=== PATIENT | female | born 1950 | race Caucasian/White ===

== ENCOUNTER 2017-03-14 16:35 | Inpatient (IN) | payer MEDICARE, OTHER ==
[~2017-03-14] VITALS: Ht 152.4 cm; Wt 37.4 kg
[2017-03-14 18:52] VITALS: BP 145/97
--- NOTE | 2017-03-14 21:50 | PDOC ---
Exam Kayden Demential Exam: Kayden Note: Please also refer to the separate dictated note~for this date of service dictated separately.~Patient seen individually. Discussed the patient with Nursing staff reviewed the chart.~Reviewed interim history and current functioning. Reviewed vital signs,~Labs/ Radiology~and current medications noted below. Continue current treatment with the changes noted in the dictated addendum note Assessment: Vital Signs: Vital Signs Date Time Temp Pulse Resp B/P (MAP) Pulse Ox O2 Delivery O2 Flow Rate FiO2 03/14/17 18:52 97.5 96 24 145/97 (113) 100 Diagnosis: Problems: (1) Anxiety disorder (2) Bipolar affective, mixed, sev w/ psych (3) Dementia, vascular, with depression (4) Dementia, vascular, with delusions (5) Dementia in Alzheimer's disease with depression (6) Dementia in Alzheimer's disease with delusions (7) Impulse control disorder MIRIAM BRASWELL MD Mar 14, 2017 21:50
[2017-03-14] MEDS ORDERED: POLY17PO5 PO (22:12)
[2017-03-14] MEDS ORDERED: GABA600T2 PO (22:12)
[2017-03-14] MEDS ORDERED: CHOL2000 PO (22:12)
[2017-03-14] MEDS ORDERED: BENZ1TAB5 PO ×2 (22:12→22:39)
[2017-03-14] MEDS ORDERED: LINA290C PO (22:12)
[2017-03-14] MEDS ORDERED: BUSP10TA PO (22:12)
[2017-03-14] MEDS ORDERED: ZIPR40CA2 PO (22:12)
[2017-03-14] MEDS ORDERED: PANT20TA58 PO (22:12)
[2017-03-14] MEDS ORDERED: SENN1TAB37 PO (22:12)
[2017-03-14] MEDS ORDERED: GLYC1SUP61 RC (22:12)
[2017-03-14] MEDS ORDERED: OMEG-33 PO (22:12)
[2017-03-14] MEDS ORDERED: GLYCERIN ADULT 1 SUPP.RECT. RC PRN (22:30)
[2017-03-14] MEDS ORDERED: HYDR-971 PO (22:39)
[2017-03-14] MEDS ORDERED: LACT10SO PO (22:39)
[2017-03-14] MEDS ORDERED: ACET325T9 PO (22:39)
[2017-03-14] MEDS ORDERED: MEGE400O4 PO (22:39)
[2017-03-14] MEDS ORDERED: OLAN10TA9 PO (22:39)
[2017-03-14] MEDS ORDERED: OMEP40CA5 PO (22:39)
[2017-03-14] MEDS: LACTULOSE 20 GM/30 ML SOLUTION. PO SCH (23:06)
[2017-03-14] MEDS: GABAPENTIN 300 MG CAPSULE. PO SCH (23:07)
[2017-03-14] MEDS: LINACLOTIDE 145 MCG CAPSULE. PO SCH (23:07)
[2017-03-14] MEDS: MEGESTROL 400 MG/10 ML ORAL.SUSP. PO SCH (23:07)
[2017-03-14] MEDS: busPIRone 10 MG TABLET. PO SCH (23:07)
[2017-03-14] MEDS: ZIPRASIDONE 40 MG CAPSULE. PO SCH (23:08)
[2017-03-14] MEDS: OLANZapine 10 MG TABLET PO SCH (23:08)
[2017-03-14] MEDS: SENNOSIDES/DOCUSATE 8.6/50MG TABLET. PO SCH (23:08)
[2017-03-14] MEDS: BENZTROPINE MESYLATE 1 MG TABLET PO SCH (23:08)
[2017-03-15] MEDS ORDERED: METHYL SALICYLATE/MENTHOL TOPICAL OINTMENT 29GM TUBE. TP PRN (01:15)
[2017-03-15] MEDS ORDERED: MAG HYDROX/AL HYDROX/SIMETH 30 ML ORAL.SUSP PO PRN (01:15)
[2017-03-15] MEDS ORDERED: MAGNESIUM HYDROXIDE 2,400 MG/30 ML ORAL.SUSP. PO PRN (01:15)
[2017-03-15] MEDS ORDERED: ACETAMINOPHEN 325 MG TABLET PO PRN (01:15)
[2017-03-15] MEDS: ACETAMINOPHEN 325 MG TABLET PO PRN ×2 (05:24→12:14)
[2017-03-15 06:22] VITALS: BP 136/89
[2017-03-15] MEDS: PANTOPRAZOLE 40 MG TABLET. PO SCH ×2 (07:30→08:13)
[2017-03-15 07:47] LABS: BILIRUBIN,URINE NEG (NEG); CLARITY,URINE CLOUDY; COLOR,URINE YELLOW; GLUCOSE,URINE NEG (NEG)
[2017-03-15 07:48] LABS: BACTERIA,URINE MANY /HPF (0-FEW); NITRITE,URINE NEG (NEG); SQUAMOUS EPITHELIAL CELL,UR OCC /LPF; UROBILINOGEN,URINE 0.2 mg/dL (0.2 mg/dL); WBC,URINE >40 /HPF (0-4)
[2017-03-15] MEDS: GABAPENTIN 300 MG CAPSULE. PO SCH ×2 (08:12→19:34)
[2017-03-15] MEDS: POLYETHYLENE GLYCOL 3350 17 GM PACKET. PO SCH (08:12)
[2017-03-15] MEDS: LACTULOSE 20 GM/30 ML SOLUTION. PO SCH ×2 (08:12→19:35)
[2017-03-15] MEDS: SENNOSIDES/DOCUSATE 8.6/50MG TABLET. PO SCH ×2 (08:12→19:34)
[2017-03-15] MEDS: BENZTROPINE MESYLATE 1 MG TABLET PO SCH ×3 (08:12→19:35)
[2017-03-15] MEDS: MEGESTROL 400 MG/10 ML ORAL.SUSP. PO SCH ×2 (08:12→19:35)
[2017-03-15] MEDS: busPIRone 10 MG TABLET. PO SCH ×3 (08:12→19:35)
[2017-03-15] MEDS: ZIPRASIDONE 40 MG CAPSULE. PO SCH ×2 (08:12→19:34)
[2017-03-15] MEDS: CHOLECALCIFEROL (VITAMIN D3) 1,000 UNIT TABLET PO SCH (08:12)
[2017-03-15] MEDS: OLANZapine 10 MG TABLET PO SCH ×3 (08:13→19:34)
[2017-03-15] MEDS: OMEGA-3 FATTY ACIDS/FISH OIL 1,000 MG CAPSULE. PO SCH (08:13)
[2017-03-15 10:09] LABS: ALBUMIN 3.4 g/dL (3.4-5.0); ALBUMIN/GLOBULIN RATIO 0.9 (1.0-1.7); CALCIUM 9.7 mg/dL (8.5-10.1); CREATININE 1.4 mg/dL (0.6-1.0); GFR 37.7; POTASSIUM 3.3 mmol/L (3.5-5.1); TOTAL BILIRUBIN 0.3 mg/dL (0.2-1.0); TOTAL PROTEIN 7.3 g/dL (6.4-8.2)
[2017-03-15 10:25] LABS: BASO % 1 % (0-3); EOS % 0 % (0-3); HEMATOCRIT 40.6 % (36.0-47.0); HEMOGLOBIN 13.5 g/dL (12.0-15.5); LYMPH # 0.9 x10^3/uL (1.0-4.8); LYMPH % 9 % (24-48); MEAN CORPUSCULAR HEMOGLOBIN 32 pg (25-35); MEAN CORPUSCULAR HGB CONC 33 g/dL (31-37); MEAN CORPUSCULAR VOLUME 96 fL (79-100); MONO # 0.5 x10^3/uL (0.0-1.1); MONO % 5 % (0-9); NEUT # 9.4 x10^3uL (1.8-7.7); NEUT % 86 % (31-73); PLATELET COUNT 230 x10^3/uL (140-400); RED BLOOD COUNT 4.21 x10^6/uL (3.50-5.40); RED CELL DISTRIBUTION WIDTH 15.5 % (11.5-14.5); WHITE BLOOD COUNT 10.9 x10^3/uL (4.0-11.0)
--- NOTE | 2017-03-15 12:23 | HP ---
ADMIT DATE: 03/14/2017 This is a late entry, date of service 03/14 covers elements not covered in my initial note of 03/14. SUBJECTIVE: I met with the patient evening of 03/14. Discussed with nursing staff, reviewed the chart. I had previously discussed the patient with the nursing staff several times to gather historical information from [facility] where the patient was admitted on 02/23. I also reviewed the psychiatric consult completed at [facility] recommending transfer to Geriatric Psychiatry Unit for her increased confusion, symptoms of bipolar disorder, psychosis and a failure of outpatient psychiatric interventions. CHIEF COMPLAINT: "Have bipolar." It is very difficult to understand the patient as his speech is pressured. She is somewhat rambling, babbling with a combination of nonverbal communication and head and neck gestures along with some of her verbalizations I was able to make out some of what is reflected in the history below. HISTORY OF PRESENT ILLNESS: The patient reportedly has a long history of bipolar 1 disorder, mixed with psychotic features and schizophrenia. She has been getting progressively more confused and demented. Reportedly, she fell running up her stairs at home on 02/23, resulted in her right humerus fracture. She was admitted to [facility] and after she was medically and orthopedically stabilized, she continued to be extremely disorganized, babbling, nonsensical in her speech, very impulsive disoriented, needing psychiatric stabilization and then perhaps a placement. No active suicidal or homicidal ideation. She has had sleep and appetite changes. PAST PSYCHIATRIC HISTORY: As above. She has been at [facility] in the past, date unknown. At [facility], she had neuropsychological testing, which was reflective of possible pseudodementia. She has also been an inpatient on the psychiatric facility at [facility]. MEDICAL HISTORY: Positive for status post fracture right humerus, chronic constipation, GERD, hyperlipidemia, urinary retention. She refuses to wear dentures. ALLERGIES: Benzodiazepines Ambien, Requip, diphenhydramine, Ativan, Valium. CODE STATUS: DNR. DIET: Dysphagia 2 with ground meat, thin liquids. Takes medication whole in applesauce. Ambulates wheelchair to person transfer with ambulation. CURRENT PSYCHOTROPICS: EMRAD was reviewed. She is currently on Cogentin 1 mg 3 times a day, BuSpar 10 mg 3 times a day, Neurontin 600 mg b.i.d., Geodon 40 mg twice a day. FAMILY HISTORY: Noncontributory. SOCIAL HISTORY: No history of alcohol or drug abuse, physical, sexual or elder abuse. She is not known to be a perpetrator. MENTAL STATUS EXAMINATION: The patient was seen individually evening of 03/14. She is oriented to herself, anxious, restless, difficult to understand, babbling in her speech. Insight, judgment, recent and remote memory, attention, concentration, fund of knowledge poor, consistent with her diagnosis. No active suicidal or homicidal ideation. REVIEW OF SYSTEMS: No CV, , pulmonary, eye, ENT system symptoms on review. Reliability poor. Gait unsteady as noted above. IMPRESSION: Schizoaffective disorder, bipolar type, mixed with psychotic features; major neurocognitive disorder; Alzheimer, vascular with depression, delusion, behavioral disturbance; anxiety disorder, unspecified; impulse control disorder, unspecified. Rest as above. PLAN: Admit to the geropsychiatry unit at [facility]. I will see the patient daily individually from a psychiatric standpoint. Medical followup per Dr. Ruiz/Dr. Inman. Continue current psychotropics. Observe the patient's baseline, then adjust as clinically indicated. Consider adding a mood stabilizer, perhaps Depakote and we will also request past records from [place] and [place]. MAN Kathleen BRASWELL MD DR: ANAM/aly JOB#: [id number] / [id number]
[2017-03-15 15:10] LABS: THYROID STIM HORMONE (TSH) 0.939 uIU/mL (0.358-3.740)
[2017-03-15 16:38] VITALS: BP 116/78
[2017-03-15] MEDS: POTASSIUM CL 40MEQ IN D5W 1,000 ML IV SCH (16:45)
--- NOTE | 2017-03-15 17:34 | RAD ---
CT abdomen and pelvis without contrast Indication:CHRONIC CONSTIPATION, URINARY RETENSION, IMPAIRED KIDNEY FUNCTION
NO CONTRAST PER ORDER
NO PRIORS. . Technique: Contiguous axial images are obtained through the abdomen and pelvis. No intravenous or oral contrast per request. Multiplanar reformatted images obtained. Exposure: One or more of the following individualized dose reduction techniques were utilized for this examination: 1. Automated exposure control 2. Adjustment of the mA and/or kV according to patient size 3. Use of iterative reconstruction technique. Comparison:None are available Findings: Urinary tracts: No evidence of hydronephrosis. Ureters are difficult to follow due to the lack of much surrounding fat but no obvious dilatation or obstructive calculus. Evaluation of solid viscera, bowel and vasculature is compromised by the noncontrast technique. In addition, the patient's arms are at the side which result in artifact, as does some patient motion. Lower thorax: Focal pulmonary opacity in the posterior right lung base, measuring about 3 cm diameter. Smaller pleural-based areas of density are also seen in the posterior left lung base. These are located inferiorly along the costophrenic angle. Mild coronary calcification is seen. Pneumoperitoneum: No definite gross pneumoperitoneum. Liver, spleen and pancreas: Obscured by artifact. No obvious abnormalities. Kidneys: Low-density lesion of the lower pole the right kidney measures 4 cm diameter, and measures 12 Hounsfield units, compatible with a cyst. Adrenals:No evidence of mass. Gallbladder: Distended. No evidence of calcified stone. Aorta: Nonaneurysmal. Lymph nodes: No significant enlargement GI tract: Severe distention of colon and rectum with gas and stool. No obvious acute pericolonic inflammatory type changes, although detection could be difficult due to the lack of much surrounding fat. There is mild rectal wall thickening. No evidence of significant small bowel dilatation. Appendix: Not clearly visualized. Ascites: No gross ascites. Urinary bladder: Moderately distended with urine. Small calcification in the uterus. This may represent a fibroid. Bones: Degenerative spondylosis. Severe loss of disc height L4-L5 with mild anterior subluxation of L4 on L5. Spinal and neural foraminal stenosis of the lower lumbar spine, greatest at L4-L5. IMPRESSION: 1. Findings compatible with severe constipation and colonic ileus. Mild rectal wall thickening, is nonspecific, could indicate mass, versus inflammatory or infectious thickening. 2. Abnormal opacities identified in both lung bases. These may be of inflammatory or infectious etiology, but neoplastic etiology not excludable. Recommend short-term follow-up with CT chest after treatment. 3. Gallbladder is distended. No evidence of calcified stone. Electronically signed by: Clarence Iverson MD (03/15/2017 5:30 PM) [facility]
[2017-03-15] MEDS ORDERED: SODIUM PHOSPHATES 19/7GM 133 ML ENEMA. PR PRN (19:00)
[2017-03-15 19:12] LABS: T3 TOTAL 75 ng/dL (71-180); THYROXINE 9.7 ug/dL (4.5-12.0)
[2017-03-15] MEDS: BISACODYL 10 MG SUPP.RECT PR PRN (19:16)
[2017-03-15] MEDS: LINACLOTIDE 145 MCG CAPSULE. PO SCH (19:36)
[2017-03-15] MEDS ORDERED: BENZTROPINE MESYLATE 1 MG TABLET PO SCH (21:00)
--- NOTE | 2017-03-15 21:52 | PDOC ---
Exam Kayden Demential Exam: Kayden Note: Please also refer to the separate dictated note~for this date of service dictated separately.~Patient seen individually. Discussed the patient with Nursing staff reviewed the chart.~Reviewed interim history and current functioning. Reviewed vital signs,~Labs/ Radiology~and current medications noted below. Continue current treatment with the changes noted in the dictated addendum note Assessment: Vital Signs: Vital Signs Date Time Temp Pulse Resp B/P (MAP) Pulse Ox O2 Delivery O2 Flow Rate FiO2 03/15/17 16:38 98.5 81 18 116/78 (91) 98 Room Air I&O Intake and Output 03/16/17 07:00 Intake Total 1020 ml Balance 1020 ml Intake Oral 1020 ml Labs: Laboratory Tests Test 03/15/17 06:30 03/15/17 09:27 Urine Collection Type U cath Urine Color Yellow Urine Clarity Cloudy Urine pH 6.0 Urine Specific [place] 1.015 Urine Protein 30 mg/dl (NEG-TRACE) Urine Glucose (UA) Neg mg/dL (NEG) Urine Ketones (Stick) Trace mg/dL (NEG) Urine Blood Large (NEG) Urine Nitrite Neg (NEG) Urine Bilirubin Neg (NEG) Urine Urobilinogen Dipstick 0.2 mg/dL (0.2 mg/dL) Urine Leukocyte Esterase Mod (NEG) Urine RBC 6-10 /HPF (0-2) Urine WBC >40 /HPF (0-4) Urine Squamous Epithelial Cells Occ /LPF Urine Bacteria Many /HPF (0-FEW) White Blood Count 10.9 x10^3/uL (4.0-11.0) Red Blood Count 4.21 x10^6/uL (3.50-5.40) Hemoglobin 13.5 g/dL (12.0-15.5) Hematocrit 40.6 % (36.0-47.0) Mean Corpuscular Volume 96 fL (79-100) Mean Corpuscular Hemoglobin 32 pg (25-35) Mean Corpuscular Hemoglobin Concent 33 g/dL (31-37) Red Cell Distribution Width 15.5 % (11.5-14.5) H Platelet Count 230 x10^3/uL (140-400) Neutrophils (%) (Auto) 86 % (31-73) H Lymphocytes (%) (Auto) 9 % (24-48) L Monocytes (%) (Auto) 5 % (0-9) Eosinophils (%) (Auto) 0 % (0-3) Basophils (%) (Auto) 1 % (0-3) Neutrophils # (Auto) 9.4 x10^3uL (1.8-7.7) H Lymphocytes # (Auto) 0.9 x10^3/uL (1.0-4.8) L Monocytes # (Auto) 0.5 x10^3/uL (0.0-1.1) Eosinophils # (Auto) 0.0 x10^3/uL (0.0-0.7) Basophils # (Auto) 0.0 x10^3/uL (0.0-0.2) Sodium Level 149 mmol/L (136-145) H Potassium Level 3.3 mmol/L (3.5-5.1) L Chloride Level 114 mmol/L (98-107) H Carbon Dioxide Level 16 mmol/L (21-32) L Anion Gap 19 (6-14) H Blood Urea Nitrogen 34 mg/dL (7-20) H Creatinine 1.4 mg/dL (0.6-1.0) H Estimated GFR (Cockcroft-Gault) 37.7 BUN/Creatinine Ratio 24 (6-20) H Glucose Level 150 mg/dL (70-99) H Calcium Level 9.7 mg/dL (8.5-10.1) Iron Level 52 ug/dL (50-170) Total Iron Binding Capacity 265 ug/dL (250-450) Iron Saturation 20 % (15-34) Total Bilirubin 0.3 mg/dL (0.2-1.0) Aspartate Amino Transferase (AST) 20 U/L (15-37) Alanine Aminotransferase (ALT) 30 U/L (14-59) Alkaline Phosphatase 161 U/L (46-116) H Total Protein 7.3 g/dL (6.4-8.2) Albumin 3.4 g/dL (3.4-5.0) Albumin/Globulin Ratio 0.9 (1.0-1.7) L Triglycerides Level 91 mg/dL (0-150) Cholesterol Level 228 mg/dL (0-200) H LDL Cholesterol, Calculated 165 mg/dL (0-100) H VLDL Cholesterol, Calculated 18 mg/dL (0-40) Non-HDL Cholesterol Calculated 183 mg/dL (0-129) H HDL Cholesterol 45 mg/dL (40-60) Cholesterol/HDL Ratio 5.0 Vitamin B12 Level 977 pg/mL (247-911) H 25-Hydroxy Vitamin D Total Pending Thyroid Stimulating Hormone (TSH) 0.939 uIU/mL (0.358-3.740) Thyroxine (T4) 9.7 ug/dL (4.5-12.0) Total Triiodothyronine (TT3) 75 ng/dL (71-180) RPR Titer Additional Testing Pending Current Medications: Meds: Current Medications Benztropine Mesylate (Cogentin) 1 mg TID PO Last administered on 03/15/17 19: 35; Start 03/14/17 at 22:30 Buspirone HCl (Buspar) 10 mg TID PO Last administered on 03/15/17 19:35; Start 03/14/17 at 22:30 Ziprasidone (Geodon) 40 mg BID PO Last administered on 03/15/17 19:34; Start 03/14/17 at 22:30 Glycerin (Sani-Supp Adult) 1 supp PRN DAILY PRN RC CONSTIPATION; Start at 22:30 Pantoprazole Sodium (Protonix) 40 mg DAILYAC PO Last administered on 03/15/17 08:13; Start 03/15/17 at 07:30 Polyethylene Glycol (miraLAX) 17 gm DAILY PO Last administered on 03/15/17 08: 12; Start 03/15/17 at 09:00 Senna/Docusate Sodium (Senna Plus) 1 tab BID PO Last administered on 03/15/17 19:34; Start 03/14/17 at 22:30 Vitamin D (Vitamin D3) 2,000 unit DAILY PO Last administered on 03/15/17 08:12 ; Start 03/15/17 at 09:00 Gabapentin (Neurontin) 600 mg BID PO Last administered on 03/15/17 19:34; Start 03/14/17 at 22:30 Non-Formulary Medication 290 mcg HS PO ; Start 03/15/17 at 21:00; Status UNV Fish Oil (Fish Oil) 1,000 mg DAILY PO Last administered on 03/15/17 08:13; Start 03/15/17 at 09:00 Benztropine Mesylate (Cogentin) 1 mg HS PO ; Start 03/15/17 at 21:00; Stop 03/15 at 21:00; Status DC Olanzapine (ZyPREXA) 10 mg TID PO Last administered on 03/15/17 19:34; Start 03/14/17 at 23:00 Acetaminophen (Tylenol) 650 mg PRN Q4HRS PRN PO PAIN / TEMP Last administered on 03/15/17 12:14; Start 03/14/17 at 22:45 Acetaminophen/ Hydrocodone Bitart (Lortab 5/325) 1 tab PRN Q6HRS PRN PO PAIN; Start 03/14/17 at 22:45 Megestrol Acetate (Megace) 400 mg BID PO Last administered on 03/15/17 19:35; Start 03/14/17 at 23:00 Lactulose 20 gm BID PO Last administered on 03/15/17 19:35; Start 03/14/17 at 23:00 Pantoprazole Sodium (Protonix) 40 mg DAILYAC PO ; Start 03/15/17 at 07:30 Acetaminophen (Tylenol) 650 mg PRN Q6HRS PRN PO PAIN / TEMP; Start 03/15/17 at 01:15 Multi-Ingredient Ointment (Analgesic [place]) 1 landon PRN QID PRN TP MUSCLE PAIN; Start 03/15/17 at 01:15 Al Hydroxide/Mg Hydroxide (Mylanta Plus Xs) 15 ml PRN AFTMEALHC PRN PO DYSPEPSIA; Start 03/15/17 at 01:15 Magnesium Hydroxide (Milk Of Magnesia) 2,400 mg PRN QHS PRN PO CONSTIPATION; Start 03/15/17 at 01:15 Potassium Chloride/Dextrose 1,000 ml @ 75 mls/hr [id number] IV Last administered on 03/15/17 16:45; Start 03/15/17 at 16:45 Divalproex Sodium (Depakote Sprinkles) 125 mg BID92 PO ; Start 03/16/17 at 09:00 Bisacodyl (Dulcolax Supp) 10 mg PRN DAILY PRN LA CONSTIPATION Last administered on 03/15/17 19:16; Start 03/15/17 at 19:00 Sodium Biphosphate/ Sodium Phosphate (Fleet Adult) 133 ml PRN DAILY PRN LA CONSTIPATION; Start 03/15/17 at 19:00 Active Scripts Active Reported Omeprazole 40 Mg Capsule.dr 40 Mg PO DAILY Olanzapine 10 Mg Tablet 10 Mg PO TID Megestrol Acetate 400 Mg/10 Ml Oral.susp 400 Mg PO BID Lactulose 10 Gm/15 Ml Solution 30 Ml PO BID Hold if no longer constipated [place] 5-325 Tablet (Hydrocodone Bit/Acetaminophen) 1 Each Tablet 1 Tab PO PRN Q6HRS PRN Tylenol (Acetaminophen) 325 Mg Tablet 650 Mg PO PRN Q4HRS PRN Benztropine Mesylate 1 Mg Tablet 1 Mg PO HS Suppository (Glycerin) 1 Each Supp.rect 1 Each RC PRN DAILY PRN Geodon (Ziprasidone Hcl) 40 Mg Capsule 40 Mg PO BID Sennosides-Docusate Sodium Tab (Sennosides/Docusate Sodium) 1 Each Tablet 1 Each PO BID Miralax (Polyethylene Glycol 3350) 17 Gm Powd.pack 17 Gm PO DAILY Protonix (Pantoprazole Sodium) 20 Mg Tablet.dr 20 Mg PO BID [place] 3 1,000 Mg Softgel ([place]-3 Fatty Acids/Fish Oil) 1 Each Capsule 1 Each PO DAILY Linzess (Linaclotide) 290 Mcg Capsule 290 Mcg PO HS Gabapentin 600 Mg Tablet 600 Mg PO BID Vitamin D (Cholecalciferol (Vitamin D3)) 2,000 Unit Capsule 2,000 Unit PO DAILY Buspirone Hcl 10 Mg Tablet 10 Mg PO TID Benztropine Mesylate 1 Mg Tablet 1 Mg PO TID Diagnosis: Problems: (1) Anxiety disorder (2) Bipolar affective, mixed, sev w/ psych (3) Dementia, vascular, with depression (4) Dementia, vascular, with delusions (5) Dementia in Alzheimer's disease with depression (6) Dementia in Alzheimer's disease with delusions (7) Impulse control disorder MIRIAM BRASWELL MD Mar 15, 2017 21:52
[2017-03-16] MEDS: POTASSIUM CL 40MEQ IN D5W 1,000 ML IV SCH ×2 (02:32→19:24)
[2017-03-16 04:12] LABS: HEMOGLOBIN A1C 4.8 % (4.8-5.6)
[2017-03-16 06:50] VITALS: BP 119/81
--- NOTE | 2017-03-16 06:59 | CONS ---
DATE OF CONSULTATION: REASON FOR CONSULTATION: Medical management. HISTORY OF PRESENT ILLNESS: The patient is a 67-year-old female patient who was transferred from [facility] where she was admitted for right humeral fracture. She was evaluated there and not medically stabilized, however, she continued to be extremely disorganized, babbling nonsensical in her speech, very impulsive, disoriented, needing psychiatric stabilization and then perhaps replacement. PAST MEDICAL HISTORY: Significant for chronic constipation, gastroesophageal reflux disease, hyperlipidemia, urinary retention and recent fall with fracture of right humerus, treated conservatively. PAST PSYCHIATRIC HISTORY: Significant for bipolar disorder, mixed with psychotic features and schizophrenia. PAST SURGICAL HISTORY: Unremarkable. ALLERGIES: She is allergic to BENZODIAZEPINES, AMBIEN, REQUIP, DIPHENHYDRAMINE, ATIVAN AND VALIUM. MEDICATIONS: She is currently on following medications: She is on Tylenol 650 mg every 4 hours, benztropine mesylate 1 mg 3 times a day, benztropine 1 mg at bedtime, buspirone 10 mg 3 times a day, cholecalciferol 2000 international units once a day, gabapentin 600 mg twice a day. She is on hydrocodone/APAP 5/325 one tablet every 6 hours, lactulose 30 mL p.o. b.i.d. for constipation, Linaclotide (Linzess) 290 mcg p.o. at bedtime. She is on Megace 400 mg twice a day, olanzapine 10 mg 3 times a day, omega-3 fatty acid 1000 mg soft gel daily, omeprazole 40 mg daily, Protonix 20 mg p.o. b.i.d., polyethylene glycol 17 grams daily, Senna-S 1 tablet p.o. b.i.d. and ziprasidone 40 mg twice a day. FAMILY HISTORY: Noncontributory. SOCIAL HISTORY: She used to live with her daughter. She apparently does not smoke, drink alcohol or use any recreational drugs. PHYSICAL EXAMINATION: GENERAL: When I examined her, she was resting, slightly propped up in bed, in no apparent respiratory distress. She was pale, cachectic, but no jaundice, cyanosis, or thyromegaly. No jugular venous distention. No limb edema. VITAL SIGNS: Her heart rate was 102, blood pressure was 136/89, temperature was 98.2, respiratory rate 22, and oxygen saturation was 100% on room air. HEENT: Normocephalic, atraumatic. NECK: Supple. HEART: Showed normal first and second heart sounds with no gallop, rub or murmur. CHEST: Clear to auscultation. No crepitation or rhonchi. ABDOMEN: Distended, soft, nontender. No guarding or rigidity. No organomegaly. Hernial orifices intact. Bowel sounds normal. NEUROLOGIC: She was awake, alert, responding appropriately. Cranial nerves intact. EXTREMITIES: She moves her extremities without difficulty except right upper extremity, which is in a splint. LABORATORY DATA: Showed that her serum sodium was high at 149, potassium low at 3.3. Her serum chloride was 114, bicarbonate 16 and anion gap of 19. BUN 34, creatinine 1.4, estimated GFR was 37 mL per minute. Her glucose 150, calcium was 9.7. Serum iron was 52, TIBC was 265, percent saturation was 20. Total bilirubin, AST, ALT were normal. Alkaline phosphatase slightly elevated. Total protein was 7.3, albumin 3.4. Her triglycerides were 91, total cholesterol 228, LDL cholesterol was 165, VLDL was 18, and HDL cholesterol was 45, the ratio was 5. Her serum vitamin B12 was 977 pg/mL. Her TSH was 0.939. Her white cell count was 10,900, hemoglobin 13.5, hematocrit 40.6, MCV 96, and platelet count 230,000 with normal manual differential. Her urinalysis showed the urine was yellow, cloudy with a pH of 6, specific gravity of 1.015. There was small amount of protein, negative for glucose, trace of ketones, large amount of blood. The urine was negative for nitrite. There was moderate amount of leukocyte esterase. There are 6-10 rbc's and more than 40 wbc's and too many bacteria. IMPRESSION: In summary, this is a 67-year-old female patient who was transferred from [facility] where she was admitted after a fall sustaining right humeral fracture, treated conservatively. Other than her bipolar disorder with schizophrenia, she has multiple abnormalities in her labs including chronic kidney disease, high anion gap metabolic acidosis, hyponatremia, hypokalemia. She also has obviously hyperlipidemia. Urinalysis showed the urine was positive for leukocyte esterase. There were more than 40 wbc's and many bacteria. The patient obviously extremely dehydrated, hyponatremic, hypokalemic. I am wondering whether starting on IV fluid in the form of D5W with potassium chloride must be a solution and placing a Gatica catheter for continuous drainage. Thank you Dr. Garcia for allowing me to participate in the care of this patient. SHARA MURGUIA MD DR: MALLIKA/aly JOB#: [id number] / [id number]
[2017-03-16 07:16] LABS: ALBUMIN 2.9 g/dL (3.4-5.0); ALBUMIN/GLOBULIN RATIO 0.9 (1.0-1.7); CALCIUM 8.9 mg/dL (8.5-10.1); CREATININE 1.1 mg/dL (0.6-1.0); GFR 49.8; POTASSIUM 3.7 mmol/L (3.5-5.1); TOTAL BILIRUBIN 0.4 mg/dL (0.2-1.0); TOTAL PROTEIN 6.3 g/dL (6.4-8.2)
[2017-03-16] MEDS: PANTOPRAZOLE 40 MG TABLET. PO SCH ×2 (07:30→08:40)
[2017-03-16] MEDS: GABAPENTIN 300 MG CAPSULE. PO SCH ×2 (08:39→19:30)
[2017-03-16] MEDS: LACTULOSE 20 GM/30 ML SOLUTION. PO SCH ×2 (08:39→19:31)
[2017-03-16] MEDS: BENZTROPINE MESYLATE 1 MG TABLET PO SCH ×2 (08:39→19:34)
[2017-03-16] MEDS: SENNOSIDES/DOCUSATE 8.6/50MG TABLET. PO SCH ×2 (08:39→19:31)
[2017-03-16] MEDS: OLANZapine 10 MG TABLET PO SCH (08:39)
[2017-03-16] MEDS: CHOLECALCIFEROL (VITAMIN D3) 1,000 UNIT TABLET PO SCH (08:39)
[2017-03-16] MEDS: OMEGA-3 FATTY ACIDS/FISH OIL 1,000 MG CAPSULE. PO SCH (08:39)
[2017-03-16] MEDS: POLYETHYLENE GLYCOL 3350 17 GM PACKET. PO SCH (08:40)
[2017-03-16] MEDS: busPIRone 10 MG TABLET. PO SCH (08:40)
[2017-03-16] MEDS: ZIPRASIDONE 40 MG CAPSULE. PO SCH ×2 (08:40→19:31)
[2017-03-16] MEDS: MEGESTROL 400 MG/10 ML ORAL.SUSP. PO SCH ×2 (08:41→21:00)
[2017-03-16] MEDS: DIVALPROEX 125 MG CAP.SPRINK PO SCH ×2 (08:41→14:39)
[2017-03-16 15:48] VITALS: BP 130/78
[2017-03-16] MEDS ORDERED: ENOXAPARIN 30 MG/0.3 ML DISP.SYRIN. SQ SCH (18:00)
[2017-03-16] MEDS: LINACLOTIDE 145 MCG CAPSULE. PO SCH (19:33)
[2017-03-16] MEDS: HYDROcodone/APAP 5/325MG 1 TAB TABLET PO PRN (20:54)
[2017-03-17 06:20] VITALS: BP 130/85
[2017-03-17] MEDS: SENNOSIDES/DOCUSATE 8.6/50MG TABLET. PO SCH ×2 (08:01→19:38)
[2017-03-17] MEDS: CHOLECALCIFEROL (VITAMIN D3) 1,000 UNIT TABLET PO SCH (08:01)
[2017-03-17] MEDS: ZIPRASIDONE 40 MG CAPSULE. PO SCH (08:01)
[2017-03-17] MEDS: DIVALPROEX 125 MG CAP.SPRINK PO SCH ×2 (08:01→13:30)
[2017-03-17] MEDS: BENZTROPINE MESYLATE 1 MG TABLET PO SCH ×2 (08:01→19:38)
[2017-03-17] MEDS: OMEGA-3 FATTY ACIDS/FISH OIL 1,000 MG CAPSULE. PO SCH (08:01)
[2017-03-17] MEDS: POLYETHYLENE GLYCOL 3350 17 GM PACKET. PO SCH (08:01)
[2017-03-17] MEDS: LACTULOSE 20 GM/30 ML SOLUTION. PO SCH ×2 (08:01→19:37)
[2017-03-17] MEDS: PANTOPRAZOLE 40 MG TABLET. PO SCH (08:02)
[2017-03-17] MEDS: GABAPENTIN 300 MG CAPSULE. PO SCH ×2 (08:02→19:38)
[2017-03-17] MEDS: MEGESTROL 400 MG/10 ML ORAL.SUSP. PO SCH ×2 (08:04→13:30)
[2017-03-17] MEDS: ENOXAPARIN 30 MG/0.3 ML DISP.SYRIN. SQ SCH (08:05)
[2017-03-17] MEDS: POTASSIUM CL 40MEQ IN D5W 1,000 ML IV SCH ×2 (08:33→22:08)
[2017-03-17 16:43] VITALS: BP 141/84
[2017-03-17] MEDS: ZIPRASIDONE 60 MG CAPSULE. PO SCH (19:40)
[2017-03-17] MEDS: LINACLOTIDE 145 MCG CAPSULE. PO SCH (19:41)
[2017-03-17] MEDS: SMZ/TMP 400/80MG TABLET. PO SCH (19:50)
--- NOTE | 2017-03-17 20:15 | PDOC ---
Exam Note: Kayden Note: Please also refer to the separate dictated note~for this date of service dictated separately.~Patient seen individually. Discussed the patient with Nursing staff reviewed the chart.~Reviewed interim history and current functioning. Reviewed vital signs,~Labs/ Radiology~and current medications noted below. Continue current treatment with the changes noted in the dictated addendum note Assessment: Vital Signs: Vital Signs Date Time Temp Pulse Resp B/P (MAP) Pulse Ox O2 Delivery O2 Flow Rate FiO2 03/17/17 16:43 99.1 96 22 141/84 (103) 98 03/16/17 21:54 Room Air I&O Intake and Output 03/18/17 07:00 Intake Total 2915 ml Balance 2915 ml Intake Oral 1915 ml IV Total 1000 ml # Bowel Movements 1 Current Medications: Meds: Current Medications Benztropine Mesylate (Cogentin) 1 mg TID PO Last administered on 03/16/17 08: 39; Start 03/14/17 at 22:30; Stop 03/16/17 at 11:57; Status DC Buspirone HCl (Buspar) 10 mg TID PO Last administered on 03/16/17 08:40; Start 03/14/17 at 22:30; Stop 03/16/17 at 11:57; Status DC Ziprasidone (Geodon) 40 mg BID PO Last administered on 03/17/17 08:01; Start 03/14/17 at 22:30; Stop 03/17/17 at 18:48; Status DC Glycerin (Sani-Supp Adult) 1 supp PRN DAILY PRN [place] CONSTIPATION; Start at 22:30 Pantoprazole Sodium (Protonix) 40 mg DAILYAC PO Last administered on 08:02; Start 03/15/17 at 07:30 Polyethylene Glycol (miraLAX) 17 gm DAILY PO Last administered on 03/17/17 08 :01; Start 03/15/17 at 09:00 Senna/Docusate Sodium (Senna Plus) 1 tab BID PO Last administered on 19:38; Start 03/14/17 at 22:30 Vitamin D (Vitamin D3) 2,000 unit DAILY PO Last administered on 03/17/17 08: 01; Start 03/15/17 at 09:00 Gabapentin (Neurontin) 600 mg BID PO Last administered on 03/17/17 19:38; Start 03/14/17 at 22:30 Non-Formulary Medication 290 mcg HS PO ; Start 03/15/17 at 21:00; Status UNV Fish Oil (Fish Oil) 1,000 mg DAILY PO Last administered on 03/17/17 08:01; Start 03/15/17 at 09:00 Benztropine Mesylate (Cogentin) 1 mg HS PO ; Start 03/15/17 at 21:00; Stop 03/15 at 21:00; Status DC Olanzapine (ZyPREXA) 10 mg TID PO Last administered on 03/16/17 08:39; Start 03/14/17 at 23:00; Stop 03/16/17 at 11:57; Status DC Acetaminophen (Tylenol) 650 mg PRN Q4HRS PRN PO PAIN / TEMP Last administered on 03/15/17 12:14; Start 03/14/17 at 22:45 Acetaminophen/ Hydrocodone Bitart (Lortab 5/325) 1 tab PRN Q6HRS PRN PO PAIN Last administered on 03/16/17 20:54; Start 03/14/17 at 22:45 Megestrol Acetate (Megace) 400 mg BID PO Last administered on 03/16/17 08:41; Start 03/14/17 at 23:00; Stop 03/16/17 at 21:03; Status DC Lactulose 20 gm BID PO Last administered on 03/17/17 19:37; Start 03/14/17 at 23:00 Pantoprazole Sodium (Protonix) 40 mg DAILYAC PO ; Start 03/15/17 at 07:30; Stop 03/16/17 at 19:39; Status DC Acetaminophen (Tylenol) 650 mg PRN Q6HRS PRN PO PAIN / TEMP; Start 03/15/17 at 01:15 Multi-Ingredient Ointment (Analgesic [place]) 1 landon PRN QID PRN TP MUSCLE PAIN; Start 03/15/17 at 01:15 Al Hydroxide/Mg Hydroxide (Mylanta Plus Xs) 15 ml PRN AFTMEALHC PRN PO DYSPEPSIA; Start 03/15/17 at 01:15 Magnesium Hydroxide (Milk Of Magnesia) 2,400 mg PRN QHS PRN PO CONSTIPATION; Start 03/15/17 at 01:15 Potassium Chloride/Dextrose 1,000 ml @ 75 mls/hr [id number] IV Last administered on 03/17/17 08:33; Start 03/15/17 at 16:45 Divalproex Sodium (Depakote Sprinkles) 125 mg BID92 PO Last administered on 13:30; Start 03/16/17 at 09:00 Bisacodyl (Dulcolax Supp) 10 mg PRN DAILY PRN [place] CONSTIPATION Last administered on 03/15/17 19:16; Start 03/15/17 at 19:00 Sodium Biphosphate/ Sodium Phosphate (Fleet Adult) 133 ml PRN DAILY PRN [place] CONSTIPATION Last administered on 03/16/17 05:09; Start 03/15/17 at 19:00 Benztropine Mesylate (Cogentin) 1 mg BID PO Last administered on 03/17/17 19: 38; Start 03/16/17 at 21:00; Stop 03/18/17 at 23:00 Benztropine Mesylate (Cogentin) 1 mg DAILY PO ; Start 03/19/17 at 09:00; Stop 03/21/17 at 12:00 Enoxaparin Sodium (Lovenox) 30 mg Q24H SQ ; Start 03/16/17 at 18:00; Stop at 18:29; Status DC Enoxaparin Sodium (Lovenox) 30 mg Q24H SQ Last administered on 03/17/17 08:05 ; Start 03/17/17 at 09:00 Megestrol Acetate (Megace) 400 mg BID92 PO Last administered on 03/17/17 13: 30; Start 03/17/17 at 09:00 Trimethoprim/ Sulfamethoxazole (Bactrim Ss) 1 tab BID PO Last administered on 03/17/17 19:50; Start 03/17/17 at 21:00; Stop 03/25/17 at 20:59 Ziprasidone (Geodon) 60 mg BID PO Last administered on 03/17/17 19:40; Start 03/17/17 at 21:00 Active Scripts Active Reported Omeprazole 40 Mg Capsule.dr 40 Mg PO DAILY Olanzapine 10 Mg Tablet 10 Mg PO TID Megestrol Acetate 400 Mg/10 Ml Oral.susp 400 Mg PO BID Lactulose 10 Gm/15 Ml Solution 30 Ml PO BID Hold if no longer constipated [place] 5-325 Tablet (Hydrocodone Bit/Acetaminophen) 1 Each Tablet 1 Tab PO PRN Q6HRS PRN Tylenol (Acetaminophen) 325 Mg Tablet 650 Mg PO PRN Q4HRS PRN Benztropine Mesylate 1 Mg Tablet 1 Mg PO HS Suppository (Glycerin) 1 Each Supp.rect 1 Each RC PRN DAILY PRN Geodon (Ziprasidone Hcl) 40 Mg Capsule 40 Mg PO BID Sennosides-Docusate Sodium Tab (Sennosides/Docusate Sodium) 1 Each Tablet 1 Each PO BID Miralax (Polyethylene Glycol 3350) 17 Gm Powd.pack 17 Gm PO DAILY Protonix (Pantoprazole Sodium) 20 Mg Tablet.dr 20 Mg PO BID [place] 3 1,000 Mg Softgel ([place]-3 Fatty Acids/Fish Oil) 1 Each Capsule 1 Each PO DAILY Linzess (Linaclotide) 290 Mcg Capsule 290 Mcg PO HS Gabapentin 600 Mg Tablet 600 Mg PO BID Vitamin D (Cholecalciferol (Vitamin D3)) 2,000 Unit Capsule 2,000 Unit PO DAILY Buspirone Hcl 10 Mg Tablet 10 Mg PO TID Benztropine Mesylate 1 Mg Tablet 1 Mg PO TID I have reviewed the current psychotropics carefully including drug interactions. Risk benefit ratio favors no change other than as noted in my dictated progress note. Diagnosis: Problems: (1) Anxiety disorder (2) Bipolar affective, mixed, sev w/ psych (3) Dementia, vascular, with depression (4) Dementia, vascular, with delusions (5) Dementia in Alzheimer's disease with depression (6) Dementia in Alzheimer's disease with delusions (7) Impulse control disorder MIRIAM BRASWELL MD Mar 17, 2017 20:15
[2017-03-17] MEDS: HYDROcodone/APAP 5/325MG 1 TAB TABLET PO PRN (21:49)
[2017-03-18 06:08] VITALS: BP 114/74
--- NOTE | 2017-03-18 06:59 | PN ---
DATE: 03/15/2017 This late entry, 03/15/2017, covers elements not covered in my initial order note of 03/15/2017. SUBJECTIVE: I met with the patient the evening of 03/15/2017. She is compliant with her medications, yelling, labile in her mood. UA has reflex to culture. Potassium was low. She received IV fluids D5 with 40 mEq of potassium. She was retaining urine. Gatica has been placed. We will be checking an abdominal ultrasound. She has had a large bowel movement, much calmer after that. REVIEW OF SYSTEMS: No CV, , pulmonary, eye, ENT system symptoms on review. Reliability poor. MENTAL STATUS EXAM: Oriented to herself. Insight, judgment, recent and remote memory, attention, concentration, fund of knowledge poor consistent with her diagnosis. Reviewed at some length her past records from [place]. DIAGNOSIS: Major neurocognitive disorder with secondary diagnosis of bipolar disorder. IMPRESSION: Unchanged from initial note. PLAN: Start Depakote Sprinkles 125 mg b.i.d. CBC, CMP, valproic acid level in 3 days. Continue rest of the psychotropics. Cogentin is 1 mg 3 times a day. We may need to taper and stop this given her marked constipation and delirium and confusion. We will reassess post-medical stabilization. Reviewed drug interactions. Risk/benefit ratio favors no further change. MIRIAM BRASWELL MD DR: ANAM/aly JOB#: [id number] / [id number]
--- NOTE | 2017-03-18 07:16 | PN ---
DATE: 03/16/2017 PSYCHIATRIC PROGRESS NOTE This late entry of 03/16/2017 covers elements not covered in my initial note of 03/16/2017. Seen individually on the evening of 03/16/2017. Staffed treatment team meeting with the entire team on morning of 03/16/2017 with the patient's daughter, Tawnya attending the conference. Reviewed her history at length. She has been treated by Dr. Yang, psychiatrist in the past, mainly via Skype tele psychiatry. She had ECT in 11/2016 because she was deemed to be manic, but following the ECT, she was once again extremely manic and daughter feels that she has not been right since then. She is extremely constipated. Appetite 40%, sleeping average 6-7 hours, receiving IV, has a Gatica, had a large bowel movement, day during 03/16/2017 was better and she was less agitated following the bowel movement, takes meds in applesauce. Past psychotropics have included lithium, Zyprexa and imipramine. She has also been on Thorazine and then was started on Cogentin, has been babbling in her speech. REVIEW OF SYSTEMS: Ambulation impaired. No CV, , pulmonary, eye system symptoms on review. MENTAL STATUS EXAMINATION: Oriented to herself. Insight, judgment, recent and remote memory, attention, concentration, fund of knowledge poor, consistent with her diagnosis as mentioned in my initial note. PLAN: Continue psychotropics including the addition of Depakote. Review drug interactions. We will taper and stop the Cogentin. Discontinue the BuSpar and discontinue the Zyprexa. Continue Geodon 40 mg b.i.d., Neurontin for now is 600 mg b.i.d. Adjust the Depakote to a therapeutic level, we may stop the Neurontin. Risk and benefit ratio favors no further change. MIRIAM BRASWELL MD DR: ANAM/aly JOB#: [id number] / [id number]
[2017-03-18] MEDS: SMZ/TMP 400/80MG TABLET. PO SCH ×2 (07:49→17:04)
[2017-03-18] MEDS: MEGESTROL 400 MG/10 ML ORAL.SUSP. PO SCH ×2 (07:49→13:31)
[2017-03-18] MEDS: LACTULOSE 20 GM/30 ML SOLUTION. PO SCH ×2 (07:49→17:04)
[2017-03-18] MEDS: PANTOPRAZOLE 40 MG TABLET. PO SCH (07:49)
[2017-03-18] MEDS: POLYETHYLENE GLYCOL 3350 17 GM PACKET. PO SCH (07:49)
[2017-03-18] MEDS: OMEGA-3 FATTY ACIDS/FISH OIL 1,000 MG CAPSULE. PO SCH (07:50)
[2017-03-18] MEDS: SENNOSIDES/DOCUSATE 8.6/50MG TABLET. PO SCH ×2 (07:50→17:04)
[2017-03-18] MEDS: BENZTROPINE MESYLATE 1 MG TABLET PO SCH ×2 (07:50→17:04)
[2017-03-18] MEDS: GABAPENTIN 300 MG CAPSULE. PO SCH ×2 (07:50→17:04)
[2017-03-18] MEDS: CHOLECALCIFEROL (VITAMIN D3) 1,000 UNIT TABLET PO SCH (07:50)
[2017-03-18] MEDS: ZIPRASIDONE 60 MG CAPSULE. PO SCH ×2 (07:50→17:04)
[2017-03-18] MEDS: DIVALPROEX 125 MG CAP.SPRINK PO SCH ×2 (07:50→13:31)
[2017-03-18] MEDS: ENOXAPARIN 30 MG/0.3 ML DISP.SYRIN. SQ SCH (07:51)
[2017-03-18 08:29] LABS: ALBUMIN 2.6 g/dL (3.4-5.0); ALBUMIN/GLOBULIN RATIO 0.7 (1.0-1.7); ALK PHOS 108 U/L (46-116); ALT (SGPT) 20 U/L (14-59); ANION GAP 11 (6-14); AST (SGOT) 17 U/L (15-37); BLOOD UREA NITROGEN 16 mg/dL (7-20); BUN/CREATININE RATIO 16 (6-20); CALCIUM 9.1 mg/dL (8.5-10.1); CARBON DIOXIDE 22 mmol/L (21-32); CHLORIDE 111 mmol/L (98-107); GFR 55.6; GLUCOSE 90 mg/dL (70-99); POTASSIUM 4.5 mmol/L (3.5-5.1); SODIUM 144 mmol/L (136-145); TOTAL BILIRUBIN 0.3 mg/dL (0.2-1.0); TOTAL PROTEIN 6.1 g/dL (6.4-8.2)
[2017-03-18 08:36] LABS: BASO % 1 % (0-3); EOS # 0.1 x10^3/uL (0.0-0.7); EOS % 1 % (0-3); HEMATOCRIT 34.4 % (36.0-47.0); HEMOGLOBIN 11.8 g/dL (12.0-15.5); LYMPH # 1.6 x10^3/uL (1.0-4.8); LYMPH % 23 % (24-48); MEAN CORPUSCULAR HEMOGLOBIN 33 pg (25-35); MEAN CORPUSCULAR HGB CONC 34 g/dL (31-37); MEAN CORPUSCULAR VOLUME 96 fL (79-100); MONO # 0.7 x10^3/uL (0.0-1.1); MONO % 10 % (0-9); NEUT # 4.7 x10^3uL (1.8-7.7); NEUT % 66 % (31-73); PLATELET COUNT 162 x10^3/uL (140-400); RED BLOOD COUNT 3.58 x10^6/uL (3.50-5.40); RED CELL DISTRIBUTION WIDTH 15.2 % (11.5-14.5); WHITE BLOOD COUNT 7.2 x10^3/uL (4.0-11.0)
[2017-03-18 08:55] LABS: MAGNESIUM 2.2 mg/dL (1.8-2.4)
[2017-03-18 08:57] LABS: VAL ACID 12 mcg/mL (50-100)
[2017-03-18] MEDS: POTASSIUM CL 40MEQ IN D5W 1,000 ML IV SCH ×2 (11:25→18:23)
[2017-03-18 16:13] VITALS: BP 127/72
[2017-03-18] MEDS: LINACLOTIDE 145 MCG CAPSULE. PO SCH (17:05)
[2017-03-18] MEDS: LACTOBACILLUS RHAMNOSUS GG 1 CAPSULE. PO SCH (18:21)
--- NOTE | 2017-03-18 20:02 | PDOC ---
Exam Note: Kayden Note: Please also refer to the separate dictated note~for this date of service dictated separately.~Patient seen individually. Discussed the patient with Nursing staff reviewed the chart.~Reviewed interim history and current functioning. Reviewed vital signs,~Labs/ Radiology~and current medications noted below. Continue current treatment with the changes noted in the dictated addendum note Assessment: Vital Signs: Vital Signs Date Time Temp Pulse Resp B/P (MAP) Pulse Ox O2 Delivery O2 Flow Rate FiO2 03/18/17 16:13 98.7 96 22 127/72 (90) 95 Room Air I&O Intake and Output 03/19/17 07:00 Intake Total 2280 ml Output Total 800 ml Balance 1480 ml Intake Oral 720 ml IV Total 1560 ml Output Urine Total 800 ml Labs: Laboratory Tests Test 03/18/17 07:59 White Blood Count 7.2 x10^3/uL (4.0-11.0) Red Blood Count 3.58 x10^6/uL (3.50-5.40) Hemoglobin 11.8 g/dL (12.0-15.5) L Hematocrit 34.4 % (36.0-47.0) L Mean Corpuscular Volume 96 fL (79-100) Mean Corpuscular Hemoglobin 33 pg (25-35) Mean Corpuscular Hemoglobin Concent 34 g/dL (31-37) Red Cell Distribution Width 15.2 % (11.5-14.5) H Platelet Count 162 x10^3/uL (140-400) Neutrophils (%) (Auto) 66 % (31-73) Lymphocytes (%) (Auto) 23 % (24-48) L Monocytes (%) (Auto) 10 % (0-9) H Eosinophils (%) (Auto) 1 % (0-3) Basophils (%) (Auto) 1 % (0-3) Neutrophils # (Auto) 4.7 x10^3uL (1.8-7.7) Lymphocytes # (Auto) 1.6 x10^3/uL (1.0-4.8) Monocytes # (Auto) 0.7 x10^3/uL (0.0-1.1) Eosinophils # (Auto) 0.1 x10^3/uL (0.0-0.7) Basophils # (Auto) 0.0 x10^3/uL (0.0-0.2) Sodium Level 144 mmol/L (136-145) Potassium Level 4.5 mmol/L (3.5-5.1) Chloride Level 111 mmol/L (98-107) H Carbon Dioxide Level 22 mmol/L (21-32) Anion Gap 11 (6-14) Blood Urea Nitrogen 16 mg/dL (7-20) Creatinine 1.0 mg/dL (0.6-1.0) Estimated GFR (Cockcroft-Gault) 55.6 BUN/Creatinine Ratio 16 (6-20) Glucose Level 90 mg/dL (70-99) Calcium Level 9.1 mg/dL (8.5-10.1) Magnesium Level 2.2 mg/dL (1.8-2.4) Total Bilirubin 0.3 mg/dL (0.2-1.0) Aspartate Amino Transferase (AST) 17 U/L (15-37) Alanine Aminotransferase (ALT) 20 U/L (14-59) Alkaline Phosphatase 108 U/L (46-116) Total Protein 6.1 g/dL (6.4-8.2) L Albumin 2.6 g/dL (3.4-5.0) L Albumin/Globulin Ratio 0.7 (1.0-1.7) L Valproic Acid Level 12 mcg/mL (50-100) L Valproic Acid Last Dose Date 03/17/17 Valproic Acid Last Dose Time 2100 Current Medications: Meds: Current Medications Benztropine Mesylate (Cogentin) 1 mg TID PO Last administered on 03/16/17 08: 39; Start 03/14/17 at 22:30; Stop 03/16/17 at 11:57; Status DC Buspirone HCl (Buspar) 10 mg TID PO Last administered on 03/16/17 08:40; Start 03/14/17 at 22:30; Stop 03/16/17 at 11:57; Status DC Ziprasidone (Geodon) 40 mg BID PO Last administered on 03/17/17 08:01; Start 03/14/17 at 22:30; Stop 03/17/17 at 18:48; Status DC Glycerin (Sani-Supp Adult) 1 supp PRN DAILY PRN RC CONSTIPATION; Start at 22:30 Pantoprazole Sodium (Protonix) 40 mg DAILYAC PO Last administered on 07:49; Start 03/15/17 at 07:30 Polyethylene Glycol (miraLAX) 17 gm DAILY PO Last administered on 03/18/17 07 :49; Start 03/15/17 at 09:00 Senna/Docusate Sodium (Senna Plus) 1 tab BID PO Last administered on 17:04; Start 03/14/17 at 22:30 Vitamin D (Vitamin D3) 2,000 unit DAILY PO Last administered on 03/18/17 07: 50; Start 03/15/17 at 09:00 Gabapentin (Neurontin) 600 mg BID PO Last administered on 03/18/17 17:04; Start 03/14/17 at 22:30 Non-Formulary Medication 290 mcg HS PO ; Start 03/15/17 at 21:00; Status UNV Fish Oil (Fish Oil) 1,000 mg DAILY PO Last administered on 03/18/17 07:50; Start 03/15/17 at 09:00 Benztropine Mesylate (Cogentin) 1 mg HS PO ; Start 03/15/17 at 21:00; Stop 03/15 at 21:00; Status DC Olanzapine (ZyPREXA) 10 mg TID PO Last administered on 03/16/17 08:39; Start 03/14/17 at 23:00; Stop 03/16/17 at 11:57; Status DC Acetaminophen (Tylenol) 650 mg PRN Q4HRS PRN PO PAIN / TEMP Last administered on 03/15/17 12:14; Start 03/14/17 at 22:45 Acetaminophen/ Hydrocodone Bitart (Lortab 5/325) 1 tab PRN Q6HRS PRN PO PAIN Last administered on 03/17/17 21:49; Start 03/14/17 at 22:45 Megestrol Acetate (Megace) 400 mg BID PO Last administered on 03/16/17 08:41; Start 03/14/17 at 23:00; Stop 03/16/17 at 21:03; Status DC Lactulose 20 gm BID PO Last administered on 03/18/17 17:04; Start 03/14/17 at 23:00 Pantoprazole Sodium (Protonix) 40 mg DAILYAC PO ; Start 03/15/17 at 07:30; Stop 03/16/17 at 19:39; Status DC Acetaminophen (Tylenol) 650 mg PRN Q6HRS PRN PO PAIN / TEMP; Start 03/15/17 at 01:15 Multi-Ingredient Ointment (Analgesic [place]) 1 landon PRN QID PRN TP MUSCLE PAIN; Start 03/15/17 at 01:15 Al Hydroxide/Mg Hydroxide (Mylanta Plus Xs) 15 ml PRN AFTMEALHC PRN PO DYSPEPSIA; Start 03/15/17 at 01:15 Magnesium Hydroxide (Milk Of Magnesia) 2,400 mg PRN QHS PRN PO CONSTIPATION; Start 03/15/17 at 01:15 Potassium Chloride/Dextrose 1,000 ml @ 75 mls/hr [id number] IV Last administered on 03/18/17 11:25; Start 03/15/17 at 16:45; Stop 03/18/17 at 18:24; Status DC Divalproex Sodium (Depakote Sprinkles) 125 mg BID92 PO Last administered on 13:31; Start 03/16/17 at 09:00; Stop 03/18/17 at 18:29; Status DC Bisacodyl (Dulcolax Supp) 10 mg PRN DAILY PRN [place] CONSTIPATION Last administered on 03/15/17 19:16; Start 03/15/17 at 19:00 Sodium Biphosphate/ Sodium Phosphate (Fleet Adult) 133 ml PRN DAILY PRN [place] CONSTIPATION Last administered on 03/16/17 05:09; Start 03/15/17 at 19:00 Benztropine Mesylate (Cogentin) 1 mg BID PO Last administered on 03/18/17 17: 04; Start 03/16/17 at 21:00; Stop 03/18/17 at 23:00 Benztropine Mesylate (Cogentin) 1 mg DAILY PO ; Start 03/19/17 at 09:00; Stop 03/21/17 at 12:00 Enoxaparin Sodium (Lovenox) 30 mg Q24H SQ ; Start 03/16/17 at 18:00; Stop at 18:29; Status DC Enoxaparin Sodium (Lovenox) 30 mg Q24H SQ Last administered on 03/18/17 07:51 ; Start 03/17/17 at 09:00 Megestrol Acetate (Megace) 400 mg BID92 PO Last administered on 03/18/17 13: 31; Start 03/17/17 at 09:00 Trimethoprim/ Sulfamethoxazole (Bactrim Ss) 1 tab BID PO Last administered on 03/18/17 17:04; Start 03/17/17 at 21:00; Stop 03/25/17 at 20:59 Ziprasidone (Geodon) 60 mg BID PO Last administered on 03/18/17 17:04; Start 03/17/17 at 21:00 Lactobacillus Rhamnosus (Culturelle) 1 cap BID PO Last administered on 18:21; Start 03/18/17 at 21:00 Divalproex Sodium (Depakote Sprinkles) 250 mg BID92 PO ; Start 03/19/17 at 09: 00 Active Scripts Active Reported Omeprazole 40 Mg Capsule.dr 40 Mg PO DAILY Olanzapine 10 Mg Tablet 10 Mg PO TID Megestrol Acetate 400 Mg/10 Ml Oral.susp 400 Mg PO BID Lactulose 10 Gm/15 Ml Solution 30 Ml PO BID Hold if no longer constipated [place] 5-325 Tablet (Hydrocodone Bit/Acetaminophen) 1 Each Tablet 1 Tab PO PRN Q6HRS PRN Tylenol (Acetaminophen) 325 Mg Tablet 650 Mg PO PRN Q4HRS PRN Benztropine Mesylate 1 Mg Tablet 1 Mg PO HS Suppository (Glycerin) 1 Each Supp.rect 1 Each RC PRN DAILY PRN Geodon (Ziprasidone Hcl) 40 Mg Capsule 40 Mg PO BID Sennosides-Docusate Sodium Tab (Sennosides/Docusate Sodium) 1 Each Tablet 1 Each PO BID Miralax (Polyethylene Glycol 3350) 17 Gm Powd.pack 17 Gm PO DAILY Protonix (Pantoprazole Sodium) 20 Mg Tablet.dr 20 Mg PO BID [place] 3 1,000 Mg Softgel ([place]-3 Fatty Acids/Fish Oil) 1 Each Capsule 1 Each PO DAILY Linzess (Linaclotide) 290 Mcg Capsule 290 Mcg PO HS Gabapentin 600 Mg Tablet 600 Mg PO BID Vitamin D (Cholecalciferol (Vitamin D3)) 2,000 Unit Capsule 2,000 Unit PO DAILY Buspirone Hcl 10 Mg Tablet 10 Mg PO TID Benztropine Mesylate 1 Mg Tablet 1 Mg PO TID I have reviewed the current psychotropics carefully including drug interactions. Risk benefit ratio favors no change other than as noted in my dictated progress note. Diagnosis: Problems: (1) Anxiety disorder (2) Bipolar affective, mixed, sev w/ psych (3) Dementia, vascular, with depression (4) Dementia, vascular, with delusions (5) Dementia in Alzheimer's disease with depression (6) Dementia in Alzheimer's disease with delusions (7) Impulse control disorder MIRIAM BRASWELL MD Mar 18, 2017 20:02
[2017-03-18] MEDS: HYDROcodone/APAP 5/325MG 1 TAB TABLET PO PRN (20:15)
[2017-03-19 06:41] VITALS: BP 126/72
[2017-03-19] MEDS: MEGESTROL 400 MG/10 ML ORAL.SUSP. PO SCH ×2 (07:33→14:00)
[2017-03-19] MEDS: LACTULOSE 20 GM/30 ML SOLUTION. PO SCH ×2 (07:33→18:22)
[2017-03-19] MEDS: ENOXAPARIN 30 MG/0.3 ML DISP.SYRIN. SQ SCH (07:34)
[2017-03-19] MEDS: CHOLECALCIFEROL (VITAMIN D3) 1,000 UNIT TABLET PO SCH (07:34)
[2017-03-19] MEDS: SENNOSIDES/DOCUSATE 8.6/50MG TABLET. PO SCH ×2 (07:34→18:22)
[2017-03-19] MEDS: OMEGA-3 FATTY ACIDS/FISH OIL 1,000 MG CAPSULE. PO SCH (07:35)
[2017-03-19] MEDS: PANTOPRAZOLE 40 MG TABLET. PO SCH (07:35)
[2017-03-19] MEDS: GABAPENTIN 300 MG CAPSULE. PO SCH ×2 (07:35→18:22)
[2017-03-19] MEDS: BENZTROPINE MESYLATE 1 MG TABLET PO SCH (07:35)
[2017-03-19] MEDS: DIVALPROEX 125 MG CAP.SPRINK PO SCH ×2 (07:35→14:00)
[2017-03-19] MEDS: ZIPRASIDONE 60 MG CAPSULE. PO SCH ×2 (07:36→18:22)
[2017-03-19] MEDS: POLYETHYLENE GLYCOL 3350 17 GM PACKET. PO SCH (07:36)
[2017-03-19] MEDS: SMZ/TMP 400/80MG TABLET. PO SCH ×2 (07:36→18:26)
[2017-03-19] MEDS: LACTOBACILLUS RHAMNOSUS GG 1 CAPSULE. PO SCH ×2 (07:36→18:22)
--- NOTE | 2017-03-19 08:26 | PN ---
DATE: 03/17/2017 This is a late entry for date of service 03/17/2017 and covers elements not covered in my initial note of 03/17/2017. I met with the patient the evening of 03/17/2017. The patient was noncompliant with her medications previous evening, irritable, yelling impulsive, wants to be out of bed, difficult to understand her. She does have an IV in place. Gatica is in place, will receive IV fluids 1 more day. UA is positive, started on Bactrim b.i.d. for 7 days. REVIEW OF SYSTEMS: Ambulation impaired. No CV, , pulmonary, eye, ENT system symptoms on review. Reliability poor. MENTAL STATUS EXAM: Oriented to herself. Insight, judgment, recent and remote memory, attention, concentration, fund of knowledge poor, consistent with her diagnosis. IMPRESSION: Reviewed records from [facility], 15-20 pages with a primary diagnosis of bipolar disorder, secondary of major neurocognitive disorder. Diagnosis unchanged from initial note. PLAN: Check EKG in 2 days, increase Geodon from 40 b.i.d. to 60 b.i.d. Consider Clozaril later. Maintain the rest of psychotropics as mentioned in my initial note. MIRIAM BRASWELL MD DR: ANAM/aly JOB#: [id number] / [id number]
[2017-03-19] MEDS: HYDROcodone/APAP 5/325MG 1 TAB TABLET PO PRN (10:12)
[2017-03-19 16:10] VITALS: BP 107/73
[2017-03-19] MEDS: LINACLOTIDE 145 MCG CAPSULE. PO SCH (18:26)
[2017-03-19] MEDS: cloZAPine 25 MG TABLET PO SCH (19:37)
[2017-03-19] MEDS: traZODone 100 MG TABLET. PO SCH (19:37)
--- NOTE | 2017-03-19 20:09 | PDOC ---
Exam Note: Kayden Note: Please also refer to the separate dictated note~for this date of service dictated separately.~Patient seen individually. Discussed the patient with Nursing staff reviewed the chart.~Reviewed interim history and current functioning. Reviewed vital signs,~Labs/ Radiology~and current medications noted below. Continue current treatment with the changes noted in the dictated addendum note Assessment: Vital Signs: Vital Signs Date Time Temp Pulse Resp B/P (MAP) Pulse Ox O2 Delivery O2 Flow Rate FiO2 03/19/17 16:10 98.8 88 18 107/73 (84) 100 Room Air I&O Intake and Output 03/20/17 07:00 Intake Total 720 ml Output Total 550 ml Balance 170 ml Intake Oral 720 ml Output Urine Total 550 ml Current Medications: Meds: Current Medications Benztropine Mesylate (Cogentin) 1 mg TID PO Last administered on 03/16/17 08: 39; Start 03/14/17 at 22:30; Stop 03/16/17 at 11:57; Status DC Buspirone HCl (Buspar) 10 mg TID PO Last administered on 03/16/17 08:40; Start 03/14/17 at 22:30; Stop 03/16/17 at 11:57; Status DC Ziprasidone (Geodon) 40 mg BID PO Last administered on 03/17/17 08:01; Start 03/14/17 at 22:30; Stop 03/17/17 at 18:48; Status DC Glycerin (Sani-Supp Adult) 1 supp PRN DAILY PRN RC CONSTIPATION; Start at 22:30 Pantoprazole Sodium (Protonix) 40 mg DAILYAC PO Last administered on 07:35; Start 03/15/17 at 07:30 Polyethylene Glycol (miraLAX) 17 gm DAILY PO Last administered on 03/19/17 07 :36; Start 03/15/17 at 09:00 Senna/Docusate Sodium (Senna Plus) 1 tab BID PO Last administered on 18:22; Start 03/14/17 at 22:30 Vitamin D (Vitamin D3) 2,000 unit DAILY PO Last administered on 03/19/17 07: 34; Start 03/15/17 at 09:00 Gabapentin (Neurontin) 600 mg BID PO Last administered on 03/19/17 18:22; Start 03/14/17 at 22:30 Non-Formulary Medication 290 mcg HS PO ; Start 03/15/17 at 21:00; Status UNV Fish Oil (Fish Oil) 1,000 mg DAILY PO Last administered on 03/19/17 07:35; Start 03/15/17 at 09:00 Benztropine Mesylate (Cogentin) 1 mg HS PO ; Start 03/15/17 at 21:00; Stop 03/15 at 21:00; Status DC Olanzapine (ZyPREXA) 10 mg TID PO Last administered on 03/16/17 08:39; Start 03/14/17 at 23:00; Stop 03/16/17 at 11:57; Status DC Acetaminophen (Tylenol) 650 mg PRN Q4HRS PRN PO PAIN / TEMP Last administered on 03/15/17 12:14; Start 03/14/17 at 22:45 Acetaminophen/ Hydrocodone Bitart (Lortab 5/325) 1 tab PRN Q6HRS PRN PO PAIN Last administered on 03/19/17 10:12; Start 03/14/17 at 22:45 Megestrol Acetate (Megace) 400 mg BID PO Last administered on 03/16/17 08:41; Start 03/14/17 at 23:00; Stop 03/16/17 at 21:03; Status DC Lactulose 20 gm BID PO Last administered on 03/19/17 18:22; Start 03/14/17 at 23:00 Pantoprazole Sodium (Protonix) 40 mg DAILYAC PO ; Start 03/15/17 at 07:30; Stop 03/16/17 at 19:39; Status DC Acetaminophen (Tylenol) 650 mg PRN Q6HRS PRN PO PAIN / TEMP; Start 03/15/17 at 01:15 Multi-Ingredient Ointment (Analgesic [place]) 1 landon PRN QID PRN TP MUSCLE PAIN; Start 03/15/17 at 01:15 Al Hydroxide/Mg Hydroxide (Mylanta Plus Xs) 15 ml PRN AFTMEALHC PRN PO DYSPEPSIA; Start 03/15/17 at 01:15 Magnesium Hydroxide (Milk Of Magnesia) 2,400 mg PRN QHS PRN PO CONSTIPATION; Start 03/15/17 at 01:15 Potassium Chloride/Dextrose 1,000 ml @ 75 mls/hr [id number] IV Last administered on 03/18/17 11:25; Start 03/15/17 at 16:45; Stop 03/18/17 at 18:24; Status DC Divalproex Sodium (Depakote Sprinkles) 125 mg BID92 PO Last administered on 13:31; Start 03/16/17 at 09:00; Stop 03/18/17 at 18:29; Status DC Bisacodyl (Dulcolax Supp) 10 mg PRN DAILY PRN DE CONSTIPATION Last administered on 03/15/17 19:16; Start 03/15/17 at 19:00 Sodium Biphosphate/ Sodium Phosphate (Fleet Adult) 133 ml PRN DAILY PRN DE CONSTIPATION Last administered on 03/16/17 05:09; Start 03/15/17 at 19:00 Benztropine Mesylate (Cogentin) 1 mg BID PO Last administered on 03/18/17 17: 04; Start 03/16/17 at 21:00; Stop 03/18/17 at 23:00; Status DC Benztropine Mesylate (Cogentin) 1 mg DAILY PO Last administered on 03/19/17 07:35; Start 03/19/17 at 09:00; Stop 03/21/17 at 12:00 Enoxaparin Sodium (Lovenox) 30 mg Q24H SQ ; Start 03/16/17 at 18:00; Stop at 18:29; Status DC Enoxaparin Sodium (Lovenox) 30 mg Q24H SQ Last administered on 03/19/17 07:34 ; Start 03/17/17 at 09:00 Megestrol Acetate (Megace) 400 mg BID92 PO Last administered on 03/19/17 14: 00; Start 03/17/17 at 09:00 Trimethoprim/ Sulfamethoxazole (Bactrim Ss) 1 tab BID PO Last administered on 03/19/17 18:26; Start 03/17/17 at 21:00; Stop 03/25/17 at 20:59 Ziprasidone (Geodon) 60 mg BID PO Last administered on 03/19/17 18:22; Start 03/17/17 at 21:00 Lactobacillus Rhamnosus (Culturelle) 1 cap BID PO Last administered on 18:22; Start 03/18/17 at 21:00 Divalproex Sodium (Depakote Sprinkles) 250 mg BID92 PO Last administered on 14:00; Start 03/19/17 at 09:00 Olanzapine (ZyPREXA ZYDIS) 5 mg PRN Q2HR PRN PO PSYCHOSIS Last administered on 03/19/17 07:04; Start 03/19/17 at 07:00 Clozapine (Clozaril) 25 mg HS PO Last administered on 03/19/17 19:37; Start 03/19/17 at 21:00 Trazodone HCl (Desyrel) 100 mg QHS PO Last administered on 03/19/17 19:37; Start 03/19/17 at 21:00 Trazodone HCl (Desyrel) 100 mg PRN QHS PRN PO INSOMNIA; Start 03/19/17 at 19: 15 Active Scripts Active Reported Omeprazole 40 Mg Capsule.dr 40 Mg PO DAILY Olanzapine 10 Mg Tablet 10 Mg PO TID Megestrol Acetate 400 Mg/10 Ml Oral.susp 400 Mg PO BID Lactulose 10 Gm/15 Ml Solution 30 Ml PO BID Hold if no longer constipated [place] 5-325 Tablet (Hydrocodone Bit/Acetaminophen) 1 Each Tablet 1 Tab PO PRN Q6HRS PRN Tylenol (Acetaminophen) 325 Mg Tablet 650 Mg PO PRN Q4HRS PRN Benztropine Mesylate 1 Mg Tablet 1 Mg PO HS Suppository (Glycerin) 1 Each Supp.rect 1 Each RC PRN DAILY PRN Geodon (Ziprasidone Hcl) 40 Mg Capsule 40 Mg PO BID Sennosides-Docusate Sodium Tab (Sennosides/Docusate Sodium) 1 Each Tablet 1 Each PO BID Miralax (Polyethylene Glycol 3350) 17 Gm Powd.pack 17 Gm PO DAILY Protonix (Pantoprazole Sodium) 20 Mg Tablet.dr 20 Mg PO BID [place] 3 1,000 Mg Softgel ([place]-3 Fatty Acids/Fish Oil) 1 Each Capsule 1 Each PO DAILY Linzess (Linaclotide) 290 Mcg Capsule 290 Mcg PO HS Gabapentin 600 Mg Tablet 600 Mg PO BID Vitamin D (Cholecalciferol (Vitamin D3)) 2,000 Unit Capsule 2,000 Unit PO DAILY Buspirone Hcl 10 Mg Tablet 10 Mg PO TID Benztropine Mesylate 1 Mg Tablet 1 Mg PO TID I have reviewed the current psychotropics carefully including drug interactions. Risk benefit ratio favors no change other than as noted in my dictated progress note. Diagnosis: Problems: (1) Anxiety disorder (2) Bipolar affective, mixed, sev w/ psych (3) Dementia, vascular, with depression (4) Dementia, vascular, with delusions (5) Dementia in Alzheimer's disease with depression (6) Dementia in Alzheimer's disease with delusions (7) Impulse control disorder MIRIAM BRASWELL MD Mar 19, 2017 20:09
--- NOTE | 2017-03-20 04:06 | PN ---
DATE: 03/18/2017 PSYCHIATRIC PROGRESS NOTE This late entry 03/18/2017 covers elements not covered in my initial note 03/18/2017. SUBJECTIVE: I met with the patient individually in her room. The patient had a very difficult day and night. She stays up much of the night constantly yelling, labile in her mood, psychotic. REVIEW OF SYSTEMS: Ambulation impaired. No CV, , pulmonary, eye, ENT system symptoms on review. Reliability poor. MENTAL STATUS EXAM: Oriented to herself. Insight, judgment, recent and remote memory, attention, concentration, fund of knowledge poor, consistent with her diagnosis mentioned in my initial note. PLAN: Depakote, currently 125 mg b.i.d., level is 12, will increase Depakote to 250 mg b.i.d. Check CBC, CMP, valproic acid level in 3 days. IV fluids. I will defer to Dr. Inman. Appetite is poor. Drinks fluids alright, however. Rest psychotropics unchanged from initial note. I have been called several times, but the nursing staff on account of the patient's ongoing mood lability, fairly disruptive, loud repetitive as noted. She is very psychotic. We have increased the Geodon to 60 mg b.i.d. We will go ahead and add Clozaril 25 mg p.o. at bedtime. Check CBC/CMP every Monday. Monitor absolute neutrophil counts. Increase the Clozaril and if she responds to this, there will be initiation of Depakote; we may then taper and stop the Geodon. Review of drug interactions at length, risk/benefit ratio favors no further change. MAN Kathleen BRASWELL MD DR: ANAM/aly JOB#: [id number] / [id number]
[2017-03-20 06:03] VITALS: BP 128/72
[2017-03-20 07:33] LABS: BASO % 1 % (0-3); EOS % 1 % (0-3); HEMATOCRIT 36.3 % (36.0-47.0); HEMOGLOBIN 12.3 g/dL (12.0-15.5); LYMPH # 1.6 x10^3/uL (1.0-4.8); LYMPH % 25 % (24-48); MEAN CORPUSCULAR HEMOGLOBIN 32 pg (25-35); MEAN CORPUSCULAR HGB CONC 34 g/dL (31-37); MEAN CORPUSCULAR VOLUME 94 fL (79-100); MONO # 0.5 x10^3/uL (0.0-1.1); MONO % 7 % (0-9); NEUT # 4.3 x10^3uL (1.8-7.7); NEUT % 66 % (31-73); PLATELET COUNT 155 x10^3/uL (140-400); RED BLOOD COUNT 3.84 x10^6/uL (3.50-5.40); WHITE BLOOD COUNT 6.4 x10^3/uL (4.0-11.0)
[2017-03-20 07:45] LABS: ALBUMIN 2.9 g/dL (3.4-5.0); ALBUMIN/GLOBULIN RATIO 0.8 (1.0-1.7); CALCIUM 9.5 mg/dL (8.5-10.1); GFR 55.6; POTASSIUM 4.3 mmol/L (3.5-5.1); TOTAL BILIRUBIN 0.3 mg/dL (0.2-1.0); TOTAL PROTEIN 6.7 g/dL (6.4-8.2)
[2017-03-20] MEDS: ENOXAPARIN 30 MG/0.3 ML DISP.SYRIN. SQ SCH (09:35)
[2017-03-20] MEDS: POLYETHYLENE GLYCOL 3350 17 GM PACKET. PO SCH (09:35)
[2017-03-20] MEDS: LACTULOSE 20 GM/30 ML SOLUTION. PO SCH ×2 (09:35→19:27)
[2017-03-20] MEDS: MEGESTROL 400 MG/10 ML ORAL.SUSP. PO SCH ×2 (09:35→14:35)
[2017-03-20] MEDS: GABAPENTIN 300 MG CAPSULE. PO SCH ×2 (09:35→19:26)
[2017-03-20] MEDS: SENNOSIDES/DOCUSATE 8.6/50MG TABLET. PO SCH ×2 (09:36→19:26)
[2017-03-20] MEDS: OMEGA-3 FATTY ACIDS/FISH OIL 1,000 MG CAPSULE. PO SCH (09:36)
[2017-03-20] MEDS: CHOLECALCIFEROL (VITAMIN D3) 1,000 UNIT TABLET PO SCH (09:36)
[2017-03-20] MEDS: DIVALPROEX 125 MG CAP.SPRINK PO SCH ×2 (09:36→14:35)
[2017-03-20] MEDS: LACTOBACILLUS RHAMNOSUS GG 1 CAPSULE. PO SCH ×2 (09:37→19:26)
[2017-03-20] MEDS: ZIPRASIDONE 60 MG CAPSULE. PO SCH ×2 (09:37→19:26)
[2017-03-20] MEDS: BENZTROPINE MESYLATE 1 MG TABLET PO SCH (09:37)
[2017-03-20] MEDS: SMZ/TMP 400/80MG TABLET. PO SCH ×2 (09:37→19:28)
[2017-03-20] MEDS: PANTOPRAZOLE 40 MG TABLET. PO SCH (09:37)
--- NOTE | 2017-03-20 09:41 | EKG ---
[address] [address] Test Date: 2017-03-20 Test Time: 09:06:50 Pat Name: KENYON HERRERA Department: Room: [address] [place] [address] Gender: F Country Sales Manager: : 1950 Requested By: MIRIAM BRASWELL Order Number: [id number] Reading MD: Bryan Rider MD Measurements Intervals [place] Rate: 86 P: 78 VA: 148 QRS: 43 QRSD: 70 T: 78 QT: 354 QTc: 427 Interpretive Statements SINUS RHYTHM Electronically Signed On 03-20-2017 10:32:51 [employer] ETL DEVELOPER by Bryan Rider MD
[2017-03-20 16:22] VITALS: BP 152/80
[2017-03-20] MEDS: traZODone 100 MG TABLET. PO SCH (19:26)
[2017-03-20] MEDS: cloZAPine 25 MG TABLET PO SCH (19:26)
[2017-03-20] MEDS: LINACLOTIDE 145 MCG CAPSULE. PO SCH (19:28)
--- NOTE | 2017-03-20 20:18 | PDOC ---
Exam Note: Kayden Note: Please also refer to the separate dictated note~for this date of service dictated separately.~Patient seen individually. Discussed the patient with Nursing staff reviewed the chart.~Reviewed interim history and current functioning. Reviewed vital signs,~Labs/ Radiology~and current medications noted below. Continue current treatment with the changes noted in the dictated addendum note Assessment: Vital Signs: Vital Signs Date Time Temp Pulse Resp B/P (MAP) Pulse Ox O2 Delivery O2 Flow Rate FiO2 03/20/17 16:22 97.5 102 16 152/80 (104) 98 03/19/17 16:10 Room Air I&O Intake and Output 03/20/17 07:00 Intake Total 1200 ml Output Total 550 ml Balance 650 ml Intake Oral 1200 ml Output Urine Total 550 ml # Bowel Movements 1 Labs: Laboratory Tests Test 03/20/17 07:20 White Blood Count 6.4 x10^3/uL (4.0-11.0) Red Blood Count 3.84 x10^6/uL (3.50-5.40) Hemoglobin 12.3 g/dL (12.0-15.5) Hematocrit 36.3 % (36.0-47.0) Mean Corpuscular Volume 94 fL (79-100) Mean Corpuscular Hemoglobin 32 pg (25-35) Mean Corpuscular Hemoglobin Concent 34 g/dL (31-37) Red Cell Distribution Width 15.0 % (11.5-14.5) H Platelet Count 155 x10^3/uL (140-400) Neutrophils (%) (Auto) 66 % (31-73) Lymphocytes (%) (Auto) 25 % (24-48) Monocytes (%) (Auto) 7 % (0-9) Eosinophils (%) (Auto) 1 % (0-3) Basophils (%) (Auto) 1 % (0-3) Neutrophils # (Auto) 4.3 x10^3uL (1.8-7.7) Lymphocytes # (Auto) 1.6 x10^3/uL (1.0-4.8) Monocytes # (Auto) 0.5 x10^3/uL (0.0-1.1) Eosinophils # (Auto) 0.0 x10^3/uL (0.0-0.7) Basophils # (Auto) 0.0 x10^3/uL (0.0-0.2) Sodium Level 145 mmol/L (136-145) Potassium Level 4.3 mmol/L (3.5-5.1) Chloride Level 111 mmol/L (98-107) H Carbon Dioxide Level 23 mmol/L (21-32) Anion Gap 11 (6-14) Blood Urea Nitrogen 24 mg/dL (7-20) H Creatinine 1.0 mg/dL (0.6-1.0) Estimated GFR (Cockcroft-Gault) 55.6 BUN/Creatinine Ratio 24 (6-20) H Glucose Level 93 mg/dL (70-99) Calcium Level 9.5 mg/dL (8.5-10.1) Total Bilirubin 0.3 mg/dL (0.2-1.0) Aspartate Amino Transferase (AST) 16 U/L (15-37) Alanine Aminotransferase (ALT) 23 U/L (14-59) Alkaline Phosphatase 111 U/L (46-116) Total Protein 6.7 g/dL (6.4-8.2) Albumin 2.9 g/dL (3.4-5.0) L Albumin/Globulin Ratio 0.8 (1.0-1.7) L Current Medications: Meds: Current Medications Benztropine Mesylate (Cogentin) 1 mg TID PO Last administered on 03/16/17 08: 39; Start 03/14/17 at 22:30; Stop 03/16/17 at 11:57; Status DC Buspirone HCl (Buspar) 10 mg TID PO Last administered on 03/16/17 08:40; Start 03/14/17 at 22:30; Stop 03/16/17 at 11:57; Status DC Ziprasidone (Geodon) 40 mg BID PO Last administered on 03/17/17 08:01; Start 03/14/17 at 22:30; Stop 03/17/17 at 18:48; Status DC Glycerin (Sani-Supp Adult) 1 supp PRN DAILY PRN RC CONSTIPATION; Start at 22:30 Pantoprazole Sodium (Protonix) 40 mg DAILYAC PO Last administered on 09:37; Start 03/15/17 at 07:30 Polyethylene Glycol (miraLAX) 17 gm DAILY PO Last administered on 03/20/17 09 :35; Start 03/15/17 at 09:00 Senna/Docusate Sodium (Senna Plus) 1 tab BID PO Last administered on 19:26; Start 03/14/17 at 22:30 Vitamin D (Vitamin D3) 2,000 unit DAILY PO Last administered on 03/20/17 09: 36; Start 03/15/17 at 09:00 Gabapentin (Neurontin) 600 mg BID PO Last administered on 03/20/17 19:26; Start 03/14/17 at 22:30 Non-Formulary Medication 290 mcg HS PO ; Start 03/15/17 at 21:00; Status UNV Fish Oil (Fish Oil) 1,000 mg DAILY PO Last administered on 03/20/17 09:36; Start 03/15/17 at 09:00 Benztropine Mesylate (Cogentin) 1 mg HS PO ; Start 03/15/17 at 21:00; Stop 03/15 at 21:00; Status DC Olanzapine (ZyPREXA) 10 mg TID PO Last administered on 03/16/17 08:39; Start 03/14/17 at 23:00; Stop 03/16/17 at 11:57; Status DC Acetaminophen (Tylenol) 650 mg PRN Q4HRS PRN PO PAIN / TEMP Last administered on 03/15/17 12:14; Start 03/14/17 at 22:45 Acetaminophen/ Hydrocodone Bitart (Lortab 5/325) 1 tab PRN Q6HRS PRN PO PAIN Last administered on 03/19/17 10:12; Start 03/14/17 at 22:45 Megestrol Acetate (Megace) 400 mg BID PO Last administered on 03/16/17 08:41; Start 03/14/17 at 23:00; Stop 03/16/17 at 21:03; Status DC Lactulose 20 gm BID PO Last administered on 03/20/17 19:27; Start 03/14/17 at 23:00 Pantoprazole Sodium (Protonix) 40 mg DAILYAC PO ; Start 03/15/17 at 07:30; Stop 03/16/17 at 19:39; Status DC Acetaminophen (Tylenol) 650 mg PRN Q6HRS PRN PO PAIN / TEMP; Start 03/15/17 at 01:15 Multi-Ingredient Ointment (Analgesic [place]) 1 landon PRN QID PRN TP MUSCLE PAIN; Start 03/15/17 at 01:15 Al Hydroxide/Mg Hydroxide (Mylanta Plus Xs) 15 ml PRN AFTMEALHC PRN PO DYSPEPSIA; Start 03/15/17 at 01:15 Magnesium Hydroxide (Milk Of Magnesia) 2,400 mg PRN QHS PRN PO CONSTIPATION; Start 03/15/17 at 01:15 Potassium Chloride/Dextrose 1,000 ml @ 75 mls/hr [id number] IV Last administered on 03/18/17 11:25; Start 03/15/17 at 16:45; Stop 03/18/17 at 18:24; Status DC Divalproex Sodium (Depakote Sprinkles) 125 mg BID92 PO Last administered on 13:31; Start 03/16/17 at 09:00; Stop 03/18/17 at 18:29; Status DC Bisacodyl (Dulcolax Supp) 10 mg PRN DAILY PRN [place] CONSTIPATION Last administered on 03/15/17 19:16; Start 03/15/17 at 19:00 Sodium Biphosphate/ Sodium Phosphate (Fleet Adult) 133 ml PRN DAILY PRN [place] CONSTIPATION Last administered on 03/16/17 05:09; Start 03/15/17 at 19:00 Benztropine Mesylate (Cogentin) 1 mg BID PO Last administered on 03/18/17 17: 04; Start 03/16/17 at 21:00; Stop 03/18/17 at 23:00; Status DC Benztropine Mesylate (Cogentin) 1 mg DAILY PO Last administered on 03/20/17 09:37; Start 03/19/17 at 09:00; Stop 03/21/17 at 12:00 Enoxaparin Sodium (Lovenox) 30 mg Q24H SQ ; Start 03/16/17 at 18:00; Stop at 18:29; Status DC Enoxaparin Sodium (Lovenox) 30 mg Q24H SQ Last administered on 03/20/17 09:35 ; Start 03/17/17 at 09:00 Megestrol Acetate (Megace) 400 mg BID92 PO Last administered on 03/20/17 14: 35; Start 03/17/17 at 09:00 Trimethoprim/ Sulfamethoxazole (Bactrim Ss) 1 tab BID PO Last administered on 03/20/17 19:28; Start 03/17/17 at 21:00; Stop 03/25/17 at 20:59 Ziprasidone (Geodon) 60 mg BID PO Last administered on 03/20/17 19:26; Start 03/17/17 at 21:00 Lactobacillus Rhamnosus (Culturelle) 1 cap BID PO Last administered on 19:26; Start 03/18/17 at 21:00 Divalproex Sodium (Depakote Sprinkles) 250 mg BID92 PO Last administered on 14:35; Start 03/19/17 at 09:00 Olanzapine (ZyPREXA ZYDIS) 5 mg PRN Q2HR PRN PO PSYCHOSIS Last administered on 03/19/17 07:04; Start 03/19/17 at 07:00 Clozapine (Clozaril) 25 mg HS PO Last administered on 03/20/17 19:26; Start 03/19/17 at 21:00 Trazodone HCl (Desyrel) 100 mg QHS PO Last administered on 03/20/17 19:26; Start 03/19/17 at 21:00 Trazodone HCl (Desyrel) 100 mg PRN QHS PRN PO INSOMNIA; Start 03/19/17 at 19: 15 Active Scripts Active Reported Omeprazole 40 Mg Capsule.dr 40 Mg PO DAILY Olanzapine 10 Mg Tablet 10 Mg PO TID Megestrol Acetate 400 Mg/10 Ml Oral.susp 400 Mg PO BID Lactulose 10 Gm/15 Ml Solution 30 Ml PO BID Hold if no longer constipated [place] 5-325 Tablet (Hydrocodone Bit/Acetaminophen) 1 Each Tablet 1 Tab PO PRN Q6HRS PRN Tylenol (Acetaminophen) 325 Mg Tablet 650 Mg PO PRN Q4HRS PRN Benztropine Mesylate 1 Mg Tablet 1 Mg PO HS Suppository (Glycerin) 1 Each Supp.rect 1 Each RC PRN DAILY PRN Geodon (Ziprasidone Hcl) 40 Mg Capsule 40 Mg PO BID Sennosides-Docusate Sodium Tab (Sennosides/Docusate Sodium) 1 Each Tablet 1 Each PO BID Miralax (Polyethylene Glycol 3350) 17 Gm Powd.pack 17 Gm PO DAILY Protonix (Pantoprazole Sodium) 20 Mg Tablet.dr 20 Mg PO BID [place] 3 1,000 Mg Softgel ([place]-3 Fatty Acids/Fish Oil) 1 Each Capsule 1 Each PO DAILY Linzess (Linaclotide) 290 Mcg Capsule 290 Mcg PO HS Gabapentin 600 Mg Tablet 600 Mg PO BID Vitamin D (Cholecalciferol (Vitamin D3)) 2,000 Unit Capsule 2,000 Unit PO DAILY Buspirone Hcl 10 Mg Tablet 10 Mg PO TID Benztropine Mesylate 1 Mg Tablet 1 Mg PO TID I have reviewed the current psychotropics carefully including drug interactions. Risk benefit ratio favors no change other than as noted in my dictated progress note. Diagnosis: Problems: (1) Anxiety disorder (2) Bipolar affective, mixed, sev w/ psych (3) Dementia, vascular, with depression (4) Dementia, vascular, with delusions (5) Dementia in Alzheimer's disease with depression (6) Dementia in Alzheimer's disease with delusions (7) Impulse control disorder MIRIAM BRASWELL MD Mar 20, 2017 20:18
[2017-03-21] MEDS: HYDROcodone/APAP 5/325MG 1 TAB TABLET PO PRN ×2 (06:00→21:42)
[2017-03-21 06:07] VITALS: BP 115/67
--- NOTE | 2017-03-21 08:19 | PN ---
DATE: 03/19/2017 This late entry 03/19/2017 covers elements not covered in my initial note 03/19/2017. SUBJECTIVE: I met with the patient evening of 03/19/2017. The patient has had a very difficult day and I have been called several times by the nursing staff, evening, night and during the day. She has been constantly yelling in a high pitched babbling, nonsensically tone. As I met with her, she had some semblance of being able to respond to questions, but extremely disorganized. REVIEW OF SYSTEMS: Ambulation impaired. No CV, , pulmonary, eye, ENT system symptoms on review, takes her medications in applesauce, yelling all night and nursing staff called me late at night, we started Zyprexa p.r.n. 5 mg q. 2 hours, max 20 mg in 24 hours. This seemed to have little benefit for the sleep, but agitation was perhaps a little better. She remains quite psychotic. Ambulation impaired. No CV, , pulmonary, eye, ENT system symptoms on review. MENTAL STATUS EXAM: Oriented to herself. Insight, judgment, recent and remote memory, attention, concentration, fund of knowledge poor, consistent with her diagnoses. IMPRESSION: Bipolar 1 disorder, mixed with psychotic features; major neurocognitive disorder, Alzheimer, vascular with delusions, behavioral disturbance; anxiety disorder, unspecified; impulse control disorder, unspecified. She does have urinary tract infection and is on Bactrim for 7 days. PLAN: Continue psychotropics mentioned in my initial note, start Clozaril 25 mg at bedtime. Check CBC, CMP, absolute neutrophil count every Monday, adjust to reach a therapeutic level and then gradually taper the Geodon, adjust the Depakote to reach a therapeutic level with next set of labs and level to be completed on 03/22/2017. MIRIAM BRASWELL MD DR: ANAM/aly JOB#: [id number] / [id number]
[2017-03-21] MEDS: ENOXAPARIN 30 MG/0.3 ML DISP.SYRIN. SQ SCH (11:19)
[2017-03-21] MEDS: GABAPENTIN 300 MG CAPSULE. PO SCH ×2 (11:20→20:07)
[2017-03-21] MEDS: ZIPRASIDONE 60 MG CAPSULE. PO SCH ×2 (11:20→20:07)
[2017-03-21] MEDS: LACTULOSE 20 GM/30 ML SOLUTION. PO SCH ×2 (11:20→20:07)
[2017-03-21] MEDS: LACTOBACILLUS RHAMNOSUS GG 1 CAPSULE. PO SCH ×2 (11:20→20:07)
[2017-03-21] MEDS: OMEGA-3 FATTY ACIDS/FISH OIL 1,000 MG CAPSULE. PO SCH (11:20)
[2017-03-21] MEDS: SMZ/TMP 400/80MG TABLET. PO SCH ×2 (11:20→20:10)
[2017-03-21] MEDS: MEGESTROL 400 MG/10 ML ORAL.SUSP. PO SCH ×2 (11:20→14:55)
[2017-03-21] MEDS: POLYETHYLENE GLYCOL 3350 17 GM PACKET. PO SCH (11:20)
[2017-03-21] MEDS: SENNOSIDES/DOCUSATE 8.6/50MG TABLET. PO SCH ×2 (11:21→20:07)
[2017-03-21] MEDS: CHOLECALCIFEROL (VITAMIN D3) 1,000 UNIT TABLET PO SCH (11:21)
[2017-03-21] MEDS: BENZTROPINE MESYLATE 1 MG TABLET PO SCH (11:21)
[2017-03-21] MEDS: PANTOPRAZOLE 40 MG TABLET. PO SCH (11:21)
[2017-03-21] MEDS: DIVALPROEX 125 MG CAP.SPRINK PO SCH ×2 (11:21→14:55)
[2017-03-21] MEDS: ACETAMINOPHEN 325 MG TABLET PO PRN (11:57)
[2017-03-21 16:50] VITALS: BP 135/75
--- NOTE | 2017-03-21 20:05 | PDOC ---
Exam Note: Kayden Note: Please also refer to the separate dictated note~for this date of service dictated separately.~Patient seen individually. Discussed the patient with Nursing staff reviewed the chart.~Reviewed interim history and current functioning. Reviewed vital signs,~Labs/ Radiology~and current medications noted below. Continue current treatment with the changes noted in the dictated addendum note Assessment: Vital Signs: Vital Signs Date Time Temp Pulse Resp B/P (MAP) Pulse Ox O2 Delivery O2 Flow Rate FiO2 03/21/17 16:50 98.4 100 20 135/75 (95) 96 03/19/17 16:10 Room Air I&O Intake and Output 03/21/17 07:00 Intake Total 900 ml Output Total 550 ml Balance 350 ml Intake Oral 900 ml Output Urine Total 550 ml Current Medications: Meds: Current Medications Benztropine Mesylate (Cogentin) 1 mg TID PO Last administered on 03/16/17 08: 39; Start 03/14/17 at 22:30; Stop 03/16/17 at 11:57; Status DC Buspirone HCl (Buspar) 10 mg TID PO Last administered on 03/16/17 08:40; Start 03/14/17 at 22:30; Stop 03/16/17 at 11:57; Status DC Ziprasidone (Geodon) 40 mg BID PO Last administered on 03/17/17 08:01; Start 03/14/17 at 22:30; Stop 03/17/17 at 18:48; Status DC Glycerin (Sani-Supp Adult) 1 supp PRN DAILY PRN [place] CONSTIPATION; Start at 22:30 Pantoprazole Sodium (Protonix) 40 mg DAILYAC PO Last administered on 11:21; Start 03/15/17 at 07:30 Polyethylene Glycol (miraLAX) 17 gm DAILY PO Last administered on 03/21/17 11 :20; Start 03/15/17 at 09:00 Senna/Docusate Sodium (Senna Plus) 1 tab BID PO Last administered on 11:21; Start 03/14/17 at 22:30 Vitamin D (Vitamin D3) 2,000 unit DAILY PO Last administered on 03/21/17 11: 21; Start 03/15/17 at 09:00 Gabapentin (Neurontin) 600 mg BID PO Last administered on 03/21/17 11:20; Start 03/14/17 at 22:30 Non-Formulary Medication 290 mcg HS PO ; Start 03/15/17 at 21:00; Status UNV Fish Oil (Fish Oil) 1,000 mg DAILY PO Last administered on 03/21/17 11:20; Start 03/15/17 at 09:00 Benztropine Mesylate (Cogentin) 1 mg HS PO ; Start 03/15/17 at 21:00; Stop 03/15 at 21:00; Status DC Olanzapine (ZyPREXA) 10 mg TID PO Last administered on 03/16/17 08:39; Start 03/14/17 at 23:00; Stop 03/16/17 at 11:57; Status DC Acetaminophen (Tylenol) 650 mg PRN Q4HRS PRN PO PAIN / TEMP Last administered on 03/21/17 11:57; Start 03/14/17 at 22:45 Acetaminophen/ Hydrocodone Bitart (Lortab 5/325) 1 tab PRN Q6HRS PRN PO PAIN Last administered on 03/21/17 06:00; Start 03/14/17 at 22:45 Megestrol Acetate (Megace) 400 mg BID PO Last administered on 03/16/17 08:41; Start 03/14/17 at 23:00; Stop 03/16/17 at 21:03; Status DC Lactulose 20 gm BID PO Last administered on 03/21/17 11:20; Start 03/14/17 at 23:00 Pantoprazole Sodium (Protonix) 40 mg DAILYAC PO ; Start 03/15/17 at 07:30; Stop 03/16/17 at 19:39; Status DC Acetaminophen (Tylenol) 650 mg PRN Q6HRS PRN PO PAIN / TEMP; Start 03/15/17 at 01:15 Multi-Ingredient Ointment (Analgesic [place]) 1 landon PRN QID PRN TP MUSCLE PAIN; Start 03/15/17 at 01:15 Al Hydroxide/Mg Hydroxide (Mylanta Plus Xs) 15 ml PRN AFTMEALHC PRN PO DYSPEPSIA; Start 03/15/17 at 01:15 Magnesium Hydroxide (Milk Of Magnesia) 2,400 mg PRN QHS PRN PO CONSTIPATION; Start 03/15/17 at 01:15 Potassium Chloride/Dextrose 1,000 ml @ 75 mls/hr [id number] IV Last administered on 03/18/17 11:25; Start 03/15/17 at 16:45; Stop 03/18/17 at 18:24; Status DC Divalproex Sodium (Depakote Sprinkles) 125 mg BID92 PO Last administered on 13:31; Start 03/16/17 at 09:00; Stop 03/18/17 at 18:29; Status DC Bisacodyl (Dulcolax Supp) 10 mg PRN DAILY PRN [place] CONSTIPATION Last administered on 03/15/17 19:16; Start 03/15/17 at 19:00 Sodium Biphosphate/ Sodium Phosphate (Fleet Adult) 133 ml PRN DAILY PRN [place] CONSTIPATION Last administered on 03/16/17 05:09; Start 03/15/17 at 19:00 Benztropine Mesylate (Cogentin) 1 mg BID PO Last administered on 03/18/17 17: 04; Start 03/16/17 at 21:00; Stop 03/18/17 at 23:00; Status DC Benztropine Mesylate (Cogentin) 1 mg DAILY PO Last administered on 03/21/17 11:21; Start 03/19/17 at 09:00; Stop 03/21/17 at 12:00; Status DC Enoxaparin Sodium (Lovenox) 30 mg Q24H SQ ; Start 03/16/17 at 18:00; Stop at 18:29; Status DC Enoxaparin Sodium (Lovenox) 30 mg Q24H SQ Last administered on 03/21/17 11:19 ; Start 03/17/17 at 09:00 Megestrol Acetate (Megace) 400 mg BID92 PO Last administered on 03/21/17 14: 55; Start 03/17/17 at 09:00 Trimethoprim/ Sulfamethoxazole (Bactrim Ss) 1 tab BID PO Last administered on 03/21/17 11:20; Start 03/17/17 at 21:00; Stop 03/25/17 at 20:59 Ziprasidone (Geodon) 60 mg BID PO Last administered on 03/21/17 11:20; Start 03/17/17 at 21:00 Lactobacillus Rhamnosus (Culturelle) 1 cap BID PO Last administered on 11:20; Start 03/18/17 at 21:00 Divalproex Sodium (Depakote Sprinkles) 250 mg BID92 PO Last administered on 14:55; Start 03/19/17 at 09:00 Olanzapine (ZyPREXA ZYDIS) 5 mg PRN Q2HR PRN PO PSYCHOSIS Last administered on 03/21/17 11:57; Start 03/19/17 at 07:00 Clozapine (Clozaril) 25 mg HS PO Last administered on 03/20/17 19:26; Start 03/19/17 at 21:00 Trazodone HCl (Desyrel) 100 mg QHS PO Last administered on 03/20/17 19:26; Start 03/19/17 at 21:00 Trazodone HCl (Desyrel) 100 mg PRN QHS PRN PO INSOMNIA; Start 03/19/17 at 19: 15 Active Scripts Active Reported Omeprazole 40 Mg Capsule.dr 40 Mg PO DAILY Olanzapine 10 Mg Tablet 10 Mg PO TID Megestrol Acetate 400 Mg/10 Ml Oral.susp 400 Mg PO BID Lactulose 10 Gm/15 Ml Solution 30 Ml PO BID Hold if no longer constipated [place] 5-325 Tablet (Hydrocodone Bit/Acetaminophen) 1 Each Tablet 1 Tab PO PRN Q6HRS PRN Tylenol (Acetaminophen) 325 Mg Tablet 650 Mg PO PRN Q4HRS PRN Benztropine Mesylate 1 Mg Tablet 1 Mg PO HS Suppository (Glycerin) 1 Each Supp.rect 1 Each RC PRN DAILY PRN Geodon (Ziprasidone Hcl) 40 Mg Capsule 40 Mg PO BID Sennosides-Docusate Sodium Tab (Sennosides/Docusate Sodium) 1 Each Tablet 1 Each PO BID Miralax (Polyethylene Glycol 3350) 17 Gm Powd.pack 17 Gm PO DAILY Protonix (Pantoprazole Sodium) 20 Mg Tablet.dr 20 Mg PO BID [place] 3 1,000 Mg Softgel ([place]-3 Fatty Acids/Fish Oil) 1 Each Capsule 1 Each PO DAILY Linzess (Linaclotide) 290 Mcg Capsule 290 Mcg PO HS Gabapentin 600 Mg Tablet 600 Mg PO BID Vitamin D (Cholecalciferol (Vitamin D3)) 2,000 Unit Capsule 2,000 Unit PO DAILY Buspirone Hcl 10 Mg Tablet 10 Mg PO TID Benztropine Mesylate 1 Mg Tablet 1 Mg PO TID I have reviewed the current psychotropics carefully including drug interactions. Risk benefit ratio favors no change other than as noted in my dictated progress note. Diagnosis: Problems: (1) Anxiety disorder (2) Bipolar affective, mixed, sev w/ psych (3) Dementia, vascular, with depression (4) Dementia, vascular, with delusions (5) Dementia in Alzheimer's disease with depression (6) Dementia in Alzheimer's disease with delusions (7) Impulse control disorder MIRIAM BRASWELL MD Mar 21, 2017 20:05
[2017-03-21] MEDS: cloZAPine 25 MG TABLET PO SCH (20:07)
[2017-03-21] MEDS: traZODone 100 MG TABLET. PO SCH (20:07)
[2017-03-21] MEDS: LINACLOTIDE 145 MCG CAPSULE. PO SCH (20:09)
[2017-03-22] MEDS: HYDROcodone/APAP 5/325MG 1 TAB TABLET PO PRN ×3 (05:17→19:19)
[2017-03-22 05:48] VITALS: BP 118/81
[2017-03-22] MEDS: DIVALPROEX 125 MG CAP.SPRINK PO SCH ×2 (09:10→14:16)
[2017-03-22] MEDS: GABAPENTIN 300 MG CAPSULE. PO SCH ×2 (09:11→19:18)
[2017-03-22] MEDS: PANTOPRAZOLE 40 MG TABLET. PO SCH (09:11)
[2017-03-22] MEDS: SENNOSIDES/DOCUSATE 8.6/50MG TABLET. PO SCH ×2 (09:11→19:19)
[2017-03-22] MEDS: ZIPRASIDONE 60 MG CAPSULE. PO SCH ×2 (09:11→19:18)
[2017-03-22] MEDS: OMEGA-3 FATTY ACIDS/FISH OIL 1,000 MG CAPSULE. PO SCH (09:11)
[2017-03-22] MEDS: LACTOBACILLUS RHAMNOSUS GG 1 CAPSULE. PO SCH ×2 (09:11→19:19)
[2017-03-22] MEDS: CHOLECALCIFEROL (VITAMIN D3) 1,000 UNIT TABLET PO SCH (09:11)
[2017-03-22] MEDS: LACTULOSE 20 GM/30 ML SOLUTION. PO SCH ×2 (09:12→19:18)
[2017-03-22] MEDS: MEGESTROL 400 MG/10 ML ORAL.SUSP. PO SCH ×2 (09:12→14:16)
[2017-03-22] MEDS: POLYETHYLENE GLYCOL 3350 17 GM PACKET. PO SCH (09:12)
[2017-03-22] MEDS: ENOXAPARIN 30 MG/0.3 ML DISP.SYRIN. SQ SCH (09:12)
[2017-03-22] MEDS: SMZ/TMP 400/80MG TABLET. PO SCH ×2 (09:14→19:21)
[2017-03-22 09:47] LABS: BASO % 0 % (0-3); EOS % 0 % (0-3); HEMATOCRIT 36.4 % (36.0-47.0); HEMOGLOBIN 12.5 g/dL (12.0-15.5); LYMPH # 1.6 x10^3/uL (1.0-4.8); LYMPH % 23 % (24-48); MEAN CORPUSCULAR HEMOGLOBIN 33 pg (25-35); MEAN CORPUSCULAR HGB CONC 34 g/dL (31-37); MEAN CORPUSCULAR VOLUME 95 fL (79-100); MONO # 0.5 x10^3/uL (0.0-1.1); MONO % 7 % (0-9); NEUT # 4.9 x10^3uL (1.8-7.7); NEUT % 70 % (31-73); PLATELET COUNT 173 x10^3/uL (140-400); RED BLOOD COUNT 3.83 x10^6/uL (3.50-5.40); RED CELL DISTRIBUTION WIDTH 14.9 % (11.5-14.5)
[2017-03-22 09:52] LABS: ALBUMIN 2.9 g/dL (3.4-5.0); ALBUMIN/GLOBULIN RATIO 0.8 (1.0-1.7); ALK PHOS 105 U/L (46-116); ALT (SGPT) 19 U/L (14-59); ANION GAP 10 (6-14); AST (SGOT) 8 U/L (15-37); BLOOD UREA NITROGEN 18 mg/dL (7-20); BUN/CREATININE RATIO 18 (6-20); CALCIUM 9.7 mg/dL (8.5-10.1); CARBON DIOXIDE 23 mmol/L (21-32); CHLORIDE 113 mmol/L (98-107); GFR 55.6; GLUCOSE 92 mg/dL (70-99); POTASSIUM 4.2 mmol/L (3.5-5.1); SODIUM 146 mmol/L (136-145); TOTAL BILIRUBIN 0.2 mg/dL (0.2-1.0); TOTAL PROTEIN 6.6 g/dL (6.4-8.2)
[2017-03-22 09:53] LABS: VAL ACID 31 mcg/mL (50-100)
--- NOTE | 2017-03-22 10:35 | PN ---
DATE: 03/20/2017 PSYCHIATRIC PROGRESS NOTE This is a late entry 03/20/2017, covers elements not covered in my initial note 03/20/2017. SUBJECTIVE: I met with the patient the evening of 03/20/2017. The patient slept reasonably well previous night, continues to yell constantly in a high pitched tone, trying to jump out of the wheelchair. REVIEW OF SYSTEMS: No CV, , pulmonary, eye, ENT system symptoms on review. Gait unsteady. MENTAL STATUS EXAM: Oriented to herself. Insight, judgment, recent and remote memory, attention, concentration, fund of knowledge poor, consistent with her diagnoses mentioned in my initial note. IMPRESSION: Bipolar 1 disorder, mixed with psychotic features; major neurocognitive disorder, Alzheimer, vascular with delusion, behavioral disturbance; anxiety disorder, unspecified; impulse control disorder, unspecified. PLAN: Continue current psychotropics mentioned in my initial note including Clozaril 25 mg p.o. at bedtime. Follow absolute neutrophil count. Increase gradually and then taper and stop the Geodon. MAN Kathleen BRASWELL MD DR: ANAM/aly JOB#: [id number] / [id number]
[2017-03-22 16:08] VITALS: BP 133/73
[2017-03-22] MEDS: traZODone 100 MG TABLET. PO SCH (19:18)
[2017-03-22] MEDS: LINACLOTIDE 145 MCG CAPSULE. PO SCH (19:20)
[2017-03-22] MEDS: cloZAPine 25 MG TABLET PO SCH (19:37)
--- NOTE | 2017-03-22 20:10 | PDOC ---
Exam Note: Kayden Note: Please also refer to the separate dictated note~for this date of service dictated separately.~Patient seen individually. Discussed the patient with Nursing staff reviewed the chart.~Reviewed interim history and current functioning. Reviewed vital signs,~Labs/ Radiology~and current medications noted below. Continue current treatment with the changes noted in the dictated addendum note Assessment: Vital Signs: Vital Signs Date Time Temp Pulse Resp B/P (MAP) Pulse Ox O2 Delivery O2 Flow Rate FiO2 03/22/17 19:19 18 Room Air 03/22/17 16:08 97.6 91 133/73 (93) 100 I&O Intake and Output 03/22/17 07:00 Intake Total 240 ml Output Total 650 ml Balance -410 ml Intake Oral 240 ml Output Urine Total 650 ml Labs: Laboratory Tests Test 03/22/17 09:18 03/22/17 09:25 White Blood Count 7.0 x10^3/uL (4.0-11.0) Red Blood Count 3.83 x10^6/uL (3.50-5.40) Hemoglobin 12.5 g/dL (12.0-15.5) Hematocrit 36.4 % (36.0-47.0) Mean Corpuscular Volume 95 fL (79-100) Mean Corpuscular Hemoglobin 33 pg (25-35) Mean Corpuscular Hemoglobin Concent 34 g/dL (31-37) Red Cell Distribution Width 14.9 % (11.5-14.5) H Platelet Count 173 x10^3/uL (140-400) Neutrophils (%) (Auto) 70 % (31-73) Lymphocytes (%) (Auto) 23 % (24-48) L Monocytes (%) (Auto) 7 % (0-9) Eosinophils (%) (Auto) 0 % (0-3) Basophils (%) (Auto) 0 % (0-3) Neutrophils # (Auto) 4.9 x10^3uL (1.8-7.7) Lymphocytes # (Auto) 1.6 x10^3/uL (1.0-4.8) Monocytes # (Auto) 0.5 x10^3/uL (0.0-1.1) Eosinophils # (Auto) 0.0 x10^3/uL (0.0-0.7) Basophils # (Auto) 0.0 x10^3/uL (0.0-0.2) Sodium Level 146 mmol/L (136-145) H Potassium Level 4.2 mmol/L (3.5-5.1) Chloride Level 113 mmol/L (98-107) H Carbon Dioxide Level 23 mmol/L (21-32) Anion Gap 10 (6-14) Blood Urea Nitrogen 18 mg/dL (7-20) Creatinine 1.0 mg/dL (0.6-1.0) Estimated GFR (Cockcroft-Gault) 55.6 BUN/Creatinine Ratio 18 (6-20) Glucose Level 92 mg/dL (70-99) Calcium Level 9.7 mg/dL (8.5-10.1) Total Bilirubin 0.2 mg/dL (0.2-1.0) Aspartate Amino Transferase (AST) 8 U/L (15-37) L Alanine Aminotransferase (ALT) 19 U/L (14-59) Alkaline Phosphatase 105 U/L (46-116) Total Protein 6.6 g/dL (6.4-8.2) Albumin 2.9 g/dL (3.4-5.0) L Albumin/Globulin Ratio 0.8 (1.0-1.7) L Valproic Acid Level 31 mcg/mL (50-100) L Valproic Acid Last Dose Date 03/21/17 Valproic Acid Last Dose Time 2100 Magnesium Level 2.4 mg/dL (1.8-2.4) Current Medications: Meds: Current Medications Benztropine Mesylate (Cogentin) 1 mg TID PO Last administered on 03/16/17 08: 39; Start 03/14/17 at 22:30; Stop 03/16/17 at 11:57; Status DC Buspirone HCl (Buspar) 10 mg TID PO Last administered on 03/16/17 08:40; Start 03/14/17 at 22:30; Stop 03/16/17 at 11:57; Status DC Ziprasidone (Geodon) 40 mg BID PO Last administered on 03/17/17 08:01; Start 03/14/17 at 22:30; Stop 03/17/17 at 18:48; Status DC Glycerin (Sani-Supp Adult) 1 supp PRN DAILY PRN RC CONSTIPATION; Start at 22:30 Pantoprazole Sodium (Protonix) 40 mg DAILYAC PO Last administered on 09:11; Start 03/15/17 at 07:30 Polyethylene Glycol (miraLAX) 17 gm DAILY PO Last administered on 03/22/17 09 :12; Start 03/15/17 at 09:00 Senna/Docusate Sodium (Senna Plus) 1 tab BID PO Last administered on 19:19; Start 03/14/17 at 22:30 Vitamin D (Vitamin D3) 2,000 unit DAILY PO Last administered on 03/22/17 09: 11; Start 03/15/17 at 09:00 Gabapentin (Neurontin) 600 mg BID PO Last administered on 03/22/17 19:18; Start 03/14/17 at 22:30 Non-Formulary Medication 290 mcg HS PO ; Start 03/15/17 at 21:00; Status UNV Fish Oil (Fish Oil) 1,000 mg DAILY PO Last administered on 03/22/17 09:11; Start 03/15/17 at 09:00 Benztropine Mesylate (Cogentin) 1 mg HS PO ; Start 03/15/17 at 21:00; Stop 03/15 at 21:00; Status DC Olanzapine (ZyPREXA) 10 mg TID PO Last administered on 03/16/17 08:39; Start 03/14/17 at 23:00; Stop 03/16/17 at 11:57; Status DC Acetaminophen (Tylenol) 650 mg PRN Q4HRS PRN PO PAIN / TEMP Last administered on 03/21/17 11:57; Start 03/14/17 at 22:45 Acetaminophen/ Hydrocodone Bitart (Lortab 5/325) 1 tab PRN Q6HRS PRN PO PAIN Last administered on 03/22/17 19:19; Start 03/14/17 at 22:45 Megestrol Acetate (Megace) 400 mg BID PO Last administered on 03/16/17 08:41; Start 03/14/17 at 23:00; Stop 03/16/17 at 21:03; Status DC Lactulose 20 gm BID PO Last administered on 03/22/17 19:18; Start 03/14/17 at 23:00 Pantoprazole Sodium (Protonix) 40 mg DAILYAC PO ; Start 03/15/17 at 07:30; Stop 03/16/17 at 19:39; Status DC Acetaminophen (Tylenol) 650 mg PRN Q6HRS PRN PO PAIN / TEMP; Start 03/15/17 at 01:15 Multi-Ingredient Ointment (Analgesic [place]) 1 landon PRN QID PRN TP MUSCLE PAIN; Start 03/15/17 at 01:15 Al Hydroxide/Mg Hydroxide (Mylanta Plus Xs) 15 ml PRN AFTMEALHC PRN PO DYSPEPSIA; Start 03/15/17 at 01:15 Magnesium Hydroxide (Milk Of Magnesia) 2,400 mg PRN QHS PRN PO CONSTIPATION; Start 03/15/17 at 01:15 Potassium Chloride/Dextrose 1,000 ml @ 75 mls/hr [id number] IV Last administered on 03/18/17 11:25; Start 03/15/17 at 16:45; Stop 03/18/17 at 18:24; Status DC Divalproex Sodium (Depakote Sprinkles) 125 mg BID92 PO Last administered on 13:31; Start 03/16/17 at 09:00; Stop 03/18/17 at 18:29; Status DC Bisacodyl (Dulcolax Supp) 10 mg PRN DAILY PRN [place] CONSTIPATION Last administered on 03/15/17 19:16; Start 03/15/17 at 19:00 Sodium Biphosphate/ Sodium Phosphate (Fleet Adult) 133 ml PRN DAILY PRN [place] CONSTIPATION Last administered on 03/16/17 05:09; Start 03/15/17 at 19:00 Benztropine Mesylate (Cogentin) 1 mg BID PO Last administered on 03/18/17 17: 04; Start 03/16/17 at 21:00; Stop 03/18/17 at 23:00; Status DC Benztropine Mesylate (Cogentin) 1 mg DAILY PO Last administered on 03/21/17 11:21; Start 03/19/17 at 09:00; Stop 03/21/17 at 12:00; Status DC Enoxaparin Sodium (Lovenox) 30 mg Q24H SQ ; Start 03/16/17 at 18:00; Stop at 18:29; Status DC Enoxaparin Sodium (Lovenox) 30 mg Q24H SQ Last administered on 03/22/17 09:12 ; Start 03/17/17 at 09:00 Megestrol Acetate (Megace) 400 mg BID92 PO Last administered on 03/22/17 14: 16; Start 03/17/17 at 09:00 Trimethoprim/ Sulfamethoxazole (Bactrim Ss) 1 tab BID PO Last administered on 03/22/17 19:21; Start 03/17/17 at 21:00; Stop 03/25/17 at 20:59 Ziprasidone (Geodon) 60 mg BID PO Last administered on 03/22/17 19:18; Start 03/17/17 at 21:00 Lactobacillus Rhamnosus (Culturelle) 1 cap BID PO Last administered on 19:19; Start 03/18/17 at 21:00 Divalproex Sodium (Depakote Sprinkles) 250 mg BID92 PO Last administered on 14:16; Start 03/19/17 at 09:00 Olanzapine (ZyPREXA ZYDIS) 5 mg PRN Q2HR PRN PO PSYCHOSIS Last administered on 03/21/17 11:57; Start 03/19/17 at 07:00 Clozapine (Clozaril) 25 mg HS PO Last administered on 03/21/17 20:07; Start 03/19/17 at 21:00; Stop 03/22/17 at 18:41; Status DC Trazodone HCl (Desyrel) 100 mg QHS PO Last administered on 03/22/17 19:18; Start 03/19/17 at 21:00 Trazodone HCl (Desyrel) 100 mg PRN QHS PRN PO INSOMNIA; Start 03/19/17 at 19: 15 Clozapine (Clozaril) 50 mg HS PO Last administered on 03/22/17 19:37; Start 03/22/17 at 21:00 Active Scripts Active Reported Omeprazole 40 Mg Capsule.dr 40 Mg PO DAILY Olanzapine 10 Mg Tablet 10 Mg PO TID Megestrol Acetate 400 Mg/10 Ml Oral.susp 400 Mg PO BID Lactulose 10 Gm/15 Ml Solution 30 Ml PO BID Hold if no longer constipated [place] 5-325 Tablet (Hydrocodone Bit/Acetaminophen) 1 Each Tablet 1 Tab PO PRN Q6HRS PRN Tylenol (Acetaminophen) 325 Mg Tablet 650 Mg PO PRN Q4HRS PRN Benztropine Mesylate 1 Mg Tablet 1 Mg PO HS Suppository (Glycerin) 1 Each Supp.rect 1 Each RC PRN DAILY PRN Geodon (Ziprasidone Hcl) 40 Mg Capsule 40 Mg PO BID Sennosides-Docusate Sodium Tab (Sennosides/Docusate Sodium) 1 Each Tablet 1 Each PO BID Miralax (Polyethylene Glycol 3350) 17 Gm Powd.pack 17 Gm PO DAILY Protonix (Pantoprazole Sodium) 20 Mg Tablet.dr 20 Mg PO BID [place] 3 1,000 Mg Softgel ([place]-3 Fatty Acids/Fish Oil) 1 Each Capsule 1 Each PO DAILY Linzess (Linaclotide) 290 Mcg Capsule 290 Mcg PO HS Gabapentin 600 Mg Tablet 600 Mg PO BID Vitamin D (Cholecalciferol (Vitamin D3)) 2,000 Unit Capsule 2,000 Unit PO DAILY Buspirone Hcl 10 Mg Tablet 10 Mg PO TID Benztropine Mesylate 1 Mg Tablet 1 Mg PO TID I have reviewed the current psychotropics carefully including drug interactions. Risk benefit ratio favors no change other than as noted in my dictated progress note. Diagnosis: Problems: (1) Anxiety disorder (2) Bipolar affective, mixed, sev w/ psych (3) Dementia, vascular, with depression (4) Dementia, vascular, with delusions (5) Dementia in Alzheimer's disease with depression (6) Dementia in Alzheimer's disease with delusions (7) Impulse control disorder MIRIAM BRASWELL MD Mar 22, 2017 20:10
[2017-03-22] MEDS: BISACODYL 10 MG SUPP.RECT PR PRN (21:05)
[2017-03-23 05:54] VITALS: BP 127/82
--- NOTE | 2017-03-23 08:09 | PN ---
DATE: 03/21/2017 PSYCHIATRIC PROGRESS NOTE This late entry for 03/21/2017 covers elements not covered in my initial note of 03/21/2017. SUBJECTIVE: I met with the patient evening of 03/21/2017. The patient continues to yell in a high pitched tone, is fairly persistent, loud, disruptive to the entire unit, but was able to interact with me just a little better as I met with her individually evening of 03/21/2017. Ambulation impaired. REVIEW OF SYSTEMS: No CV, , pulmonary, eye, ENT system symptoms on review. Reliability poor. MENTAL STATUS EXAM: Oriented to herself. Insight, judgment, recent and remote memory, attention, concentration, fund of knowledge poor, consistent with her diagnosis mentioned in my initial note. PLAN: Continue current psychotropics, Clozaril was started. Labs are due on the , we will adjust Depakote further thereafter and increase Clozaril after the next set of labs on Monday. MIRIAM BRASWELL MD DR: ANAM/aly JOB#: [id number] / [id number]
[2017-03-23] MEDS: LACTULOSE 20 GM/30 ML SOLUTION. PO SCH ×2 (09:33→19:29)
[2017-03-23] MEDS: GABAPENTIN 300 MG CAPSULE. PO SCH ×2 (09:33→19:30)
[2017-03-23] MEDS: SENNOSIDES/DOCUSATE 8.6/50MG TABLET. PO SCH ×2 (09:33→19:30)
[2017-03-23] MEDS: LACTOBACILLUS RHAMNOSUS GG 1 CAPSULE. PO SCH ×2 (09:33→19:30)
[2017-03-23] MEDS: ZIPRASIDONE 60 MG CAPSULE. PO SCH ×2 (09:34→19:29)
[2017-03-23] MEDS: POLYETHYLENE GLYCOL 3350 17 GM PACKET. PO SCH (09:34)
[2017-03-23] MEDS: DIVALPROEX 125 MG CAP.SPRINK PO SCH (09:35)
[2017-03-23] MEDS: OMEGA-3 FATTY ACIDS/FISH OIL 1,000 MG CAPSULE. PO SCH (09:35)
[2017-03-23] MEDS: CHOLECALCIFEROL (VITAMIN D3) 1,000 UNIT TABLET PO SCH (09:35)
[2017-03-23] MEDS: PANTOPRAZOLE 40 MG TABLET. PO SCH (09:35)
[2017-03-23] MEDS: MEGESTROL 400 MG/10 ML ORAL.SUSP. PO SCH ×2 (09:35→14:06)
[2017-03-23] MEDS: ENOXAPARIN 30 MG/0.3 ML DISP.SYRIN. SQ SCH (09:36)
[2017-03-23] MEDS: SMZ/TMP 400/80MG TABLET. PO SCH ×2 (09:38→19:30)
[2017-03-23 10:14] LABS: ALBUMIN 2.7 g/dL (3.4-5.0); ALBUMIN/GLOBULIN RATIO 0.8 (1.0-1.7); CALCIUM 9.3 mg/dL (8.5-10.1); CREATININE 0.9 mg/dL (0.6-1.0); GFR 62.8; POTASSIUM 4.2 mmol/L (3.5-5.1); TOTAL BILIRUBIN 0.2 mg/dL (0.2-1.0); TOTAL PROTEIN 6.2 g/dL (6.4-8.2)
[2017-03-23] MEDS: OXcarbazepine 150 MG TABLET. PO SCH (14:06)
[2017-03-23 16:59] VITALS: BP 129/86
[2017-03-23] MEDS: HYDROcodone/APAP 5/325MG 1 TAB TABLET PO PRN (17:03)
[2017-03-23] MEDS: LINACLOTIDE 145 MCG CAPSULE. PO SCH (19:29)
[2017-03-23] MEDS: cloZAPine 25 MG TABLET PO SCH (19:30)
[2017-03-23] MEDS: traZODone 100 MG TABLET. PO SCH (19:30)
--- NOTE | 2017-03-23 20:41 | PDOC ---
Exam Note: Kayden Note: Please also refer to the separate dictated note~for this date of service dictated separately.~Patient seen individually. Discussed the patient with Nursing staff reviewed the chart.~Reviewed interim history and current functioning. Reviewed vital signs,~Labs/ Radiology~and current medications noted below. Continue current treatment with the changes noted in the dictated addendum note Assessment: Vital Signs: Vital Signs Date Time Temp Pulse Resp B/P (MAP) Pulse Ox O2 Delivery O2 Flow Rate FiO2 03/23/17 18:22 97 03/23/17 16:59 98.1 89 20 129/86 (100) Room Air I&O Intake and Output 03/23/17 07:00 Intake Total 1020 ml Output Total 800 ml Balance 220 ml Intake Oral 1020 ml Output Urine Total 800 ml # Bowel Movements 1 Labs: Laboratory Tests Test 03/23/17 09:45 Sodium Level 144 mmol/L (136-145) Potassium Level 4.2 mmol/L (3.5-5.1) Chloride Level 111 mmol/L (98-107) H Carbon Dioxide Level 24 mmol/L (21-32) Anion Gap 9 (6-14) Blood Urea Nitrogen 19 mg/dL (7-20) Creatinine 0.9 mg/dL (0.6-1.0) Estimated GFR (Cockcroft-Gault) 62.8 BUN/Creatinine Ratio 21 (6-20) H Glucose Level 94 mg/dL (70-99) Calcium Level 9.3 mg/dL (8.5-10.1) Total Bilirubin 0.2 mg/dL (0.2-1.0) Aspartate Amino Transferase (AST) 12 U/L (15-37) L Alanine Aminotransferase (ALT) 17 U/L (14-59) Alkaline Phosphatase 96 U/L (46-116) Total Protein 6.2 g/dL (6.4-8.2) L Albumin 2.7 g/dL (3.4-5.0) L Albumin/Globulin Ratio 0.8 (1.0-1.7) L Current Medications: Meds: Current Medications Benztropine Mesylate (Cogentin) 1 mg TID PO Last administered on 03/16/17t 08: 39; Start 03/14/17 at 22:30; Stop 03/16/17 at 11:57; Status DC Buspirone HCl (Buspar) 10 mg TID PO Last administered on 03/16/17 08:40; Start 03/14/17 at 22:30; Stop 03/16/17 at 11:57; Status DC Ziprasidone (Geodon) 40 mg BID PO Last administered on 03/17/17 08:01; Start 03/14/17 at 22:30; Stop 03/17/17 at 18:48; Status DC Glycerin (Sani-Supp Adult) 1 supp PRN DAILY PRN RC CONSTIPATION; Start at 22:30 Pantoprazole Sodium (Protonix) 40 mg DAILYAC PO Last administered on 09:35; Start 03/15/17 at 07:30 Polyethylene Glycol (miraLAX) 17 gm DAILY PO Last administered on 03/23/17 09 :34; Start 03/15/17 at 09:00 Senna/Docusate Sodium (Senna Plus) 1 tab BID PO Last administered on 19:30; Start 03/14/17 at 22:30 Vitamin D (Vitamin D3) 2,000 unit DAILY PO Last administered on 03/23/17 09: 35; Start 03/15/17 at 09:00 Gabapentin (Neurontin) 600 mg BID PO Last administered on 03/23/17 19:30; Start 03/14/17 at 22:30 Non-Formulary Medication 290 mcg HS PO ; Start 03/15/17 at 21:00; Status UNV Fish Oil (Fish Oil) 1,000 mg DAILY PO Last administered on 03/23/17 09:35; Start 03/15/17 at 09:00 Benztropine Mesylate (Cogentin) 1 mg HS PO ; Start 03/15/17 at 21:00; Stop 03/15 at 21:00; Status DC Olanzapine (ZyPREXA) 10 mg TID PO Last administered on 03/16/17 08:39; Start 03/14/17 at 23:00; Stop 03/16/17 at 11:57; Status DC Acetaminophen (Tylenol) 650 mg PRN Q4HRS PRN PO PAIN / TEMP Last administered on 03/21/17 11:57; Start 03/14/17 at 22:45 Acetaminophen/ Hydrocodone Bitart (Lortab 5/325) 1 tab PRN Q6HRS PRN PO PAIN Last administered on 03/23/17 17:03; Start 03/14/17 at 22:45 Megestrol Acetate (Megace) 400 mg BID PO Last administered on 03/16/17 08:41; Start 03/14/17 at 23:00; Stop 03/16/17 at 21:03; Status DC Lactulose 20 gm BID PO Last administered on 03/23/17 19:29; Start 03/14/17 at 23:00 Pantoprazole Sodium (Protonix) 40 mg DAILYAC PO ; Start 03/15/17 at 07:30; Stop 03/16/17 at 19:39; Status DC Acetaminophen (Tylenol) 650 mg PRN Q6HRS PRN PO PAIN / TEMP; Start 03/15/17 at 01:15 Multi-Ingredient Ointment (Analgesic [place]) 1 landon PRN QID PRN TP MUSCLE PAIN; Start 03/15/17 at 01:15 Al Hydroxide/Mg Hydroxide (Mylanta Plus Xs) 15 ml PRN AFTMEALHC PRN PO DYSPEPSIA; Start 03/15/17 at 01:15 Magnesium Hydroxide (Milk Of Magnesia) 2,400 mg PRN QHS PRN PO CONSTIPATION; Start 03/15/17 at 01:15 Potassium Chloride/Dextrose 1,000 ml @ 75 mls/hr [id number] IV Last administered on 03/18/17 11:25; Start 03/15/17 at 16:45; Stop 03/18/17 at 18:24; Status DC Divalproex Sodium (Depakote Sprinkles) 125 mg BID92 PO Last administered on 13:31; Start 03/16/17 at 09:00; Stop 03/18/17 at 18:29; Status DC Bisacodyl (Dulcolax Supp) 10 mg PRN DAILY PRN SC CONSTIPATION Last administered on 03/22/17 21:05; Start 03/15/17 at 19:00 Sodium Biphosphate/ Sodium Phosphate (Fleet Adult) 133 ml PRN DAILY PRN SC CONSTIPATION Last administered on 03/16/17 05:09; Start 03/15/17 at 19:00 Benztropine Mesylate (Cogentin) 1 mg BID PO Last administered on 03/18/17 17: 04; Start 03/16/17 at 21:00; Stop 03/18/17 at 23:00; Status DC Benztropine Mesylate (Cogentin) 1 mg DAILY PO Last administered on 03/21/17 11:21; Start 03/19/17 at 09:00; Stop 03/21/17 at 12:00; Status DC Enoxaparin Sodium (Lovenox) 30 mg Q24H SQ ; Start 03/16/17 at 18:00; Stop at 18:29; Status DC Enoxaparin Sodium (Lovenox) 30 mg Q24H SQ Last administered on 03/23/17 09:36 ; Start 03/17/17 at 09:00 Megestrol Acetate (Megace) 400 mg BID92 PO Last administered on 03/23/17 14: 06; Start 03/17/17 at 09:00 Trimethoprim/ Sulfamethoxazole (Bactrim Ss) 1 tab BID PO Last administered on 03/23/17 19:30; Start 03/17/17 at 21:00; Stop 03/25/17 at 20:59 Ziprasidone (Geodon) 60 mg BID PO Last administered on 03/23/17 19:29; Start 03/17/17 at 21:00 Lactobacillus Rhamnosus (Culturelle) 1 cap BID PO Last administered on 19:30; Start 03/18/17 at 21:00 Divalproex Sodium (Depakote Sprinkles) 250 mg BID92 PO Last administered on 09:35; Start 03/19/17 at 09:00; Stop 03/23/17 at 11:14; Status DC Olanzapine (ZyPREXA ZYDIS) 5 mg PRN Q2HR PRN PO PSYCHOSIS Last administered on 03/21/17 11:57; Start 03/19/17 at 07:00 Clozapine (Clozaril) 25 mg HS PO Last administered on 03/21/17 20:07; Start 03/19/17 at 21:00; Stop 03/22/17 at 18:41; Status DC Trazodone HCl (Desyrel) 100 mg QHS PO Last administered on 03/23/17 19:30; Start 11/12/17 at 21:00 Trazodone HCl (Desyrel) 100 mg PRN QHS PRN PO INSOMNIA; Start 03/19/17 at 19: 15 Clozapine (Clozaril) 50 mg HS PO Last administered on 03/23/17t 19:30; Start 03/22/17 at 21:00 Oxcarbazepine (Trileptal) 150 mg BID92 PO Last administered on 03/23/17 14:06 ; Start 03/23/17 at 14:00; Stop 03/26/17 at 14:01 Oxcarbazepine (Trileptal) 300 mg BID92 PO ; Start 03/27/17 at 09:00 Active Scripts Active Reported Omeprazole 40 Mg Capsule.dr 40 Mg PO DAILY Olanzapine 10 Mg Tablet 10 Mg PO TID Megestrol Acetate 400 Mg/10 Ml Oral.susp 400 Mg PO BID Lactulose 10 Gm/15 Ml Solution 30 Ml PO BID Hold if no longer constipated [place] 5-325 Tablet (Hydrocodone Bit/Acetaminophen) 1 Each Tablet 1 Tab PO PRN Q6HRS PRN Tylenol (Acetaminophen) 325 Mg Tablet 650 Mg PO PRN Q4HRS PRN Benztropine Mesylate 1 Mg Tablet 1 Mg PO HS Suppository (Glycerin) 1 Each Supp.rect 1 Each RC PRN DAILY PRN Geodon (Ziprasidone Hcl) 40 Mg Capsule 40 Mg PO BID Sennosides-Docusate Sodium Tab (Sennosides/Docusate Sodium) 1 Each Tablet 1 Each PO BID Miralax (Polyethylene Glycol 3350) 17 Gm Powd.pack 17 Gm PO DAILY Protonix (Pantoprazole Sodium) 20 Mg Tablet.dr 20 Mg PO BID [place] 3 1,000 Mg Softgel ([place]-3 Fatty Acids/Fish Oil) 1 Each Capsule 1 Each PO DAILY Linzess (Linaclotide) 290 Mcg Capsule 290 Mcg PO HS Gabapentin 600 Mg Tablet 600 Mg PO BID Vitamin D (Cholecalciferol (Vitamin D3)) 2,000 Unit Capsule 2,000 Unit PO DAILY Buspirone Hcl 10 Mg Tablet 10 Mg PO TID Benztropine Mesylate 1 Mg Tablet 1 Mg PO TID I have reviewed the current psychotropics carefully including drug interactions. Risk benefit ratio favors no change other than as noted in my dictated progress note. Diagnosis: Problems: (1) Anxiety disorder (2) Bipolar affective, mixed, sev w/ psych (3) Dementia, vascular, with depression (4) Dementia, vascular, with delusions (5) Dementia in Alzheimer's disease with depression (6) Dementia in Alzheimer's disease with delusions (7) Impulse control disorder MIRIAM BRASWELL MD Mar 23, 2017 20:41
[2017-03-23] MEDS: traZODone 100 MG TABLET. PO PRN (21:35)
[2017-03-24 06:08] VITALS: BP 127/78
[2017-03-24 07:05] LABS: BASO % 0 % (0-3); EOS % 0 % (0-3); HEMATOCRIT 35.8 % (36.0-47.0); LYMPH # 1.6 x10^3/uL (1.0-4.8); LYMPH % 21 % (24-48); MEAN CORPUSCULAR HEMOGLOBIN 32 pg (25-35); MEAN CORPUSCULAR HGB CONC 33 g/dL (31-37); MEAN CORPUSCULAR VOLUME 95 fL (79-100); MONO # 0.7 x10^3/uL (0.0-1.1); MONO % 9 % (0-9); NEUT # 5.3 x10^3uL (1.8-7.7); NEUT % 69 % (31-73); PLATELET COUNT 186 x10^3/uL (140-400); RED BLOOD COUNT 3.75 x10^6/uL (3.50-5.40); RED CELL DISTRIBUTION WIDTH 15.5 % (11.5-14.5); WHITE BLOOD COUNT 7.7 x10^3/uL (4.0-11.0)
[2017-03-24] MEDS: ZIPRASIDONE 60 MG CAPSULE. PO SCH ×2 (08:09→19:38)
[2017-03-24] MEDS: POLYETHYLENE GLYCOL 3350 17 GM PACKET. PO SCH (08:09)
[2017-03-24] MEDS: OXcarbazepine 150 MG TABLET. PO SCH ×2 (08:09→13:17)
[2017-03-24] MEDS: GABAPENTIN 300 MG CAPSULE. PO SCH ×2 (08:09→19:38)
[2017-03-24] MEDS: LACTOBACILLUS RHAMNOSUS GG 1 CAPSULE. PO SCH ×2 (08:09→19:39)
[2017-03-24] MEDS: ENOXAPARIN 30 MG/0.3 ML DISP.SYRIN. SQ SCH (08:09)
[2017-03-24] MEDS: CHOLECALCIFEROL (VITAMIN D3) 1,000 UNIT TABLET PO SCH (08:09)
[2017-03-24] MEDS: SENNOSIDES/DOCUSATE 8.6/50MG TABLET. PO SCH ×2 (08:10→19:39)
[2017-03-24] MEDS: OMEGA-3 FATTY ACIDS/FISH OIL 1,000 MG CAPSULE. PO SCH (08:10)
[2017-03-24] MEDS: PANTOPRAZOLE 40 MG TABLET. PO SCH (08:10)
[2017-03-24] MEDS: MEGESTROL 400 MG/10 ML ORAL.SUSP. PO SCH ×2 (08:10→13:17)
[2017-03-24] MEDS: LACTULOSE 20 GM/30 ML SOLUTION. PO SCH ×2 (08:10→19:38)
[2017-03-24] MEDS: SMZ/TMP 400/80MG TABLET. PO SCH ×2 (08:12→22:58)
[2017-03-24 16:22] VITALS: BP 106/67
[2017-03-24] MEDS: traZODone 100 MG TABLET. PO SCH (19:39)
[2017-03-24] MEDS: cloZAPine 25 MG TABLET PO SCH (19:39)
[2017-03-24] MEDS: LINACLOTIDE 145 MCG CAPSULE. PO SCH (19:39)
--- NOTE | 2017-03-24 20:09 | PDOC ---
Exam Note: Kayden Note: Please also refer to the separate dictated note~for this date of service dictated separately.~Patient seen individually. Discussed the patient with Nursing staff reviewed the chart.~Reviewed interim history and current functioning. Reviewed vital signs,~Labs/ Radiology~and current medications noted below. Continue current treatment with the changes noted in the dictated addendum note Assessment: Vital Signs: Vital Signs Date Time Temp Pulse Resp B/P (MAP) Pulse Ox O2 Delivery O2 Flow Rate FiO2 03/24/17 16:22 98.4 84 16 106/67 (80) 95 Room Air I&O Intake and Output 03/24/17 07:00 Intake Total 480 ml Balance 480 ml Intake Oral 480 ml Labs: Laboratory Tests Test 03/24/17 06:50 White Blood Count 7.7 x10^3/uL (4.0-11.0) Red Blood Count 3.75 x10^6/uL (3.50-5.40) Hemoglobin 12.0 g/dL (12.0-15.5) Hematocrit 35.8 % (36.0-47.0) L Mean Corpuscular Volume 95 fL (79-100) Mean Corpuscular Hemoglobin 32 pg (25-35) Mean Corpuscular Hemoglobin Concent 33 g/dL (31-37) Red Cell Distribution Width 15.5 % (11.5-14.5) H Platelet Count 186 x10^3/uL (140-400) Neutrophils (%) (Auto) 69 % (31-73) Lymphocytes (%) (Auto) 21 % (24-48) L Monocytes (%) (Auto) 9 % (0-9) Eosinophils (%) (Auto) 0 % (0-3) Basophils (%) (Auto) 0 % (0-3) Neutrophils # (Auto) 5.3 x10^3uL (1.8-7.7) Lymphocytes # (Auto) 1.6 x10^3/uL (1.0-4.8) Monocytes # (Auto) 0.7 x10^3/uL (0.0-1.1) Eosinophils # (Auto) 0.0 x10^3/uL (0.0-0.7) Basophils # (Auto) 0.0 x10^3/uL (0.0-0.2) Magnesium Level 2.3 mg/dL (1.8-2.4) Current Medications: Meds: Current Medications Benztropine Mesylate (Cogentin) 1 mg TID PO Last administered on 03/16/17 08: 39; Start 03/14/17 at 22:30; Stop 03/16/17 at 11:57; Status DC Buspirone HCl (Buspar) 10 mg TID PO Last administered on 03/16/17 08:40; Start 03/14/17 at 22:30; Stop 03/16/17 at 11:57; Status DC Ziprasidone (Geodon) 40 mg BID PO Last administered on 03/17/17 08:01; Start 03/14/17 at 22:30; Stop 03/17/17 at 18:48; Status DC Glycerin (Sani-Supp Adult) 1 supp PRN DAILY PRN RC CONSTIPATION; Start at 22:30 Pantoprazole Sodium (Protonix) 40 mg DAILYAC PO Last administered on 08:10; Start 03/15/17 at 07:30 Polyethylene Glycol (miraLAX) 17 gm DAILY PO Last administered on 03/24/17 08 :09; Start 03/15/17 at 09:00 Senna/Docusate Sodium (Senna Plus) 1 tab BID PO Last administered on 19:39; Start 03/14/17 at 22:30 Vitamin D (Vitamin D3) 2,000 unit DAILY PO Last administered on 03/24/17 08: 09; Start 03/15/17 at 09:00 Gabapentin (Neurontin) 600 mg BID PO Last administered on 03/24/17 19:38; Start 03/14/17 at 22:30 Non-Formulary Medication 290 mcg HS PO ; Start 03/15/17 at 21:00; Status UNV Fish Oil (Fish Oil) 1,000 mg DAILY PO Last administered on 03/24/17 08:10; Start 03/15/17 at 09:00 Benztropine Mesylate (Cogentin) 1 mg HS PO ; Start 03/15/17 at 21:00; Stop 03/15 at 21:00; Status DC Olanzapine (ZyPREXA) 10 mg TID PO Last administered on 03/16/17 08:39; Start 03/14/17 at 23:00; Stop 03/16/17 at 11:57; Status DC Acetaminophen (Tylenol) 650 mg PRN Q4HRS PRN PO PAIN / TEMP Last administered on 03/21/17 11:57; Start 03/14/17 at 22:45 Acetaminophen/ Hydrocodone Bitart (Lortab 5/325) 1 tab PRN Q6HRS PRN PO PAIN Last administered on 03/23/17 17:03; Start 03/14/17 at 22:45 Megestrol Acetate (Megace) 400 mg BID PO Last administered on 03/16/17 08:41; Start 03/14/17 at 23:00; Stop 03/16/17 at 21:03; Status DC Lactulose 20 gm BID PO Last administered on 03/24/17 19:38; Start 03/14/17 at 23:00 Pantoprazole Sodium (Protonix) 40 mg DAILYAC PO ; Start 03/15/17 at 07:30; Stop 03/16/17 at 19:39; Status DC Acetaminophen (Tylenol) 650 mg PRN Q6HRS PRN PO PAIN / TEMP; Start 03/15/17 at 01:15 Multi-Ingredient Ointment (Analgesic [place]) 1 landon PRN QID PRN TP MUSCLE PAIN; Start 03/15/17 at 01:15 Al Hydroxide/Mg Hydroxide (Mylanta Plus Xs) 15 ml PRN AFTMEALHC PRN PO DYSPEPSIA; Start 03/15/17 at 01:15 Magnesium Hydroxide (Milk Of Magnesia) 2,400 mg PRN QHS PRN PO CONSTIPATION; Start 03/15/17 at 01:15 Potassium Chloride/Dextrose 1,000 ml @ 75 mls/hr [id number] IV Last administered on 03/18/17 11:25; Start 03/15/17 at 16:45; Stop 03/18/17 at 18:24; Status DC Divalproex Sodium (Depakote Sprinkles) 125 mg BID92 PO Last administered on 13:31; Start 03/16/17 at 09:00; Stop 03/18/17 at 18:29; Status DC Bisacodyl (Dulcolax Supp) 10 mg PRN DAILY PRN MD CONSTIPATION Last administered on 03/22/17 21:05; Start 03/15/17 at 19:00 Sodium Biphosphate/ Sodium Phosphate (Fleet Adult) 133 ml PRN DAILY PRN MD CONSTIPATION Last administered on 03/16/17 05:09; Start 03/15/17 at 19:00 Benztropine Mesylate (Cogentin) 1 mg BID PO Last administered on 03/18/17 17: 04; Start 03/16/17 at 21:00; Stop 03/18/17 at 23:00; Status DC Benztropine Mesylate (Cogentin) 1 mg DAILY PO Last administered on 03/21/17 11:21; Start 03/19/17 at 09:00; Stop 03/21/17 at 12:00; Status DC Enoxaparin Sodium (Lovenox) 30 mg Q24H SQ ; Start 03/16/17 at 18:00; Stop at 18:29; Status DC Enoxaparin Sodium (Lovenox) 30 mg Q24H SQ Last administered on 03/24/17 08:09 ; Start 03/17/17 at 09:00 Megestrol Acetate (Megace) 400 mg BID92 PO Last administered on 03/24/17 08: 10; Start 03/17/17 at 09:00 Trimethoprim/ Sulfamethoxazole (Bactrim Ss) 1 tab BID PO Last administered on 03/24/17 08:12; Start 03/17/17 at 21:00; Stop 03/25/17 at 20:59 Ziprasidone (Geodon) 60 mg BID PO Last administered on 03/24/17 19:38; Start 03/17/17 at 21:00 Lactobacillus Rhamnosus (Culturelle) 1 cap BID PO Last administered on 19:39; Start 03/18/17 at 21:00 Divalproex Sodium (Depakote Sprinkles) 250 mg BID92 PO Last administered on 09:35; Start 03/19/17 at 09:00; Stop 03/23/17 at 11:14; Status DC Olanzapine (ZyPREXA ZYDIS) 5 mg PRN Q2HR PRN PO PSYCHOSIS Last administered on 03/21/17 11:57; Start 03/19/17 at 07:00 Clozapine (Clozaril) 25 mg HS PO Last administered on 03/21/17 20:07; Start 03/19/17 at 21:00; Stop 03/22/17 at 18:41; Status DC Trazodone HCl (Desyrel) 100 mg QHS PO Last administered on 03/24/17 19:39; Start 03/19/17 at 21:00 Trazodone HCl (Desyrel) 100 mg PRN QHS PRN PO INSOMNIA Last administered on 21:35; Start 03/19/17 at 19:15 Clozapine (Clozaril) 50 mg HS PO Last administered on 03/24/17 19:39; Start 03/22/17 at 21:00 Oxcarbazepine (Trileptal) 150 mg BID92 PO Last administered on 03/24/17 13:17 ; Start 03/23/17 at 14:00; Stop 03/26/17 at 14:01 Oxcarbazepine (Trileptal) 300 mg BID92 PO ; Start 03/27/17 at 09:00 Active Scripts Active Reported Omeprazole 40 Mg Capsule.dr 40 Mg PO DAILY Olanzapine 10 Mg Tablet 10 Mg PO TID Megestrol Acetate 400 Mg/10 Ml Oral.susp 400 Mg PO BID Lactulose 10 Gm/15 Ml Solution 30 Ml PO BID Hold if no longer constipated [place] 5-325 Tablet (Hydrocodone Bit/Acetaminophen) 1 Each Tablet 1 Tab PO PRN Q6HRS PRN Tylenol (Acetaminophen) 325 Mg Tablet 650 Mg PO PRN Q4HRS PRN Benztropine Mesylate 1 Mg Tablet 1 Mg PO HS Suppository (Glycerin) 1 Each Supp.rect 1 Each RC PRN DAILY PRN Ge[place] (Ziprasidone Hcl) 40 Mg Capsule 40 Mg PO BID Sennosides-Docusate Sodium Tab (Sennosides/Docusate Sodium) 1 Each Tablet 1 Each PO BID Miralax (Polyethylene Glycol 3350) 17 Gm Powd.pack 17 Gm PO DAILY Protonix (Pantoprazole Sodium) 20 Mg Tablet.dr 20 Mg PO BID [place] 3 1,000 Mg Softgel ([place]-3 Fatty Acids/Fish Oil) 1 Each Capsule 1 Each PO DAILY Linzess (Linaclotide) 290 Mcg Capsule 290 Mcg PO HS Gabapentin 600 Mg Tablet 600 Mg PO BID Vitamin D (Cholecalciferol (Vitamin D3)) 2,000 Unit Capsule 2,000 Unit PO DAILY Buspirone Hcl 10 Mg Tablet 10 Mg PO TID Benztropine Mesylate 1 Mg Tablet 1 Mg PO TID I have reviewed the current psychotropics carefully including drug interactions. Risk benefit ratio favors no change other than as noted in my dictated progress note. Diagnosis: Problems: (1) Anxiety disorder (2) Bipolar affective, mixed, sev w/ psych (3) Dementia, vascular, with depression (4) Dementia, vascular, with delusions (5) Dementia in Alzheimer's disease with depression (6) Dementia in Alzheimer's disease with delusions (7) Impulse control disorder MIRIAM BRASWELL MD Mar 24, 2017 20:09
[2017-03-25 05:57] VITALS: BP 113/81
--- NOTE | 2017-03-25 06:55 | PN ---
DATE: 03/23/2017 This is a late entry 03/23/2017 covers elements not covered in my initial note 03/23/2017. SUBJECTIVE: The patient was staffed in the morning, seen individually evening of 03/23/2017. Continues to constantly yell out. Mood is labile. Ambulation impaired and lying in bed. No CV, , pulmonary, eye, ENT system symptoms on review. At the treatment team meeting in the morning of 03/23/2017, the patient's daughter Lisa attended, reviewed the patient's history and past treatment on lithium was not tolerated due to sodium abnormalities. REVIEW OF SYSTEMS: Ambulation impaired. No CV, , pulmonary, eye, ENT system symptoms on review. Reliability poor. MENTAL STATUS EXAM: Oriented to herself. Insight, judgment, recent and remote memory, attention, concentration, fund of knowledge poor, consistent with her diagnosis mentioned in my initial note. PLAN: Start Trileptal 150 mg twice a day, increasing in 3 days to 300 mg twice a day as a mood stabilizer. Rest unchanged from initial note. MAN Kathleen BRASWELL MD DR: ANAM/aly JOB#: [id number] / [id number]
--- NOTE | 2017-03-25 06:57 | PN ---
DATE: 03/22/2017 This is a late entry 03/22, covers elements not covered in my initial note 03/22. SUBJECTIVE: I met with the patient evening of 03/22. The patient continues to yell out quite labile in her mood, anxious, loud pitched. Loud pitched voiced constantly stating "na, na, na, na." REVIEW OF SYSTEMS: Ambulation impaired, in Broda chair. No CV, , pulmonary, eye, ENT system symptoms on review. Reliability poor. MENTAL STATUS EXAM: Oriented to herself. Insight, judgment, recent and remote memory, attention, concentration, fund of knowledge poor, consistent with her diagnosis mentioned in my initial note. PLAN: Increase Clozaril to 50 mg at bedtime, absolute neutrophil count is unremarkable. Rest unchanged from initial note. MAN Kathleen BRASWELL MD DR: ANAM/aly JOB#: [id number] / [id number]
[2017-03-25] MEDS: ENOXAPARIN 30 MG/0.3 ML DISP.SYRIN. SQ SCH (08:01)
[2017-03-25] MEDS: OMEGA-3 FATTY ACIDS/FISH OIL 1,000 MG CAPSULE. PO SCH (08:01)
[2017-03-25] MEDS: POLYETHYLENE GLYCOL 3350 17 GM PACKET. PO SCH (08:01)
[2017-03-25] MEDS: CHOLECALCIFEROL (VITAMIN D3) 1,000 UNIT TABLET PO SCH (08:02)
[2017-03-25] MEDS: ZIPRASIDONE 60 MG CAPSULE. PO SCH ×2 (08:02→19:46)
[2017-03-25] MEDS: MEGESTROL 400 MG/10 ML ORAL.SUSP. PO SCH ×2 (08:02→12:20)
[2017-03-25] MEDS: LACTOBACILLUS RHAMNOSUS GG 1 CAPSULE. PO SCH ×2 (08:02→19:46)
[2017-03-25] MEDS: GABAPENTIN 300 MG CAPSULE. PO SCH ×2 (08:02→19:46)
[2017-03-25] MEDS: SENNOSIDES/DOCUSATE 8.6/50MG TABLET. PO SCH ×2 (08:02→19:46)
[2017-03-25] MEDS: PANTOPRAZOLE 40 MG TABLET. PO SCH (08:02)
[2017-03-25] MEDS: LACTULOSE 20 GM/30 ML SOLUTION. PO SCH ×2 (08:03→19:46)
[2017-03-25] MEDS: OXcarbazepine 150 MG TABLET. PO SCH ×2 (08:03→12:20)
[2017-03-25] MEDS: SMZ/TMP 400/80MG TABLET. PO SCH (08:05)
[2017-03-25 16:04] VITALS: BP 133/60
[2017-03-25] MEDS: traZODone 100 MG TABLET. PO SCH (19:46)
[2017-03-25] MEDS: LINACLOTIDE 145 MCG CAPSULE. PO SCH (19:47)
[2017-03-25] MEDS: cloZAPine 25 MG TABLET PO SCH (19:47)
[2017-03-25] MEDS: HYDROcodone/APAP 5/325MG 1 TAB TABLET PO PRN (20:09)
--- NOTE | 2017-03-25 21:20 | PDOC ---
Exam Note: Kayden Note: Please also refer to the separate dictated note~for this date of service dictated separately.~Patient seen individually. Discussed the patient with Nursing staff reviewed the chart.~Reviewed interim history and current functioning. Reviewed vital signs,~Labs/ Radiology~and current medications noted below. Continue current treatment with the changes noted in the dictated addendum note Assessment: Vital Signs: Vital Signs Date Time Temp Pulse Resp B/P (MAP) Pulse Ox O2 Delivery O2 Flow Rate FiO2 03/25/17 20:09 100 Room Air 03/25/17 16:04 97.9 86 18 133/60 (84) I&O Intake and Output 03/25/17 07:00 Intake Total 2360 ml Output Total 450 ml Balance 1910 ml Intake Oral 2360 ml Output Urine Total 450 ml Current Medications: Meds: Current Medications Benztropine Mesylate (Cogentin) 1 mg TID PO Last administered on 03/16/17 08: 39; Start 03/14/17 at 22:30; Stop 03/16/17 at 11:57; Status DC Buspirone HCl (Buspar) 10 mg TID PO Last administered on 03/16/17 08:40; Start 03/14/17 at 22:30; Stop 03/16/17 at 11:57; Status DC Ziprasidone (Geodon) 40 mg BID PO Last administered on 03/17/17 08:01; Start 03/14/17 at 22:30; Stop 03/17/17 at 18:48; Status DC Glycerin (Sani-Supp Adult) 1 supp PRN DAILY PRN [place] CONSTIPATION; Start at 22:30 Pantoprazole Sodium (Protonix) 40 mg DAILYAC PO Last administered on 08:02; Start 03/15/17 at 07:30 Polyethylene Glycol (miraLAX) 17 gm DAILY PO Last administered on 03/25/17 08 :01; Start 03/15/17 at 09:00 Senna/Docusate Sodium (Senna Plus) 1 tab BID PO Last administered on 19:46; Start 03/14/17 at 22:30 Vitamin D (Vitamin D3) 2,000 unit DAILY PO Last administered on 03/25/17 08: 02; Start 03/15/17 at 09:00 Gabapentin (Neurontin) 600 mg BID PO Last administered on 03/25/17 19:46; Start 03/14/17 at 22:30 Non-Formulary Medication 290 mcg HS PO ; Start 03/15/17 at 21:00; Status UNV Fish Oil (Fish Oil) 1,000 mg DAILY PO Last administered on 03/25/17 08:01; Start 03/15/17 at 09:00 Benztropine Mesylate (Cogentin) 1 mg HS PO ; Start 03/15/17 at 21:00; Stop 03/15 at 21:00; Status DC Olanzapine (ZyPREXA) 10 mg TID PO Last administered on 03/16/17 08:39; Start 03/14/17 at 23:00; Stop 03/16/17 at 11:57; Status DC Acetaminophen (Tylenol) 650 mg PRN Q4HRS PRN PO PAIN / TEMP Last administered on 03/21/17 11:57; Start 03/14/17 at 22:45 Acetaminophen/ Hydrocodone Bitart (Lortab 5/325) 1 tab PRN Q6HRS PRN PO PAIN Last administered on 03/25/17 20:09; Start 03/14/17 at 22:45 Megestrol Acetate (Megace) 400 mg BID PO Last administered on 03/16/17 08:41; Start 03/14/17 at 23:00; Stop 03/16/17 at 21:03; Status DC Lactulose 20 gm BID PO Last administered on 03/25/17 19:46; Start 03/14/17 at 23:00 Pantoprazole Sodium (Protonix) 40 mg DAILYAC PO ; Start 03/15/17 at 07:30; Stop 03/16/17 at 19:39; Status DC Acetaminophen (Tylenol) 650 mg PRN Q6HRS PRN PO PAIN / TEMP; Start 03/15/17 at 01:15; Stop 03/25/17 at 14:08; Status DC Multi-Ingredient Ointment (Analgesic [place]) 1 landon PRN QID PRN TP MUSCLE PAIN; Start 03/15/17 at 01:15 Al Hydroxide/Mg Hydroxide (Mylanta Plus Xs) 15 ml PRN AFTMEALHC PRN PO DYSPEPSIA; Start 03/15/17 at 01:15 Magnesium Hydroxide (Milk Of Magnesia) 2,400 mg PRN QHS PRN PO CONSTIPATION; Start 03/15/17 at 01:15 Potassium Chloride/Dextrose 1,000 ml @ 75 mls/hr [id number] IV Last administered on 03/18/17 11:25; Start 03/15/17 at 16:45; Stop 03/18/17 at 18:24; Status DC Divalproex Sodium (Depakote Sprinkles) 125 mg BID92 PO Last administered on 13:31; Start 03/16/17 at 09:00; Stop 03/18/17 at 18:29; Status DC Bisacodyl (Dulcolax Supp) 10 mg PRN DAILY PRN [place] CONSTIPATION Last administered on 03/22/17 21:05; Start 03/15/17 at 19:00 Sodium Biphosphate/ Sodium Phosphate (Fleet Adult) 133 ml PRN DAILY PRN [place] CONSTIPATION Last administered on 03/16/17 05:09; Start 03/15/17 at 19:00 Benztropine Mesylate (Cogentin) 1 mg BID PO Last administered on 03/18/17 17: 04; Start 03/16/17 at 21:00; Stop 03/18/17 at 23:00; Status DC Benztropine Mesylate (Cogentin) 1 mg DAILY PO Last administered on 03/21/17 11:21; Start 03/19/17 at 09:00; Stop 03/21/17 at 12:00; Status DC Enoxaparin Sodium (Lovenox) 30 mg Q24H SQ ; Start 03/16/17 at 18:00; Stop at 18:29; Status DC Enoxaparin Sodium (Lovenox) 30 mg Q24H SQ Last administered on 03/25/17 08:01 ; Start 03/17/17 at 09:00 Megestrol Acetate (Megace) 400 mg BID92 PO Last administered on 03/25/17 08: 02; Start 03/17/17 at 09:00 Trimethoprim/ Sulfamethoxazole (Bactrim Ss) 1 tab BID PO Last administered on 03/25/17 08:05; Start 03/17/17 at 21:00; Stop 03/25/17 at 20:59; Status DC Ziprasidone (Geodon) 60 mg BID PO Last administered on 03/25/17 19:46; Start 03/17/17 at 21:00 Lactobacillus Rhamnosus (Culturelle) 1 cap BID PO Last administered on 19:46; Start 03/18/17 at 21:00 Divalproex Sodium (Depakote Sprinkles) 250 mg BID92 PO Last administered on 09:35; Start 03/19/17 at 09:00; Stop 03/23/17 at 11:14; Status DC Olanzapine (ZyPREXA ZYDIS) 5 mg PRN Q2HR PRN PO PSYCHOSIS Last administered on 03/21/17 11:57; Start 03/19/17 at 07:00 Clozapine (Clozaril) 25 mg HS PO Last administered on 03/21/17 20:07; Start 03/19/17 at 21:00; Stop 03/22/17 at 18:41; Status DC Trazodone HCl (Desyrel) 100 mg QHS PO Last administered on 03/25/17 19:46; Start 03/19/17 at 21:00 Trazodone HCl (Desyrel) 100 mg PRN QHS PRN PO INSOMNIA Last administered on 21:35; Start 03/19/17 at 19:15 Clozapine (Clozaril) 50 mg HS PO Last administered on 03/25/17 19:47; Start 03/22/17 at 21:00 Oxcarbazepine (Trileptal) 150 mg BID92 PO Last administered on 03/25/17 12:20 ; Start 03/23/17 at 14:00; Stop 03/26/17 at 14:01 Oxcarbazepine (Trileptal) 300 mg BID92 PO ; Start 03/27/17 at 09:00 Active Scripts Active Reported Omeprazole 40 Mg Capsule.dr 40 Mg PO DAILY Olanzapine 10 Mg Tablet 10 Mg PO TID Megestrol Acetate 400 Mg/10 Ml Oral.susp 400 Mg PO BID Lactulose 10 Gm/15 Ml Solution 30 Ml PO BID Hold if no longer constipated [place] 5-325 Tablet (Hydrocodone Bit/Acetaminophen) 1 Each Tablet 1 Tab PO PRN Q6HRS PRN Tylenol (Acetaminophen) 325 Mg Tablet 650 Mg PO PRN Q4HRS PRN Benztropine Mesylate 1 Mg Tablet 1 Mg PO HS Suppository (Glycerin) 1 Each Supp.rect 1 Each RC PRN DAILY PRN Geodon (Ziprasidone Hcl) 40 Mg Capsule 40 Mg PO BID Sennosides-Docusate Sodium Tab (Sennosides/Docusate Sodium) 1 Each Tablet 1 Each PO BID Miralax (Polyethylene Glycol 3350) 17 Gm Powd.pack 17 Gm PO DAILY Protonix (Pantoprazole Sodium) 20 Mg Tablet.dr 20 Mg PO BID [place] 3 1,000 Mg Softgel ([place]-3 Fatty Acids/Fish Oil) 1 Each Capsule 1 Each PO DAILY Linzess (Linaclotide) 290 Mcg Capsule 290 Mcg PO HS Gabapentin 600 Mg Tablet 600 Mg PO BID Vitamin D (Cholecalciferol (Vitamin D3)) 2,000 Unit Capsule 2,000 Unit PO DAILY Buspirone Hcl 10 Mg Tablet 10 Mg PO TID Benztropine Mesylate 1 Mg Tablet 1 Mg PO TID I have reviewed the current psychotropics carefully including drug interactions. Risk benefit ratio favors no change other than as noted in my dictated progress note. Diagnosis: Problems: (1) Anxiety disorder (2) Bipolar affective, mixed, sev w/ psych (3) Dementia, vascular, with depression (4) Dementia, vascular, with delusions (5) Dementia in Alzheimer's disease with depression (6) Dementia in Alzheimer's disease with delusions (7) Impulse control disorder MIRIAM BRASWELL MD Mar 25, 2017 21:20
[2017-03-26 06:20] VITALS: BP 101/67
[2017-03-26] MEDS: POLYETHYLENE GLYCOL 3350 17 GM PACKET. PO SCH (07:53)
[2017-03-26] MEDS: ENOXAPARIN 30 MG/0.3 ML DISP.SYRIN. SQ SCH (07:54)
[2017-03-26] MEDS: PANTOPRAZOLE 40 MG TABLET. PO SCH (07:54)
[2017-03-26] MEDS: LACTOBACILLUS RHAMNOSUS GG 1 CAPSULE. PO SCH ×2 (07:54→19:28)
[2017-03-26] MEDS: SENNOSIDES/DOCUSATE 8.6/50MG TABLET. PO SCH ×2 (07:55→19:29)
[2017-03-26] MEDS: OXcarbazepine 150 MG TABLET. PO SCH ×2 (07:55→14:01)
[2017-03-26] MEDS: OMEGA-3 FATTY ACIDS/FISH OIL 1,000 MG CAPSULE. PO SCH (07:55)
[2017-03-26] MEDS: ZIPRASIDONE 60 MG CAPSULE. PO SCH ×2 (07:55→19:29)
[2017-03-26] MEDS: GABAPENTIN 300 MG CAPSULE. PO SCH ×2 (07:55→19:29)
[2017-03-26] MEDS: CHOLECALCIFEROL (VITAMIN D3) 1,000 UNIT TABLET PO SCH (07:55)
[2017-03-26] MEDS: LACTULOSE 20 GM/30 ML SOLUTION. PO SCH ×2 (07:56→19:28)
[2017-03-26] MEDS: MEGESTROL 400 MG/10 ML ORAL.SUSP. PO SCH ×2 (08:01→14:01)
[2017-03-26 16:11] VITALS: BP 128/71
--- NOTE | 2017-03-26 19:23 | PN ---
DATE: 03/24/2017 This late entry, 03/24/2017, covers elements not covered in my initial note of 03/24/2017. SUBJECTIVE: I met with the patient the evening of 03/24/2017. The patient slept 5-1/4 hours previous evening, slept through breakfast, yelling constantly. Fluid intake is good. Appetite is fair. BUN and creatinine 19/0.9. REVIEW OF SYSTEMS: Ambulation impaired, in Broda chair. No CV, , pulmonary, eye system symptoms on review. MENTAL STATUS EXAM: Speech high pitched, loud as I met with her. Insight, judgment, recent and remote memory, attention, concentration, fund of knowledge poor consistent with her diagnosis mentioned in my initial note. PLAN: No changes from initial note, may need to gradually increase the Clozaril, has increased the Trileptal as well. MAN Kathleen BRASWELL MD DR: ANAM/aly JOB#: [id number] / [id number]
[2017-03-26] MEDS: cloZAPine 25 MG TABLET PO SCH (19:28)
[2017-03-26] MEDS: traZODone 100 MG TABLET. PO SCH (19:29)
--- NOTE | 2017-03-26 19:39 | PN ---
DATE: 03/25/2017 This is a late entry 03/25, covers elements not covered in my initial note of 03/25. SUBJECTIVE: I met with the patient in the evening of 03/25. Per nursing report, the patient is doing better, a little more verbal, still loud, screaming at times, but overall yelling is better as well and continent of stools. REVIEW OF SYSTEMS: Ambulation impaired, in Broda chair. No CV, , pulmonary, eye system symptoms on review. Reliability poor. MENTAL STATUS EXAM: Oriented to herself. Insight, judgment, recent and remote memory, attention, concentration, fund of knowledge poor, consistent with her diagnosis mentioned in my initial note. PLAN: Continue to taper the Cogentin. Maintain rest of the psychotropics mentioned in my initial note. Check absolute neutrophil count on Monday. Increase the Clozaril. Rest unchanged from my initial note. MAN Kathleen BRASWELL MD DR: ANAM/aly JOB#: [id number] / [id number]
[2017-03-26] MEDS: LINACLOTIDE 145 MCG CAPSULE. PO SCH (19:50)
--- NOTE | 2017-03-26 20:22 | PDOC ---
Exam Note: Kayden Note: Please also refer to the separate dictated note~for this date of service dictated separately.~Patient seen individually. Discussed the patient with Nursing staff reviewed the chart.~Reviewed interim history and current functioning. Reviewed vital signs,~Labs/ Radiology~and current medications noted below. Continue current treatment with the changes noted in the dictated addendum note Assessment: Vital Signs: Vital Signs Date Time Temp Pulse Resp B/P (MAP) Pulse Ox O2 Delivery O2 Flow Rate FiO2 03/26/17 16:11 98.3 105 16 128/71 (90) 96 03/25/17 21:09 Room Air I&O Intake and Output 03/26/17 07:00 Intake Total 480 ml Balance 480 ml Intake Oral 480 ml Current Medications: Meds: Current Medications Benztropine Mesylate (Cogentin) 1 mg TID PO Last administered on 03/16/17 08: 39; Start 03/14/17 at 22:30; Stop 03/16/17 at 11:57; Status DC Buspirone HCl (Buspar) 10 mg TID PO Last administered on 03/16/17 08:40; Start 03/14/17 at 22:30; Stop 03/16/17 at 11:57; Status DC Ziprasidone (Geodon) 40 mg BID PO Last administered on 03/17/17 08:01; Start 03/14/17 at 22:30; Stop 03/17/17 at 18:48; Status DC Glycerin (Sani-Supp Adult) 1 supp PRN DAILY PRN [place] CONSTIPATION; Start at 22:30 Pantoprazole Sodium (Protonix) 40 mg DAILYAC PO Last administered on 07:54; Start 03/15/17 at 07:30 Polyethylene Glycol (miraLAX) 17 gm DAILY PO Last administered on 03/26/17 07 :53; Start 03/15/17 at 09:00 Senna/Docusate Sodium (Senna Plus) 1 tab BID PO Last administered on 19:29; Start 03/14/17 at 22:30 Vitamin D (Vitamin D3) 2,000 unit DAILY PO Last administered on 03/26/17 07: 55; Start 03/15/17 at 09:00 Gabapentin (Neurontin) 600 mg BID PO Last administered on 03/26/17 19:29; Start 03/14/17 at 22:30 Non-Formulary Medication 290 mcg HS PO ; Start 03/15/17 at 21:00; Status UNV Fish Oil (Fish Oil) 1,000 mg DAILY PO Last administered on 03/26/17 07:55; Start 03/15/17 at 09:00 Benztropine Mesylate (Cogentin) 1 mg HS PO ; Start 03/15/17 at 21:00; Stop 03/15 at 21:00; Status DC Olanzapine (ZyPREXA) 10 mg TID PO Last administered on 03/16/17 08:39; Start 03/14/17 at 23:00; Stop 03/16/17 at 11:57; Status DC Acetaminophen (Tylenol) 650 mg PRN Q4HRS PRN PO PAIN / TEMP Last administered on 03/21/17 11:57; Start 03/14/17 at 22:45 Acetaminophen/ Hydrocodone Bitart (Lortab 5/325) 1 tab PRN Q6HRS PRN PO PAIN Last administered on 03/25/17 20:09; Start 03/14/17 at 22:45 Megestrol Acetate (Megace) 400 mg BID PO Last administered on 03/16/17 08:41; Start 03/14/17 at 23:00; Stop 03/16/17 at 21:03; Status DC Lactulose 20 gm BID PO Last administered on 03/26/17 19:28; Start 03/14/17 at 23:00 Pantoprazole Sodium (Protonix) 40 mg DAILYAC PO ; Start 03/15/17 at 07:30; Stop 03/16/17 at 19:39; Status DC Acetaminophen (Tylenol) 650 mg PRN Q6HRS PRN PO PAIN / TEMP; Start 03/15/17 at 01:15; Stop 03/25/17 at 14:08; Status DC Multi-Ingredient Ointment (Analgesic [place]) 1 landon PRN QID PRN TP MUSCLE PAIN; Start 03/15/17 at 01:15 Al Hydroxide/Mg Hydroxide (Mylanta Plus Xs) 15 ml PRN AFTMEALHC PRN PO DYSPEPSIA; Start 03/15/17 at 01:15 Magnesium Hydroxide (Milk Of Magnesia) 2,400 mg PRN QHS PRN PO CONSTIPATION; Start 03/15/17 at 01:15 Potassium Chloride/Dextrose 1,000 ml @ 75 mls/hr [id number] IV Last administered on 03/18/17 11:25; Start 03/15/17 at 16:45; Stop 03/18/17 at 18:24; Status DC Divalproex Sodium (Depakote Sprinkles) 125 mg BID92 PO Last administered on 13:31; Start 03/16/17 at 09:00; Stop 03/18/17 at 18:29; Status DC Bisacodyl (Dulcolax Supp) 10 mg PRN DAILY PRN [place] CONSTIPATION Last administered on 03/22/17 21:05; Start 03/15/17 at 19:00 Sodium Biphosphate/ Sodium Phosphate (Fleet Adult) 133 ml PRN DAILY PRN [place] CONSTIPATION Last administered on 03/16/17 05:09; Start 03/15/17 at 19:00 Benztropine Mesylate (Cogentin) 1 mg BID PO Last administered on 03/18/17 17: 04; Start 03/16/17 at 21:00; Stop 03/18/17 at 23:00; Status DC Benztropine Mesylate (Cogentin) 1 mg DAILY PO Last administered on 03/21/17 11:21; Start 03/19/17 at 09:00; Stop 03/21/17 at 12:00; Status DC Enoxaparin Sodium (Lovenox) 30 mg Q24H SQ ; Start 03/16/17 at 18:00; Stop at 18:29; Status DC Enoxaparin Sodium (Lovenox) 30 mg Q24H SQ Last administered on 03/26/17 07:54 ; Start 03/17/17 at 09:00 Megestrol Acetate (Megace) 400 mg BID92 PO Last administered on 03/26/17 14: 01; Start 03/17/17 at 09:00 Trimethoprim/ Sulfamethoxazole (Bactrim Ss) 1 tab BID PO Last administered on 03/25/17 08:05; Start 03/17/17 at 21:00; Stop 03/25/17 at 20:59; Status DC Ziprasidone (Geodon) 60 mg BID PO Last administered on 03/26/17 19:29; Start 03/17/17 at 21:00 Lactobacillus Rhamnosus (Culturelle) 1 cap BID PO Last administered on 19:28; Start 03/18/17 at 21:00 Divalproex Sodium (Depakote Sprinkles) 250 mg BID92 PO Last administered on 09:35; Start 03/19/17 at 09:00; Stop 03/23/17 at 11:14; Status DC Olanzapine (ZyPREXA ZYDIS) 5 mg PRN Q2HR PRN PO PSYCHOSIS Last administered on 03/26/17 19:44; Start 03/19/17 at 07:00 Clozapine (Clozaril) 25 mg HS PO Last administered on 03/21/17 20:07; Start 03/19/17 at 21:00; Stop 03/22/17 at 18:41; Status DC Trazodone HCl (Desyrel) 100 mg QHS PO Last administered on 03/26/17 19:29; Start 03/19/17 at 21:00 Trazodone HCl (Desyrel) 100 mg PRN QHS PRN PO INSOMNIA Last administered on 21:35; Start 03/19/17 at 19:15 Clozapine (Clozaril) 50 mg HS PO Last administered on 03/26/17 19:28; Start 03/22/17 at 21:00 Oxcarbazepine (Trileptal) 150 mg BID92 PO Last administered on 03/26/17 14:01 ; Start 03/23/17 at 14:00; Stop 03/26/17 at 14:01; Status DC Oxcarbazepine (Trileptal) 300 mg BID92 PO ; Start 03/27/17 at 09:00 Active Scripts Active Reported Omeprazole 40 Mg Capsule.dr 40 Mg PO DAILY Olanzapine 10 Mg Tablet 10 Mg PO TID Megestrol Acetate 400 Mg/10 Ml Oral.susp 400 Mg PO BID Lactulose 10 Gm/15 Ml Solution 30 Ml PO BID Hold if no longer constipated [place] 5-325 Tablet (Hydrocodone Bit/Acetaminophen) 1 Each Tablet 1 Tab PO PRN Q6HRS PRN Tylenol (Acetaminophen) 325 Mg Tablet 650 Mg PO PRN Q4HRS PRN Benztropine Mesylate 1 Mg Tablet 1 Mg PO HS Suppository (Glycerin) 1 Each Supp.rect 1 Each RC PRN DAILY PRN [place] (Ziprasidone Hcl) 40 Mg Capsule 40 Mg PO BID Sennosides-Docusate Sodium Tab (Sennosides/Docusate Sodium) 1 Each Tablet 1 Each PO BID Miralax (Polyethylene Glycol 3350) 17 Gm Powd.pack 17 Gm PO DAILY Protonix (Pantoprazole Sodium) 20 Mg Tablet.dr 20 Mg PO BID [place] 3 1,000 Mg Softgel ([place]-3 Fatty Acids/Fish Oil) 1 Each Capsule 1 Each PO DAILY Linzess (Linaclotide) 290 Mcg Capsule 290 Mcg PO HS Gabapentin 600 Mg Tablet 600 Mg PO BID Vitamin D (Cholecalciferol (Vitamin D3)) 2,000 Unit Capsule 2,000 Unit PO DAILY Buspirone Hcl 10 Mg Tablet 10 Mg PO TID Benztropine Mesylate 1 Mg Tablet 1 Mg PO TID I have reviewed the current psychotropics carefully including drug interactions. Risk benefit ratio favors no change other than as noted in my dictated progress note. Diagnosis: Problems: (1) Anxiety disorder (2) Bipolar affective, mixed, sev w/ psych (3) Dementia, vascular, with depression (4) Dementia, vascular, with delusions (5) Dementia in Alzheimer's disease with depression (6) Dementia in Alzheimer's disease with delusions (7) Impulse control disorder MIRIAM BRASWELL MD Mar 26, 2017 20:22
[2017-03-26] MEDS: traZODone 100 MG TABLET. PO PRN (22:48)
[2017-03-27 06:02] VITALS: BP 107/71
[2017-03-27 08:33] LABS: BASO % 1 % (0-3); EOS % 1 % (0-3); HEMATOCRIT 37.5 % (36.0-47.0); HEMOGLOBIN 12.5 g/dL (12.0-15.5); LYMPH # 1.5 x10^3/uL (1.0-4.8); LYMPH % 22 % (24-48); MEAN CORPUSCULAR HEMOGLOBIN 32 pg (25-35); MEAN CORPUSCULAR HGB CONC 33 g/dL (31-37); MEAN CORPUSCULAR VOLUME 96 fL (79-100); MONO # 0.5 x10^3/uL (0.0-1.1); MONO % 8 % (0-9); NEUT # 4.6 x10^3uL (1.8-7.7); NEUT % 69 % (31-73); PLATELET COUNT 229 x10^3/uL (140-400); RED BLOOD COUNT 3.91 x10^6/uL (3.50-5.40); RED CELL DISTRIBUTION WIDTH 15.3 % (11.5-14.5); WHITE BLOOD COUNT 6.7 x10^3/uL (4.0-11.0)
[2017-03-27 08:46] LABS: ALBUMIN/GLOBULIN RATIO 0.8 (1.0-1.7); CALCIUM 9.7 mg/dL (8.5-10.1); GFR 55.6; TOTAL BILIRUBIN 0.2 mg/dL (0.2-1.0); TOTAL PROTEIN 6.7 g/dL (6.4-8.2)
[2017-03-27] MEDS: POLYETHYLENE GLYCOL 3350 17 GM PACKET. PO SCH (09:12)
[2017-03-27] MEDS: ZIPRASIDONE 60 MG CAPSULE. PO SCH ×2 (09:12→19:25)
[2017-03-27] MEDS: LACTULOSE 20 GM/30 ML SOLUTION. PO SCH ×2 (09:12→19:25)
[2017-03-27] MEDS: SENNOSIDES/DOCUSATE 8.6/50MG TABLET. PO SCH ×2 (09:12→19:25)
[2017-03-27] MEDS: LACTOBACILLUS RHAMNOSUS GG 1 CAPSULE. PO SCH ×2 (09:12→19:28)
[2017-03-27] MEDS: OMEGA-3 FATTY ACIDS/FISH OIL 1,000 MG CAPSULE. PO SCH (09:12)
[2017-03-27] MEDS: PANTOPRAZOLE 40 MG TABLET. PO SCH (09:12)
[2017-03-27] MEDS: GABAPENTIN 300 MG CAPSULE. PO SCH ×2 (09:12→19:25)
[2017-03-27] MEDS: CHOLECALCIFEROL (VITAMIN D3) 1,000 UNIT TABLET PO SCH (09:12)
[2017-03-27] MEDS: ENOXAPARIN 30 MG/0.3 ML DISP.SYRIN. SQ SCH (09:13)
[2017-03-27] MEDS: MEGESTROL 400 MG/10 ML ORAL.SUSP. PO SCH ×2 (09:14→15:05)
[2017-03-27] MEDS: HYDROcodone/APAP 5/325MG 1 TAB TABLET PO PRN (10:16)
[2017-03-27 16:21] VITALS: BP 135/88
[2017-03-27] MEDS: cloZAPine 25 MG TABLET PO SCH (19:26)
[2017-03-27] MEDS: traZODone 100 MG TABLET. PO SCH (19:26)
--- NOTE | 2017-03-27 20:02 | PDOC ---
Exam Note: Kayden Note: Please also refer to the separate dictated note~for this date of service dictated separately.~Patient seen individually. Discussed the patient with Nursing staff reviewed the chart.~Reviewed interim history and current functioning. Reviewed vital signs,~Labs/ Radiology~and current medications noted below. Continue current treatment with the changes noted in the dictated addendum note Assessment: Vital Signs: Vital Signs Date Time Temp Pulse Resp B/P (MAP) Pulse Ox O2 Delivery O2 Flow Rate FiO2 03/27/17 16:21 97.3 100 16 135/88 (104) 95 03/25/17 21:09 Room Air I&O Intake and Output 03/27/17 07:00 Intake Total 1080 ml Output Total 1200 ml Balance -120 ml Intake Oral 1080 ml Output Urine Total 1200 ml Labs: Laboratory Tests Test 03/27/17 08:15 White Blood Count 6.7 x10^3/uL (4.0-11.0) Red Blood Count 3.91 x10^6/uL (3.50-5.40) Hemoglobin 12.5 g/dL (12.0-15.5) Hematocrit 37.5 % (36.0-47.0) Mean Corpuscular Volume 96 fL (79-100) Mean Corpuscular Hemoglobin 32 pg (25-35) Mean Corpuscular Hemoglobin Concent 33 g/dL (31-37) Red Cell Distribution Width 15.3 % (11.5-14.5) H Platelet Count 229 x10^3/uL (140-400) Neutrophils (%) (Auto) 69 % (31-73) Lymphocytes (%) (Auto) 22 % (24-48) L Monocytes (%) (Auto) 8 % (0-9) Eosinophils (%) (Auto) 1 % (0-3) Basophils (%) (Auto) 1 % (0-3) Neutrophils # (Auto) 4.6 x10^3uL (1.8-7.7) Lymphocytes # (Auto) 1.5 x10^3/uL (1.0-4.8) Monocytes # (Auto) 0.5 x10^3/uL (0.0-1.1) Eosinophils # (Auto) 0.0 x10^3/uL (0.0-0.7) Basophils # (Auto) 0.0 x10^3/uL (0.0-0.2) Sodium Level 148 mmol/L (136-145) H Potassium Level 4.0 mmol/L (3.5-5.1) Chloride Level 112 mmol/L (98-107) H Carbon Dioxide Level 25 mmol/L (21-32) Anion Gap 11 (6-14) Blood Urea Nitrogen 31 mg/dL (7-20) H Creatinine 1.0 mg/dL (0.6-1.0) Estimated GFR (Cockcroft-Gault) 55.6 BUN/Creatinine Ratio 31 (6-20) H Glucose Level 107 mg/dL (70-99) H Calcium Level 9.7 mg/dL (8.5-10.1) Magnesium Level 2.3 mg/dL (1.8-2.4) Total Bilirubin 0.2 mg/dL (0.2-1.0) Aspartate Amino Transferase (AST) 15 U/L (15-37) Alanine Aminotransferase (ALT) 23 U/L (14-59) Alkaline Phosphatase 100 U/L (46-116) Total Protein 6.7 g/dL (6.4-8.2) Albumin 3.0 g/dL (3.4-5.0) L Albumin/Globulin Ratio 0.8 (1.0-1.7) L Current Medications: Meds: Current Medications Benztropine Mesylate (Cogentin) 1 mg TID PO Last administered on 03/16/17 08: 39; Start 03/14/17 at 22:30; Stop 03/16/17 at 11:57; Status DC Buspirone HCl (Buspar) 10 mg TID PO Last administered on 03/16/17 08:40; Start 03/14/17 at 22:30; Stop 03/16/17 at 11:57; Status DC Ziprasidone (Geodon) 40 mg BID PO Last administered on 03/17/17 08:01; Start 03/14/17 at 22:30; Stop 03/17/17 at 18:48; Status DC Glycerin (Sani-Supp Adult) 1 supp PRN DAILY PRN RC CONSTIPATION; Start at 22:30 Pantoprazole Sodium (Protonix) 40 mg DAILYAC PO Last administered on 09:12; Start 03/15/17 at 07:30 Polyethylene Glycol (miraLAX) 17 gm DAILY PO Last administered on 03/27/17 09 :12; Start 03/15/17 at 09:00 Senna/Docusate Sodium (Senna Plus) 1 tab BID PO Last administered on 19:25; Start 03/14/17 at 22:30 Vitamin D (Vitamin D3) 2,000 unit DAILY PO Last administered on 03/27/17 09: 12; Start 03/15/17 at 09:00 Gabapentin (Neurontin) 600 mg BID PO Last administered on 03/27/17 19:25; Start 03/14/17 at 22:30 Non-Formulary Medication 290 mcg HS PO ; Start 03/15/17 at 21:00; Status UNV Fish Oil (Fish Oil) 1,000 mg DAILY PO Last administered on 03/27/17 09:12; Start 03/15/17 at 09:00 Benztropine Mesylate (Cogentin) 1 mg HS PO ; Start 03/15/17 at 21:00; Stop 03/15 at 21:00; Status DC Olanzapine (ZyPREXA) 10 mg TID PO Last administered on 03/16/17 08:39; Start 03/14/17 at 23:00; Stop 03/16/17 at 11:57; Status DC Acetaminophen (Tylenol) 650 mg PRN Q4HRS PRN PO PAIN / TEMP Last administered on 03/21/17 11:57; Start 03/14/17 at 22:45 Acetaminophen/ Hydrocodone Bitart (Lortab 5/325) 1 tab PRN Q6HRS PRN PO PAIN Last administered on 03/27/17 10:16; Start 03/14/17 at 22:45 Megestrol Acetate (Megace) 400 mg BID PO Last administered on 03/16/17 08:41; Start 03/14/17 at 23:00; Stop 03/16/17 at 21:03; Status DC Lactulose 20 gm BID PO Last administered on 03/27/17 19:25; Start 03/14/17 at 23:00 Pantoprazole Sodium (Protonix) 40 mg DAILYAC PO ; Start 03/15/17 at 07:30; Stop 03/16/17 at 19:39; Status DC Acetaminophen (Tylenol) 650 mg PRN Q6HRS PRN PO PAIN / TEMP; Start 03/15/17 at 01:15; Stop 03/25/17 at 14:08; Status DC Multi-Ingredient Ointment (Analgesic [place]) 1 landon PRN QID PRN TP MUSCLE PAIN; Start 03/15/17 at 01:15 Al Hydroxide/Mg Hydroxide (Mylanta Plus Xs) 15 ml PRN AFTMEALHC PRN PO DYSPEPSIA; Start 03/15/17 at 01:15 Magnesium Hydroxide (Milk Of Magnesia) 2,400 mg PRN QHS PRN PO CONSTIPATION Last administered on 03/27/17 10:16; Start 03/15/17 at 01:15 Potassium Chloride/Dextrose 1,000 ml @ 75 mls/hr [id number] IV Last administered on 03/18/17 11:25; Start 03/15/17 at 16:45; Stop 03/18/17 at 18:24; Status DC Divalproex Sodium (Depakote Sprinkles) 125 mg BID92 PO Last administered on 13:31; Start 03/16/17 at 09:00; Stop 03/18/17 at 18:29; Status DC Bisacodyl (Dulcolax Supp) 10 mg PRN DAILY PRN [place] CONSTIPATION Last administered on 03/22/17 21:05; Start 03/15/17 at 19:00 Sodium Biphosphate/ Sodium Phosphate (Fleet Adult) 133 ml PRN DAILY PRN [place] CONSTIPATION Last administered on 03/16/17 05:09; Start 03/15/17 at 19:00 Benztropine Mesylate (Cogentin) 1 mg BID PO Last administered on 03/18/17 17: 04; Start 03/16/17 at 21:00; Stop 03/18/17 at 23:00; Status DC Benztropine Mesylate (Cogentin) 1 mg DAILY PO Last administered on 03/21/17 11:21; Start 03/19/17 at 09:00; Stop 03/21/17 at 12:00; Status DC Enoxaparin Sodium (Lovenox) 30 mg Q24H SQ ; Start 03/16/17 at 18:00; Stop at 18:29; Status DC Enoxaparin Sodium (Lovenox) 30 mg Q24H SQ Last administered on 03/27/17 09:13 ; Start 03/17/17 at 09:00 Megestrol Acetate (Megace) 400 mg [id number] PO Last administered on 03/27/17 15: 05; Start 03/17/17 at 09:00 Trimethoprim/ Sulfamethoxazole (Bactrim Ss) 1 tab BID PO Last administered on 03/25/17 08:05; Start 03/17/17 at 21:00; Stop 03/25/17 at 20:59; Status DC Ziprasidone (Geodon) 60 mg BID PO Last administered on 03/27/17 19:25; Start 03/17/17 at 21:00 Lactobacillus Rhamnosus (Culturelle) 1 cap BID PO Last administered on 19:28; Start 03/18/17 at 21:00 Divalproex Sodium (Depakote Sprinkles) 250 mg [id number] PO Last administered on 09:35; Start 03/19/17 at 09:00; Stop 03/23/17 at 11:14; Status DC Olanzapine (ZyPREXA ZYDIS) 5 mg PRN Q2HR PRN PO PSYCHOSIS Last administered on 03/26/17 19:44; Start 03/19/17 at 07:00 Clozapine (Clozaril) 25 mg HS PO Last administered on 03/21/17 20:07; Start 03/19/17 at 21:00; Stop 03/22/17 at 18:41; Status DC Trazodone HCl (Desyrel) 100 mg QHS PO Last administered on 03/27/17 19:26; Start 03/19/17 at 21:00 Trazodone HCl (Desyrel) 100 mg PRN QHS PRN PO INSOMNIA Last administered on 22:48; Start 03/19/17 at 19:15 Clozapine (Clozaril) 50 mg HS PO Last administered on 03/27/17 19:26; Start 03/22/17 at 21:00 Oxcarbazepine (Trileptal) 150 mg BID92 PO Last administered on 03/26/17 14:01 ; Start 03/23/17 at 14:00; Stop 11/19/17 at 14:01; Status DC Oxcarbazepine (Trileptal) 300 mg BID92 PO Last administered on 03/27/17t 15:05 ; Start 03/27/17 at 09:00 Active Scripts Active Reported Omeprazole 40 Mg Capsule.dr 40 Mg PO DAILY Olanzapine 10 Mg Tablet 10 Mg PO TID Megestrol Acetate 400 Mg/10 Ml Oral.susp 400 Mg PO BID Lactulose 10 Gm/15 Ml Solution 30 Ml PO BID Hold if no longer constipated [place] 5-325 Tablet (Hydrocodone Bit/Acetaminophen) 1 Each Tablet 1 Tab PO PRN Q6HRS PRN Tylenol (Acetaminophen) 325 Mg Tablet 650 Mg PO PRN Q4HRS PRN Benztropine Mesylate 1 Mg Tablet 1 Mg PO HS Suppository (Glycerin) 1 Each Supp.rect 1 Each RC PRN DAILY PRN Geodon (Ziprasidone Hcl) 40 Mg Capsule 40 Mg PO BID Sennosides-Docusate Sodium Tab (Sennosides/Docusate Sodium) 1 Each Tablet 1 Each PO BID Miralax (Polyethylene Glycol 3350) 17 Gm Powd.pack 17 Gm PO DAILY Protonix (Pantoprazole Sodium) 20 Mg Tablet.dr 20 Mg PO BID [place] 3 1,000 Mg Softgel ([place]-3 Fatty Acids/Fish Oil) 1 Each Capsule 1 Each PO DAILY Linzess (Linaclotide) 290 Mcg Capsule 290 Mcg PO HS Gabapentin 600 Mg Tablet 600 Mg PO BID Vitamin D (Cholecalciferol (Vitamin D3)) 2,000 Unit Capsule 2,000 Unit PO DAILY Buspirone Hcl 10 Mg Tablet 10 Mg PO TID Benztropine Mesylate 1 Mg Tablet 1 Mg PO TID I have reviewed the current psychotropics carefully including drug interactions. Risk benefit ratio favors no change other than as noted in my dictated progress note. Diagnosis: Problems: (1) Anxiety disorder (2) Bipolar affective, mixed, sev w/ psych (3) Dementia, vascular, with depression (4) Dementia, vascular, with delusions (5) Dementia in Alzheimer's disease with depression (6) Dementia in Alzheimer's disease with delusions (7) Impulse control disorder MIRIAM BRASWELL MD Mar 27, 2017 20:02
[2017-03-27] MEDS: LINACLOTIDE 145 MCG CAPSULE. PO SCH (20:33)
--- NOTE | 2017-03-28 04:38 | PN ---
DATE: 03/26/2017 PSYCHIATRIC PROGRESS NOTE This is a late entry 03/26/2017, covers elements not covered in my initial note of 03/26/2017. I met with the patient in the evening of 03/26/2017. She continues to yell constantly loud, high pitched tone. REVIEW OF SYSTEMS: Ambulation impaired, in Broda chair. No CV, , pulmonary, eye system symptoms on review. MENTAL STATUS EXAM: Oriented to herself and situation. Speech as noted, abstraction fair, computation impaired, language function intact. Mood and affect labile. She is continuously stating "na, na, na, na," as I met with her. Nursing staff wonder if she does this for attention. It appears more likely as part of her bipolar mood disorder. Slept 7 hours previous evening. IMPRESSION: Unchanged from initial note. PLAN: No change from my initial note, we will adjust Clozaril as clinically indicated. MAN Kathleen BRASWELL MD DR: ANAM/aly JOB#: [id number] / [id number]
--- NOTE | 2017-03-28 05:33 | PN ---
DATE: 03/27/2017 PSYCHIATRIC PROGRESS NOTE This note covers elements, not covered in my initial note of 03/27/2017. SUBJECTIVE: Met with the patient morning of 03/27/2017. The patient continues to yell constantly, somewhat loud, repetitive. REVIEW OF SYSTEMS: Ambulation impaired, in Broda chair. No CV, , pulmonary, eye system symptoms on review. She has vague somatic symptoms. MENTAL STATUS EXAM: Oriented to herself. Insight, judgment, recent and remote memory, attention, concentration, fund of knowledge poor, consistent with her diagnosis as mentioned in my initial note. PLAN: No change from a psychiatric standpoint and from my initial note. Reviewed drug interactions. Risk, benefit ratio favors no further change. MAN Kathleen BRASWELL MD DR: ANAM/aly JOB#: [id number] / [id number]
[2017-03-28 06:12] VITALS: BP 114/78
[2017-03-28] MEDS: POLYETHYLENE GLYCOL 3350 17 GM PACKET. PO SCH (08:36)
[2017-03-28] MEDS: MEGESTROL 400 MG/10 ML ORAL.SUSP. PO SCH ×2 (08:36→14:48)
[2017-03-28] MEDS: SENNOSIDES/DOCUSATE 8.6/50MG TABLET. PO SCH ×2 (08:36→19:25)
[2017-03-28] MEDS: LACTOBACILLUS RHAMNOSUS GG 1 CAPSULE. PO SCH ×2 (08:37→19:25)
[2017-03-28] MEDS: ZIPRASIDONE 60 MG CAPSULE. PO SCH ×2 (08:37→19:25)
[2017-03-28] MEDS: GABAPENTIN 300 MG CAPSULE. PO SCH ×2 (08:37→19:25)
[2017-03-28] MEDS: CHOLECALCIFEROL (VITAMIN D3) 1,000 UNIT TABLET PO SCH (08:37)
[2017-03-28] MEDS: ENOXAPARIN 30 MG/0.3 ML DISP.SYRIN. SQ SCH (08:37)
[2017-03-28] MEDS: PANTOPRAZOLE 40 MG TABLET. PO SCH (08:37)
[2017-03-28] MEDS: OMEGA-3 FATTY ACIDS/FISH OIL 1,000 MG CAPSULE. PO SCH (08:37)
[2017-03-28] MEDS: LACTULOSE 20 GM/30 ML SOLUTION. PO SCH ×2 (08:37→19:26)
[2017-03-28] MEDS: HYDROcodone/APAP 5/325MG 1 TAB TABLET PO PRN (12:04)
[2017-03-28 16:17] VITALS: BP 131/79
[2017-03-28] MEDS: traZODone 100 MG TABLET. PO SCH (19:25)
[2017-03-28] MEDS: cloZAPine 25 MG TABLET PO SCH (19:25)
[2017-03-28] MEDS: LINACLOTIDE 145 MCG CAPSULE. PO SCH (19:26)
[2017-03-29 06:07] VITALS: BP 104/62
[2017-03-29 06:58] LABS: ALBUMIN 2.7 g/dL (3.4-5.0); ALBUMIN/GLOBULIN RATIO 0.8 (1.0-1.7); CALCIUM 9.1 mg/dL (8.5-10.1); CREATININE 0.9 mg/dL (0.6-1.0); GFR 62.8; POTASSIUM 4.1 mmol/L (3.5-5.1); TOTAL BILIRUBIN 0.2 mg/dL (0.2-1.0)
[2017-03-29] MEDS: POLYETHYLENE GLYCOL 3350 17 GM PACKET. PO SCH (09:08)
[2017-03-29] MEDS: ENOXAPARIN 30 MG/0.3 ML DISP.SYRIN. SQ SCH (09:09)
[2017-03-29] MEDS: CHOLECALCIFEROL (VITAMIN D3) 1,000 UNIT TABLET PO SCH (09:09)
[2017-03-29] MEDS: LACTOBACILLUS RHAMNOSUS GG 1 CAPSULE. PO SCH ×2 (09:09→19:49)
[2017-03-29] MEDS: LACTULOSE 20 GM/30 ML SOLUTION. PO SCH ×2 (09:09→19:49)
[2017-03-29] MEDS: ZIPRASIDONE 60 MG CAPSULE. PO SCH ×2 (09:09→19:50)
[2017-03-29] MEDS: MEGESTROL 400 MG/10 ML ORAL.SUSP. PO SCH ×2 (09:09→13:46)
[2017-03-29] MEDS: OMEGA-3 FATTY ACIDS/FISH OIL 1,000 MG CAPSULE. PO SCH (09:10)
[2017-03-29] MEDS: GABAPENTIN 300 MG CAPSULE. PO SCH ×2 (09:10→19:50)
[2017-03-29] MEDS: PANTOPRAZOLE 40 MG TABLET. PO SCH (09:10)
[2017-03-29] MEDS: SENNOSIDES/DOCUSATE 8.6/50MG TABLET. PO SCH ×2 (09:10→19:49)
--- NOTE | 2017-03-29 15:58 | RAD ---
EXAM: Right elbow 2 views. HISTORY: Fracture follow-up. COMPARISON: None. FINDINGS: A fracture of the right distal humeral metaphysis remains identified. There is hypertrophic callus but no solid bridging. There is medial displacement and angulation of the main distal fracture fragment. Joint spaces and alignment at the elbow are grossly maintained. Osteopenia is moderate to severe. IMPRESSION: 1. No solid bridging at the right distal humeral fracture which remains medially displaced and angulated. Ongoing follow-up/management is recommended.
[2017-03-29 16:10] VITALS: BP 103/73
[2017-03-29] MEDS: traZODone 100 MG TABLET. PO SCH (19:49)
[2017-03-29] MEDS: cloZAPine 25 MG TABLET PO SCH (19:50)
[2017-03-29] MEDS: LINACLOTIDE 145 MCG CAPSULE. PO SCH (19:51)
[2017-03-29] MEDS: HYDROcodone/APAP 5/325MG 1 TAB TABLET PO PRN (20:10)
[2017-03-30 06:00] VITALS: BP 134/74
[2017-03-30] MEDS: POLYETHYLENE GLYCOL 3350 17 GM PACKET. PO SCH (08:20)
[2017-03-30] MEDS: LACTULOSE 20 GM/30 ML SOLUTION. PO SCH ×2 (08:20→19:40)
[2017-03-30] MEDS: CHOLECALCIFEROL (VITAMIN D3) 1,000 UNIT TABLET PO SCH (08:21)
[2017-03-30] MEDS: OMEGA-3 FATTY ACIDS/FISH OIL 1,000 MG CAPSULE. PO SCH (08:21)
[2017-03-30] MEDS: ENOXAPARIN 30 MG/0.3 ML DISP.SYRIN. SQ SCH (08:21)
[2017-03-30] MEDS: LACTOBACILLUS RHAMNOSUS GG 1 CAPSULE. PO SCH ×2 (08:21→19:40)
[2017-03-30] MEDS: PANTOPRAZOLE 40 MG TABLET. PO SCH (08:21)
[2017-03-30] MEDS: ZIPRASIDONE 60 MG CAPSULE. PO SCH ×2 (08:21→19:40)
[2017-03-30] MEDS: GABAPENTIN 300 MG CAPSULE. PO SCH ×2 (08:21→19:40)
[2017-03-30] MEDS: SENNOSIDES/DOCUSATE 8.6/50MG TABLET. PO SCH ×2 (08:21→19:41)
[2017-03-30] MEDS: MEGESTROL 400 MG/10 ML ORAL.SUSP. PO SCH ×2 (08:22→13:42)
--- NOTE | 2017-03-30 15:52 | PN ---
DATE: 03/29/2017 SUBJECTIVE: The patient was seen today, met with the staff, chart reviewed, and covering for Dr. Garcia. SUBJECTIVE: The patient apparently is showing improvement, has not had any major behavior problems. Indwelling catheter was removed today. The patient apparently had problems in the past, multiple falls, has been diagnosed with bipolar type schizophrenia and dementia in the past. The patient also had ECTs in the past. OBSERVATION: VITAL SIGNS: Temperature 98.4, blood pressure 104/62, pulse 90, respirations 16, and O2 sat 98%. Slept about 8 hours last night. Her appetite is fair. MEDICATIONS: The patient's current medications include Trileptal 300 mg b.i.d., Clozaril 50 mg at night, trazodone 100 mg at night. She is also on olanzapine 5 mg p.r.n. q.2 hours. The patient is also on Geodon 60 mg b.i.d., gabapentin 600 mg b.i.d. The patient's lab reviewed. The patient's Depakote level was 31. IMPRESSION: Schizoaffective disorder, bipolar type, major neurocognitive disorder, Alzheimer's versus vascular with behavior disturbances. PLAN: To continue with the treatment. SONY ZAPIEN MD DR: LUKASZ/aly JOB#: [id number] / [id number]
[2017-03-30 16:14] VITALS: BP 125/81
--- NOTE | 2017-03-30 16:26 | PN ---
DATE: 03/30/2017 SUBJECTIVE: The patient was seen today, met with the staff, chart reviewed. The patient continues to have behavior problems of and on, but overall improved. The patient did not have any falls, not having any side effects to the medications. OBSERVATION: VITAL SIGNS: Temperature 97.4, blood pressure 134/74, respiration 18, pulse 79 and O2 sat 100%. Slept about 7 hours last night. Her appetite has improved. MEDICATIONS: The patient's current medications include Trileptal 300 mg b.i.d., clozapine 50 mg at night, trazodone 100 mg at night. She is also on Geodon 60 mg b.i.d., gabapentin 600 mg b.i.d. The patient currently not showing any major side effects. ASSESSMENT: 1. Schizoaffective disorder, bipolar type, mixed with psychotic features. 2. Major neurocognitive disorder, Alzheimer's, vascular with depression and delusions and behavioral disturbances. PLAN: To continue with the treatment. SONY ZAPIEN MD DR: LUKASZ/aly JOB#: [id number] / [id number]
[2017-03-30] MEDS: cloZAPine 25 MG TABLET PO SCH (19:40)
[2017-03-30] MEDS: traZODone 100 MG TABLET. PO SCH (19:40)
[2017-03-30] MEDS: LINACLOTIDE 145 MCG CAPSULE. PO SCH (19:41)
[2017-03-30] MEDS: HYDROcodone/APAP 5/325MG 1 TAB TABLET PO PRN (19:50)
[2017-03-31] MEDS: traZODone 100 MG TABLET. PO PRN (00:10)
[2017-03-31 05:55] VITALS: BP 110/70
[2017-03-31] MEDS: SENNOSIDES/DOCUSATE 8.6/50MG TABLET. PO SCH ×2 (07:49→19:41)
[2017-03-31] MEDS: CHOLECALCIFEROL (VITAMIN D3) 1,000 UNIT TABLET PO SCH (07:49)
[2017-03-31] MEDS: OMEGA-3 FATTY ACIDS/FISH OIL 1,000 MG CAPSULE. PO SCH (07:49)
[2017-03-31] MEDS: ZIPRASIDONE 60 MG CAPSULE. PO SCH ×2 (07:49→19:40)
[2017-03-31] MEDS: LACTOBACILLUS RHAMNOSUS GG 1 CAPSULE. PO SCH ×2 (07:49→19:41)
[2017-03-31] MEDS: GABAPENTIN 300 MG CAPSULE. PO SCH ×2 (07:49→19:41)
[2017-03-31] MEDS: PANTOPRAZOLE 40 MG TABLET. PO SCH (07:49)
[2017-03-31] MEDS: LACTULOSE 20 GM/30 ML SOLUTION. PO SCH ×2 (07:50→19:41)
[2017-03-31] MEDS: POLYETHYLENE GLYCOL 3350 17 GM PACKET. PO SCH (07:51)
[2017-03-31] MEDS: ENOXAPARIN 30 MG/0.3 ML DISP.SYRIN. SQ SCH (07:51)
[2017-03-31] MEDS: MEGESTROL 400 MG/10 ML ORAL.SUSP. PO SCH ×2 (07:52→14:15)
[2017-03-31] MEDS: HYDROcodone/APAP 5/325MG 1 TAB TABLET PO PRN ×2 (11:39→18:26)
[2017-03-31] MEDS: ACETAMINOPHEN 325 MG TABLET PO PRN ×2 (15:29→21:31)
[2017-03-31 15:55] VITALS: BP 142/85
[2017-03-31] MEDS: cloZAPine 25 MG TABLET PO SCH (19:41)
[2017-03-31] MEDS: traZODone 100 MG TABLET. PO SCH (19:41)
[2017-03-31] MEDS: LINACLOTIDE 145 MCG CAPSULE. PO SCH (19:43)
--- NOTE | 2017-03-31 19:51 | PN ---
DATE: 03/31/2017 SUBJECTIVE: The patient was seen today, met with the staff, chart reviewed. The patient reports no major problems except sometimes just loud hollering, agitated, mostly monosyllabic answers, also keeps repeating same word. The patient is on wheelchair. The patient has difficulty processing information, has significant problems with cognition. OBSERVATION: VITAL SIGNS: Temperature 97.3, blood pressure 110/70, pulse 88, respirations 16, O2 sat 97%. Slept about 6-1/2 hours last night. The patient is not presenting with any physical problems. MEDICATIONS: Trileptal 300 mg b.i.d., clozapine 50 mg at night, Geodon 60 mg b.i.d., gabapentin 600 mg t.i.d., and trazodone 100 mg at night. LABORATORY DATA: The patient's lab reviewed. ASSESSMENT: 1. Schizoaffective disorder, bipolar type, mixed with psychotic features. 2. Major neurocognitive disorder, Alzheimer's, vascular with depression and delusions and behavioral disturbances. PLAN: To continue with the treatment. SONY ZAPIEN MD DR: LUKASZ/aly JOB#: [id number] / [id number]
[2017-04-01 05:33] VITALS: BP 108/71
[2017-04-01] MEDS: MEGESTROL 400 MG/10 ML ORAL.SUSP. PO SCH ×2 (09:07→14:00)
[2017-04-01] MEDS: OMEGA-3 FATTY ACIDS/FISH OIL 1,000 MG CAPSULE. PO SCH (09:08)
[2017-04-01] MEDS: LACTULOSE 20 GM/30 ML SOLUTION. PO SCH ×2 (09:08→21:11)
[2017-04-01] MEDS: LACTOBACILLUS RHAMNOSUS GG 1 CAPSULE. PO SCH ×2 (09:08→21:13)
[2017-04-01] MEDS: ZIPRASIDONE 60 MG CAPSULE. PO SCH ×2 (09:08→21:12)
[2017-04-01] MEDS: GABAPENTIN 300 MG CAPSULE. PO SCH ×2 (09:08→21:12)
[2017-04-01] MEDS: CHOLECALCIFEROL (VITAMIN D3) 1,000 UNIT TABLET PO SCH (09:08)
[2017-04-01] MEDS: SENNOSIDES/DOCUSATE 8.6/50MG TABLET. PO SCH ×2 (09:08→21:13)
[2017-04-01] MEDS: PANTOPRAZOLE 40 MG TABLET. PO SCH (09:08)
[2017-04-01] MEDS: POLYETHYLENE GLYCOL 3350 17 GM PACKET. PO SCH (09:09)
[2017-04-01] MEDS: ENOXAPARIN 30 MG/0.3 ML DISP.SYRIN. SQ SCH (09:10)
[2017-04-01 16:41] VITALS: BP 114/63
--- NOTE | 2017-04-01 21:07 | PDOC ---
Exam Note: Kayden Note: Please also refer to the separate dictated note~for this date of service dictated separately.~Patient seen individually. Discussed the patient with Nursing staff reviewed the chart.~Reviewed interim history and current functioning. Reviewed vital signs,~Labs/ Radiology~and current medications noted below. Continue current treatment with the changes noted in the dictated addendum note Assessment: Vital Signs: Vital Signs Date Time Temp Pulse Resp B/P (MAP) Pulse Ox O2 Delivery O2 Flow Rate FiO2 04/01/17 16:41 98.0 92 20 114/63 (80) 100 04/01/17 05:33 Room Air I&O Intake and Output 04/01/17 07:00 Intake Total 3240 ml Balance 3240 ml Intake Oral 3240 ml # Voids 3 Current Medications: Meds: Current Medications Benztropine Mesylate (Cogentin) 1 mg TID PO Last administered on 03/16/17 08: 39; Start 03/14/17 at 22:30; Stop 03/16/17 at 11:57; Status DC Buspirone HCl (Buspar) 10 mg TID PO Last administered on 03/16/17 08:40; Start 03/14/17 at 22:30; Stop 03/16/17 at 11:57; Status DC Ziprasidone (Geodon) 40 mg BID PO Last administered on 03/17/17 08:01; Start 03/14/17 at 22:30; Stop 03/17/17 at 18:48; Status DC Glycerin (Sani-Supp Adult) 1 supp PRN DAILY PRN RC CONSTIPATION; Start at 22:30 Pantoprazole Sodium (Protonix) 40 mg DAILYAC PO Last administered on 09:08; Start 03/15/17 at 07:30 Polyethylene Glycol (miraLAX) 17 gm DAILY PO Last administered on 04/01/17 09 :09; Start 03/15/17 at 09:00 Senna/Docusate Sodium (Senna Plus) 1 tab BID PO Last administered on 09:08; Start 03/14/17 at 22:30 Vitamin D (Vitamin D3) 2,000 unit DAILY PO Last administered on 04/01/17 09: 08; Start 03/15/17 at 09:00 Gabapentin (Neurontin) 600 mg BID PO Last administered on 04/01/17 09:08; Start 03/14/17 at 22:30 Non-Formulary Medication 290 mcg HS PO ; Start 03/15/17 at 21:00; Status UNV Fish Oil (Fish Oil) 1,000 mg DAILY PO Last administered on 04/01/17 09:08; Start 03/15/17 at 09:00 Benztropine Mesylate (Cogentin) 1 mg HS PO ; Start 03/15/17 at 21:00; Stop 03/15 at 21:00; Status DC Olanzapine (ZyPREXA) 10 mg TID PO Last administered on 03/16/17 08:39; Start 03/14/17 at 23:00; Stop 03/16/17 at 11:57; Status DC Acetaminophen (Tylenol) 650 mg PRN Q4HRS PRN PO PAIN / TEMP Last administered on 03/31/17 21:31; Start 03/14/17 at 22:45 Acetaminophen/ Hydrocodone Bitart (Lortab 5/325) 1 tab PRN Q6HRS PRN PO PAIN Last administered on 03/31/17 18:26; Start 03/14/17 at 22:45 Megestrol Acetate (Megace) 400 mg BID PO Last administered on 03/16/17 08:41; Start 03/14/17 at 23:00; Stop 03/16/17 at 21:03; Status DC Lactulose 20 gm BID PO Last administered on 04/01/17 09:08; Start 03/14/17 at 23:00 Pantoprazole Sodium (Protonix) 40 mg DAILYAC PO ; Start 03/15/17 at 07:30; Stop 03/16/17 at 19:39; Status DC Acetaminophen (Tylenol) 650 mg PRN Q6HRS PRN PO PAIN / TEMP; Start 03/15/17 at 01:15; Stop 03/25/17 at 14:08; Status DC Multi-Ingredient Ointment (Analgesic [place]) 1 landon PRN QID PRN TP MUSCLE PAIN; Start 03/15/17 at 01:15 Al Hydroxide/Mg Hydroxide (Mylanta Plus Xs) 15 ml PRN AFTMEALHC PRN PO DYSPEPSIA; Start 03/15/17 at 01:15 Magnesium Hydroxide (Milk Of Magnesia) 2,400 mg PRN QHS PRN PO CONSTIPATION Last administered on 03/27/17 10:16; Start 03/15/17 at 01:15 Potassium Chloride/Dextrose 1,000 ml @ 75 mls/hr [id number] Last administered on 03/18/17 11:25; Start 03/15/17 at 16:45; Stop 03/18/17 at 18:24; Status DC Divalproex Sodium (Depakote Sprinkles) 125 mg BID92 PO Last administered on 13:31; Start 03/16/17 at 09:00; Stop 03/18/17 at 18:29; Status DC Bisacodyl (Dulcolax Supp) 10 mg PRN DAILY PRN [place] CONSTIPATION Last administered on 03/22/17 21:05; Start 03/15/17 at 19:00 Sodium Biphosphate/ Sodium Phosphate (Fleet Adult) 133 ml PRN DAILY PRN [place] CONSTIPATION Last administered on 03/16/17 05:09; Start 03/15/17 at 19:00 Benztropine Mesylate (Cogentin) 1 mg BID PO Last administered on 03/18/17 17: 04; Start 03/16/17 at 21:00; Stop 03/18/17 at 23:00; Status DC Benztropine Mesylate (Cogentin) 1 mg DAILY PO Last administered on 03/21/17 11:21; Start 03/19/17 at 09:00; Stop 03/21/17 at 12:00; Status DC Enoxaparin Sodium (Lovenox) 30 mg Q24H SQ ; Start 03/16/17 at 18:00; Stop at 18:29; Status DC Enoxaparin Sodium (Lovenox) 30 mg Q24H SQ Last administered on 04/01/17 09:10 ; Start 03/17/17 at 09:00 Megestrol Acetate (Megace) 400 mg [id number] PO Last administered on 04/01/17 09: 07; Start 03/17/17 at 09:00 Trimethoprim/ Sulfamethoxazole (Bactrim Ss) 1 tab BID PO Last administered on 03/25/17 08:05; Start 03/17/17 at 21:00; Stop 03/25/17 at 20:59; Status DC Ziprasidone (Geodon) 60 mg BID PO Last administered on 04/01/17 09:08; Start 03/17/17 at 21:00 Lactobacillus Rhamnosus (Culturelle) 1 cap BID PO Last administered on 09:08; Start 03/18/17 at 21:00 Divalproex Sodium (Depakote Sprinkles) 250 mg [id number] PO Last administered on 09:35; Start 03/19/17 at 09:00; Stop 03/23/17 at 11:14; Status DC Olanzapine (ZyPREXA ZYDIS) 5 mg PRN Q2HR PRN PO PSYCHOSIS Last administered on 03/26/17 19:44; Start 03/19/17 at 07:00 Clozapine (Clozaril) 25 mg HS PO Last administered on 03/21/17 20:07; Start 03/19/17 at 21:00; Stop 03/22/17 at 18:41; Status DC Trazodone HCl (Desyrel) 100 mg QHS PO Last administered on 03/31/17 19:41; Start 03/19/17 at 21:00 Trazodone HCl (Desyrel) 100 mg PRN QHS PRN PO INSOMNIA Last administered on 00:10; Start 03/19/17 at 19:15 Clozapine (Clozaril) 50 mg HS PO Last administered on 03/31/17 19:41; Start 03/22/17 at 21:00 Oxcarbazepine (Trileptal) 150 mg [id number] PO Last administered on 03/26/17 14:01 ; Start 03/23/17 at 14:00; Stop 03/26/17 at 14:01; Status DC Oxcarbazepine (Trileptal) 300 mg BID92 PO Last administered on 04/01/17 14:00 ; Start 03/27/17 at 09:00 Active Scripts Active Reported Omeprazole 40 Mg Capsule.dr 40 Mg PO DAILY Olanzapine 10 Mg Tablet 10 Mg PO TID Megestrol Acetate 400 Mg/10 Ml Oral.susp 400 Mg PO BID Lactulose 10 Gm/15 Ml Solution 30 Ml PO BID Hold if no longer constipated [place] 5-325 Tablet (Hydrocodone Bit/Acetaminophen) 1 Each Tablet 1 Tab PO PRN Q6HRS PRN Tylenol (Acetaminophen) 325 Mg Tablet 650 Mg PO PRN Q4HRS PRN Benztropine Mesylate 1 Mg Tablet 1 Mg PO HS Suppository (Glycerin) 1 Each Supp.rect 1 Each RC PRN DAILY PRN Geodon (Ziprasidone Hcl) 40 Mg Capsule 40 Mg PO BID Sennosides-Docusate Sodium Tab (Sennosides/Docusate Sodium) 1 Each Tablet 1 Each PO BID Miralax (Polyethylene Glycol 3350) 17 Gm Powd.pack 17 Gm PO DAILY Protonix (Pantoprazole Sodium) 20 Mg Tablet.dr 20 Mg PO BID [place] 3 1,000 Mg Softgel ([place]-3 Fatty Acids/Fish Oil) 1 Each Capsule 1 Each PO DAILY Linzess (Linaclotide) 290 Mcg Capsule 290 Mcg PO HS Gabapentin 600 Mg Tablet 600 Mg PO BID Vitamin D (Cholecalciferol (Vitamin D3)) 2,000 Unit Capsule 2,000 Unit PO DAILY Buspirone Hcl 10 Mg Tablet 10 Mg PO TID Benztropine Mesylate 1 Mg Tablet 1 Mg PO TID I have reviewed the current psychotropics carefully including drug interactions. Risk benefit ratio favors no change other than as noted in my dictated progress note. Diagnosis: Problems: (1) Anxiety disorder (2) Bipolar affective, mixed, sev w/ psych (3) Dementia, vascular, with depression (4) Dementia, vascular, with delusions (5) Dementia in Alzheimer's disease with depression (6) Dementia in Alzheimer's disease with delusions (7) Impulse control disorder MIRIAM BRASWELL MD Apr 01, 2017 21:07
[2017-04-01] MEDS: traZODone 100 MG TABLET. PO SCH (21:12)
[2017-04-01] MEDS: cloZAPine 25 MG TABLET PO SCH (21:12)
[2017-04-01] MEDS: LINACLOTIDE 145 MCG CAPSULE. PO SCH (21:44)
[2017-04-02 06:27] VITALS: BP 120/73
[2017-04-02] MEDS: LACTULOSE 20 GM/30 ML SOLUTION. PO SCH ×2 (09:22→19:12)
[2017-04-02] MEDS: POLYETHYLENE GLYCOL 3350 17 GM PACKET. PO SCH (09:22)
[2017-04-02] MEDS: LACTOBACILLUS RHAMNOSUS GG 1 CAPSULE. PO SCH ×2 (09:23→19:13)
[2017-04-02] MEDS: ZIPRASIDONE 60 MG CAPSULE. PO SCH ×2 (09:23→19:13)
[2017-04-02] MEDS: OMEGA-3 FATTY ACIDS/FISH OIL 1,000 MG CAPSULE. PO SCH (09:23)
[2017-04-02] MEDS: PANTOPRAZOLE 40 MG TABLET. PO SCH (09:23)
[2017-04-02] MEDS: CHOLECALCIFEROL (VITAMIN D3) 1,000 UNIT TABLET PO SCH (09:23)
[2017-04-02] MEDS: ENOXAPARIN 30 MG/0.3 ML DISP.SYRIN. SQ SCH (09:23)
[2017-04-02] MEDS: SENNOSIDES/DOCUSATE 8.6/50MG TABLET. PO SCH ×2 (09:23→19:13)
[2017-04-02] MEDS: GABAPENTIN 300 MG CAPSULE. PO SCH ×2 (09:23→19:14)
[2017-04-02] MEDS: MEGESTROL 400 MG/10 ML ORAL.SUSP. PO SCH ×2 (09:24→14:28)
[2017-04-02 16:01] VITALS: BP 135/54
[2017-04-02] MEDS: LINACLOTIDE 145 MCG CAPSULE. PO SCH (19:13)
[2017-04-02] MEDS: traZODone 100 MG TABLET. PO SCH (19:13)
[2017-04-02] MEDS: HYDROcodone/APAP 5/325MG 1 TAB TABLET PO PRN (19:24)
[2017-04-02] MEDS: cloZAPine 25 MG TABLET PO SCH (19:36)
--- NOTE | 2017-04-02 19:57 | PDOC ---
Exam Note: Kayden Note: Please also refer to the separate dictated note~for this date of service dictated separately.~Patient seen individually. Discussed the patient with Nursing staff reviewed the chart.~Reviewed interim history and current functioning. Reviewed vital signs,~Labs/ Radiology~and current medications noted below. Continue current treatment with the changes noted in the dictated addendum note Assessment: Vital Signs: Vital Signs Date Time Temp Pulse Resp B/P (MAP) Pulse Ox O2 Delivery O2 Flow Rate FiO2 04/02/17 16:01 98.7 99 20 135/54 (81) 98 04/01/17 05:33 Room Air I&O Intake and Output 04/02/17 07:00 Intake Total 1030 ml Balance 1030 ml Intake Oral 1030 ml # Voids 2 Current Medications: Meds: Current Medications Benztropine Mesylate (Cogentin) 1 mg TID PO Last administered on 03/16/17 08: 39; Start 03/14/17 at 22:30; Stop 03/16/17 at 11:57; Status DC Buspirone HCl (Buspar) 10 mg TID PO Last administered on 03/16/17 08:40; Start 03/14/17 at 22:30; Stop 03/16/17 at 11:57; Status DC Ziprasidone (Geodon) 40 mg BID PO Last administered on 03/17/17 08:01; Start 03/14/17 at 22:30; Stop 03/17/17 at 18:48; Status DC Glycerin (Sani-Supp Adult) 1 supp PRN DAILY PRN [place] CONSTIPATION; Start at 22:30 Pantoprazole Sodium (Protonix) 40 mg DAILYAC PO Last administered on 09:23; Start 03/15/17 at 07:30 Polyethylene Glycol (miraLAX) 17 gm DAILY PO Last administered on 04/02/17 09 :22; Start 03/15/17 at 09:00 Senna/Docusate Sodium (Senna Plus) 1 tab BID PO Last administered on 19:13; Start 03/14/17 at 22:30 Vitamin D (Vitamin D3) 2,000 unit DAILY PO Last administered on 04/02/17 09: 23; Start 03/15/17 at 09:00 Gabapentin (Neurontin) 600 mg BID PO Last administered on 04/02/17 19:14; Start 03/14/17 at 22:30 Non-Formulary Medication 290 mcg HS PO ; Start 03/15/17 at 21:00; Status UNV Fish Oil (Fish Oil) 1,000 mg DAILY PO Last administered on 04/02/17 09:23; Start 03/15/17 at 09:00 Benztropine Mesylate (Cogentin) 1 mg HS PO ; Start 03/15/17 at 21:00; Stop 03/15 at 21:00; Status DC Olanzapine (ZyPREXA) 10 mg TID PO Last administered on 03/16/17 08:39; Start 03/14/17 at 23:00; Stop 03/16/17 at 11:57; Status DC Acetaminophen (Tylenol) 650 mg PRN Q4HRS PRN PO PAIN / TEMP Last administered on 03/31/17 21:31; Start 03/14/17 at 22:45 Acetaminophen/ Hydrocodone Bitart (Lortab 5/325) 1 tab PRN Q6HRS PRN PO PAIN Last administered on 04/02/17 19:24; Start 03/14/17 at 22:45 Megestrol Acetate (Megace) 400 mg BID PO Last administered on 03/16/17 08:41; Start 03/14/17 at 23:00; Stop 03/16/17 at 21:03; Status DC Lactulose 20 gm BID PO Last administered on 04/02/17 19:12; Start 03/14/17 at 23:00 Pantoprazole Sodium (Protonix) 40 mg DAILYAC PO ; Start 03/15/17 at 07:30; Stop 03/16/17 at 19:39; Status DC Acetaminophen (Tylenol) 650 mg PRN Q6HRS PRN PO PAIN / TEMP; Start 03/15/17 at 01:15; Stop 03/25/17 at 14:08; Status DC Multi-Ingredient Ointment (Analgesic [place]) 1 landon PRN QID PRN TP MUSCLE PAIN; Start 03/15/17 at 01:15 Al Hydroxide/Mg Hydroxide (Mylanta Plus Xs) 15 ml PRN AFTMEALHC PRN PO DYSPEPSIA; Start 03/15/17 at 01:15 Magnesium Hydroxide (Milk Of Magnesia) 2,400 mg PRN QHS PRN PO CONSTIPATION Last administered on 03/27/17 10:16; Start 03/15/17 at 01:15 Potassium Chloride/Dextrose 1,000 ml @ 75 mls/hr [id number] IV Last administered on 03/18/17 11:25; Start 03/15/17 at 16:45; Stop 03/18/17 at 18:24; Status DC Divalproex Sodium (Depakote Sprinkles) 125 mg BID92 PO Last administered on 13:31; Start 03/16/17 at 09:00; Stop 03/18/17 at 18:29; Status DC Bisacodyl (Dulcolax Supp) 10 mg PRN DAILY PRN [place] CONSTIPATION Last administered on 03/22/17 21:05; Start 03/15/17 at 19:00 Sodium Biphosphate/ Sodium Phosphate (Fleet Adult) 133 ml PRN DAILY PRN [place] CONSTIPATION Last administered on 03/16/17 05:09; Start 03/15/17 at 19:00 Benztropine Mesylate (Cogentin) 1 mg BID PO Last administered on 03/18/17 17: 04; Start 03/16/17 at 21:00; Stop 03/18/17 at 23:00; Status DC Benztropine Mesylate (Cogentin) 1 mg DAILY PO Last administered on 03/21/17 11:21; Start 03/19/17 at 09:00; Stop 03/21/17 at 12:00; Status DC Enoxaparin Sodium (Lovenox) 30 mg Q24H SQ ; Start 03/16/17 at 18:00; Stop at 18:29; Status DC Enoxaparin Sodium (Lovenox) 30 mg Q24H SQ Last administered on 04/02/17 09:23 ; Start 03/17/17 at 09:00 Megestrol Acetate (Megace) 400 mg [id number] PO Last administered on 04/02/17 14: 28; Start 03/17/17 at 09:00 Trimethoprim/ Sulfamethoxazole (Bactrim Ss) 1 tab BID PO Last administered on 03/25/17 08:05; Start 03/17/17 at 21:00; Stop 03/25/17 at 20:59; Status DC Ziprasidone (Geodon) 60 mg BID PO Last administered on 04/02/17 19:13; Start 03/17/17 at 21:00 Lactobacillus Rhamnosus (Culturelle) 1 cap BID PO Last administered on 19:13; Start 03/18/17 at 21:00 Divalproex Sodium (Depakote Sprinkles) 250 mg BID92 PO Last administered on 09:35; Start 03/19/17 at 09:00; Stop 03/23/17 at 11:14; Status DC Olanzapine (ZyPREXA ZYDIS) 5 mg PRN Q2HR PRN PO PSYCHOSIS Last administered on 03/26/17 19:44; Start 03/19/17 at 07:00 Clozapine (Clozaril) 25 mg HS PO Last administered on 03/21/17 20:07; Start 03/19/17 at 21:00; Stop 03/22/17 at 18:41; Status DC Trazodone HCl (Desyrel) 100 mg QHS PO Last administered on 04/02/17 19:13; Start 03/19/17 at 21:00 Trazodone HCl (Desyrel) 100 mg PRN QHS PRN PO INSOMNIA Last administered on 00:10; Start 03/19/17 at 19:15 Clozapine (Clozaril) 50 mg HS PO Last administered on 04/01/17 21:12; Start 03/22/17 at 21:00; Stop 04/01/17 at 21:53; Status DC Oxcarbazepine (Trileptal) 150 mg BID92 PO Last administered on 03/26/17 14:01 ; Start 03/23/17 at 14:00; Stop 03/26/17 at 14:01; Status DC Oxcarbazepine (Trileptal) 300 mg BID92 PO Last administered on 04/02/17 14:28 ; Start 03/27/17 at 09:00 Clozapine (Clozaril) 75 mg HS PO Last administered on 04/02/17 19:36; Start 04/02/17 at 21:00 Active Scripts Active Reported Omeprazole 40 Mg Capsule.dr 40 Mg PO DAILY Olanzapine 10 Mg Tablet 10 Mg PO TID Megestrol Acetate 400 Mg/10 Ml Oral.susp 400 Mg PO BID Lactulose 10 Gm/15 Ml Solution 30 Ml PO BID Hold if no longer constipated [place] 5-325 Tablet (Hydrocodone Bit/Acetaminophen) 1 Each Tablet 1 Tab PO PRN Q6HRS PRN Tylenol (Acetaminophen) 325 Mg Tablet 650 Mg PO PRN Q4HRS PRN Benztropine Mesylate 1 Mg Tablet 1 Mg PO HS Suppository (Glycerin) 1 Each Supp.rect 1 Each RC PRN DAILY PRN Geodon (Ziprasidone Hcl) 40 Mg Capsule 40 Mg PO BID Sennosides-Docusate Sodium Tab (Sennosides/Docusate Sodium) 1 Each Tablet 1 Each PO BID Miralax (Polyethylene Glycol 3350) 17 Gm Powd.pack 17 Gm PO DAILY Protonix (Pantoprazole Sodium) 20 Mg Tablet.dr 20 Mg PO BID [place] 3 1,000 Mg Softgel ([place]-3 Fatty Acids/Fish Oil) 1 Each Capsule 1 Each PO DAILY Linzess (Linaclotide) 290 Mcg Capsule 290 Mcg PO HS Gabapentin 600 Mg Tablet 600 Mg PO BID Vitamin D (Cholecalciferol (Vitamin D3)) 2,000 Unit Capsule 2,000 Unit PO DAILY Buspirone Hcl 10 Mg Tablet 10 Mg PO TID Benztropine Mesylate 1 Mg Tablet 1 Mg PO TID I have reviewed the current psychotropics carefully including drug interactions. Risk benefit ratio favors no change other than as noted in my dictated progress note. Diagnosis: Problems: (1) Anxiety disorder (2) Bipolar affective, mixed, sev w/ psych (3) Dementia, vascular, with depression (4) Dementia, vascular, with delusions (5) Dementia in Alzheimer's disease with depression (6) Dementia in Alzheimer's disease with delusions (7) Impulse control disorder MIRIAM BRASWELL MD Apr 02, 2017 19:57
--- NOTE | 2017-04-02 21:10 | PN ---
DATE: 04/01/2017 This late entry 04/01/2017 covers elements not covered in my initial note of 04/01/2017. SUBJECTIVE: I met with the patient evening of 04/01/2017. The patient continues to yell out in a high pitched voice, remains quite labile, but better than before per nursing observation. Reviewed information with Dr. Jasmine, who covered for me over the past several days. REVIEW OF SYSTEMS: Ambulation impaired, in bed. No CV, , pulmonary, eye, ENT system symptoms on review. MENTAL STATUS EXAM: Oriented to herself. Insight, judgment, recent and remote memory, attention, concentration, fund of knowledge poor, consistent with her diagnosis mentioned in my initial note. IMPRESSION: Schizoaffective disorder, bipolar type, mixed with psychotic features; anxiety disorder, unspecified; impulse control disorder, unspecified; major neurocognitive disorder, Alzheimer, vascular with depression, delusion, behavioral disturbance. Rest unchanged from before. PLAN: Absolute neutrophil count, WBC unremarkable. Increase Clozaril from 50 mg at bedtime to 75 mg at bedtime. Follow weekly CBC, absolute neutrophil counts, maintain rest of the psychotropics unchanged. Geodon 60 b.i.d.; Neurontin 600 b.i.d.; trazodone 100 mg at bedtime, september repeat x 1; Trileptal 300 mg b.i.d.; Zyprexa p.r.n. Reviewed drug interactions. Risk/benefit ratio favors no further change. MIRIAM BRASWELL MD DR: ANAM/aly JOB#: [id number] / [id number]
[2017-04-02] MEDS: traZODone 100 MG TABLET. PO PRN (23:08)
[2017-04-03 06:08] VITALS: BP 123/78
[2017-04-03 07:46] LABS: BASO # 0.1 x10^3/uL (0.0-0.2); BASO % 1 % (0-3); EOS # 0.2 x10^3/uL (0.0-0.7); EOS % 2 % (0-3); HEMATOCRIT 35.5 % (36.0-47.0); LYMPH # 1.5 x10^3/uL (1.0-4.8); LYMPH % 15 % (24-48); MEAN CORPUSCULAR HEMOGLOBIN 33 pg (25-35); MEAN CORPUSCULAR HGB CONC 34 g/dL (31-37); MEAN CORPUSCULAR VOLUME 96 fL (79-100); MONO # 0.8 x10^3/uL (0.0-1.1); MONO % 8 % (0-9); NEUT # 7.7 x10^3uL (1.8-7.7); NEUT % 75 % (31-73); PLATELET COUNT 220 x10^3/uL (140-400); RED BLOOD COUNT 3.69 x10^6/uL (3.50-5.40); RED CELL DISTRIBUTION WIDTH 16.3 % (11.5-14.5); WHITE BLOOD COUNT 10.3 x10^3/uL (4.0-11.0)
[2017-04-03 07:58] LABS: ALBUMIN 2.6 g/dL (3.4-5.0); ALBUMIN/GLOBULIN RATIO 0.8 (1.0-1.7); CALCIUM 8.8 mg/dL (8.5-10.1); CREATININE 0.8 mg/dL (0.6-1.0); POTASSIUM 3.9 mmol/L (3.5-5.1); TOTAL BILIRUBIN 0.1 mg/dL (0.2-1.0); TOTAL PROTEIN 5.7 g/dL (6.4-8.2)
[2017-04-03] MEDS: LACTULOSE 20 GM/30 ML SOLUTION. PO SCH ×2 (09:32→19:22)
[2017-04-03] MEDS: MEGESTROL 400 MG/10 ML ORAL.SUSP. PO SCH ×2 (09:32→14:31)
[2017-04-03] MEDS: ENOXAPARIN 30 MG/0.3 ML DISP.SYRIN. SQ SCH (09:33)
[2017-04-03] MEDS: GABAPENTIN 300 MG CAPSULE. PO SCH ×2 (09:33→19:23)
[2017-04-03] MEDS: OMEGA-3 FATTY ACIDS/FISH OIL 1,000 MG CAPSULE. PO SCH (09:33)
[2017-04-03] MEDS: LACTOBACILLUS RHAMNOSUS GG 1 CAPSULE. PO SCH ×2 (09:33→19:22)
[2017-04-03] MEDS: ZIPRASIDONE 60 MG CAPSULE. PO SCH ×2 (09:33→19:23)
[2017-04-03] MEDS: POLYETHYLENE GLYCOL 3350 17 GM PACKET. PO SCH (09:33)
[2017-04-03] MEDS: CHOLECALCIFEROL (VITAMIN D3) 1,000 UNIT TABLET PO SCH (09:33)
[2017-04-03] MEDS: SENNOSIDES/DOCUSATE 8.6/50MG TABLET. PO SCH ×2 (09:34→19:23)
[2017-04-03] MEDS: PANTOPRAZOLE 40 MG TABLET. PO SCH (09:34)
[2017-04-03] MEDS: HYDROcodone/APAP 5/325MG 1 TAB TABLET PO PRN (14:31)
[2017-04-03 15:54] VITALS: BP 155/80
[2017-04-03] MEDS: cloZAPine 25 MG TABLET PO SCH (19:22)
[2017-04-03] MEDS: traZODone 100 MG TABLET. PO SCH (19:22)
[2017-04-03] MEDS: LINACLOTIDE 145 MCG CAPSULE. PO SCH (19:23)
--- NOTE | 2017-04-03 20:09 | PDOC ---
Exam Note: Kaydne Note: Please also refer to the separate dictated note~for this date of service dictated separately.~Patient seen individually. Discussed the patient with Nursing staff reviewed the chart.~Reviewed interim history and current functioning. Reviewed vital signs,~Labs/ Radiology~and current medications noted below. Continue current treatment with the changes noted in the dictated addendum note Assessment: Vital Signs: Vital Signs Date Time Temp Pulse Resp B/P (MAP) Pulse Ox O2 Delivery O2 Flow Rate FiO2 04/03/17 15:54 97.7 89 22 155/80 (105) 95 04/01/17 05:33 Room Air I&O Intake and Output 04/03/17 07:00 Intake Total 1080 ml Balance 1080 ml Intake Oral 1080 ml # Voids 1 # Bowel Movements 2 Labs: Laboratory Tests Test 04/03/17 07:28 White Blood Count 10.3 x10^3/uL (4.0-11.0) # Red Blood Count 3.69 x10^6/uL (3.50-5.40) Hemoglobin 12.0 g/dL (12.0-15.5) Hematocrit 35.5 % (36.0-47.0) L Mean Corpuscular Volume 96 fL (79-100) Mean Corpuscular Hemoglobin 33 pg (25-35) Mean Corpuscular Hemoglobin Concent 34 g/dL (31-37) Red Cell Distribution Width 16.3 % (11.5-14.5) H Platelet Count 220 x10^3/uL (140-400) Neutrophils (%) (Auto) 75 % (31-73) H Lymphocytes (%) (Auto) 15 % (24-48) L Monocytes (%) (Auto) 8 % (0-9) Eosinophils (%) (Auto) 2 % (0-3) Basophils (%) (Auto) 1 % (0-3) Neutrophils # (Auto) 7.7 x10^3uL (1.8-7.7) Lymphocytes # (Auto) 1.5 x10^3/uL (1.0-4.8) Monocytes # (Auto) 0.8 x10^3/uL (0.0-1.1) Eosinophils # (Auto) 0.2 x10^3/uL (0.0-0.7) Basophils # (Auto) 0.1 x10^3/uL (0.0-0.2) Sodium Level 145 mmol/L (136-145) Potassium Level 3.9 mmol/L (3.5-5.1) Chloride Level 112 mmol/L (98-107) H Carbon Dioxide Level 24 mmol/L (21-32) Anion Gap 9 (6-14) Blood Urea Nitrogen 19 mg/dL (7-20) Creatinine 0.8 mg/dL (0.6-1.0) Estimated GFR (Cockcroft-Gault) 72.0 BUN/Creatinine Ratio 24 (6-20) H Glucose Level 98 mg/dL (70-99) Calcium Level 8.8 mg/dL (8.5-10.1) Magnesium Level 2.0 mg/dL (1.8-2.4) Total Bilirubin 0.1 mg/dL (0.2-1.0) L Aspartate Amino Transferase (AST) 14 U/L (15-37) L Alanine Aminotransferase (ALT) 19 U/L (14-59) Alkaline Phosphatase 78 U/L (46-116) Total Protein 5.7 g/dL (6.4-8.2) L Albumin 2.6 g/dL (3.4-5.0) L Albumin/Globulin Ratio 0.8 (1.0-1.7) L Current Medications: Meds: Current Medications Benztropine Mesylate (Cogentin) 1 mg TID PO Last administered on 03/16/17 08: 39; Start 03/14/17 at 22:30; Stop 03/16/17 at 11:57; Status DC Buspirone HCl (Buspar) 10 mg TID PO Last administered on 03/16/17 08:40; Start 03/14/17 at 22:30; Stop 03/16/17 at 11:57; Status DC Ziprasidone (Geodon) 40 mg BID PO Last administered on 03/17/17 08:01; Start 03/14/17 at 22:30; Stop 03/17/17 at 18:48; Status DC Glycerin (Sani-Supp Adult) 1 supp PRN DAILY PRN RC CONSTIPATION; Start at 22:30 Pantoprazole Sodium (Protonix) 40 mg DAILYAC PO Last administered on 09:34; Start 03/15/17 at 07:30 Polyethylene Glycol (miraLAX) 17 gm DAILY PO Last administered on 04/03/17 09 :33; Start 03/15/17 at 09:00 Senna/Docusate Sodium (Senna Plus) 1 tab BID PO Last administered on 19:23; Start 03/14/17 at 22:30 Vitamin D (Vitamin D3) 2,000 unit DAILY PO Last administered on 04/03/17 09: 33; Start 03/15/17 at 09:00 Gabapentin (Neurontin) 600 mg BID PO Last administered on 04/03/17 19:23; Start 03/14/17 at 22:30 Non-Formulary Medication 290 mcg HS PO ; Start 03/15/17 at 21:00; Status UNV Fish Oil (Fish Oil) 1,000 mg DAILY PO Last administered on 04/03/17 09:33; Start 03/15/17 at 09:00 Benztropine Mesylate (Cogentin) 1 mg HS PO ; Start 03/15/17 at 21:00; Stop 03/15 at 21:00; Status DC Olanzapine (ZyPREXA) 10 mg TID PO Last administered on 03/16/17 08:39; Start 03/14/17 at 23:00; Stop 03/16/17 at 11:57; Status DC Acetaminophen (Tylenol) 650 mg PRN Q4HRS PRN PO PAIN / TEMP Last administered on 03/31/17 21:31; Start 03/14/17 at 22:45 Acetaminophen/ Hydrocodone Bitart (Lortab 5/325) 1 tab PRN Q6HRS PRN PO PAIN Last administered on 04/03/17 14:31; Start 03/14/17 at 22:45 Megestrol Acetate (Megace) 400 mg BID PO Last administered on 03/16/17 08:41; Start 03/14/17 at 23:00; Stop 03/16/17 at 21:03; Status DC Lactulose 20 gm BID PO Last administered on 04/03/17 19:22; Start 03/14/17 at 23:00 Pantoprazole Sodium (Protonix) 40 mg DAILYAC PO ; Start 03/15/17 at 07:30; Stop 03/16/17 at 19:39; Status DC Acetaminophen (Tylenol) 650 mg PRN Q6HRS PRN PO PAIN / TEMP; Start 03/15/17 at 01:15; Stop 03/25/17 at 14:08; Status DC Multi-Ingredient Ointment (Analgesic [place]) 1 landon PRN QID PRN TP MUSCLE PAIN; Start 03/15/17 at 01:15 Al Hydroxide/Mg Hydroxide (Mylanta Plus Xs) 15 ml PRN AFTMEALHC PRN PO DYSPEPSIA; Start 03/15/17 at 01:15 Magnesium Hydroxide (Milk Of Magnesia) 2,400 mg PRN QHS PRN PO CONSTIPATION Last administered on 03/27/17 10:16; Start 03/15/17 at 01:15 Potassium Chloride/Dextrose 1,000 ml @ 75 mls/hr [id number] IV Last administered on 03/18/17 11:25; Start 03/15/17 at 16:45; Stop 03/18/17 at 18:24; Status DC Divalproex Sodium (Depakote Sprinkles) 125 mg [id number] PO Last administered on 13:31; Start 03/16/17 at 09:00; Stop 03/18/17 at 18:29; Status DC Bisacodyl (Dulcolax Supp) 10 mg PRN DAILY PRN [place] CONSTIPATION Last administered on 03/22/17 21:05; Start 03/15/17 at 19:00 Sodium Biphosphate/ Sodium Phosphate (Fleet Adult) 133 ml PRN DAILY PRN [place] CONSTIPATION Last administered on 03/16/17 05:09; Start 03/15/17 at 19:00 Benztropine Mesylate (Cogentin) 1 mg BID PO Last administered on 03/18/17 17: 04; Start 03/16/17 at 21:00; Stop 03/18/17 at 23:00; Status DC Benztropine Mesylate (Cogentin) 1 mg DAILY PO Last administered on 03/21/17 11:21; Start 03/19/17 at 09:00; Stop 03/21/17 at 12:00; Status DC Enoxaparin Sodium (Lovenox) 30 mg Q24H SQ ; Start 03/16/17 at 18:00; Stop at 18:29; Status DC Enoxaparin Sodium (Lovenox) 30 mg Q24H SQ Last administered on 04/03/17 09:33 ; Start 03/17/17 at 09:00 Megestrol Acetate (Megace) 400 mg [id number] PO Last administered on 04/03/17 14: 31; Start 03/17/17 at 09:00 Trimethoprim/ Sulfamethoxazole (Bactrim Ss) 1 tab BID PO Last administered on 03/25/17 08:05; Start 03/17/17 at 21:00; Stop 03/25/17 at 20:59; Status DC Ziprasidone (Geodon) 60 mg BID PO Last administered on 04/03/17 19:23; Start 03/17/17 at 21:00 Lactobacillus Rhamnosus (Culturelle) 1 cap BID PO Last administered on 19:22; Start 03/18/17 at 21:00 Divalproex Sodium (Depakote Sprinkles) 250 mg [id number] PO Last administered on 09:35; Start 03/19/17 at 09:00; Stop 03/23/17 at 11:14; Status DC Olanzapine (ZyPREXA ZYDIS) 5 mg PRN Q2HR PRN PO PSYCHOSIS Last administered on 03/26/17 19:44; Start 03/19/17 at 07:00 Clozapine (Clozaril) 25 mg HS PO Last administered on 03/21/17 20:07; Start 03/19/17 at 21:00; Stop 03/22/17 at 18:41; Status DC Trazodone HCl (Desyrel) 100 mg QHS PO Last administered on 04/03/17 19:22; Start 03/19/17 at 21:00 Trazodone HCl (Desyrel) 100 mg PRN QHS PRN PO INSOMNIA Last administered on 23:08; Start 03/19/17 at 19:15 Clozapine (Clozaril) 50 mg HS PO Last administered on 04/01/17 21:12; Start 03/22/17 at 21:00; Stop 04/01/17 at 21:53; Status DC Oxcarbazepine (Trileptal) 150 mg BID92 PO Last administered on 03/26/17 14:01 ; Start 03/23/17 at 14:00; Stop 03/26/17 at 14:01; Status DC Oxcarbazepine (Trileptal) 300 mg BID92 PO Last administered on 04/03/17 14:31 ; Start 03/27/17 at 09:00 Clozapine (Clozaril) 75 mg HS PO Last administered on 04/03/17 19:22; Start 04/02/17 at 21:00; Stop 04/05/17 at 21:00 Clozapine (Clozaril) 100 mg HS PO ; Start 04/05/17 at 21:00 Active Scripts Active Reported Omeprazole 40 Mg Capsule. 40 Mg PO DAILY Olanzapine 10 Mg Tablet 10 Mg PO TID Megestrol Acetate 400 Mg/10 Ml Oral.susp 400 Mg PO BID Lactulose 10 Gm/15 Ml Solution 30 Ml PO BID Hold if no longer constipated [place] 5-325 Tablet (Hydrocodone Bit/Acetaminophen) 1 Each Tablet 1 Tab PO PRN Q6HRS PRN Tylenol (Acetaminophen) 325 Mg Tablet 650 Mg PO PRN Q4HRS PRN Benztropine Mesylate 1 Mg Tablet 1 Mg PO HS Suppository (Glycerin) 1 Each Supp.rect 1 Each RC PRN DAILY PRN Geodon (Ziprasidone Hcl) 40 Mg Capsule 40 Mg PO BID Sennosides-Docusate Sodium Tab (Sennosides/Docusate Sodium) 1 Each Tablet 1 Each PO BID Miralax (Polyethylene Glycol 3350) 17 Gm Powd.pack 17 Gm PO DAILY Protonix (Pantoprazole Sodium) 20 Mg Tablet.dr 20 Mg PO BID [place] 3 1,000 Mg Softgel ([place]-3 Fatty Acids/Fish Oil) 1 Each Capsule 1 Each PO DAILY Linzess (Linaclotide) 290 Mcg Capsule 290 Mcg PO HS Gabapentin 600 Mg Tablet 600 Mg PO BID Vitamin D (Cholecalciferol (Vitamin D3)) 2,000 Unit Capsule 2,000 Unit PO DAILY Buspirone Hcl 10 Mg Tablet 10 Mg PO TID Benztropine Mesylate 1 Mg Tablet 1 Mg PO TID I have reviewed the current psychotropics carefully including drug interactions. Risk benefit ratio favors no change other than as noted in my dictated progress note. Diagnosis: Problems: (1) Anxiety disorder (2) Bipolar affective, mixed, sev w/ psych (3) Dementia, vascular, with depression (4) Dementia, vascular, with delusions (5) Dementia in Alzheimer's disease with depression (6) Dementia in Alzheimer's disease with delusions (7) Impulse control disorder MIRIAM BRASWELL MD Apr 03, 2017 20:09
--- NOTE | 2017-04-04 03:56 | PN ---
DATE: 04/02/2017 PSYCHIATRIC PROGRESS NOTE This late entry 04/02/2017 covers elements not covered in my initial note of 04/02/2017. SUBJECTIVE: I met with the patient evening of 04/02/2017. The patient continues to yell out, compliant with medications, yelling is less loud than before. REVIEW OF SYSTEMS: Ambulation impaired, in [place]da chair. No CV, , pulmonary, eye system symptoms on review. Reliability poor. MENTAL STATUS EXAM: Oriented to herself. Insight, judgment, recent memory is impaired. Language function intact. Attention span short. Mood and affect remains labile, less so than before. LABORATORIES: Reviewed. IMPRESSION: Unchanged from initial note. PLAN: Continue current psychotropics mentioned in my initial note. Adjust as clinically indicated. MAN Kathleen BRASWELL MD DR: ANAM/aly JOB#: [id number] / [id number]
[2017-04-04] MEDS: HYDROcodone/APAP 5/325MG 1 TAB TABLET PO PRN ×2 (04:16→13:31)
[2017-04-04 06:14] VITALS: BP 103/71
[2017-04-04] MEDS: LACTULOSE 20 GM/30 ML SOLUTION. PO SCH ×2 (09:03→19:19)
[2017-04-04] MEDS: ENOXAPARIN 30 MG/0.3 ML DISP.SYRIN. SQ SCH (09:04)
[2017-04-04] MEDS: POLYETHYLENE GLYCOL 3350 17 GM PACKET. PO SCH (09:04)
[2017-04-04] MEDS: SENNOSIDES/DOCUSATE 8.6/50MG TABLET. PO SCH ×2 (09:04→19:20)
[2017-04-04] MEDS: GABAPENTIN 300 MG CAPSULE. PO SCH ×2 (09:04→19:20)
[2017-04-04] MEDS: CHOLECALCIFEROL (VITAMIN D3) 1,000 UNIT TABLET PO SCH (09:04)
[2017-04-04] MEDS: PANTOPRAZOLE 40 MG TABLET. PO SCH (09:04)
[2017-04-04] MEDS: ZIPRASIDONE 60 MG CAPSULE. PO SCH ×2 (09:04→19:20)
[2017-04-04] MEDS: LACTOBACILLUS RHAMNOSUS GG 1 CAPSULE. PO SCH ×2 (09:04→19:20)
[2017-04-04] MEDS: OMEGA-3 FATTY ACIDS/FISH OIL 1,000 MG CAPSULE. PO SCH (09:07)
[2017-04-04] MEDS: ACETAMINOPHEN 325 MG TABLET PO PRN (09:07)
[2017-04-04] MEDS: MEGESTROL 400 MG/10 ML ORAL.SUSP. PO SCH ×2 (09:07→13:32)
[2017-04-04 11:59] LABS: BACTERIA,URINE MANY /HPF (0-FEW); BILIRUBIN,URINE NEG (NEG); CLARITY,URINE HAZY; COLOR,URINE YELLOW; GLUCOSE,URINE NEG (NEG); NITRITE,URINE NEG (NEG); SQUAMOUS EPITHELIAL CELL,UR FEW /LPF; UROBILINOGEN,URINE 0.2 mg/dL (0.2 mg/dL); WBC,URINE >40 /HPF (0-4)
[2017-04-04 12:00] LABS: AMORPHOUS SEDIMENT,UR PRESENT /HPF
[2017-04-04 12:12] LABS: ALBUMIN 2.9 g/dL (3.4-5.0); ALBUMIN/GLOBULIN RATIO 0.9 (1.0-1.7); CALCIUM 9.3 mg/dL (8.5-10.1); CREATININE 0.9 mg/dL (0.6-1.0); GFR 62.8; POTASSIUM 3.8 mmol/L (3.5-5.1); TOTAL BILIRUBIN 0.2 mg/dL (0.2-1.0); TOTAL PROTEIN 6.3 g/dL (6.4-8.2)
[2017-04-04 15:33] VITALS: BP 110/64
[2017-04-04] MEDS: cloZAPine 25 MG TABLET PO SCH (19:20)
[2017-04-04] MEDS: traZODone 100 MG TABLET. PO SCH (19:20)
[2017-04-04] MEDS: LINACLOTIDE 145 MCG CAPSULE. PO SCH (19:21)
--- NOTE | 2017-04-04 20:06 | PDOC ---
Exam Note: Kayden Note: Please also refer to the separate dictated note~for this date of service dictated separately.~Patient seen individually. Discussed the patient with Nursing staff reviewed the chart.~Reviewed interim history and current functioning. Reviewed vital signs,~Labs/ Radiology~and current medications noted below. Continue current treatment with the changes noted in the dictated addendum note Assessment: Vital Signs: Vital Signs Date Time Temp Pulse Resp B/P (MAP) Pulse Ox O2 Delivery O2 Flow Rate FiO2 04/04/17 15:33 98.3 87 20 110/64 (79) 94 Room Air I&O Intake and Output 04/04/17 07:00 Intake Total 2240 ml Balance 2240 ml Intake Oral 2240 ml # Voids 2 # Bowel Movements 2 Labs: Laboratory Tests Test 04/04/17 08:12 04/04/17 11:20 Sodium Level 143 mmol/L (136-145) Potassium Level 3.8 mmol/L (3.5-5.1) Chloride Level 110 mmol/L (98-107) H Carbon Dioxide Level 24 mmol/L (21-32) Anion Gap 9 (6-14) Blood Urea Nitrogen 15 mg/dL (7-20) Creatinine 0.9 mg/dL (0.6-1.0) Estimated GFR (Cockcroft-Gault) 62.8 BUN/Creatinine Ratio 17 (6-20) Glucose Level 140 mg/dL (70-99) H Calcium Level 9.3 mg/dL (8.5-10.1) Total Bilirubin 0.2 mg/dL (0.2-1.0) Aspartate Amino Transferase (AST) 14 U/L (15-37) L Alanine Aminotransferase (ALT) 23 U/L (14-59) Alkaline Phosphatase 83 U/L (46-116) Total Protein 6.3 g/dL (6.4-8.2) L Albumin 2.9 g/dL (3.4-5.0) L Albumin/Globulin Ratio 0.9 (1.0-1.7) L Urine Collection Type U cath Urine Color Yellow Urine Clarity Hazy Urine pH 6.0 Urine Specific [place] <=1.005 Urine Protein 30 mg/dl (NEG-TRACE) Urine Glucose (UA) Neg mg/dL (NEG) Urine Ketones (Stick) Neg mg/dL (NEG) Urine Blood Mod (NEG) Urine Nitrite Neg (NEG) Urine Bilirubin Neg (NEG) Urine Urobilinogen Dipstick 0.2 mg/dL (0.2 mg/dL) Urine Leukocyte Esterase Mod (NEG) Urine RBC 3-5 /HPF (0-2) Urine WBC >40 /HPF (0-4) Urine Squamous Epithelial Cells Few /LPF Urine Transitional Epithelial Cells Few /LPF Urine Amorphous Sediment Present /HPF Urine Bacteria Many /HPF (0-FEW) Current Medications: Meds: Current Medications Benztropine Mesylate (Cogentin) 1 mg TID PO Last administered on 03/16/17 08: 39; Start 03/14/17 at 22:30; Stop 03/16/17 at 11:57; Status DC Buspirone HCl (Buspar) 10 mg TID PO Last administered on 03/16/17 08:40; Start 03/14/17 at 22:30; Stop 03/16/17 at 11:57; Status DC Ziprasidone (Geodon) 40 mg BID PO Last administered on 03/17/17 08:01; Start 03/14/17 at 22:30; Stop 03/17/17 at 18:48; Status DC Glycerin (Sani-Supp Adult) 1 supp PRN DAILY PRN [place] CONSTIPATION; Start at 22:30 Pantoprazole Sodium (Protonix) 40 mg DAILYAC PO Last administered on 09:04; Start 03/15/17 at 07:30 Polyethylene Glycol (miraLAX) 17 gm DAILY PO Last administered on 04/04/17 09 :04; Start 03/15/17 at 09:00 Senna/Docusate Sodium (Senna Plus) 1 tab BID PO Last administered on 19:20; Start 03/14/17 at 22:30 Vitamin D (Vitamin D3) 2,000 unit DAILY PO Last administered on 04/04/17 09: 04; Start 03/15/17 at 09:00 Gabapentin (Neurontin) 600 mg BID PO Last administered on 04/04/17 19:20; Start 03/14/17 at 22:30 Non-Formulary Medication 290 mcg HS PO ; Start 03/15/17 at 21:00; Status UNV Fish Oil (Fish Oil) 1,000 mg DAILY PO Last administered on 04/04/17 09:07; Start 03/15/17 at 09:00 Benztropine Mesylate (Cogentin) 1 mg HS PO ; Start 03/15/17 at 21:00; Stop 03/15 at 21:00; Status DC Olanzapine (ZyPREXA) 10 mg TID PO Last administered on 03/16/17 08:39; Start 03/14/17 at 23:00; Stop 03/16/17 at 11:57; Status DC Acetaminophen (Tylenol) 650 mg PRN Q4HRS PRN PO PAIN / TEMP Last administered on 04/04/17 09:07; Start 03/14/17 at 22:45 Acetaminophen/ Hydrocodone Bitart (Lortab 5/325) 1 tab PRN Q6HRS PRN PO PAIN Last administered on 04/04/17 13:31; Start 03/14/17 at 22:45 Megestrol Acetate (Megace) 400 mg BID PO Last administered on 03/16/17 08:41; Start 03/14/17 at 23:00; Stop 03/16/17 at 21:03; Status DC Lactulose 20 gm BID PO Last administered on 04/04/17 19:19; Start 03/14/17 at 23:00 Pantoprazole Sodium (Protonix) 40 mg DAILYAC PO ; Start 03/15/17 at 07:30; Stop 03/16/17 at 19:39; Status DC Acetaminophen (Tylenol) 650 mg PRN Q6HRS PRN PO PAIN / TEMP; Start 03/15/17 at 01:15; Stop 03/25/17 at 14:08; Status DC Multi-Ingredient Ointment (Analgesic [place]) 1 landon PRN QID PRN TP MUSCLE PAIN; Start 03/15/17 at 01:15 Al Hydroxide/Mg Hydroxide (Mylanta Plus Xs) 15 ml PRN AFTMEALHC PRN PO DYSPEPSIA; Start 03/15/17 at 01:15 Magnesium Hydroxide (Milk Of Magnesia) 2,400 mg PRN QHS PRN PO CONSTIPATION Last administered on 03/27/17 10:16; Start 03/15/17 at 01:15 Potassium Chloride/Dextrose 1,000 ml @ 75 mls/hr [id number] IV Last administered on 03/18/17 11:25; Start 03/15/17 at 16:45; Stop 03/18/17 at 18:24; Status DC Divalproex Sodium (Depakote Sprinkles) 125 mg BID92 PO Last administered on 13:31; Start 03/16/17 at 09:00; Stop 03/18/17 at 18:29; Status DC Bisacodyl (Dulcolax Supp) 10 mg PRN DAILY PRN [place] CONSTIPATION Last administered on 03/22/17 21:05; Start 03/15/17 at 19:00 Sodium Biphosphate/ Sodium Phosphate (Fleet Adult) 133 ml PRN DAILY PRN [place] CONSTIPATION Last administered on 03/16/17 05:09; Start 03/15/17 at 19:00 Benztropine Mesylate (Cogentin) 1 mg BID PO Last administered on 03/18/17 17: 04; Start 03/16/17 at 21:00; Stop 03/18/17 at 23:00; Status DC Benztropine Mesylate (Cogentin) 1 mg DAILY PO Last administered on 03/21/17 11:21; Start 03/19/17 at 09:00; Stop 03/21/17 at 12:00; Status DC Enoxaparin Sodium (Lovenox) 30 mg Q24H SQ ; Start 03/16/17 at 18:00; Stop at 18:29; Status DC Enoxaparin Sodium (Lovenox) 30 mg Q24H SQ Last administered on 04/04/17 09:04 ; Start 03/17/17 at 09:00 Megestrol Acetate (Megace) 400 mg [id number] PO Last administered on 04/04/17 13: 32; Start 03/17/17 at 09:00 Trimethoprim/ Sulfamethoxazole (Bactrim Ss) 1 tab BID PO Last administered on 03/25/17 08:05; Start 03/17/17 at 21:00; Stop 03/25/17 at 20:59; Status DC Ziprasidone (Geodon) 60 mg BID PO Last administered on 04/04/17 19:20; Start 03/17/17 at 21:00 Lactobacillus Rhamnosus (Culturelle) 1 cap BID PO Last administered on 19:20; Start 03/18/17 at 21:00 Divalproex Sodium (Depakote Sprinkles) 250 mg [id number] PO Last administered on 09:35; Start 03/19/17 at 09:00; Stop 03/23/17 at 11:14; Status DC Olanzapine (ZyPREXA ZYDIS) 5 mg PRN Q2HR PRN PO PSYCHOSIS Last administered on 03/26/17 19:44; Start 03/19/17 at 07:00 Clozapine (Clozaril) 25 mg HS PO Last administered on 03/21/17 20:07; Start 03/19/17 at 21:00; Stop 03/22/17 at 18:41; Status DC Trazodone HCl (Desyrel) 100 mg QHS PO Last administered on 04/04/17 19:20; Start 03/19/17 at 21:00 Trazodone HCl (Desyrel) 100 mg PRN QHS PRN PO INSOMNIA Last administered on 23:08; Start 03/19/17 at 19:15 Clozapine (Clozaril) 50 mg HS PO Last administered on 04/01/17 21:12; Start 03/22/17 at 21:00; Stop 04/01/17 at 21:53; Status DC Oxcarbazepine (Trileptal) 150 mg [id number] PO Last administered on 03/26/17 14:01 ; Start 03/23/17 at 14:00; Stop 03/26/17 at 14:01; Status DC Oxcarbazepine (Trileptal) 300 mg BID92 PO Last administered on 04/04/17 13:31 ; Start 03/27/17 at 09:00 Clozapine (Clozaril) 75 mg HS PO Last administered on 04/04/17 19:20; Start 04/02/17 at 21:00; Stop 04/05/17 at 21:00 Clozapine (Clozaril) 100 mg HS PO ; Start 04/05/17 at 21:00 Active Scripts Active Reported Omeprazole 40 Mg Capsule.dr 40 Mg PO DAILY Olanzapine 10 Mg Tablet 10 Mg PO TID Megestrol Acetate 400 Mg/10 Ml Oral.susp 400 Mg PO BID Lactulose 10 Gm/15 Ml Solution 30 Ml PO BID Hold if no longer constipated [place] 5-325 Tablet (Hydrocodone Bit/Acetaminophen) 1 Each Tablet 1 Tab PO PRN Q6HRS PRN Tylenol (Acetaminophen) 325 Mg Tablet 650 Mg PO PRN Q4HRS PRN Benztropine Mesylate 1 Mg Tablet 1 Mg PO HS Suppository (Glycerin) 1 Each Supp.rect 1 Each RC PRN DAILY PRN Geodon (Ziprasidone Hcl) 40 Mg Capsule 40 Mg PO BID Sennosides-Docusate Sodium Tab (Sennosides/Docusate Sodium) 1 Each Tablet 1 Each PO BID Miralax (Polyethylene Glycol 3350) 17 Gm Powd.pack 17 Gm PO DAILY Protonix (Pantoprazole Sodium) 20 Mg Tablet.dr 20 Mg PO BID [place] 3 1,000 Mg Softgel ([place]-3 Fatty Acids/Fish Oil) 1 Each Capsule 1 Each PO DAILY Linzess (Linaclotide) 290 Mcg Capsule 290 Mcg PO HS Gabapentin 600 Mg Tablet 600 Mg PO BID Vitamin D (Cholecalciferol (Vitamin D3)) 2,000 Unit Capsule 2,000 Unit PO DAILY Buspirone Hcl 10 Mg Tablet 10 Mg PO TID Benztropine Mesylate 1 Mg Tablet 1 Mg PO TID I have reviewed the current psychotropics carefully including drug interactions. Risk benefit ratio favors no change other than as noted in my dictated progress note. Diagnosis: Problems: (1) Anxiety disorder (2) Bipolar affective, mixed, sev w/ psych (3) Dementia, vascular, with depression (4) Dementia, vascular, with delusions (5) Dementia in Alzheimer's disease with depression (6) Dementia in Alzheimer's disease with delusions (7) Impulse control disorder MIRIAM BRASWELL MD Apr 04, 2017 20:06
--- NOTE | 2017-04-05 05:06 | PN ---
DATE: 04/03/2017 This late entry of 04/03 covers elements not covered in my initial note of 04/03. SUBJECTIVE: Overall, per nursing report, the patient continues to yell out in high pitched screaming, labile in her mood, at times it is better than others. She does seem less psychotic on my evaluation. REVIEW OF SYSTEMS: Ambulation impaired, in Broda chair. No CV, , pulmonary, eye, ENT system symptoms on review. Reliability poor. MENTAL STATUS EXAM: Oriented to herself. Insight, judgment, recent and remote memory, attention, concentration, fund of knowledge poor, consistent with her diagnosis. She picks up on verbalizations by nursing staff and believes they are talking about her somewhat paranoid. IMPRESSION: Unchanged from initial note. PLAN: Absolute neutrophil count is unremarkable. Clozaril was increased to 75 mg p.o. at bedtime starting 04/05, we will increase it to 100 mg p.o. at bedtime. Rest of the psychotropics unchanged for now. MIRIAM BRASWELL MD DR: ANAM/aly JOB#: [id number] / [id number]
[2017-04-05] MEDS: ACETAMINOPHEN 325 MG TABLET PO PRN (05:21)
[2017-04-05 05:54] LABS: BASO % 0 % (0-3); EOS % 0 % (0-3); HEMATOCRIT 39.8 % (36.0-47.0); HEMOGLOBIN 13.4 g/dL (12.0-15.5); LYMPH # 0.6 x10^3/uL (1.0-4.8); LYMPH % 6 % (24-48); MEAN CORPUSCULAR HEMOGLOBIN 32 pg (25-35); MEAN CORPUSCULAR HGB CONC 34 g/dL (31-37); MEAN CORPUSCULAR VOLUME 96 fL (79-100); MONO # 0.6 x10^3/uL (0.0-1.1); MONO % 6 % (0-9); NEUT # 9.7 x10^3uL (1.8-7.7); NEUT % 88 % (31-73); PLATELET COUNT 221 x10^3/uL (140-400); RED BLOOD COUNT 4.13 x10^6/uL (3.50-5.40); RED CELL DISTRIBUTION WIDTH 16.6 % (11.5-14.5)
[2017-04-05 06:26] LABS: BILIRUBIN,URINE NEG (NEG); CLARITY,URINE HAZY; COLOR,URINE YELLOW; GLUCOSE,URINE NEG (NEG); NITRITE,URINE NEG (NEG); UROBILINOGEN,URINE 0.2 mg/dL (0.2 mg/dL)
[2017-04-05 06:27] VITALS: BP 121/71
[2017-04-05 06:27] LABS: BACTERIA,URINE FEW /HPF (0-FEW); SQUAMOUS EPITHELIAL CELL,UR OCC /LPF
[2017-04-05] MEDS: MEGESTROL 400 MG/10 ML ORAL.SUSP. PO SCH ×2 (12:00→14:08)
[2017-04-05] MEDS: GABAPENTIN 300 MG CAPSULE. PO SCH ×2 (12:28→19:32)
[2017-04-05] MEDS: CHOLECALCIFEROL (VITAMIN D3) 1,000 UNIT TABLET PO SCH (12:29)
[2017-04-05] MEDS: PANTOPRAZOLE 40 MG TABLET. PO SCH (12:29)
[2017-04-05] MEDS: LACTOBACILLUS RHAMNOSUS GG 1 CAPSULE. PO SCH ×2 (12:29→19:31)
[2017-04-05] MEDS: SENNOSIDES/DOCUSATE 8.6/50MG TABLET. PO SCH ×2 (12:29→19:32)
[2017-04-05] MEDS: ZIPRASIDONE 60 MG CAPSULE. PO SCH ×2 (12:29→19:31)
[2017-04-05] MEDS: OMEGA-3 FATTY ACIDS/FISH OIL 1,000 MG CAPSULE. PO SCH (12:29)
[2017-04-05] MEDS: ENOXAPARIN 30 MG/0.3 ML DISP.SYRIN. SQ SCH (12:30)
[2017-04-05] MEDS: POLYETHYLENE GLYCOL 3350 17 GM PACKET. PO SCH (12:30)
[2017-04-05] MEDS: LACTULOSE 20 GM/30 ML SOLUTION. PO SCH ×2 (12:30→19:22)
[2017-04-05] MEDS: HYDROcodone/APAP 5/325MG 1 TAB TABLET PO PRN (12:32)
[2017-04-05 15:32] VITALS: BP 114/77
[2017-04-05] MEDS: traZODone 100 MG TABLET. PO SCH (19:31)
[2017-04-05] MEDS: LINACLOTIDE 145 MCG CAPSULE. PO SCH (19:34)
[2017-04-05] MEDS: cloZAPine 100 MG TABLET PO SCH (19:36)
--- NOTE | 2017-04-05 20:09 | PDOC ---
Exam Note: Kayden Note: Please also refer to the separate dictated note~for this date of service dictated separately.~Patient seen individually. Discussed the patient with Nursing staff reviewed the chart.~Reviewed interim history and current functioning. Reviewed vital signs,~Labs/ Radiology~and current medications noted below. Continue current treatment with the changes noted in the dictated addendum note Assessment: Vital Signs: Vital Signs Date Time Temp Pulse Resp B/P (MAP) Pulse Ox O2 Delivery O2 Flow Rate FiO2 04/05/17 15:32 98.6 80 20 114/77 (89) 94 04/05/17 13:56 Room Air I&O Intake and Output 04/05/17 07:00 Intake Total 1920 ml Output Total 220 ml Balance 1700 ml Intake Oral 1920 ml Output Urine Total 220 ml # Voids 1 # Bowel Movements 1 Labs: Laboratory Tests Test 04/05/17 05:45 04/05/17 05:55 White Blood Count 11.0 x10^3/uL (4.0-11.0) Red Blood Count 4.13 x10^6/uL (3.50-5.40) Hemoglobin 13.4 g/dL (12.0-15.5) Hematocrit 39.8 % (36.0-47.0) Mean Corpuscular Volume 96 fL (79-100) Mean Corpuscular Hemoglobin 32 pg (25-35) Mean Corpuscular Hemoglobin Concent 34 g/dL (31-37) Red Cell Distribution Width 16.6 % (11.5-14.5) H Platelet Count 221 x10^3/uL (140-400) Neutrophils (%) (Auto) 88 % (31-73) H Lymphocytes (%) (Auto) 6 % (24-48) L Monocytes (%) (Auto) 6 % (0-9) Eosinophils (%) (Auto) 0 % (0-3) Basophils (%) (Auto) 0 % (0-3) Neutrophils # (Auto) 9.7 x10^3uL (1.8-7.7) H Lymphocytes # (Auto) 0.6 x10^3/uL (1.0-4.8) L Monocytes # (Auto) 0.6 x10^3/uL (0.0-1.1) Eosinophils # (Auto) 0.0 x10^3/uL (0.0-0.7) Basophils # (Auto) 0.0 x10^3/uL (0.0-0.2) Magnesium Level 2.0 mg/dL (1.8-2.4) Urine Collection Type U cath Urine Color Yellow Urine Clarity Hazy Urine pH 8.5 Urine Specific [place] 1.015 Urine Protein 30 mg/dl (NEG-TRACE) Urine Glucose (UA) Neg mg/dL (NEG) Urine Ketones (Stick) Neg mg/dL (NEG) Urine Blood Mod (NEG) Urine Nitrite Neg (NEG) Urine Bilirubin Neg (NEG) Urine Urobilinogen Dipstick 0.2 mg/dL (0.2 mg/dL) Urine Leukocyte Esterase Mod (NEG) Urine RBC 6-10 /HPF (0-2) Urine WBC 11-20 /HPF (0-4) Urine Squamous Epithelial Cells Occ /LPF Urine Bacteria Few /HPF (0-FEW) Urine Mucus Slight /LPF Current Medications: Meds: Current Medications Benztropine Mesylate (Cogentin) 1 mg TID PO Last administered on 03/16/17 08: 39; Start 03/14/17 at 22:30; Stop 03/16/17 at 11:57; Status DC Buspirone HCl (Buspar) 10 mg TID PO Last administered on 03/16/17 08:40; Start 03/14/17 at 22:30; Stop 03/16/17 at 11:57; Status DC Ziprasidone (Geodon) 40 mg BID PO Last administered on 03/17/17 08:01; Start 03/14/17 at 22:30; Stop 03/17/17 at 18:48; Status DC Glycerin (Sani-Supp Adult) 1 supp PRN DAILY PRN [place] CONSTIPATION; Start at 22:30 Pantoprazole Sodium (Protonix) 40 mg DAILYAC PO Last administered on 12:29; Start 03/15/17 at 07:30 Polyethylene Glycol (miraLAX) 17 gm DAILY PO Last administered on 04/05/17 12 :30; Start 03/15/17 at 09:00 Senna/Docusate Sodium (Senna Plus) 1 tab BID PO Last administered on 19:32; Start 03/14/17 at 22:30 Vitamin D (Vitamin D3) 2,000 unit DAILY PO Last administered on 04/05/17 12: 29; Start 03/15/17 at 09:00 Gabapentin (Neurontin) 600 mg BID PO Last administered on 04/05/17 19:32; Start 03/14/17 at 22:30 Non-Formulary Medication 290 mcg HS PO ; Start 03/15/17 at 21:00; Status UNV Fish Oil (Fish Oil) 1,000 mg DAILY PO Last administered on 04/05/17 12:29; Start 03/15/17 at 09:00 Benztropine Mesylate (Cogentin) 1 mg HS PO ; Start 03/15/17 at 21:00; Stop 03/15 at 21:00; Status DC Olanzapine (ZyPREXA) 10 mg TID PO Last administered on 03/16/17 08:39; Start 03/14/17 at 23:00; Stop 03/16/17 at 11:57; Status DC Acetaminophen (Tylenol) 650 mg PRN Q4HRS PRN PO PAIN / TEMP Last administered on 04/05/17 05:21; Start 03/14/17 at 22:45 Acetaminophen/ Hydrocodone Bitart (Lortab 5/325) 1 tab PRN Q6HRS PRN PO PAIN Last administered on 04/05/17 12:32; Start 03/14/17 at 22:45 Megestrol Acetate (Megace) 400 mg BID PO Last administered on 03/16/17 08:41; Start 03/14/17 at 23:00; Stop 03/16/17 at 21:03; Status DC Lactulose 20 gm BID PO Last administered on 04/05/17 19:22; Start 03/14/17 at 23:00 Pantoprazole Sodium (Protonix) 40 mg DAILYAC PO ; Start 03/15/17 at 07:30; Stop 03/16/17 at 19:39; Status DC Acetaminophen (Tylenol) 650 mg PRN Q6HRS PRN PO PAIN / TEMP; Start 03/15/17 at 01:15; Stop 03/25/17 at 14:08; Status DC Multi-Ingredient Ointment (Analgesic [place]) 1 landon PRN QID PRN TP MUSCLE PAIN; Start 03/15/17 at 01:15 Al Hydroxide/Mg Hydroxide (Mylanta Plus Xs) 15 ml PRN AFTMEALHC PRN PO DYSPEPSIA; Start 03/15/17 at 01:15 Magnesium Hydroxide (Milk Of Magnesia) 2,400 mg PRN QHS PRN PO CONSTIPATION Last administered on 03/27/17 10:16; Start 03/15/17 at 01:15 Potassium Chloride/Dextrose 1,000 ml @ 75 mls/hr [id number] IV Last administered on 03/18/17 11:25; Start 03/15/17 at 16:45; Stop 03/18/17 at 18:24; Status DC Divalproex Sodium (Depakote Sprinkles) 125 mg [id number] PO Last administered on 13:31; Start 03/16/17 at 09:00; Stop 03/18/17 at 18:29; Status DC Bisacodyl (Dulcolax Supp) 10 mg PRN DAILY PRN [place] CONSTIPATION Last administered on 03/22/17 21:05; Start 03/15/17 at 19:00 Sodium Biphosphate/ Sodium Phosphate (Fleet Adult) 133 ml PRN DAILY PRN [place] CONSTIPATION Last administered on 03/16/17 05:09; Start 03/15/17 at 19:00 Benztropine Mesylate (Cogentin) 1 mg BID PO Last administered on 03/18/17 17: 04; Start 03/16/17 at 21:00; Stop 03/18/17 at 23:00; Status DC Benztropine Mesylate (Cogentin) 1 mg DAILY PO Last administered on 03/21/17 11:21; Start 03/19/17 at 09:00; Stop 03/21/17 at 12:00; Status DC Enoxaparin Sodium (Lovenox) 30 mg Q24H SQ ; Start 03/16/17 at 18:00; Stop at 18:29; Status DC Enoxaparin Sodium (Lovenox) 30 mg Q24H SQ Last administered on 04/05/17 12:30 ; Start 03/17/17 at 09:00 Megestrol Acetate (Megace) 400 mg [id number] PO Last administered on 04/05/17 14: 08; Start 03/17/17 at 09:00 Trimethoprim/ Sulfamethoxazole (Bactrim Ss) 1 tab BID PO Last administered on 03/25/17 08:05; Start 03/17/17 at 21:00; Stop 03/25/17 at 20:59; Status DC Ziprasidone (Geodon) 60 mg BID PO Last administered on 04/05/17 19:31; Start 03/17/17 at 21:00 Lactobacillus Rhamnosus (Culturelle) 1 cap BID PO Last administered on 19:31; Start 03/18/17 at 21:00 Divalproex Sodium (Depakote Sprinkles) 250 mg [id number] PO Last administered on 09:35; Start 03/19/17 at 09:00; Stop 03/23/17 at 11:14; Status DC Olanzapine (ZyPREXA ZYDIS) 5 mg PRN Q2HR PRN PO PSYCHOSIS Last administered on 03/26/17 19:44; Start 03/19/17 at 07:00 Clozapine (Clozaril) 25 mg HS PO Last administered on 03/21/17 20:07; Start 03/19/17 at 21:00; Stop 03/22/17 at 18:41; Status DC Trazodone HCl (Desyrel) 100 mg QHS PO Last administered on 04/05/17 19:31; Start 03/19/17 at 21:00 Trazodone HCl (Desyrel) 100 mg PRN QHS PRN PO INSOMNIA Last administered on 23:08; Start 03/19/17 at 19:15 Clozapine (Clozaril) 50 mg HS PO Last administered on 04/01/17 21:12; Start 03/22/17 at 21:00; Stop 04/01/17 at 21:53; Status DC Oxcarbazepine (Trileptal) 150 mg [id number] PO Last administered on 03/26/17 14:01 ; Start 03/23/17 at 14:00; Stop 03/26/17 at 14:01; Status DC Oxcarbazepine (Trileptal) 300 mg BID92 PO Last administered on 04/05/17 14:08 ; Start 03/27/17 at 09:00 Clozapine (Clozaril) 75 mg HS PO Last administered on 04/04/17 19:20; Start 04/02/17 at 21:00; Stop 04/05/17 at 19:29; Status DC Clozapine (Clozaril) 100 mg HS PO ; Start 04/05/17 at 21:00; Stop 04/05/17 at 21:00; Status DC Clozapine (Clozaril) 100 mg HS PO Last administered on 04/05/17 19:36; Start 04/05/17 at 21:00 Active Scripts Active Reported Omeprazole 40 Mg Capsule.dr 40 Mg PO DAILY Olanzapine 10 Mg Tablet 10 Mg PO TID Megestrol Acetate 400 Mg/10 Ml Oral.susp 400 Mg PO BID Lactulose 10 Gm/15 Ml Solution 30 Ml PO BID Hold if no longer constipated [place] 5-325 Tablet (Hydrocodone Bit/Acetaminophen) 1 Each Tablet 1 Tab PO PRN Q6HRS PRN Tylenol (Acetaminophen) 325 Mg Tablet 650 Mg PO PRN Q4HRS PRN Benztropine Mesylate 1 Mg Tablet 1 Mg PO HS Suppository (Glycerin) 1 Each Supp.rect 1 Each RC PRN DAILY PRN Geodon (Ziprasidone Hcl) 40 Mg Capsule 40 Mg PO BID Sennosides-Docusate Sodium Tab (Sennosides/Docusate Sodium) 1 Each Tablet 1 Each PO BID Miralax (Polyethylene Glycol 3350) 17 Gm Powd.pack 17 Gm PO DAILY Protonix (Pantoprazole Sodium) 20 Mg Tablet.dr 20 Mg PO BID [place] 3 1,000 Mg Softgel ([place]-3 Fatty Acids/Fish Oil) 1 Each Capsule 1 Each PO DAILY Linzess (Linaclotide) 290 Mcg Capsule 290 Mcg PO HS Gabapentin 600 Mg Tablet 600 Mg PO BID Vitamin D (Cholecalciferol (Vitamin D3)) 2,000 Unit Capsule 2,000 Unit PO DAILY Buspirone Hcl 10 Mg Tablet 10 Mg PO TID Benztropine Mesylate 1 Mg Tablet 1 Mg PO TID I have reviewed the current psychotropics carefully including drug interactions. Risk benefit ratio favors no change other than as noted in my dictated progress note. Diagnosis: Problems: (1) Anxiety disorder (2) Bipolar affective, mixed, sev w/ psych (3) Dementia, vascular, with depression (4) Dementia, vascular, with delusions (5) Dementia in Alzheimer's disease with depression (6) Dementia in Alzheimer's disease with delusions (7) Impulse control disorder MIRIAM BRASWELL MD Apr 05, 2017 20:09
[2017-04-05] MEDS ORDERED: cloZAPine 100 MG TABLET PO SCH (21:00)
[2017-04-06 06:02] VITALS: BP 119/55
[2017-04-06] MEDS: OMEGA-3 FATTY ACIDS/FISH OIL 1,000 MG CAPSULE. PO SCH (07:52)
[2017-04-06] MEDS: ZIPRASIDONE 60 MG CAPSULE. PO SCH ×2 (07:52→19:39)
[2017-04-06] MEDS: PANTOPRAZOLE 40 MG TABLET. PO SCH (07:52)
[2017-04-06] MEDS: GABAPENTIN 300 MG CAPSULE. PO SCH ×2 (07:53→19:39)
[2017-04-06] MEDS: CHOLECALCIFEROL (VITAMIN D3) 1,000 UNIT TABLET PO SCH (07:53)
[2017-04-06] MEDS: LACTULOSE 20 GM/30 ML SOLUTION. PO SCH ×2 (07:53→19:40)
[2017-04-06] MEDS: SENNOSIDES/DOCUSATE 8.6/50MG TABLET. PO SCH ×2 (07:53→19:39)
[2017-04-06] MEDS: POLYETHYLENE GLYCOL 3350 17 GM PACKET. PO SCH (07:53)
[2017-04-06] MEDS: LACTOBACILLUS RHAMNOSUS GG 1 CAPSULE. PO SCH ×2 (07:53→19:39)
[2017-04-06] MEDS: ENOXAPARIN 30 MG/0.3 ML DISP.SYRIN. SQ SCH (07:54)
[2017-04-06] MEDS: MEGESTROL 400 MG/10 ML ORAL.SUSP. PO SCH ×2 (07:55→14:18)
[2017-04-06] MEDS: HYDROcodone/APAP 5/325MG 1 TAB TABLET PO PRN ×2 (09:06→15:45)
--- NOTE | 2017-04-06 10:37 | PN ---
DATE: 04/04/2017 This late entry, 04/04/2017, covers elements not covered in my initial note of 04/04/2017. SUBJECTIVE: I met with the patient the evening of 04/04/2017. Her UA has reflex to culture and we will await. She has been resistive, uncooperative in the morning, not following instructions, paranoid, constantly asking are you looking at me, why are you talking about me. She is quieter, less agitated after lunch. REVIEW OF SYSTEMS: Ambulation impaired, in Broda chair. No CV, , pulmonary, eye, ENT system symptoms on review. Reliability poor. MENTAL STATUS EXAM: Oriented to herself and situation. Speech coherent, rapid, loud at times as I met with her. Insight, judgment, recent memory impaired. Language function intact. Still somewhat paranoid, but less so than before. No suicidal or homicidal ideation. IMPRESSION: Unchanged from initial note. PLAN: Continue psychotropics mentioned in my initial note. We will increase Clozaril up to 100 mg at bedtime starting 04/05/2017. MAN Kathleen BRASWELL MD DR: ANAM/aly JOB#: [id number] / [id number]
[2017-04-06] MEDS: levoFLOXacin 250 MG TABLET PO SCH (15:45)
[2017-04-06 16:00] VITALS: BP 174/87
[2017-04-06] MEDS: cloZAPine 100 MG TABLET PO SCH (19:39)
[2017-04-06] MEDS: LINACLOTIDE 145 MCG CAPSULE. PO SCH (19:40)
[2017-04-06] MEDS: traZODone 100 MG TABLET. PO SCH (19:40)
--- NOTE | 2017-04-06 20:06 | PDOC ---
Exam Note: Kayden Note: Please also refer to the separate dictated note~for this date of service dictated separately.~Patient seen individually. Discussed the patient with Nursing staff reviewed the chart.~Reviewed interim history and current functioning. Reviewed vital signs,~Labs/ Radiology~and current medications noted below. Continue current treatment with the changes noted in the dictated addendum note Assessment: Vital Signs: Vital Signs Date Time Temp Pulse Resp B/P (MAP) Pulse Ox O2 Delivery O2 Flow Rate FiO2 04/06/17 18:20 98.5 88 95 Room Air 04/06/17 17:06 18 04/06/17 16:00 174/87 (116) I&O Intake and Output 04/06/17 07:00 Intake Total 2700 ml Balance 2700 ml Intake Oral 2700 ml # Voids 2 # Bowel Movements 1 Current Medications: Meds: Current Medications Benztropine Mesylate (Cogentin) 1 mg TID PO Last administered on 03/16/17 08: 39; Start 03/14/17 at 22:30; Stop 03/16/17 at 11:57; Status DC Buspirone HCl (Buspar) 10 mg TID PO Last administered on 03/16/17 08:40; Start 03/14/17 at 22:30; Stop 03/16/17 at 11:57; Status DC Ziprasidone (Geodon) 40 mg BID PO Last administered on 03/17/17 08:01; Start 03/14/17 at 22:30; Stop 03/17/17 at 18:48; Status DC Glycerin (Sani-Supp Adult) 1 supp PRN DAILY PRN RC CONSTIPATION; Start at 22:30 Pantoprazole Sodium (Protonix) 40 mg DAILYAC PO Last administered on 07:52; Start 03/15/17 at 07:30 Polyethylene Glycol (miraLAX) 17 gm DAILY PO Last administered on 04/06/17 07 :53; Start 03/15/17 at 09:00 Senna/Docusate Sodium (Senna Plus) 1 tab BID PO Last administered on 19:39; Start 03/14/17 at 22:30 Vitamin D (Vitamin D3) 2,000 unit DAILY PO Last administered on 04/06/17 07: 53; Start 03/15/17 at 09:00 Gabapentin (Neurontin) 600 mg BID PO Last administered on 04/06/17 19:39; Start 03/14/17 at 22:30 Non-Formulary Medication 290 mcg HS PO ; Start 03/15/17 at 21:00; Status UNV Fish Oil (Fish Oil) 1,000 mg DAILY PO Last administered on 04/06/17 07:52; Start 03/15/17 at 09:00 Benztropine Mesylate (Cogentin) 1 mg HS PO ; Start 03/15/17 at 21:00; Stop 03/15 at 21:00; Status DC Olanzapine (ZyPREXA) 10 mg TID PO Last administered on 03/16/17 08:39; Start 03/14/17 at 23:00; Stop 03/16/17 at 11:57; Status DC Acetaminophen (Tylenol) 650 mg PRN Q4HRS PRN PO PAIN / TEMP Last administered on 04/05/17 05:21; Start 03/14/17 at 22:45 Acetaminophen/ Hydrocodone Bitart (Lortab 5/325) 1 tab PRN Q6HRS PRN PO PAIN Last administered on 04/06/17 15:45; Start 03/14/17 at 22:45 Megestrol Acetate (Megace) 400 mg BID PO Last administered on 03/16/17 08:41; Start 03/14/17 at 23:00; Stop 03/16/17 at 21:03; Status DC Lactulose 20 gm BID PO Last administered on 04/06/17 19:40; Start 03/14/17 at 23:00 Pantoprazole Sodium (Protonix) 40 mg DAILYAC PO ; Start 03/15/17 at 07:30; Stop 03/16/17 at 19:39; Status DC Acetaminophen (Tylenol) 650 mg PRN Q6HRS PRN PO PAIN / TEMP; Start 03/15/17 at 01:15; Stop 03/25/17 at 14:08; Status DC Multi-Ingredient Ointment (Analgesic [place]) 1 landon PRN QID PRN TP MUSCLE PAIN; Start 03/15/17 at 01:15 Al Hydroxide/Mg Hydroxide (Mylanta Plus Xs) 15 ml PRN AFTMEALHC PRN PO DYSPEPSIA; Start 03/15/17 at 01:15 Magnesium Hydroxide (Milk Of Magnesia) 2,400 mg PRN QHS PRN PO CONSTIPATION Last administered on 03/27/17 10:16; Start 03/15/17 at 01:15 Potassium Chloride/Dextrose 1,000 ml @ 75 mls/hr [id number] IV Last administered on 03/18/17 11:25; Start 03/15/17 at 16:45; Stop 03/18/17 at 18:24; Status DC Divalproex Sodium (Depakote Sprinkles) 125 mg BID92 PO Last administered on 13:31; Start 03/16/17 at 09:00; Stop 03/18/17 at 18:29; Status DC Bisacodyl (Dulcolax Supp) 10 mg PRN DAILY PRN [place] CONSTIPATION Last administered on 03/22/17 21:05; Start 03/15/17 at 19:00 Sodium Biphosphate/ Sodium Phosphate (Fleet Adult) 133 ml PRN DAILY PRN [place] CONSTIPATION Last administered on 03/16/17 05:09; Start 03/15/17 at 19:00 Benztropine Mesylate (Cogentin) 1 mg BID PO Last administered on 03/18/17 17: 04; Start 03/16/17 at 21:00; Stop 03/18/17 at 23:00; Status DC Benztropine Mesylate (Cogentin) 1 mg DAILY PO Last administered on 03/21/17 11:21; Start 03/19/17 at 09:00; Stop 03/21/17 at 12:00; Status DC Enoxaparin Sodium (Lovenox) 30 mg Q24H SQ ; Start 03/16/17 at 18:00; Stop at 18:29; Status DC Enoxaparin Sodium (Lovenox) 30 mg Q24H SQ Last administered on 04/06/17 07:54 ; Start 03/17/17 at 09:00 Megestrol Acetate (Megace) 400 mg BID92 PO Last administered on 04/06/17 14: 18; Start 03/17/17 at 09:00 Trimethoprim/ Sulfamethoxazole (Bactrim Ss) 1 tab BID PO Last administered on 03/25/17 08:05; Start 03/17/17 at 21:00; Stop 03/25/17 at 20:59; Status DC Ziprasidone (Geodon) 60 mg BID PO Last administered on 04/06/17 19:39; Start 03/17/17 at 21:00 Lactobacillus Rhamnosus (Culturelle) 1 cap BID PO Last administered on 19:39; Start 03/18/17 at 21:00 Divalproex Sodium (Depakote Sprinkles) 250 mg BID92 PO Last administered on 09:35; Start 03/19/17 at 09:00; Stop 03/23/17 at 11:14; Status DC Olanzapine (ZyPREXA ZYDIS) 5 mg PRN Q2HR PRN PO PSYCHOSIS Last administered on 03/26/17 19:44; Start 03/19/17 at 07:00 Clozapine (Clozaril) 25 mg HS PO Last administered on 03/21/17 20:07; Start 03/19/17 at 21:00; Stop 03/22/17 at 18:41; Status DC Trazodone HCl (Desyrel) 100 mg QHS PO Last administered on 04/06/17 19:40; Start 03/19/17 at 21:00 Trazodone HCl (Desyrel) 100 mg PRN QHS PRN PO INSOMNIA Last administered on 23:08; Start 03/19/17 at 19:15 Clozapine (Clozaril) 50 mg HS PO Last administered on 04/01/17 21:12; Start 03/22/17 at 21:00; Stop 04/01/17 at 21:53; Status DC Oxcarbazepine (Trileptal) 150 mg BID92 PO Last administered on 03/26/17 14:01 ; Start 03/23/17 at 14:00; Stop 03/26/17 at 14:01; Status DC Oxcarbazepine (Trileptal) 300 mg BID92 PO Last administered on 04/06/17 14:18 ; Start 03/27/17 at 09:00 Clozapine (Clozaril) 75 mg HS PO Last administered on 04/04/17 19:20; Start 04/02/17 at 21:00; Stop 04/05/17 at 19:29; Status DC Clozapine (Clozaril) 100 mg HS PO ; Start 04/05/17 at 21:00; Stop 04/05/17 at 21:00; Status DC Clozapine (Clozaril) 100 mg HS PO Last administered on 04/06/17 19:39; Start 04/05/17 at 21:00 Levofloxacin (Levaquin) 250 mg DAILY PO Last administered on 04/06/17 15:45; Start 04/06/17 at 17:00; Stop 04/11/17 at 16:59 Lidocaine (Lidoderm) 1 patch PRN DAILY PRN TD pain; Start 04/06/17 at 16:15 Active Scripts Active Reported Omeprazole 40 Mg Capsule.dr 40 Mg PO DAILY Olanzapine 10 Mg Tablet 10 Mg PO TID Megestrol Acetate 400 Mg/10 Ml Oral.susp 400 Mg PO BID Lactulose 10 Gm/15 Ml Solution 30 Ml PO BID Hold if no longer constipated [place] 5-325 Tablet (Hydrocodone Bit/Acetaminophen) 1 Each Tablet 1 Tab PO PRN Q6HRS PRN Tylenol (Acetaminophen) 325 Mg Tablet 650 Mg PO PRN Q4HRS PRN Benztropine Mesylate 1 Mg Tablet 1 Mg PO HS Suppository (Glycerin) 1 Each Supp.rect 1 Each RC PRN DAILY PRN Geodon (Ziprasidone Hcl) 40 Mg Capsule 40 Mg PO BID Sennosides-Docusate Sodium Tab (Sennosides/Docusate Sodium) 1 Each Tablet 1 Each PO BID Miralax (Polyethylene Glycol 3350) 17 Gm Powd.pack 17 Gm PO DAILY Protonix (Pantoprazole Sodium) 20 Mg Tablet.dr 20 Mg PO BID [place] 3 1,000 Mg Softgel ([place]-3 Fatty Acids/Fish Oil) 1 Each Capsule 1 Each PO DAILY Linzess (Linaclotide) 290 Mcg Capsule 290 Mcg PO HS Gabapentin 600 Mg Tablet 600 Mg PO BID Vitamin D (Cholecalciferol (Vitamin D3)) 2,000 Unit Capsule 2,000 Unit PO DAILY Buspirone Hcl 10 Mg Tablet 10 Mg PO TID Benztropine Mesylate 1 Mg Tablet 1 Mg PO TID I have reviewed the current psychotropics carefully including drug interactions. Risk benefit ratio favors no change other than as noted in my dictated progress note. Diagnosis: Problems: (1) Anxiety disorder (2) Bipolar affective, mixed, sev w/ psych (3) Dementia, vascular, with depression (4) Dementia, vascular, with delusions (5) Dementia in Alzheimer's disease with depression (6) Dementia in Alzheimer's disease with delusions (7) Impulse control disorder MIRIAM BRASWELL MD Apr 06, 2017 20:06
[2017-04-07] MEDS: traZODone 100 MG TABLET. PO PRN (00:32)
[2017-04-07] MEDS: HYDROcodone/APAP 5/325MG 1 TAB TABLET PO PRN ×5 (05:35→22:18)
[2017-04-07 05:46] VITALS: BP 133/87
[2017-04-07] MEDS: PANTOPRAZOLE 40 MG TABLET. PO SCH (07:57)
[2017-04-07] MEDS: ZIPRASIDONE 60 MG CAPSULE. PO SCH ×2 (07:58→20:07)
[2017-04-07] MEDS: CHOLECALCIFEROL (VITAMIN D3) 1,000 UNIT TABLET PO SCH (07:58)
[2017-04-07] MEDS: levoFLOXacin 250 MG TABLET PO SCH (07:58)
[2017-04-07] MEDS: GABAPENTIN 300 MG CAPSULE. PO SCH ×2 (07:58→20:09)
[2017-04-07] MEDS: SENNOSIDES/DOCUSATE 8.6/50MG TABLET. PO SCH ×2 (07:58→20:07)
[2017-04-07] MEDS: LACTOBACILLUS RHAMNOSUS GG 1 CAPSULE. PO SCH ×2 (07:58→20:07)
[2017-04-07] MEDS: OMEGA-3 FATTY ACIDS/FISH OIL 1,000 MG CAPSULE. PO SCH (07:58)
[2017-04-07] MEDS: POLYETHYLENE GLYCOL 3350 17 GM PACKET. PO SCH (07:59)
[2017-04-07] MEDS: ENOXAPARIN 30 MG/0.3 ML DISP.SYRIN. SQ SCH (07:59)
[2017-04-07] MEDS: LACTULOSE 20 GM/30 ML SOLUTION. PO SCH ×2 (07:59→20:07)
[2017-04-07] MEDS: MEGESTROL 400 MG/10 ML ORAL.SUSP. PO SCH ×2 (08:00→13:54)
[2017-04-07 15:53] VITALS: BP 116/68
[2017-04-07] MEDS: cloZAPine 100 MG TABLET PO SCH (20:07)
[2017-04-07] MEDS: LINACLOTIDE 145 MCG CAPSULE. PO SCH (20:07)
[2017-04-07] MEDS: traZODone 100 MG TABLET. PO SCH (20:08)
[2017-04-07] MEDS: MIRTAZAPINE 7.5 MG TABLET. PO SCH (20:12)
--- NOTE | 2017-04-07 20:26 | PDOC ---
Exam Note: Kayden Note: Please also refer to the separate dictated note~for this date of service dictated separately.~Patient seen individually. Discussed the patient with Nursing staff reviewed the chart.~Reviewed interim history and current functioning. Reviewed vital signs,~Labs/ Radiology~and current medications noted below. Continue current treatment with the changes noted in the dictated addendum note Assessment: Vital Signs: Vital Signs Date Time Temp Pulse Resp B/P (MAP) Pulse Ox O2 Delivery O2 Flow Rate FiO2 04/07/17 19:25 18 97 Room Air 04/07/17 15:53 97.6 106 116/68 (84) I&O Intake and Output 04/07/17 07:00 Intake Total 1200 ml Balance 1200 ml Intake Oral 1200 ml # Bowel Movements 1 Labs: Laboratory Tests Test 04/07/17 19:11 Glucose (Fingerstick) 133 mg/dL (70-99) H Current Medications: Meds: Current Medications Benztropine Mesylate (Cogentin) 1 mg TID PO Last administered on 03/16/17 08: 39; Start 03/14/17 at 22:30; Stop 03/16/17 at 11:57; Status DC Buspirone HCl (Buspar) 10 mg TID PO Last administered on 03/16/17 08:40; Start 03/14/17 at 22:30; Stop 03/16/17 at 11:57; Status DC Ziprasidone (Geodon) 40 mg BID PO Last administered on 03/17/17 08:01; Start 03/14/17 at 22:30; Stop 03/17/17 at 18:48; Status DC Glycerin (Sani-Supp Adult) 1 supp PRN DAILY PRN RC CONSTIPATION; Start at 22:30 Pantoprazole Sodium (Protonix) 40 mg DAILYAC PO Last administered on 04/07/17 07:57; Start 03/15/17 at 07:30 Polyethylene Glycol (miraLAX) 17 gm DAILY PO Last administered on 04/07/17 07: 59; Start 03/15/17 at 09:00 Senna/Docusate Sodium (Senna Plus) 1 tab BID PO Last administered on 04/07/17 20:07; Start 03/14/17 at 22:30 Vitamin D (Vitamin D3) 2,000 unit DAILY PO Last administered on 04/07/17 07:58 ; Start 03/15/17 at 09:00 Gabapentin (Neurontin) 600 mg BID PO Last administered on 04/07/17 20:09; Start 03/14/17 at 22:30 Non-Formulary Medication 290 mcg HS PO ; Start 03/15/17 at 21:00; Status UNV Fish Oil (Fish Oil) 1,000 mg DAILY PO Last administered on 04/07/17 07:58; Start 03/15/17 at 09:00 Benztropine Mesylate (Cogentin) 1 mg HS PO ; Start 03/15/17 at 21:00; Stop 03/15 at 21:00; Status DC Olanzapine (ZyPREXA) 10 mg TID PO Last administered on 03/16/17 08:39; Start 03/14/17 at 23:00; Stop 03/16/17 at 11:57; Status DC Acetaminophen (Tylenol) 650 mg PRN Q4HRS PRN PO PAIN / TEMP Last administered on 04/05/17 05:21; Start 03/14/17 at 22:45 Acetaminophen/ Hydrocodone Bitart (Lortab 5/325) 1 tab PRN Q6HRS PRN PO PAIN Last administered on 04/07/17 16:52; Start 03/14/17 at 22:45 Megestrol Acetate (Megace) 400 mg BID PO Last administered on 03/16/17 08:41; Start 03/14/17 at 23:00; Stop 03/16/17 at 21:03; Status DC Lactulose 20 gm BID PO Last administered on 04/07/17 20:07; Start 03/14/17 at 23:00 Pantoprazole Sodium (Protonix) 40 mg DAILYAC PO ; Start 03/15/17 at 07:30; Stop 03/16/17 at 19:39; Status DC Acetaminophen (Tylenol) 650 mg PRN Q6HRS PRN PO PAIN / TEMP; Start 03/15/17 at 01:15; Stop 03/25/17 at 14:08; Status DC Multi-Ingredient Ointment (Analgesic [place]) 1 landon PRN QID PRN TP MUSCLE PAIN; Start 03/15/17 at 01:15 Al Hydroxide/Mg Hydroxide (Mylanta Plus Xs) 15 ml PRN AFTMEALHC PRN PO DYSPEPSIA; Start 03/15/17 at 01:15 Magnesium Hydroxide (Milk Of Magnesia) 2,400 mg PRN QHS PRN PO CONSTIPATION Last administered on 03/27/17 10:16; Start 03/15/17 at 01:15 Potassium Chloride/Dextrose 1,000 ml @ 75 mls/hr [id number] IV Last administered on 03/18/17 11:25; Start 03/15/17 at 16:45; Stop 03/18/17 at 18:24; Status DC Divalproex Sodium (Depakote Sprinkles) 125 mg BID92 PO Last administered on 13:31; Start 03/16/17 at 09:00; Stop 03/18/17 at 18:29; Status DC Bisacodyl (Dulcolax Supp) 10 mg PRN DAILY PRN [place] CONSTIPATION Last administered on 03/22/17 21:05; Start 03/15/17 at 19:00 Sodium Biphosphate/ Sodium Phosphate (Fleet Adult) 133 ml PRN DAILY PRN ND CONSTIPATION Last administered on 03/16/17 05:09; Start 03/15/17 at 19:00 Benztropine Mesylate (Cogentin) 1 mg BID PO Last administered on 03/18/17 17: 04; Start 03/16/17 at 21:00; Stop 03/18/17 at 23:00; Status DC Benztropine Mesylate (Cogentin) 1 mg DAILY PO Last administered on 03/21/17 11:21; Start 03/19/17 at 09:00; Stop 03/21/17 at 12:00; Status DC Enoxaparin Sodium (Lovenox) 30 mg Q24H SQ ; Start 03/16/17 at 18:00; Stop at 18:29; Status DC Enoxaparin Sodium (Lovenox) 30 mg Q24H SQ Last administered on 04/07/17 07:59 ; Start 03/17/17 at 09:00 Megestrol Acetate (Megace) 400 mg BID92 PO Last administered on 04/07/17 13:54 ; Start 03/17/17 at 09:00 Trimethoprim/ Sulfamethoxazole (Bactrim Ss) 1 tab BID PO Last administered on 03/25/17 08:05; Start 03/17/17 at 21:00; Stop 03/25/17 at 20:59; Status DC Ziprasidone (Geodon) 60 mg BID PO Last administered on 04/07/17 20:07; Start 03/17/17 at 21:00 Lactobacillus Rhamnosus (Culturelle) 1 cap BID PO Last administered on 20:07; Start 03/18/17 at 21:00 Divalproex Sodium (Depakote Sprinkles) 250 mg BID92 PO Last administered on 09:35; Start 03/19/17 at 09:00; Stop 03/23/17 at 11:14; Status DC Olanzapine (ZyPREXA ZYDIS) 5 mg PRN Q2HR PRN PO PSYCHOSIS Last administered on 03/26/17 19:44; Start 03/19/17 at 07:00 Clozapine (Clozaril) 25 mg HS PO Last administered on 03/21/17 20:07; Start 03/19/17 at 21:00; Stop 03/22/17 at 18:41; Status DC Trazodone HCl (Desyrel) 100 mg QHS PO Last administered on 04/07/17 20:08; Start 03/19/17 at 21:00 Trazodone HCl (Desyrel) 100 mg PRN QHS PRN PO INSOMNIA Last administered on 00:32; Start 03/19/17 at 19:15 Clozapine (Clozaril) 50 mg HS PO Last administered on 04/01/17 21:12; Start 03/22/17 at 21:00; Stop 04/01/17 at 21:53; Status DC Oxcarbazepine (Trileptal) 150 mg BID92 PO Last administered on 03/26/17 14:01 ; Start 03/23/17 at 14:00; Stop 03/26/17 at 14:01; Status DC Oxcarbazepine (Trileptal) 300 mg BID92 PO Last administered on 04/07/17 13:54 ; Start 03/27/17 at 09:00 Clozapine (Clozaril) 75 mg HS PO Last administered on 04/04/17 19:20; Start 04/02/17 at 21:00; Stop 04/05/17 at 19:29; Status DC Clozapine (Clozaril) 100 mg HS PO ; Start 04/05/17 at 21:00; Stop 04/05/17 at 21:00; Status DC Clozapine (Clozaril) 100 mg HS PO Last administered on 04/07/17 20:07; Start 04/05/17 at 21:00 Levofloxacin (Levaquin) 250 mg DAILY PO Last administered on 04/07/17 07:58; Start 04/06/17 at 17:00; Stop 04/11/17 at 16:59 Lidocaine (Lidoderm) 1 patch PRN DAILY PRN TD pain; Start 04/06/17 at 16:15 Mirtazapine (Remeron) 7.5 mg QHS PO Last administered on 04/07/17 20:12; Start 04/07/17 at 21:00 Active Scripts Active Reported Omeprazole 40 Mg Capsule.dr 40 Mg PO DAILY Olanzapine 10 Mg Tablet 10 Mg PO TID Megestrol Acetate 400 Mg/10 Ml Oral.susp 400 Mg PO BID Lactulose 10 Gm/15 Ml Solution 30 Ml PO BID Hold if no longer constipated [place] 5-325 Tablet (Hydrocodone Bit/Acetaminophen) 1 Each Tablet 1 Tab PO PRN Q6HRS PRN Tylenol (Acetaminophen) 325 Mg Tablet 650 Mg PO PRN Q4HRS PRN Benztropine Mesylate 1 Mg Tablet 1 Mg PO HS Suppository (Glycerin) 1 Each Supp.rect 1 Each RC PRN DAILY PRN Geodon (Ziprasidone Hcl) 40 Mg Capsule 40 Mg PO BID Sennosides-Docusate Sodium Tab (Sennosides/Docusate Sodium) 1 Each Tablet 1 Each PO BID Miralax (Polyethylene Glycol 3350) 17 Gm Powd.pack 17 Gm PO DAILY Protonix (Pantoprazole Sodium) 20 Mg Tablet.dr 20 Mg PO BID [place] 3 1,000 Mg Softgel ([place]-3 Fatty Acids/Fish Oil) 1 Each Capsule 1 Each PO DAILY Linzess (Linaclotide) 290 Mcg Capsule 290 Mcg PO HS Gabapentin 600 Mg Tablet 600 Mg PO BID Vitamin D (Cholecalciferol (Vitamin D3)) 2,000 Unit Capsule 2,000 Unit PO DAILY Buspirone Hcl 10 Mg Tablet 10 Mg PO TID Benztropine Mesylate 1 Mg Tablet 1 Mg PO TID I have reviewed the current psychotropics carefully including drug interactions. Risk benefit ratio favors no change other than as noted in my dictated progress note. Diagnosis: Problems: (1) Anxiety disorder (2) Bipolar affective, mixed, sev w/ psych (3) Dementia, vascular, with depression (4) Dementia, vascular, with delusions (5) Dementia in Alzheimer's disease with depression (6) Dementia in Alzheimer's disease with delusions (7) Impulse control disorder MIRIAM BRASWELL MD Apr 07, 2017 20:26
--- NOTE | 2017-04-08 04:50 | PN ---
DATE: 04/05/2017 This is a late entry 04/05, covers elements not covered in my initial note 04/05. SUBJECTIVE: I met with the patient evening of 04/05. The patient had a temperature in the morning of 101 at 7:00 a.m., received Tylenol. After that it was stable. UA has reflex to culture greater than 100,000 gram-negative rods and we will defer to Dr. Ruiz. Fluid intake is being pushed. She continues to have labile mood, yelling at times, but perhaps a little better at times. REVIEW OF SYSTEMS: Ambulation impaired, in Broda chair. No CV, , pulmonary, eye, ENT system symptoms on review. Reliability poor. MENTAL STATUS EXAM: Oriented to herself. Insight, judgment, recent and remote memory, attention, concentration, fund of knowledge poor, consistent with her diagnosis mentioned in my initial note. PLAN: Increase Clozaril to 100 mg p.o. at bedtime. Absolute neutrophil count at last check was unremarkable. Treat the UTI. Maintain rest unchanged. Geodon 60 b.i.d., Neurontin 600 b.i.d., trazodone 100 mg at bedtime, may repeat x 1. Trileptal 300 mg twice a day, Zyprexa p.r.n. Resolution of UTI would significantly help her agitation. MAN Kathleen BRASWELL MD DR: ANAM/aly JOB#: [id number] / [id number]
--- NOTE | 2017-04-08 04:53 | PN ---
DATE: 04/06/2017 This is a late entry 04/06, covers elements not covered in my initial note 04/06. SUBJECTIVE: I met with the patient in the evening of 04/06. Staffed at treatment team meeting with the entire team morning of 04/06. UA is positive with plan to start her on antibiotics. Continues to have some yelling mood lability. REVIEW OF SYSTEMS: Ambulation impaired, in Broda chair. No CV, , pulmonary, eye, ENT system symptoms on review. Reliability poor. MENTAL STATUS EXAM: Oriented to herself. Insight, judgment, recent and remote memory, attention, concentration, fund of knowledge poor, consistent with her diagnosis mentioned in my initial note. PLAN: Continue current psychotropics. She is on Levaquin 250 mg daily for 5 days for UTI. Clozaril was increased. Adjust further as clinically indicated. MAN Kathleen BRASWELL MD DR: ANAM/aly JOB#: [id number] / [id number]
[2017-04-08] MEDS: HYDROcodone/APAP 5/325MG 1 TAB TABLET PO PRN ×3 (05:25→20:40)
[2017-04-08 06:09] VITALS: BP 108/69
[2017-04-08] MEDS: POLYETHYLENE GLYCOL 3350 17 GM PACKET. PO SCH (11:35)
[2017-04-08] MEDS: LACTULOSE 20 GM/30 ML SOLUTION. PO SCH ×2 (11:35→20:40)
[2017-04-08] MEDS: OMEGA-3 FATTY ACIDS/FISH OIL 1,000 MG CAPSULE. PO SCH (11:35)
[2017-04-08] MEDS: LACTOBACILLUS RHAMNOSUS GG 1 CAPSULE. PO SCH ×2 (11:35→20:40)
[2017-04-08] MEDS: ZIPRASIDONE 60 MG CAPSULE. PO SCH ×2 (11:35→20:40)
[2017-04-08] MEDS: PANTOPRAZOLE 40 MG TABLET. PO SCH (11:35)
[2017-04-08] MEDS: levoFLOXacin 250 MG TABLET PO SCH (11:36)
[2017-04-08] MEDS: GABAPENTIN 300 MG CAPSULE. PO SCH ×2 (11:37→20:40)
[2017-04-08] MEDS: SENNOSIDES/DOCUSATE 8.6/50MG TABLET. PO SCH ×2 (11:37→20:39)
[2017-04-08] MEDS: CHOLECALCIFEROL (VITAMIN D3) 1,000 UNIT TABLET PO SCH (11:37)
[2017-04-08] MEDS: MEGESTROL 400 MG/10 ML ORAL.SUSP. PO SCH ×2 (11:37→16:57)
[2017-04-08] MEDS: ENOXAPARIN 30 MG/0.3 ML DISP.SYRIN. SQ SCH (11:38)
[2017-04-08 16:31] VITALS: BP 130/60
[2017-04-08] MEDS: MIRTAZAPINE 7.5 MG TABLET. PO SCH (20:40)
[2017-04-08] MEDS: cloZAPine 100 MG TABLET PO SCH (20:40)
[2017-04-08] MEDS: traZODone 100 MG TABLET. PO SCH (20:40)
[2017-04-08] MEDS: LINACLOTIDE 145 MCG CAPSULE. PO SCH (20:41)
--- NOTE | 2017-04-08 21:51 | PDOC ---
Exam Note: Kayden Note: Please also refer to the separate dictated note~for this date of service dictated separately.~Patient seen individually. Discussed the patient with Nursing staff reviewed the chart.~Reviewed interim history and current functioning. Reviewed vital signs,~Labs/ Radiology~and current medications noted below. Continue current treatment with the changes noted in the dictated addendum note Assessment: Vital Signs: Vital Signs Date Time Temp Pulse Resp B/P (MAP) Pulse Ox O2 Delivery O2 Flow Rate FiO2 04/08/17 21:40 18 100 Room Air 04/08/17 16:31 98.1 82 130/60 (83) I&O Intake and Output 04/08/17 07:00 Intake Total 1440 ml Balance 1440 ml Intake Oral 1440 ml # Bowel Movements 1 Current Medications: Meds: Current Medications Benztropine Mesylate (Cogentin) 1 mg TID PO Last administered on 03/16/17 08: 39; Start 03/14/17 at 22:30; Stop 03/16/17 at 11:57; Status DC Buspirone HCl (Buspar) 10 mg TID PO Last administered on 03/16/17 08:40; Start 03/14/17 at 22:30; Stop 03/16/17 at 11:57; Status DC Ziprasidone (Geodon) 40 mg BID PO Last administered on 03/17/17 08:01; Start 03/14/17 at 22:30; Stop 03/17/17 at 18:48; Status DC Glycerin (Sani-Supp Adult) 1 supp PRN DAILY PRN RC CONSTIPATION; Start at 22:30 Pantoprazole Sodium (Protonix) 40 mg DAILYAC PO Last administered on 04/08/17 11:35; Start 03/15/17 at 07:30 Polyethylene Glycol (miraLAX) 17 gm DAILY PO Last administered on 04/08/17 11: 35; Start 03/15/17 at 09:00 Senna/Docusate Sodium (Senna Plus) 1 tab BID PO Last administered on 04/08/17 20:39; Start 03/14/17 at 22:30 Vitamin D (Vitamin D3) 2,000 unit DAILY PO Last administered on 04/08/17 11:37 ; Start 03/15/17 at 09:00 Gabapentin (Neurontin) 600 mg BID PO Last administered on 04/08/17 20:40; Start 03/14/17 at 22:30 Non-Formulary Medication 290 mcg HS PO ; Start 03/15/17 at 21:00; Status UNV Fish Oil (Fish Oil) 1,000 mg DAILY PO Last administered on 04/08/17 11:35; Start 03/15/17 at 09:00 Benztropine Mesylate (Cogentin) 1 mg HS PO ; Start 03/15/17 at 21:00; Stop 03/15 at 21:00; Status DC Olanzapine (ZyPREXA) 10 mg TID PO Last administered on 03/16/17 08:39; Start 03/14/17 at 23:00; Stop 03/16/17 at 11:57; Status DC Acetaminophen (Tylenol) 650 mg PRN Q4HRS PRN PO PAIN / TEMP Last administered on 04/05/17 05:21; Start 03/14/17 at 22:45 Acetaminophen/ Hydrocodone Bitart (Lortab 5/325) 1 tab PRN Q6HRS PRN PO PAIN Last administered on 04/08/17 20:40; Start 03/14/17 at 22:45 Megestrol Acetate (Megace) 400 mg BID PO Last administered on 03/16/17 08:41; Start 03/14/17 at 23:00; Stop 03/16/17 at 21:03; Status DC Lactulose 20 gm BID PO Last administered on 04/08/17 20:40; Start 03/14/17 at 23:00 Pantoprazole Sodium (Protonix) 40 mg DAILYAC PO ; Start 03/15/17 at 07:30; Stop 03/16/17 at 19:39; Status DC Acetaminophen (Tylenol) 650 mg PRN Q6HRS PRN PO PAIN / TEMP; Start 03/15/17 at 01:15; Stop 03/25/17 at 14:08; Status DC Multi-Ingredient Ointment (Analgesic [place]) 1 landon PRN QID PRN TP MUSCLE PAIN; Start 03/15/17 at 01:15 Al Hydroxide/Mg Hydroxide (Mylanta Plus Xs) 15 ml PRN AFTMEALHC PRN PO DYSPEPSIA; Start 03/15/17 at 01:15 Magnesium Hydroxide (Milk Of Magnesia) 2,400 mg PRN QHS PRN PO CONSTIPATION Last administered on 03/27/17 10:16; Start 03/15/17 at 01:15 Potassium Chloride/Dextrose 1,000 ml @ 75 mls/hr [id number] IV Last administered on 03/18/17 11:25; Start 03/15/17 at 16:45; Stop 03/18/17 at 18:24; Status DC Divalproex Sodium (Depakote Sprinkles) 125 mg BID92 PO Last administered on 13:31; Start 03/16/17 at 09:00; Stop 03/18/17 at 18:29; Status DC Bisacodyl (Dulcolax Supp) 10 mg PRN DAILY PRN [place] CONSTIPATION Last administered on 03/22/17 21:05; Start 03/15/17 at 19:00 Sodium Biphosphate/ Sodium Phosphate (Fleet Adult) 133 ml PRN DAILY PRN [place] CONSTIPATION Last administered on 03/16/17 05:09; Start 03/15/17 at 19:00 Benztropine Mesylate (Cogentin) 1 mg BID PO Last administered on 03/18/17 17: 04; Start 03/16/17 at 21:00; Stop 03/18/17 at 23:00; Status DC Benztropine Mesylate (Cogentin) 1 mg DAILY PO Last administered on 03/21/17 11:21; Start 03/19/17 at 09:00; Stop 03/21/17 at 12:00; Status DC Enoxaparin Sodium (Lovenox) 30 mg Q24H SQ ; Start 03/16/17 at 18:00; Stop at 18:29; Status DC Enoxaparin Sodium (Lovenox) 30 mg Q24H SQ Last administered on 04/08/17 11:38 ; Start 03/17/17 at 09:00 Megestrol Acetate (Megace) 400 mg BID92 PO Last administered on 04/08/17 16:57 ; Start 03/17/17 at 09:00 Trimethoprim/ Sulfamethoxazole (Bactrim Ss) 1 tab BID PO Last administered on 03/25/17 08:05; Start 03/17/17 at 21:00; Stop 03/25/17 at 20:59; Status DC Ziprasidone (Geodon) 60 mg BID PO Last administered on 04/08/17 20:40; Start 03/17/17 at 21:00 Lactobacillus Rhamnosus (Culturelle) 1 cap BID PO Last administered on 20:40; Start 03/18/17 at 21:00 Divalproex Sodium (Depakote Sprinkles) 250 mg BID92 PO Last administered on 09:35; Start 03/19/17 at 09:00; Stop 03/23/17 at 11:14; Status DC Olanzapine (ZyPREXA ZYDIS) 5 mg PRN Q2HR PRN PO PSYCHOSIS Last administered on 03/26/17 19:44; Start 03/19/17 at 07:00 Clozapine (Clozaril) 25 mg HS PO Last administered on 03/21/17 20:07; Start 03/19/17 at 21:00; Stop 03/22/17 at 18:41; Status DC Trazodone HCl (Desyrel) 100 mg QHS PO Last administered on 04/08/17 20:40; Start 03/19/17 at 21:00 Trazodone HCl (Desyrel) 100 mg PRN QHS PRN PO INSOMNIA Last administered on 00:32; Start 03/19/17 at 19:15 Clozapine (Clozaril) 50 mg HS PO Last administered on 04/01/17 21:12; Start 03/22/17 at 21:00; Stop 04/01/17 at 21:53; Status DC Oxcarbazepine (Trileptal) 150 mg BID92 PO Last administered on 03/26/17 14:01 ; Start 03/23/17 at 14:00; Stop 03/26/17 at 14:01; Status DC Oxcarbazepine (Trileptal) 300 mg BID92 PO Last administered on 04/08/17 16:57 ; Start 03/27/17 at 09:00 Clozapine (Clozaril) 75 mg HS PO Last administered on 04/04/17 19:20; Start 04/02/17 at 21:00; Stop 04/05/17 at 19:29; Status DC Clozapine (Clozaril) 100 mg HS PO ; Start 04/05/17 at 21:00; Stop 04/05/17 at 21:00; Status DC Clozapine (Clozaril) 100 mg HS PO Last administered on 04/08/17 20:40; Start 04/05/17 at 21:00 Levofloxacin (Levaquin) 250 mg DAILY PO Last administered on 04/08/17 11:36; Start 04/06/17 at 17:00; Stop 04/11/17 at 16:59 Lidocaine (Lidoderm) 1 patch PRN DAILY PRN TD pain; Start 04/06/17 at 16:15 Mirtazapine (Remeron) 7.5 mg QHS PO Last administered on 04/08/17 20:40; Start 04/07/17 at 21:00 Active Scripts Active Reported Omeprazole 40 Mg Capsule.dr 40 Mg PO DAILY Olanzapine 10 Mg Tablet 10 Mg PO TID Megestrol Acetate 400 Mg/10 Ml Oral.susp 400 Mg PO BID Lactulose 10 Gm/15 Ml Solution 30 Ml PO BID Hold if no longer constipated [place] 5-325 Tablet (Hydrocodone Bit/Acetaminophen) 1 Each Tablet 1 Tab PO PRN Q6HRS PRN Tylenol (Acetaminophen) 325 Mg Tablet 650 Mg PO PRN Q4HRS PRN Benztropine Mesylate 1 Mg Tablet 1 Mg PO HS Suppository (Glycerin) 1 Each Supp.rect 1 Each RC PRN DAILY PRN Geodon (Ziprasidone Hcl) 40 Mg Capsule 40 Mg PO BID Sennosides-Docusate Sodium Tab (Sennosides/Docusate Sodium) 1 Each Tablet 1 Each PO BID Miralax (Polyethylene Glycol 3350) 17 Gm Powd.pack 17 Gm PO DAILY Protonix (Pantoprazole Sodium) 20 Mg Tablet.dr 20 Mg PO BID [place] 3 1,000 Mg Softgel ([place]-3 Fatty Acids/Fish Oil) 1 Each Capsule 1 Each PO DAILY Linzess (Linaclotide) 290 Mcg Capsule 290 Mcg PO HS Gabapentin 600 Mg Tablet 600 Mg PO BID Vitamin D (Cholecalciferol (Vitamin D3)) 2,000 Unit Capsule 2,000 Unit PO DAILY Buspirone Hcl 10 Mg Tablet 10 Mg PO TID Benztropine Mesylate 1 Mg Tablet 1 Mg PO TID I have reviewed the current psychotropics carefully including drug interactions. Risk benefit ratio favors no change other than as noted in my dictated progress note. Diagnosis: Problems: (1) Anxiety disorder (2) Bipolar affective, mixed, sev w/ psych (3) Dementia, vascular, with depression (4) Dementia, vascular, with delusions (5) Dementia in Alzheimer's disease with depression (6) Dementia in Alzheimer's disease with delusions (7) Impulse control disorder MIRIAM BRASWELL MD Apr 08, 2017 21:51
[2017-04-09] MEDS: HYDROcodone/APAP 5/325MG 1 TAB TABLET PO PRN ×3 (05:10→20:20)
[2017-04-09] MEDS: LIDOCAINE (700MG/PATCH) PATCH. TD PRN (05:11)
[2017-04-09 05:57] VITALS: BP 122/81
[2017-04-09] MEDS: MEGESTROL 400 MG/10 ML ORAL.SUSP. PO SCH ×2 (08:12→14:34)
[2017-04-09] MEDS: POLYETHYLENE GLYCOL 3350 17 GM PACKET. PO SCH (08:12)
[2017-04-09] MEDS: SENNOSIDES/DOCUSATE 8.6/50MG TABLET. PO SCH ×2 (08:12→20:20)
[2017-04-09] MEDS: LACTULOSE 20 GM/30 ML SOLUTION. PO SCH ×2 (08:12→20:20)
[2017-04-09] MEDS: OMEGA-3 FATTY ACIDS/FISH OIL 1,000 MG CAPSULE. PO SCH (08:13)
[2017-04-09] MEDS: CHOLECALCIFEROL (VITAMIN D3) 1,000 UNIT TABLET PO SCH (08:13)
[2017-04-09] MEDS: LACTOBACILLUS RHAMNOSUS GG 1 CAPSULE. PO SCH ×2 (08:13→20:20)
[2017-04-09] MEDS: ENOXAPARIN 30 MG/0.3 ML DISP.SYRIN. SQ SCH (08:13)
[2017-04-09] MEDS: ZIPRASIDONE 60 MG CAPSULE. PO SCH ×2 (08:13→20:20)
[2017-04-09] MEDS: PANTOPRAZOLE 40 MG TABLET. PO SCH (08:13)
[2017-04-09] MEDS: levoFLOXacin 250 MG TABLET PO SCH (08:13)
[2017-04-09] MEDS: GABAPENTIN 300 MG CAPSULE. PO SCH ×2 (08:14→21:30)
[2017-04-09] MEDS: TAMSULOSIN 0.4 MG CAP.ER.24H. PO SCH (14:39)
[2017-04-09 16:15] VITALS: BP 142/67
--- NOTE | 2017-04-09 20:06 | PDOC ---
Exam Note: Kayden Note: Please also refer to the separate dictated note~for this date of service dictated separately.~Patient seen individually. Discussed the patient with Nursing staff reviewed the chart.~Reviewed interim history and current functioning. Reviewed vital signs,~Labs/ Radiology~and current medications noted below. Continue current treatment with the changes noted in the dictated addendum note Assessment: Vital Signs: Vital Signs Date Time Temp Pulse Resp B/P (MAP) Pulse Ox O2 Delivery O2 Flow Rate FiO2 04/09/17 16:15 98.2 89 18 142/67 (92) 96 04/09/17 05:10 Room Air I&O Intake and Output 04/09/17 07:00 Intake Total 1200 ml Balance 1200 ml Intake Oral 1200 ml # Bowel Movements 1 Current Medications: Meds: Current Medications Benztropine Mesylate (Cogentin) 1 mg TID PO Last administered on 03/16/17 08: 39; Start 03/14/17 at 22:30; Stop 03/16/17 at 11:57; Status DC Buspirone HCl (Buspar) 10 mg TID PO Last administered on 03/16/17 08:40; Start 03/14/17 at 22:30; Stop 03/16/17 at 11:57; Status DC Ziprasidone (Geodon) 40 mg BID PO Last administered on 03/17/17 08:01; Start 03/14/17 at 22:30; Stop 03/17/17 at 18:48; Status DC Glycerin (Sani-Supp Adult) 1 supp PRN DAILY PRN RC CONSTIPATION; Start at 22:30 Pantoprazole Sodium (Protonix) 40 mg DAILYAC PO Last administered on 04/09/17 08:13; Start 03/15/17 at 07:30 Polyethylene Glycol (miraLAX) 17 gm DAILY PO Last administered on 04/09/17 08: 12; Start 03/15/17 at 09:00 Senna/Docusate Sodium (Senna Plus) 1 tab BID PO Last administered on 04/09/17 08:12; Start 03/14/17 at 22:30 Vitamin D (Vitamin D3) 2,000 unit DAILY PO Last administered on 04/09/17 08:13 ; Start 03/15/17 at 09:00 Gabapentin (Neurontin) 600 mg BID PO Last administered on 04/09/17 08:14; Start 03/14/17 at 22:30; Stop 04/09/17 at 18:49; Status DC Non-Formulary Medication 290 mcg HS PO ; Start 03/15/17 at 21:00; Status UNV Fish Oil (Fish Oil) 1,000 mg DAILY PO Last administered on 04/09/17 08:13; Start 03/15/17 at 09:00 Benztropine Mesylate (Cogentin) 1 mg HS PO ; Start 03/15/17 at 21:00; Stop 03/15 at 21:00; Status DC Olanzapine (ZyPREXA) 10 mg TID PO Last administered on 03/16/17 08:39; Start 03/14/17 at 23:00; Stop 03/16/17 at 11:57; Status DC Acetaminophen (Tylenol) 650 mg PRN Q4HRS PRN PO PAIN / TEMP Last administered on 04/05/17 05:21; Start 03/14/17 at 22:45 Acetaminophen/ Hydrocodone Bitart (Lortab 5/325) 1 tab PRN Q6HRS PRN PO PAIN Last administered on 04/09/17 13:34; Start 03/14/17 at 22:45 Megestrol Acetate (Megace) 400 mg BID PO Last administered on 03/16/17 08:41; Start 03/14/17 at 23:00; Stop 03/16/17 at 21:03; Status DC Lactulose 20 gm BID PO Last administered on 04/09/17 08:12; Start 03/14/17 at 23:00 Pantoprazole Sodium (Protonix) 40 mg DAILYAC PO ; Start 03/15/17 at 07:30; Stop 03/16/17 at 19:39; Status DC Acetaminophen (Tylenol) 650 mg PRN Q6HRS PRN PO PAIN / TEMP; Start 03/15/17 at 01:15; Stop 03/25/17 at 14:08; Status DC Multi-Ingredient Ointment (Analgesic [place]) 1 landon PRN QID PRN TP MUSCLE PAIN; Start 03/15/17 at 01:15 Al Hydroxide/Mg Hydroxide (Mylanta Plus Xs) 15 ml PRN AFTMEALHC PRN PO DYSPEPSIA; Start 03/15/17 at 01:15 Magnesium Hydroxide (Milk Of Magnesia) 2,400 mg PRN QHS PRN PO CONSTIPATION Last administered on 03/27/17 10:16; Start 03/15/17 at 01:15 Potassium Chloride/Dextrose 1,000 ml @ 75 mls/hr [id number] IV Last administered on 03/18/17 11:25; Start 03/15/17 at 16:45; Stop 03/18/17 at 18:24; Status DC Divalproex Sodium (Depakote Sprinkles) 125 mg BID92 PO Last administered on 13:31; Start 03/16/17 at 09:00; Stop 03/18/17 at 18:29; Status DC Bisacodyl (Dulcolax Supp) 10 mg PRN DAILY PRN [place] CONSTIPATION Last administered on 03/22/17 21:05; Start 03/15/17 at 19:00 Sodium Biphosphate/ Sodium Phosphate (Fleet Adult) 133 ml PRN DAILY PRN [place] CONSTIPATION Last administered on 03/16/17 05:09; Start 03/15/17 at 19:00 Benztropine Mesylate (Cogentin) 1 mg BID PO Last administered on 03/18/17 17: 04; Start 03/16/17 at 21:00; Stop 03/18/17 at 23:00; Status DC Benztropine Mesylate (Cogentin) 1 mg DAILY PO Last administered on 03/21/17 11:21; Start 03/19/17 at 09:00; Stop 03/21/17 at 12:00; Status DC Enoxaparin Sodium (Lovenox) 30 mg Q24H SQ ; Start 03/16/17 at 18:00; Stop at 18:29; Status DC Enoxaparin Sodium (Lovenox) 30 mg Q24H SQ Last administered on 04/09/17 08:13 ; Start 03/17/17 at 09:00 Megestrol Acetate (Megace) 400 mg BID92 PO Last administered on 04/09/17 14:34 ; Start 03/17/17 at 09:00 Trimethoprim/ Sulfamethoxazole (Bactrim Ss) 1 tab BID PO Last administered on 03/25/17 08:05; Start 03/17/17 at 21:00; Stop 03/25/17 at 20:59; Status DC Ziprasidone (Geodon) 60 mg BID PO Last administered on 04/09/17 08:13; Start 03/17/17 at 21:00 Lactobacillus Rhamnosus (Culturelle) 1 cap BID PO Last administered on 08:13; Start 03/18/17 at 21:00 Divalproex Sodium (Depakote Sprinkles) 250 mg BID92 PO Last administered on 09:35; Start 03/19/17 at 09:00; Stop 03/23/17 at 11:14; Status DC Olanzapine (ZyPREXA ZYDIS) 5 mg PRN Q2HR PRN PO PSYCHOSIS Last administered on 03/26/17 19:44; Start 03/19/17 at 07:00 Clozapine (Clozaril) 25 mg HS PO Last administered on 03/21/17 20:07; Start 03/19/17 at 21:00; Stop 03/22/17 at 18:41; Status DC Trazodone HCl (Desyrel) 100 mg QHS PO Last administered on 04/08/17 20:40; Start 03/19/17 at 21:00 Trazodone HCl (Desyrel) 100 mg PRN QHS PRN PO INSOMNIA Last administered on 00:32; Start 03/19/17 at 19:15 Clozapine (Clozaril) 50 mg HS PO Last administered on 04/01/17 21:12; Start 03/22/17 at 21:00; Stop 04/01/17 at 21:53; Status DC Oxcarbazepine (Trileptal) 150 mg BID92 PO Last administered on 03/26/17 14:01 ; Start 03/23/17 at 14:00; Stop 03/26/17 at 14:01; Status DC Oxcarbazepine (Trileptal) 300 mg BID92 PO Last administered on 04/09/17 14:34 ; Start 03/27/17 at 09:00 Clozapine (Clozaril) 75 mg HS PO Last administered on 04/04/17 19:20; Start 04/02/17 at 21:00; Stop 04/05/17 at 19:29; Status DC Clozapine (Clozaril) 100 mg HS PO ; Start 04/05/17 at 21:00; Stop 04/05/17 at 21:00; Status DC Clozapine (Clozaril) 100 mg HS PO Last administered on 04/08/17 20:40; Start 04/05/17 at 21:00 Levofloxacin (Levaquin) 250 mg DAILY PO Last administered on 04/09/17 08:13; Start 04/06/17 at 17:00; Stop 04/11/17 at 16:59 Lidocaine (Lidoderm) 1 patch PRN DAILY PRN TD pain Last administered on 05:11; Start 04/06/17 at 16:15 Mirtazapine (Remeron) 7.5 mg QHS PO Last administered on 04/08/17 20:40; Start 04/07/17 at 21:00 Tamsulosin HCl (Flomax) 0.4 mg DAILY PO Last administered on 04/09/17 14:39; Start 04/09/17 at 14:00 Gabapentin (Neurontin) 300 mg BID PO ; Start 04/09/17 at 22:30; Stop 04/12/17 at 22:29 Active Scripts Active Reported Omeprazole 40 Mg Capsule.dr 40 Mg PO DAILY Olanzapine 10 Mg Tablet 10 Mg PO TID Megestrol Acetate 400 Mg/10 Ml Oral.susp 400 Mg PO BID Lactulose 10 Gm/15 Ml Solution 30 Ml PO BID Hold if no longer constipated [place] 5-325 Tablet (Hydrocodone Bit/Acetaminophen) 1 Each Tablet 1 Tab PO PRN Q6HRS PRN Tylenol (Acetaminophen) 325 Mg Tablet 650 Mg PO PRN Q4HRS PRN Benztropine Mesylate 1 Mg Tablet 1 Mg PO HS Suppository (Glycerin) 1 Each Supp.rect 1 Each RC PRN DAILY PRN Geodon (Ziprasidone Hcl) 40 Mg Capsule 40 Mg PO BID Sennosides-Docusate Sodium Tab (Sennosides/Docusate Sodium) 1 Each Tablet 1 Each PO BID Miralax (Polyethylene Glycol 3350) 17 Gm Powd.pack 17 Gm PO DAILY Protonix (Pantoprazole Sodium) 20 Mg Tablet.dr 20 Mg PO BID [place] 3 1,000 Mg Softgel ([place]-3 Fatty Acids/Fish Oil) 1 Each Capsule 1 Each PO DAILY Linzess (Linaclotide) 290 Mcg Capsule 290 Mcg PO HS Gabapentin 600 Mg Tablet 600 Mg PO BID Vitamin D (Cholecalciferol (Vitamin D3)) 2,000 Unit Capsule 2,000 Unit PO DAILY Buspirone Hcl 10 Mg Tablet 10 Mg PO TID Benztropine Mesylate 1 Mg Tablet 1 Mg PO TID I have reviewed the current psychotropics carefully including drug interactions. Risk benefit ratio favors no change other than as noted in my dictated progress note. Diagnosis: Problems: (1) Anxiety disorder (2) Bipolar affective, mixed, sev w/ psych (3) Dementia, vascular, with depression (4) Dementia, vascular, with delusions (5) Dementia in Alzheimer's disease with depression (6) Dementia in Alzheimer's disease with delusions (7) Impulse control disorder MIRIAM BRASWELL MD Apr 09, 2017 20:06
[2017-04-09] MEDS: MIRTAZAPINE 7.5 MG TABLET. PO SCH (20:20)
[2017-04-09] MEDS: cloZAPine 100 MG TABLET PO SCH (20:20)
[2017-04-09] MEDS: traZODone 100 MG TABLET. PO SCH (20:20)
[2017-04-09] MEDS: LINACLOTIDE 145 MCG CAPSULE. PO SCH (20:21)
[2017-04-09] MEDS: traZODone 100 MG TABLET. PO PRN (21:33)
[2017-04-09] MEDS: ACETAMINOPHEN 325 MG TABLET PO PRN (21:34)
--- NOTE | 2017-04-09 23:32 | PN ---
DATE: 04/09/2017 This is a late entry 04/07/2017 cover the elements not covered in my initial note 04/07/2017. I met with the patient in the evening of 04/07/2017. Overall, the patient remains irritable, labile, yelling, screaming at times, perhaps a little less so than before. She does have a UTI and is on Levaquin. Slept 5 hours previous evening. Complains of pain in the arm and Dr. Tan ordered a lidocaine patch. REVIEW OF SYSTEMS: Impaired ambulation in a Broda chair. No CV, , pulmonary, eye, ENT system symptoms on review. Reliability poor. Loud in response to every question. Complains of pain as above. MENTAL STATUS EXAM: Oriented to herself and situation. Speech coherent, rapid, loud at times. Abstraction fair, computation impaired, language function intact, attention span short. Mood and affect remains labile. LABORATORY DATA: Reviewed. IMPRESSION: Unchanged from initial note. PLAN: Start Remeron 7.5 mg p.o. at bedtime to help with insomnia. Hopefully, the anxiety as well and mood symptoms. Continue to adjust Clozaril. Consider whether gabapentin needs to be continued or not. Maintain Geodon, trazodone, Zyprexa p.r.n., Trileptal 300 mg twice a day as a mood stabilizer. Adjust further as clinically indicated. MAN Kathleen BRASWELL MD DR: ANAM/aly JOB#: [id number] / [id number]
--- NOTE | 2017-04-09 23:44 | PN ---
DATE: 04/08/2017 This late entry, 04/08/2017, covers elements not covered in my initial note of 04/08/2017. SUBJECTIVE: I met with the patient the evening of 04/08/2017. The previous evening, the patient was yelling less at night, lower in her tone. Continues to have some symptoms of polydipsia, wanting excess amounts of water and we will have to monitor her labs. REVIEW OF SYSTEMS: Ambulation impaired, in Broda chair. No CV, , pulmonary, eye, ENT system symptoms on review. Reliability poor. Complains of pain in her arm. MENTAL STATUS EXAM: Oriented to herself and situation. Speech coherent, rapid, loud at times. Abstraction fair, computation impaired, language function is intact, attention span short. Mood and affect remains labile. LABORATORY DATA: Reviewed. IMPRESSION: Unchanged from initial note. PLAN: Continue current psychotropics. Reviewed drug interactions. Treat the UTI. Make further adjustments as clinically indicated. MIRIAM BRASWELL MD DR: ANAM/aly JOB#: [id number] / [id number]
[2017-04-10] MEDS: HYDROcodone/APAP 5/325MG 1 TAB TABLET PO PRN ×3 (05:35→17:38)
[2017-04-10 05:57] VITALS: BP 121/81
[2017-04-10 06:45] LABS: BASO % 0 % (0-3); EOS # 0.1 x10^3/uL (0.0-0.7); EOS % 1 % (0-3); LYMPH # 1.2 x10^3/uL (1.0-4.8); LYMPH % 18 % (24-48); MEAN CORPUSCULAR HEMOGLOBIN 32 pg (25-35); MEAN CORPUSCULAR HGB CONC 34 g/dL (31-37); MEAN CORPUSCULAR VOLUME 95 fL (79-100); MONO # 0.7 x10^3/uL (0.0-1.1); MONO % 10 % (0-9); NEUT # 4.7 x10^3uL (1.8-7.7); NEUT % 71 % (31-73); PLATELET COUNT 144 x10^3/uL (140-400); RED BLOOD COUNT 3.35 x10^6/uL (3.50-5.40); WHITE BLOOD COUNT 6.6 x10^3/uL (4.0-11.0)
[2017-04-10 06:52] LABS: HEMOGLOBIN 10.7 g/dL (12.0-15.5)
[2017-04-10 07:07] LABS: ALBUMIN 2.2 g/dL (3.4-5.0); ALBUMIN/GLOBULIN RATIO 0.6 (1.0-1.7); CALCIUM 9.1 mg/dL (8.5-10.1); GFR 55.6; MAGNESIUM 1.9 mg/dL (1.8-2.4); TOTAL BILIRUBIN 0.1 mg/dL (0.2-1.0)
[2017-04-10] MEDS: CHOLECALCIFEROL (VITAMIN D3) 1,000 UNIT TABLET PO SCH (10:50)
[2017-04-10] MEDS: levoFLOXacin 250 MG TABLET PO SCH (10:51)
[2017-04-10] MEDS: MEGESTROL 400 MG/10 ML ORAL.SUSP. PO SCH ×2 (10:51→14:02)
[2017-04-10] MEDS: GABAPENTIN 300 MG CAPSULE. PO SCH ×2 (10:51→19:14)
[2017-04-10] MEDS: PANTOPRAZOLE 40 MG TABLET. PO SCH (10:51)
[2017-04-10] MEDS: LACTULOSE 20 GM/30 ML SOLUTION. PO SCH ×2 (10:51→19:13)
[2017-04-10] MEDS: OMEGA-3 FATTY ACIDS/FISH OIL 1,000 MG CAPSULE. PO SCH (10:51)
[2017-04-10] MEDS: SENNOSIDES/DOCUSATE 8.6/50MG TABLET. PO SCH ×2 (10:51→19:13)
[2017-04-10] MEDS: ZIPRASIDONE 60 MG CAPSULE. PO SCH ×2 (10:51→19:14)
[2017-04-10] MEDS: LACTOBACILLUS RHAMNOSUS GG 1 CAPSULE. PO SCH ×2 (10:51→19:13)
[2017-04-10] MEDS: TAMSULOSIN 0.4 MG CAP.ER.24H. PO SCH (10:51)
[2017-04-10] MEDS: ENOXAPARIN 30 MG/0.3 ML DISP.SYRIN. SQ SCH (10:52)
[2017-04-10] MEDS: POLYETHYLENE GLYCOL 3350 17 GM PACKET. PO SCH (10:55)
[2017-04-10 16:02] VITALS: BP 108/68
[2017-04-10] MEDS: MIRTAZAPINE 7.5 MG TABLET. PO SCH (19:14)
[2017-04-10] MEDS: cloZAPine 100 MG TABLET PO SCH (19:14)
[2017-04-10] MEDS: traZODone 100 MG TABLET. PO SCH (19:14)
[2017-04-10] MEDS: oxyCODONE ER 10 MG TAB.ER.12H PO SCH (19:43)
[2017-04-10] MEDS: LINACLOTIDE 145 MCG CAPSULE. PO SCH (19:43)
--- NOTE | 2017-04-10 20:04 | PDOC ---
Exam Note: Kayden Note: Please also refer to the separate dictated note~for this date of service dictated separately.~Patient seen individually. Discussed the patient with Nursing staff reviewed the chart.~Reviewed interim history and current functioning. Reviewed vital signs,~Labs/ Radiology~and current medications noted below. Continue current treatment with the changes noted in the dictated addendum note Assessment: Vital Signs: Vital Signs Date Time Temp Pulse Resp B/P (MAP) Pulse Ox O2 Delivery O2 Flow Rate FiO2 04/10/17 19:43 Room Air 04/10/17 16:02 98.9 90 20 108/68 (81) 98 I&O Intake and Output 04/10/17 07:00 Intake Total 1440 ml Balance 1440 ml Intake Oral 1440 ml Labs: Laboratory Tests Test 04/10/17 06:21 White Blood Count 6.6 x10^3/uL (4.0-11.0) Red Blood Count 3.35 x10^6/uL (3.50-5.40) L Hemoglobin 10.7 g/dL (12.0-15.5) L Hematocrit 32.0 % (36.0-47.0) L Mean Corpuscular Volume 95 fL (79-100) Mean Corpuscular Hemoglobin 32 pg (25-35) Mean Corpuscular Hemoglobin Concent 34 g/dL (31-37) Red Cell Distribution Width 16.0 % (11.5-14.5) H Platelet Count 144 x10^3/uL (140-400) Neutrophils (%) (Auto) 71 % (31-73) Lymphocytes (%) (Auto) 18 % (24-48) L Monocytes (%) (Auto) 10 % (0-9) H Eosinophils (%) (Auto) 1 % (0-3) Basophils (%) (Auto) 0 % (0-3) Neutrophils # (Auto) 4.7 x10^3uL (1.8-7.7) Lymphocytes # (Auto) 1.2 x10^3/uL (1.0-4.8) Monocytes # (Auto) 0.7 x10^3/uL (0.0-1.1) Eosinophils # (Auto) 0.1 x10^3/uL (0.0-0.7) Basophils # (Auto) 0.0 x10^3/uL (0.0-0.2) Sodium Level 142 mmol/L (136-145) Potassium Level 4.0 mmol/L (3.5-5.1) Chloride Level 109 mmol/L (98-107) H Carbon Dioxide Level 23 mmol/L (21-32) Anion Gap 10 (6-14) Blood Urea Nitrogen 19 mg/dL (7-20) Creatinine 1.0 mg/dL (0.6-1.0) Estimated GFR (Cockcroft-Gault) 55.6 BUN/Creatinine Ratio 19 (6-20) Glucose Level 105 mg/dL (70-99) H Calcium Level 9.1 mg/dL (8.5-10.1) Magnesium Level 1.9 mg/dL (1.8-2.4) Total Bilirubin 0.1 mg/dL (0.2-1.0) L Aspartate Amino Transferase (AST) 16 U/L (15-37) Alanine Aminotransferase (ALT) 18 U/L (14-59) Alkaline Phosphatase 61 U/L (46-116) Total Protein 6.0 g/dL (6.4-8.2) L Albumin 2.2 g/dL (3.4-5.0) L Albumin/Globulin Ratio 0.6 (1.0-1.7) L Current Medications: Meds: Current Medications Benztropine Mesylate (Cogentin) 1 mg TID PO Last administered on 03/16/17 08: 39; Start 03/14/17 at 22:30; Stop 03/16/17 at 11:57; Status DC Buspirone HCl (Buspar) 10 mg TID PO Last administered on 03/16/17 08:40; Start 03/14/17 at 22:30; Stop 03/16/17 at 11:57; Status DC Ziprasidone (Geodon) 40 mg BID PO Last administered on 03/17/17 08:01; Start 03/14/17 at 22:30; Stop 03/17/17 at 18:48; Status DC Glycerin (Sani-Supp Adult) 1 supp PRN DAILY PRN RC CONSTIPATION; Start at 22:30 Pantoprazole Sodium (Protonix) 40 mg DAILYAC PO Last administered on 04/10/17 10:51; Start 03/15/17 at 07:30 Polyethylene Glycol (miraLAX) 17 gm DAILY PO Last administered on 04/10/17 10: 55; Start 03/15/17 at 09:00 Senna/Docusate Sodium (Senna Plus) 1 tab BID PO Last administered on 04/10/17 19:13; Start 03/14/17 at 22:30 Vitamin D (Vitamin D3) 2,000 unit DAILY PO Last administered on 04/10/17 10:50 ; Start 03/15/17 at 09:00 Gabapentin (Neurontin) 600 mg BID PO Last administered on 04/09/17 08:14; Start 03/14/17 at 22:30; Stop 04/09/17 at 18:49; Status DC Non-Formulary Medication 290 mcg HS PO ; Start 03/15/17 at 21:00; Status UNV Fish Oil (Fish Oil) 1,000 mg DAILY PO Last administered on 04/10/17 10:51; Start 03/15/17 at 09:00 Benztropine Mesylate (Cogentin) 1 mg HS PO ; Start 03/15/17 at 21:00; Stop 03/15 at 21:00; Status DC Olanzapine (ZyPREXA) 10 mg TID PO Last administered on 03/16/17 08:39; Start 03/14/17 at 23:00; Stop 03/16/17 at 11:57; Status DC Acetaminophen (Tylenol) 650 mg PRN Q4HRS PRN PO PAIN / TEMP Last administered on 04/09/17 21:34; Start 03/14/17 at 22:45 Acetaminophen/ Hydrocodone Bitart (Lortab 5/325) 1 tab PRN Q6HRS PRN PO PAIN Last administered on 04/10/17 11:53; Start 03/14/17 at 22:45 Megestrol Acetate (Megace) 400 mg BID PO Last administered on 03/16/17 08:41; Start 03/14/17 at 23:00; Stop 03/16/17 at 21:03; Status DC Lactulose 20 gm BID PO Last administered on 04/10/17 19:13; Start 03/14/17 at 23:00 Pantoprazole Sodium (Protonix) 40 mg DAILYAC PO ; Start 03/15/17 at 07:30; Stop 03/16/17 at 19:39; Status DC Acetaminophen (Tylenol) 650 mg PRN Q6HRS PRN PO PAIN / TEMP; Start 03/15/17 at 01:15; Stop 03/25/17 at 14:08; Status DC Multi-Ingredient Ointment (Analgesic [place]) 1 landon PRN QID PRN TP MUSCLE PAIN; Start 03/15/17 at 01:15 Al Hydroxide/Mg Hydroxide (Mylanta Plus Xs) 15 ml PRN AFTMEALHC PRN PO DYSPEPSIA; Start 03/15/17 at 01:15 Magnesium Hydroxide (Milk Of Magnesia) 2,400 mg PRN QHS PRN PO CONSTIPATION Last administered on 03/27/17 10:16; Start 03/15/17 at 01:15 Potassium Chloride/Dextrose 1,000 ml @ 75 mls/hr [id number] IV Last administered on 03/18/17 11:25; Start 03/15/17 at 16:45; Stop 03/18/17 at 18:24; Status DC Divalproex Sodium (Depakote Sprinkles) 125 mg BID92 PO Last administered on 13:31; Start 03/16/17 at 09:00; Stop 03/18/17 at 18:29; Status DC Bisacodyl (Dulcolax Supp) 10 mg PRN DAILY PRN [place] CONSTIPATION Last administered on 03/22/17 21:05; Start 03/15/17 at 19:00 Sodium Biphosphate/ Sodium Phosphate (Fleet Adult) 133 ml PRN DAILY PRN SC CONSTIPATION Last administered on 03/16/17 05:09; Start 03/15/17 at 19:00 Benztropine Mesylate (Cogentin) 1 mg BID PO Last administered on 03/18/17 17: 04; Start 03/16/17 at 21:00; Stop 03/18/17 at 23:00; Status DC Benztropine Mesylate (Cogentin) 1 mg DAILY PO Last administered on 03/21/17 11:21; Start 03/19/17 at 09:00; Stop 03/21/17 at 12:00; Status DC Enoxaparin Sodium (Lovenox) 30 mg Q24H SQ ; Start 03/16/17 at 18:00; Stop at 18:29; Status DC Enoxaparin Sodium (Lovenox) 30 mg Q24H SQ Last administered on 04/10/17 10:52 ; Start 03/17/17 at 09:00 Megestrol Acetate (Megace) 400 mg BID92 PO Last administered on 04/10/17 14:02 ; Start 03/17/17 at 09:00 Trimethoprim/ Sulfamethoxazole (Bactrim Ss) 1 tab BID PO Last administered on 03/25/17 08:05; Start 03/17/17 at 21:00; Stop 03/25/17 at 20:59; Status DC Ziprasidone (Geodon) 60 mg BID PO Last administered on 04/10/17 19:14; Start 03/17/17 at 21:00 Lactobacillus Rhamnosus (Culturelle) 1 cap BID PO Last administered on 19:13; Start 03/18/17 at 21:00 Divalproex Sodium (Depakote Sprinkles) 250 mg BID92 PO Last administered on 09:35; Start 03/19/17 at 09:00; Stop 03/23/17 at 11:14; Status DC Olanzapine (ZyPREXA ZYDIS) 5 mg PRN Q2HR PRN PO PSYCHOSIS Last administered on 03/26/17 19:44; Start 03/19/17 at 07:00 Clozapine (Clozaril) 25 mg HS PO Last administered on 03/21/17 20:07; Start 03/19/17 at 21:00; Stop 03/22/17 at 18:41; Status DC Trazodone HCl (Desyrel) 100 mg QHS PO Last administered on 04/10/17 19:14; Start 03/19/17 at 21:00 Trazodone HCl (Desyrel) 100 mg PRN QHS PRN PO INSOMNIA Last administered on 21:33; Start 03/19/17 at 19:15 Clozapine (Clozaril) 50 mg HS PO Last administered on 04/01/17 21:12; Start 03/22/17 at 21:00; Stop 04/01/17 at 21:53; Status DC Oxcarbazepine (Trileptal) 150 mg BID92 PO Last administered on 03/26/17 14:01 ; Start 03/23/17 at 14:00; Stop 03/26/17 at 14:01; Status DC Oxcarbazepine (Trileptal) 300 mg BID92 PO Last administered on 04/10/17 14:02 ; Start 03/27/17 at 09:00 Clozapine (Clozaril) 75 mg HS PO Last administered on 04/04/17 19:20; Start 04/02/17 at 21:00; Stop 04/05/17 at 19:29; Status DC Clozapine (Clozaril) 100 mg HS PO ; Start 04/05/17 at 21:00; Stop 04/05/17 at 21:00; Status DC Clozapine (Clozaril) 100 mg HS PO Last administered on 04/10/17 19:14; Start 04/05/17 at 21:00 Levofloxacin (Levaquin) 250 mg DAILY PO Last administered on 04/10/17 10:51; Start 04/06/17 at 17:00; Stop 04/11/17 at 16:59 Lidocaine (Lidoderm) 1 patch PRN DAILY PRN TD pain Last administered on 05:11; Start 04/06/17 at 16:15 Mirtazapine (Remeron) 7.5 mg QHS PO Last administered on 04/10/17 19:14; Start 04/07/17 at 21:00 Tamsulosin HCl (Flomax) 0.4 mg DAILY PO Last administered on 04/10/17 10:51; Start 04/09/17 at 14:00 Gabapentin (Neurontin) 300 mg BID PO Last administered on 04/10/17 19:14; Start 04/09/17 at 22:30; Stop 04/12/17 at 22:29 Oxycodone HCl (OxyCONTIN) 10 mg Q12HR PO Last administered on 04/10/17 19:43; Start 04/10/17 at 21:00 Active Scripts Active Reported Omeprazole 40 Mg Capsule.dr 40 Mg PO DAILY Olanzapine 10 Mg Tablet 10 Mg PO TID Megestrol Acetate 400 Mg/10 Ml Oral.susp 400 Mg PO BID Lactulose 10 Gm/15 Ml Solution 30 Ml PO BID Hold if no longer constipated [place] 5-325 Tablet (Hydrocodone Bit/Acetaminophen) 1 Each Tablet 1 Tab PO PRN Q6HRS PRN Tylenol (Acetaminophen) 325 Mg Tablet 650 Mg PO PRN Q4HRS PRN Benztropine Mesylate 1 Mg Tablet 1 Mg PO HS Suppository (Glycerin) 1 Each Supp.rect 1 Each RC PRN DAILY PRN Geodon (Ziprasidone Hcl) 40 Mg Capsule 40 Mg PO BID Sennosides-Docusate Sodium Tab (Sennosides/Docusate Sodium) 1 Each Tablet 1 Each PO BID Miralax (Polyethylene Glycol 3350) 17 Gm Powd.pack 17 Gm PO DAILY Protonix (Pantoprazole Sodium) 20 Mg Tablet.dr 20 Mg PO BID [place] 3 1,000 Mg Softgel ([place]-3 Fatty Acids/Fish Oil) 1 Each Capsule 1 Each PO DAILY Linzess (Linaclotide) 290 Mcg Capsule 290 Mcg PO HS Gabapentin 600 Mg Tablet 600 Mg PO BID Vitamin D (Cholecalciferol (Vitamin D3)) 2,000 Unit Capsule 2,000 Unit PO DAILY Buspirone Hcl 10 Mg Tablet 10 Mg PO TID Benztropine Mesylate 1 Mg Tablet 1 Mg PO TID I have reviewed the current psychotropics carefully including drug interactions. Risk benefit ratio favors no change other than as noted in my dictated progress note. Diagnosis: Problems: (1) Anxiety disorder (2) Bipolar affective, mixed, sev w/ psych (3) Dementia, vascular, with depression (4) Dementia, vascular, with delusions (5) Dementia in Alzheimer's disease with depression (6) Dementia in Alzheimer's disease with delusions (7) Impulse control disorder MIRIAM BRASWELL MD Apr 10, 2017 20:04
[2017-04-10] MEDS: traZODone 100 MG TABLET. PO PRN (22:45)
[2017-04-11 06:28] VITALS: BP 105/77
--- NOTE | 2017-04-11 07:12 | PN ---
DATE: 04/09/2017 PSYCHIATRIC PROGRESS NOTE This is a late entry 04/09/2017, covers elements not covered in my initial note of 04/09/2017. Met with the patient in the evening of 04/09/2017. The patient slept 6-3/4 hours previous evening. Her daughter visited and shared with the nursing staff, she felt the patient was worse as compared to even on Monday. The patient taking increased oral fluids with some polydipsia. We will continue to monitor labs. REVIEW OF SYSTEMS: Ambulation impaired, in Broda chair. No CV, , pulmonary, eye, ENT system symptoms on review. Reliability poor. MENTAL STATUS EXAM: Oriented to herself and situation. Speech coherent, rapid, loud at times, able to correct this as I redirected. Abstraction fair, computation impaired, language function intact, attention span short. Mood and affect remains labile. LABORATORY DATA: Reviewed. IMPRESSION: Unchanged from initial note. PLAN: Continue psychotropics mentioned in my initial note. Adjust further as clinically indicated. MIRIAM BRASWELL MD DR: ANAM/aly JOB#: [id number] / [id number]
[2017-04-11] MEDS: SENNOSIDES/DOCUSATE 8.6/50MG TABLET. PO SCH ×2 (10:25→19:16)
[2017-04-11] MEDS: CHOLECALCIFEROL (VITAMIN D3) 1,000 UNIT TABLET PO SCH (10:25)
[2017-04-11] MEDS: OMEGA-3 FATTY ACIDS/FISH OIL 1,000 MG CAPSULE. PO SCH (10:25)
[2017-04-11] MEDS: TAMSULOSIN 0.4 MG CAP.ER.24H. PO SCH (10:25)
[2017-04-11] MEDS: LACTOBACILLUS RHAMNOSUS GG 1 CAPSULE. PO SCH ×2 (10:25→19:17)
[2017-04-11] MEDS: PANTOPRAZOLE 40 MG TABLET. PO SCH (10:25)
[2017-04-11] MEDS: levoFLOXacin 250 MG TABLET PO SCH (10:25)
[2017-04-11] MEDS: ZIPRASIDONE 60 MG CAPSULE. PO SCH ×2 (10:25→19:17)
[2017-04-11] MEDS: ENOXAPARIN 30 MG/0.3 ML DISP.SYRIN. SQ SCH (10:26)
[2017-04-11] MEDS: LACTULOSE 20 GM/30 ML SOLUTION. PO SCH ×2 (10:26→19:16)
[2017-04-11] MEDS: POLYETHYLENE GLYCOL 3350 17 GM PACKET. PO SCH (10:27)
[2017-04-11] MEDS: MEGESTROL 400 MG/10 ML ORAL.SUSP. PO SCH ×2 (10:29→13:53)
[2017-04-11] MEDS: oxyCODONE ER 10 MG TAB.ER.12H PO SCH ×2 (10:30→19:54)
[2017-04-11] MEDS: GABAPENTIN 300 MG CAPSULE. PO SCH ×2 (10:30→19:16)
[2017-04-11] MEDS: HYDROcodone/APAP 5/325MG 1 TAB TABLET PO PRN (13:53)
[2017-04-11 15:15] VITALS: BP 123/72
[2017-04-11] MEDS: cloZAPine 100 MG TABLET PO SCH (19:17)
[2017-04-11] MEDS: traZODone 100 MG TABLET. PO SCH (19:18)
[2017-04-11] MEDS: LINACLOTIDE 145 MCG CAPSULE. PO SCH (19:18)
[2017-04-11] MEDS: cloZAPine 25 MG TABLET PO SCH (19:53)
--- NOTE | 2017-04-11 20:04 | PDOC ---
Exam Note: Kayden Note: Please also refer to the separate dictated note~for this date of service dictated separately.~Patient seen individually. Discussed the patient with Nursing staff reviewed the chart.~Reviewed interim history and current functioning. Reviewed vital signs,~Labs/ Radiology~and current medications noted below. Continue current treatment with the changes noted in the dictated addendum note Assessment: Vital Signs: Vital Signs Date Time Temp Pulse Resp B/P (MAP) Pulse Ox O2 Delivery O2 Flow Rate FiO2 04/11/17 15:15 97.1 105 22 123/72 (89) 04/11/17 15:15 98 Room Air I&O Intake and Output 04/11/17 07:00 Intake Total 2000 ml Balance 2000 ml Intake Oral 2000 ml # Voids 4 # Bowel Movements 2 Current Medications: Meds: Current Medications Benztropine Mesylate (Cogentin) 1 mg TID PO Last administered on 03/16/17 08: 39; Start 03/14/17 at 22:30; Stop 03/16/17 at 11:57; Status DC Buspirone HCl (Buspar) 10 mg TID PO Last administered on 03/16/17 08:40; Start 03/14/17 at 22:30; Stop 03/16/17 at 11:57; Status DC Ziprasidone (Geodon) 40 mg BID PO Last administered on 03/17/17 08:01; Start 03/14/17 at 22:30; Stop 03/17/17 at 18:48; Status DC Glycerin (Sani-Supp Adult) 1 supp PRN DAILY PRN RC CONSTIPATION; Start at 22:30 Pantoprazole Sodium (Protonix) 40 mg DAILYAC PO Last administered on 04/11/17 10:25; Start 03/15/17 at 07:30 Polyethylene Glycol (miraLAX) 17 gm DAILY PO Last administered on 04/11/17 10: 27; Start 03/15/17 at 09:00 Senna/Docusate Sodium (Senna Plus) 1 tab BID PO Last administered on 04/11/17 19:16; Start 03/14/17 at 22:30 Vitamin D (Vitamin D3) 2,000 unit DAILY PO Last administered on 04/11/17 10:25 ; Start 03/15/17 at 09:00 Gabapentin (Neurontin) 600 mg BID PO Last administered on 04/09/17 08:14; Start 03/14/17 at 22:30; Stop 04/09/17 at 18:49; Status DC Non-Formulary Medication 290 mcg HS PO ; Start 03/15/17 at 21:00; Status UNV Fish Oil (Fish Oil) 1,000 mg DAILY PO Last administered on 04/11/17 10:25; Start 03/15/17 at 09:00 Benztropine Mesylate (Cogentin) 1 mg HS PO ; Start 03/15/17 at 21:00; Stop 03/15 at 21:00; Status DC Olanzapine (ZyPREXA) 10 mg TID PO Last administered on 03/16/17 08:39; Start 03/14/17 at 23:00; Stop 03/16/17 at 11:57; Status DC Acetaminophen (Tylenol) 650 mg PRN Q4HRS PRN PO PAIN / TEMP Last administered on 04/09/17 21:34; Start 03/14/17 at 22:45 Acetaminophen/ Hydrocodone Bitart (Lortab 5/325) 1 tab PRN Q6HRS PRN PO PAIN Last administered on 04/11/17 13:53; Start 03/14/17 at 22:45 Megestrol Acetate (Megace) 400 mg BID PO Last administered on 03/16/17 08:41; Start 03/14/17 at 23:00; Stop 03/16/17 at 21:03; Status DC Lactulose 20 gm BID PO Last administered on 04/11/17 19:16; Start 03/14/17 at 23:00 Pantoprazole Sodium (Protonix) 40 mg DAILYAC PO ; Start 03/15/17 at 07:30; Stop 03/16/17 at 19:39; Status DC Acetaminophen (Tylenol) 650 mg PRN Q6HRS PRN PO PAIN / TEMP; Start 03/15/17 at 01:15; Stop 03/25/17 at 14:08; Status DC Multi-Ingredient Ointment (Analgesic [place]) 1 landon PRN QID PRN TP MUSCLE PAIN; Start 03/15/17 at 01:15 Al Hydroxide/Mg Hydroxide (Mylanta Plus Xs) 15 ml PRN AFTMEALHC PRN PO DYSPEPSIA Last administered on 04/11/17 16:46; Start 03/15/17 at 01:15 Magnesium Hydroxide (Milk Of Magnesia) 2,400 mg PRN QHS PRN PO CONSTIPATION Last administered on 03/27/17 10:16; Start 03/15/17 at 01:15 Potassium Chloride/Dextrose 1,000 ml @ 75 mls/hr [id number] IV Last administered on 03/18/17 11:25; Start 03/15/17 at 16:45; Stop 03/18/17 at 18:24; Status DC Divalproex Sodium (Depakote Sprinkles) 125 mg BID92 PO Last administered on 13:31; Start 03/16/17 at 09:00; Stop 03/18/17 at 18:29; Status DC Bisacodyl (Dulcolax Supp) 10 mg PRN DAILY PRN [place] CONSTIPATION Last administered on 03/22/17 21:05; Start 03/15/17 at 19:00 Sodium Biphosphate/ Sodium Phosphate (Fleet Adult) 133 ml PRN DAILY PRN MS CONSTIPATION Last administered on 03/16/17 05:09; Start 03/15/17 at 19:00 Benztropine Mesylate (Cogentin) 1 mg BID PO Last administered on 03/18/17 17: 04; Start 03/16/17 at 21:00; Stop 03/18/17 at 23:00; Status DC Benztropine Mesylate (Cogentin) 1 mg DAILY PO Last administered on 03/21/17 11:21; Start 03/19/17 at 09:00; Stop 03/21/17 at 12:00; Status DC Enoxaparin Sodium (Lovenox) 30 mg Q24H SQ ; Start 03/16/17 at 18:00; Stop at 18:29; Status DC Enoxaparin Sodium (Lovenox) 30 mg Q24H SQ Last administered on 04/11/17 10:26 ; Start 03/17/17 at 09:00 Megestrol Acetate (Megace) 400 mg BID92 PO Last administered on 04/11/17 13:53 ; Start 03/17/17 at 09:00 Trimethoprim/ Sulfamethoxazole (Bactrim Ss) 1 tab BID PO Last administered on 03/25/17 08:05; Start 03/17/17 at 21:00; Stop 03/25/17 at 20:59; Status DC Ziprasidone (Geodon) 60 mg BID PO Last administered on 04/11/17 19:17; Start 03/17/17 at 21:00 Lactobacillus Rhamnosus (Culturelle) 1 cap BID PO Last administered on 19:17; Start 03/18/17 at 21:00 Divalproex Sodium (Depakote Sprinkles) 250 mg BID92 PO Last administered on 09:35; Start 03/19/17 at 09:00; Stop 03/23/17 at 11:14; Status DC Olanzapine (ZyPREXA ZYDIS) 5 mg PRN Q2HR PRN PO PSYCHOSIS Last administered on 03/26/17 19:44; Start 03/19/17 at 07:00 Clozapine (Clozaril) 25 mg HS PO Last administered on 03/21/17 20:07; Start 03/19/17 at 21:00; Stop 03/22/17 at 18:41; Status DC Trazodone HCl (Desyrel) 100 mg QHS PO Last administered on 04/11/17 19:18; Start 03/19/17 at 21:00 Trazodone HCl (Desyrel) 100 mg PRN QHS PRN PO INSOMNIA Last administered on 21:33; Start 03/19/17 at 19:15 Clozapine (Clozaril) 50 mg HS PO Last administered on 04/01/17 21:12; Start 03/22/17 at 21:00; Stop 04/01/17 at 21:53; Status DC Oxcarbazepine (Trileptal) 150 mg BID92 PO Last administered on 03/26/17 14:01 ; Start 03/23/17 at 14:00; Stop 03/26/17 at 14:01; Status DC Oxcarbazepine (Trileptal) 300 mg BID92 PO Last administered on 04/11/17 13:53 ; Start 03/27/17 at 09:00 Clozapine (Clozaril) 75 mg HS PO Last administered on 04/04/17 19:20; Start 04/02/17 at 21:00; Stop 04/05/17 at 19:29; Status DC Clozapine (Clozaril) 100 mg HS PO ; Start 04/05/17 at 21:00; Stop 04/05/17 at 21:00; Status DC Clozapine (Clozaril) 100 mg HS PO Last administered on 04/10/17 19:14; Start 04/05/17 at 21:00; Stop 04/11/17 at 18:28; Status DC Levofloxacin (Levaquin) 250 mg DAILY PO Last administered on 04/11/17 10:25; Start 04/06/17 at 17:00; Stop 04/11/17 at 17:00; Status DC Lidocaine (Lidoderm) 1 patch PRN DAILY PRN TD pain Last administered on 05:11; Start 04/06/17 at 16:15 Mirtazapine (Remeron) 7.5 mg QHS PO Last administered on 04/10/17 19:14; Start 04/07/17 at 21:00; Stop 04/11/17 at 16:13; Status DC Tamsulosin HCl (Flomax) 0.4 mg DAILY PO Last administered on 04/11/17 10:25; Start 04/09/17 at 14:00 Gabapentin (Neurontin) 300 mg BID PO Last administered on 04/11/17 19:16; Start 04/09/17 at 22:30; Stop 04/12/17 at 22:29 Oxycodone HCl (OxyCONTIN) 10 mg Q12HR PO Last administered on 04/11/17 19:54; Start 04/10/17 at 21:00 Clozapine (Clozaril) 100 mg HS PO Last administered on 04/11/17 19:17; Start 04/11/17 at 21:00 Clozapine (Clozaril) 25 mg HS PO Last administered on 04/11/17 19:53; Start 04/11/17 at 21:00 Active Scripts Active Reported Omeprazole 40 Mg Capsule.dr 40 Mg PO DAILY Olanzapine 10 Mg Tablet 10 Mg PO TID Megestrol Acetate 400 Mg/10 Ml Oral.susp 400 Mg PO BID Lactulose 10 Gm/15 Ml Solution 30 Ml PO BID Hold if no longer constipated [place] 5-325 Tablet (Hydrocodone Bit/Acetaminophen) 1 Each Tablet 1 Tab PO PRN Q6HRS PRN Tylenol (Acetaminophen) 325 Mg Tablet 650 Mg PO PRN Q4HRS PRN Benztropine Mesylate 1 Mg Tablet 1 Mg PO HS Suppository (Glycerin) 1 Each Supp.rect 1 Each RC PRN DAILY PRN Geodon (Ziprasidone Hcl) 40 Mg Capsule 40 Mg PO BID Sennosides-Docusate Sodium Tab (Sennosides/Docusate Sodium) 1 Each Tablet 1 Each PO BID Miralax (Polyethylene Glycol 3350) 17 Gm Powd.pack 17 Gm PO DAILY Protonix (Pantoprazole Sodium) 20 Mg Tablet.dr 20 Mg PO BID [place] 3 1,000 Mg Softgel ([place]-3 Fatty Acids/Fish Oil) 1 Each Capsule 1 Each PO DAILY Linzess (Linaclotide) 290 Mcg Capsule 290 Mcg PO HS Gabapentin 600 Mg Tablet 600 Mg PO BID Vitamin D (Cholecalciferol (Vitamin D3)) 2,000 Unit Capsule 2,000 Unit PO DAILY Buspirone Hcl 10 Mg Tablet 10 Mg PO TID Benztropine Mesylate 1 Mg Tablet 1 Mg PO TID I have reviewed the current psychotropics carefully including drug interactions. Risk benefit ratio favors no change other than as noted in my dictated progress note. Diagnosis: Problems: (1) Anxiety disorder (2) Bipolar affective, mixed, sev w/ psych (3) Dementia, vascular, with depression (4) Dementia, vascular, with delusions (5) Dementia in Alzheimer's disease with depression (6) Dementia in Alzheimer's disease with delusions (7) Impulse control disorder MIRIAM BRASWELL MD Apr 11, 2017 20:04
[2017-04-12] MEDS: HYDROcodone/APAP 5/325MG 1 TAB TABLET PO PRN ×2 (05:01→13:37)
[2017-04-12 06:34] VITALS: BP 134/83
[2017-04-12] MEDS: OMEGA-3 FATTY ACIDS/FISH OIL 1,000 MG CAPSULE. PO SCH (08:02)
[2017-04-12] MEDS: SENNOSIDES/DOCUSATE 8.6/50MG TABLET. PO SCH ×2 (08:02→19:31)
[2017-04-12] MEDS: ZIPRASIDONE 60 MG CAPSULE. PO SCH ×2 (08:03→19:31)
[2017-04-12] MEDS: LACTULOSE 20 GM/30 ML SOLUTION. PO SCH ×2 (08:03→19:31)
[2017-04-12] MEDS: CHOLECALCIFEROL (VITAMIN D3) 1,000 UNIT TABLET PO SCH (08:03)
[2017-04-12] MEDS: PANTOPRAZOLE 40 MG TABLET. PO SCH (08:03)
[2017-04-12] MEDS: LACTOBACILLUS RHAMNOSUS GG 1 CAPSULE. PO SCH ×2 (08:03→19:31)
[2017-04-12] MEDS: TAMSULOSIN 0.4 MG CAP.ER.24H. PO SCH (08:03)
[2017-04-12] MEDS: GABAPENTIN 300 MG CAPSULE. PO SCH ×2 (08:03→19:32)
[2017-04-12] MEDS: POLYETHYLENE GLYCOL 3350 17 GM PACKET. PO SCH (08:03)
[2017-04-12] MEDS: ENOXAPARIN 30 MG/0.3 ML DISP.SYRIN. SQ SCH (08:04)
[2017-04-12] MEDS: MEGESTROL 400 MG/10 ML ORAL.SUSP. PO SCH ×2 (08:05→13:36)
[2017-04-12] MEDS: oxyCODONE ER 10 MG TAB.ER.12H PO SCH ×2 (08:06→19:35)
--- NOTE | 2017-04-12 14:02 | PN ---
DATE: 04/10/2017 This is a late entry for 04/10/2017 and covers the elements not covered in my initial of 04/10/2017. SUBJECTIVE: I met with the patient in the evening of 04/10/2017. The patient has been agitated, calling out repeatedly, not eating solid foods, will drink Boost and all other liquids. REVIEW OF SYSTEMS: Ambulation impaired, in Broda chair. No CV, , pulmonary, eye, ENT system symptoms on review. Intense tearful, yelling and little better at times, but varies. Reliability poor. MENTAL STATUS EXAM: Oriented to herself and situation. Speech loud, repetitive, high pitched, abstraction fair, computation impaired, language function intact. Memory is impaired. Mood and affect remains labile. Attention span short. Language function intact. LABORATORY DATA: Reviewed. IMPRESSION: Schizoaffective disorder, bipolar type, mixed with psychotic features; major neurocognitive disorder, Alzheimer, vascular with delusions, behavioral disturbance. Rest unchanged. PLAN: Continue current psychotropics mentioned in my initial note. Adjust further as clinically indicated. MAN Kathleen BRASWELL MD DR: ANAM/aly JOB#: [id number] / [id number]
[2017-04-12 16:33] VITALS: BP 127/89
[2017-04-12] MEDS: traZODone 100 MG TABLET. PO SCH (19:31)
[2017-04-12] MEDS: cloZAPine 100 MG TABLET PO SCH (19:31)
[2017-04-12] MEDS: cloZAPine 25 MG TABLET PO SCH (19:31)
[2017-04-12] MEDS: LINACLOTIDE 145 MCG CAPSULE. PO SCH (19:36)
--- NOTE | 2017-04-12 21:14 | PDOC ---
Exam Note: Kayden Note: Please also refer to the separate dictated note~for this date of service dictated separately.~Patient seen individually. Discussed the patient with Nursing staff reviewed the chart.~Reviewed interim history and current functioning. Reviewed vital signs,~Labs/ Radiology~and current medications noted below. Continue current treatment with the changes noted in the dictated addendum note Assessment: Vital Signs: Vital Signs Date Time Temp Pulse Resp B/P (MAP) Pulse Ox O2 Delivery O2 Flow Rate FiO2 04/12/17 19:35 Room Air 04/12/17 16:33 97.9 94 18 127/89 (102) 96 I&O Intake and Output 04/12/17 07:00 Intake Total 2760 ml Balance 2760 ml Intake Oral 2760 ml # Bowel Movements 1 Current Medications: Meds: Current Medications Benztropine Mesylate (Cogentin) 1 mg TID PO Last administered on 03/16/17 08: 39; Start 03/14/17 at 22:30; Stop 03/16/17 at 11:57; Status DC Buspirone HCl (Buspar) 10 mg TID PO Last administered on 03/16/17 08:40; Start 03/14/17 at 22:30; Stop 03/16/17 at 11:57; Status DC Ziprasidone (Geodon) 40 mg BID PO Last administered on 03/17/17 08:01; Start 03/14/17 at 22:30; Stop 03/17/17 at 18:48; Status DC Glycerin (Sani-Supp Adult) 1 supp PRN DAILY PRN RC CONSTIPATION; Start at 22:30 Pantoprazole Sodium (Protonix) 40 mg DAILYAC PO Last administered on 04/12/17 08:03; Start 03/15/17 at 07:30 Polyethylene Glycol (miraLAX) 17 gm DAILY PO Last administered on 04/12/17 08: 03; Start 03/15/17 at 09:00 Senna/Docusate Sodium (Senna Plus) 1 tab BID PO Last administered on 04/12/17 19:31; Start 03/14/17 at 22:30 Vitamin D (Vitamin D3) 2,000 unit DAILY PO Last administered on 04/12/17 08:03 ; Start 03/15/17 at 09:00 Gabapentin (Neurontin) 600 mg BID PO Last administered on 04/09/17 08:14; Start 03/14/17 at 22:30; Stop 04/09/17 at 18:49; Status DC Non-Formulary Medication 290 mcg HS PO ; Start 03/15/17 at 21:00; Status UNV Fish Oil (Fish Oil) 1,000 mg DAILY PO Last administered on 04/12/17 08:02; Start 03/15/17 at 09:00 Benztropine Mesylate (Cogentin) 1 mg HS PO ; Start 03/15/17 at 21:00; Stop 03/15 at 21:00; Status DC Olanzapine (ZyPREXA) 10 mg TID PO Last administered on 03/16/17 08:39; Start 03/14/17 at 23:00; Stop 03/16/17 at 11:57; Status DC Acetaminophen (Tylenol) 650 mg PRN Q4HRS PRN PO PAIN / TEMP Last administered on 04/09/17 21:34; Start 03/14/17 at 22:45 Acetaminophen/ Hydrocodone Bitart (Lortab 5/325) 1 tab PRN Q6HRS PRN PO PAIN Last administered on 04/12/17 13:37; Start 03/14/17 at 22:45 Megestrol Acetate (Megace) 400 mg BID PO Last administered on 03/16/17 08:41; Start 03/14/17 at 23:00; Stop 03/16/17 at 21:03; Status DC Lactulose 20 gm BID PO Last administered on 04/12/17 19:31; Start 03/14/17 at 23:00 Pantoprazole Sodium (Protonix) 40 mg DAILYAC PO ; Start 03/15/17 at 07:30; Stop 03/16/17 at 19:39; Status DC Acetaminophen (Tylenol) 650 mg PRN Q6HRS PRN PO PAIN / TEMP; Start 03/15/17 at 01:15; Stop 03/25/17 at 14:08; Status DC Multi-Ingredient Ointment (Analgesic [place]) 1 landon PRN QID PRN TP MUSCLE PAIN; Start 03/15/17 at 01:15 Al Hydroxide/Mg Hydroxide (Mylanta Plus Xs) 15 ml PRN AFTMEALHC PRN PO DYSPEPSIA Last administered on 04/11/17 16:46; Start 03/15/17 at 01:15 Magnesium Hydroxide (Milk Of Magnesia) 2,400 mg PRN QHS PRN PO CONSTIPATION Last administered on 03/27/17 10:16; Start 03/15/17 at 01:15 Potassium Chloride/Dextrose 1,000 ml @ 75 mls/hr [id number] IV Last administered on 03/18/17 11:25; Start 03/15/17 at 16:45; Stop 03/18/17 at 18:24; Status DC Divalproex Sodium (Depakote Sprinkles) 125 mg BID92 PO Last administered on 13:31; Start 03/16/17 at 09:00; Stop 03/18/17 at 18:29; Status DC Bisacodyl (Dulcolax Supp) 10 mg PRN DAILY PRN [place] CONSTIPATION Last administered on 03/22/17 21:05; Start 03/15/17 at 19:00 Sodium Biphosphate/ Sodium Phosphate (Fleet Adult) 133 ml PRN DAILY PRN MA CONSTIPATION Last administered on 03/16/17 05:09; Start 03/15/17 at 19:00 Benztropine Mesylate (Cogentin) 1 mg BID PO Last administered on 03/18/17 17: 04; Start 03/16/17 at 21:00; Stop 03/18/17 at 23:00; Status DC Benztropine Mesylate (Cogentin) 1 mg DAILY PO Last administered on 03/21/17 11:21; Start 03/19/17 at 09:00; Stop 03/21/17 at 12:00; Status DC Enoxaparin Sodium (Lovenox) 30 mg Q24H SQ ; Start 03/16/17 at 18:00; Stop at 18:29; Status DC Enoxaparin Sodium (Lovenox) 30 mg Q24H SQ Last administered on 04/12/17 08:04 ; Start 03/17/17 at 09:00 Megestrol Acetate (Megace) 400 mg BID92 PO Last administered on 04/12/17 13:36 ; Start 03/17/17 at 09:00 Trimethoprim/ Sulfamethoxazole (Bactrim Ss) 1 tab BID PO Last administered on 03/25/17 08:05; Start 03/17/17 at 21:00; Stop 03/25/17 at 20:59; Status DC Ziprasidone (Geodon) 60 mg BID PO Last administered on 04/12/17 19:31; Start 03/17/17 at 21:00 Lactobacillus Rhamnosus (Culturelle) 1 cap BID PO Last administered on 19:31; Start 03/18/17 at 21:00 Divalproex Sodium (Depakote Sprinkles) 250 mg BID92 PO Last administered on 09:35; Start 03/19/17 at 09:00; Stop 03/23/17 at 11:14; Status DC Olanzapine (ZyPREXA ZYDIS) 5 mg PRN Q2HR PRN PO PSYCHOSIS Last administered on 03/26/17 19:44; Start 03/19/17 at 07:00 Clozapine (Clozaril) 25 mg HS PO Last administered on 03/21/17 20:07; Start 03/19/17 at 21:00; Stop 03/22/17 at 18:41; Status DC Trazodone HCl (Desyrel) 100 mg QHS PO Last administered on 04/12/17 19:31; Start 03/19/17 at 21:00 Trazodone HCl (Desyrel) 100 mg PRN QHS PRN PO INSOMNIA Last administered on 21:33; Start 03/19/17 at 19:15 Clozapine (Clozaril) 50 mg HS PO Last administered on 04/01/17 21:12; Start 03/22/17 at 21:00; Stop 04/01/17 at 21:53; Status DC Oxcarbazepine (Trileptal) 150 mg BID92 PO Last administered on 03/26/17 14:01 ; Start 03/23/17 at 14:00; Stop 03/26/17 at 14:01; Status DC Oxcarbazepine (Trileptal) 300 mg BID92 PO Last administered on 04/12/17 13:36 ; Start 03/27/17 at 09:00 Clozapine (Clozaril) 75 mg HS PO Last administered on 04/04/17 19:20; Start 04/02/17 at 21:00; Stop 04/05/17 at 19:29; Status DC Clozapine (Clozaril) 100 mg HS PO ; Start 04/05/17 at 21:00; Stop 04/05/17 at 21:00; Status DC Clozapine (Clozaril) 100 mg HS PO Last administered on 04/10/17 19:14; Start 04/05/17 at 21:00; Stop 04/11/17 at 18:28; Status DC Levofloxacin (Levaquin) 250 mg DAILY PO Last administered on 04/11/17 10:25; Start 04/06/17 at 17:00; Stop 04/11/17 at 17:00; Status DC Lidocaine (Lidoderm) 1 patch PRN DAILY PRN TD pain Last administered on 05:11; Start 04/06/17 at 16:15 Mirtazapine (Remeron) 7.5 mg QHS PO Last administered on 04/10/17 19:14; Start 04/07/17 at 21:00; Stop 04/11/17 at 16:13; Status DC Tamsulosin HCl (Flomax) 0.4 mg DAILY PO Last administered on 04/12/17 08:03; Start 04/09/17 at 14:00 Gabapentin (Neurontin) 300 mg BID PO Last administered on 04/12/17 19:32; Start 04/09/17 at 22:30; Stop 04/12/17 at 22:29 Oxycodone HCl (OxyCONTIN) 10 mg Q12HR PO Last administered on 04/12/17 19:35; Start 04/10/17 at 21:00 Clozapine (Clozaril) 100 mg HS PO Last administered on 04/12/17 19:31; Start 04/11/17 at 21:00 Clozapine (Clozaril) 25 mg HS PO Last administered on 04/12/17 19:31; Start 04/11/17 at 21:00 Active Scripts Active Reported Omeprazole 40 Mg Capsule.dr 40 Mg PO DAILY Olanzapine 10 Mg Tablet 10 Mg PO TID Megestrol Acetate 400 Mg/10 Ml Oral.susp 400 Mg PO BID Lactulose 10 Gm/15 Ml Solution 30 Ml PO BID Hold if no longer constipated [place] 5-325 Tablet (Hydrocodone Bit/Acetaminophen) 1 Each Tablet 1 Tab PO PRN Q6HRS PRN Tylenol (Acetaminophen) 325 Mg Tablet 650 Mg PO PRN Q4HRS PRN Benztropine Mesylate 1 Mg Tablet 1 Mg PO HS Suppository (Glycerin) 1 Each Supp.rect 1 Each RC PRN DAILY PRN Geodon (Ziprasidone Hcl) 40 Mg Capsule 40 Mg PO BID Sennosides-Docusate Sodium Tab (Sennosides/Docusate Sodium) 1 Each Tablet 1 Each PO BID Miralax (Polyethylene Glycol 3350) 17 Gm Powd.pack 17 Gm PO DAILY Protonix (Pantoprazole Sodium) 20 Mg Tablet.dr 20 Mg PO BID [place] 3 1,000 Mg Softgel ([place]-3 Fatty Acids/Fish Oil) 1 Each Capsule 1 Each PO DAILY Linzess (Linaclotide) 290 Mcg Capsule 290 Mcg PO HS Gabapentin 600 Mg Tablet 600 Mg PO BID Vitamin D (Cholecalciferol (Vitamin D3)) 2,000 Unit Capsule 2,000 Unit PO DAILY Buspirone Hcl 10 Mg Tablet 10 Mg PO TID Benztropine Mesylate 1 Mg Tablet 1 Mg PO TID I have reviewed the current psychotropics carefully including drug interactions. Risk benefit ratio favors no change other than as noted in my dictated progress note. Diagnosis: Problems: (1) Anxiety disorder (2) Bipolar affective, mixed, sev w/ psych (3) Dementia, vascular, with depression (4) Dementia, vascular, with delusions (5) Dementia in Alzheimer's disease with depression (6) Dementia in Alzheimer's disease with delusions (7) Impulse control disorder MIRIAM BRASWELL MD Apr 12, 2017 21:14
[2017-04-13 05:55] VITALS: BP 109/74
[2017-04-13] MEDS: HYDROcodone/APAP 5/325MG 1 TAB TABLET PO PRN (06:04)
--- NOTE | 2017-04-13 08:30 | PN ---
DATE: 04/11/2017 PSYCHIATRIC PROGRESS NOTE This late entry 04/11/2017 covers elements not covered in my initial note of 04/11/2017. I met with the patient evening of 04/11/2017. Earlier discussed with social service staff about the daughter's concern that the patient's behaviors and agitation have been worse since Remeron was added last week. We will go ahead and discontinue this. She continues to respond in a high pitched tone rather loud, yelling at times. REVIEW OF SYSTEMS: Ambulation impaired, in Broda chair. No CV, , pulmonary, eye, ENT system symptoms on review. Reliability poor. MENTAL STATUS EXAM: Oriented to herself. Insight, judgment, recent and remote memory, attention, concentration, fund of knowledge poor, consistent with her diagnosis. She remains quite demanding, attention seeking per nursing report, but slept well the previous evening. LABORATORY DATA: Labs reviewed. Absolute neutrophil count on 04/10 is unremarkable. PLAN: Increase Clozaril to 125 mg p.o. at bedtime. Rest continue per my initial note. Adjust further as clinically indicated. MIRIAM BRASWELL MD DR: ANAM/aly JOB#: [id number] / [id number]
[2017-04-13] MEDS: OMEGA-3 FATTY ACIDS/FISH OIL 1,000 MG CAPSULE. PO SCH (09:52)
[2017-04-13] MEDS: LACTOBACILLUS RHAMNOSUS GG 1 CAPSULE. PO SCH ×2 (09:52→19:58)
[2017-04-13] MEDS: POLYETHYLENE GLYCOL 3350 17 GM PACKET. PO SCH (09:52)
[2017-04-13] MEDS: ENOXAPARIN 30 MG/0.3 ML DISP.SYRIN. SQ SCH (09:52)
[2017-04-13] MEDS: LACTULOSE 20 GM/30 ML SOLUTION. PO SCH ×2 (09:52→19:58)
[2017-04-13] MEDS: SENNOSIDES/DOCUSATE 8.6/50MG TABLET. PO SCH ×2 (09:53→19:59)
[2017-04-13] MEDS: ZIPRASIDONE 60 MG CAPSULE. PO SCH ×2 (09:53→19:58)
[2017-04-13] MEDS: CHOLECALCIFEROL (VITAMIN D3) 1,000 UNIT TABLET PO SCH (09:53)
[2017-04-13] MEDS: TAMSULOSIN 0.4 MG CAP.ER.24H. PO SCH (09:53)
[2017-04-13] MEDS: PANTOPRAZOLE 40 MG TABLET. PO SCH (09:53)
[2017-04-13] MEDS: MEGESTROL 400 MG/10 ML ORAL.SUSP. PO SCH ×2 (10:23→14:45)
[2017-04-13] MEDS: oxyCODONE ER 10 MG TAB.ER.12H PO SCH ×2 (10:23→20:01)
[2017-04-13 16:35] VITALS: BP 123/79
--- NOTE | 2017-04-13 19:58 | PDOC ---
Exam Note: Kayden Note: Please also refer to the separate dictated note~for this date of service dictated separately.~Patient seen individually. Discussed the patient with Nursing staff reviewed the chart.~Reviewed interim history and current functioning. Reviewed vital signs,~Labs/ Radiology~and current medications noted below. Continue current treatment with the changes noted in the dictated addendum note Assessment: Vital Signs: Vital Signs Date Time Temp Pulse Resp B/P (MAP) Pulse Ox O2 Delivery O2 Flow Rate FiO2 04/13/17 16:35 99.0 85 22 123/79 (94) 99 04/13/17 05:55 Room Air I&O Intake and Output 04/13/17 07:00 Intake Total 1740 ml Balance 1740 ml Intake Oral 1740 ml # Bowel Movements 1 Current Medications: Meds: Current Medications Benztropine Mesylate (Cogentin) 1 mg TID PO Last administered on 03/16/17 08: 39; Start 03/14/17 at 22:30; Stop 03/16/17 at 11:57; Status DC Buspirone HCl (Buspar) 10 mg TID PO Last administered on 03/16/17 08:40; Start 03/14/17 at 22:30; Stop 03/16/17 at 11:57; Status DC Ziprasidone (Geodon) 40 mg BID PO Last administered on 03/17/17 08:01; Start 03/14/17 at 22:30; Stop 03/17/17 at 18:48; Status DC Glycerin (Sani-Supp Adult) 1 supp PRN DAILY PRN RC CONSTIPATION; Start at 22:30 Pantoprazole Sodium (Protonix) 40 mg DAILYAC PO Last administered on 04/13/17 09:53; Start 03/15/17 at 07:30 Polyethylene Glycol (miraLAX) 17 gm DAILY PO Last administered on 04/13/17 09: 52; Start 03/15/17 at 09:00 Senna/Docusate Sodium (Senna Plus) 1 tab BID PO Last administered on 04/13/17 09:53; Start 03/14/17 at 22:30 Vitamin D (Vitamin D3) 2,000 unit DAILY PO Last administered on 04/13/17 09:53 ; Start 03/15/17 at 09:00 Gabapentin (Neurontin) 600 mg BID PO Last administered on 12/3/17at 08:14; Start 03/14/17 at 22:30; Stop 04/09/17 at 18:49; Status DC Non-Formulary Medication 290 mcg HS PO ; Start 03/15/17 at 21:00; Status UNV Fish Oil (Fish Oil) 1,000 mg DAILY PO Last administered on 04/13/17 09:52; Start 03/15/17 at 09:00 Benztropine Mesylate (Cogentin) 1 mg HS PO ; Start 03/15/17 at 21:00; Stop 03/15 at 21:00; Status DC Olanzapine (ZyPREXA) 10 mg TID PO Last administered on 03/16/17 08:39; Start 03/14/17 at 23:00; Stop 03/16/17 at 11:57; Status DC Acetaminophen (Tylenol) 650 mg PRN Q4HRS PRN PO PAIN / TEMP Last administered on 04/09/17 21:34; Start 03/14/17 at 22:45 Acetaminophen/ Hydrocodone Bitart (Lortab 5/325) 1 tab PRN Q6HRS PRN PO PAIN Last administered on 04/13/17 06:04; Start 03/14/17 at 22:45 Megestrol Acetate (Megace) 400 mg BID PO Last administered on 03/16/17 08:41; Start 03/14/17 at 23:00; Stop 03/16/17 at 21:03; Status DC Lactulose 20 gm BID PO Last administered on 04/13/17 09:52; Start 03/14/17 at 23:00 Pantoprazole Sodium (Protonix) 40 mg DAILYAC PO ; Start 03/15/17 at 07:30; Stop 03/16/17 at 19:39; Status DC Acetaminophen (Tylenol) 650 mg PRN Q6HRS PRN PO PAIN / TEMP; Start 03/15/17 at 01:15; Stop 03/25/17 at 14:08; Status DC Multi-Ingredient Ointment (Analgesic [place]) 1 landon PRN QID PRN TP MUSCLE PAIN; Start 03/15/17 at 01:15 Al Hydroxide/Mg Hydroxide (Mylanta Plus Xs) 15 ml PRN AFTMEALHC PRN PO DYSPEPSIA Last administered on 04/11/17 16:46; Start 03/15/17 at 01:15 Magnesium Hydroxide (Milk Of Magnesia) 2,400 mg PRN QHS PRN PO CONSTIPATION Last administered on 03/27/17 10:16; Start 03/15/17 at 01:15 Potassium Chloride/Dextrose 1,000 ml @ 75 mls/hr [id number] IV Last administered on 03/18/17 11:25; Start 03/15/17 at 16:45; Stop 03/18/17 at 18:24; Status DC Divalproex Sodium (Depakote Sprinkles) 125 mg BID92 PO Last administered on 13:31; Start 03/16/17 at 09:00; Stop 03/18/17 at 18:29; Status DC Bisacodyl (Dulcolax Supp) 10 mg PRN DAILY PRN [place] CONSTIPATION Last administered on 03/22/17 21:05; Start 03/15/17 at 19:00 Sodium Biphosphate/ Sodium Phosphate (Fleet Adult) 133 ml PRN DAILY PRN CO CONSTIPATION Last administered on 03/16/17 05:09; Start 03/15/17 at 19:00 Benztropine Mesylate (Cogentin) 1 mg BID PO Last administered on 03/18/17 17: 04; Start 03/16/17 at 21:00; Stop 03/18/17 at 23:00; Status DC Benztropine Mesylate (Cogentin) 1 mg DAILY PO Last administered on 03/21/17 11:21; Start 03/19/17 at 09:00; Stop 03/21/17 at 12:00; Status DC Enoxaparin Sodium (Lovenox) 30 mg Q24H SQ ; Start 03/16/17 at 18:00; Stop at 18:29; Status DC Enoxaparin Sodium (Lovenox) 30 mg Q24H SQ Last administered on 04/13/17 09:52 ; Start 03/17/17 at 09:00 Megestrol Acetate (Megace) 400 mg BID92 PO Last administered on 04/13/17 14:45 ; Start 03/17/17 at 09:00 Trimethoprim/ Sulfamethoxazole (Bactrim Ss) 1 tab BID PO Last administered on 03/25/17 08:05; Start 03/17/17 at 21:00; Stop 03/25/17 at 20:59; Status DC Ziprasidone (Geodon) 60 mg BID PO Last administered on 04/13/17 09:53; Start 03/17/17 at 21:00 Lactobacillus Rhamnosus (Culturelle) 1 cap BID PO Last administered on 09:52; Start 03/18/17 at 21:00 Divalproex Sodium (Depakote Sprinkles) 250 mg BID92 PO Last administered on 09:35; Start 03/19/17 at 09:00; Stop 03/23/17 at 11:14; Status DC Olanzapine (ZyPREXA ZYDIS) 5 mg PRN Q2HR PRN PO PSYCHOSIS Last administered on 04/13/17 12:37; Start 03/19/17 at 07:00 Clozapine (Clozaril) 25 mg HS PO Last administered on 03/21/17 20:07; Start 03/19/17 at 21:00; Stop 03/22/17 at 18:41; Status DC Trazodone HCl (Desyrel) 100 mg QHS PO Last administered on 04/12/17 19:31; Start 03/19/17 at 21:00 Trazodone HCl (Desyrel) 100 mg PRN QHS PRN PO INSOMNIA Last administered on 21:33; Start 03/19/17 at 19:15 Clozapine (Clozaril) 50 mg HS PO Last administered on 04/01/17 21:12; Start 03/22/17 at 21:00; Stop 04/01/17 at 21:53; Status DC Oxcarbazepine (Trileptal) 150 mg BID92 PO Last administered on 03/26/17 14:01 ; Start 03/23/17 at 14:00; Stop 03/26/17 at 14:01; Status DC Oxcarbazepine (Trileptal) 300 mg BID92 PO Last administered on 04/13/17 14:45 ; Start 03/27/17 at 09:00 Clozapine (Clozaril) 75 mg HS PO Last administered on 04/04/17 19:20; Start 04/02/17 at 21:00; Stop 04/05/17 at 19:29; Status DC Clozapine (Clozaril) 100 mg HS PO ; Start 04/05/17 at 21:00; Stop 04/05/17 at 21:00; Status DC Clozapine (Clozaril) 100 mg HS PO Last administered on 04/10/17 19:14; Start 04/05/17 at 21:00; Stop 04/11/17 at 18:28; Status DC Levofloxacin (Levaquin) 250 mg DAILY PO Last administered on 04/11/17 10:25; Start 04/06/17 at 17:00; Stop 04/11/17 at 17:00; Status DC Lidocaine (Lidoderm) 1 patch PRN DAILY PRN TD pain Last administered on 05:11; Start 04/06/17 at 16:15 Mirtazapine (Remeron) 7.5 mg QHS PO Last administered on 04/10/17 19:14; Start 04/07/17 at 21:00; Stop 04/11/17 at 16:13; Status DC Tamsulosin HCl (Flomax) 0.4 mg DAILY PO Last administered on 04/13/17 09:53; Start 04/09/17 at 14:00 Gabapentin (Neurontin) 300 mg BID PO Last administered on 04/12/17 19:32; Start 04/09/17 at 22:30; Stop 04/12/17 at 22:29; Status DC Oxycodone HCl (OxyCONTIN) 10 mg Q12HR PO Last administered on 04/13/17 10:23; Start 04/10/17 at 21:00 Clozapine (Clozaril) 100 mg HS PO Last administered on 04/12/17 19:31; Start 04/11/17 at 21:00 Clozapine (Clozaril) 25 mg HS PO Last administered on 04/12/17 19:31; Start 04/11/17 at 21:00 Active Scripts Active Reported Omeprazole 40 Mg Capsule.dr 40 Mg PO DAILY Olanzapine 10 Mg Tablet 10 Mg PO TID Megestrol Acetate 400 Mg/10 Ml Oral.susp 400 Mg PO BID Lactulose 10 Gm/15 Ml Solution 30 Ml PO BID Hold if no longer constipated [place] 5-325 Tablet (Hydrocodone Bit/Acetaminophen) 1 Each Tablet 1 Tab PO PRN Q6HRS PRN Tylenol (Acetaminophen) 325 Mg Tablet 650 Mg PO PRN Q4HRS PRN Benztropine Mesylate 1 Mg Tablet 1 Mg PO HS Suppository (Glycerin) 1 Each Supp.rect 1 Each RC PRN DAILY PRN Geodon (Ziprasidone Hcl) 40 Mg Capsule 40 Mg PO BID Sennosides-Docusate Sodium Tab (Sennosides/Docusate Sodium) 1 Each Tablet 1 Each PO BID Miralax (Polyethylene Glycol 3350) 17 Gm Powd.pack 17 Gm PO DAILY Protonix (Pantoprazole Sodium) 20 Mg Tablet.dr 20 Mg PO BID [place] 3 1,000 Mg Softgel ([place]-3 Fatty Acids/Fish Oil) 1 Each Capsule 1 Each PO DAILY Linzess (Linaclotide) 290 Mcg Capsule 290 Mcg PO HS Gabapentin 600 Mg Tablet 600 Mg PO BID Vitamin D (Cholecalciferol (Vitamin D3)) 2,000 Unit Capsule 2,000 Unit PO DAILY Buspirone Hcl 10 Mg Tablet 10 Mg PO TID Benztropine Mesylate 1 Mg Tablet 1 Mg PO TID I have reviewed the current psychotropics carefully including drug interactions. Risk benefit ratio favors no change other than as noted in my dictated progress note. Diagnosis: Problems: (1) Anxiety disorder (2) Bipolar affective, mixed, sev w/ psych (3) Dementia, vascular, with depression (4) Dementia, vascular, with delusions (5) Dementia in Alzheimer's disease with depression (6) Dementia in Alzheimer's disease with delusions (7) Impulse control disorder MIRIAM BRASWELL MD Apr 13, 2017 19:58
[2017-04-13] MEDS: cloZAPine 25 MG TABLET PO SCH (19:59)
[2017-04-13] MEDS: cloZAPine 100 MG TABLET PO SCH (19:59)
[2017-04-13] MEDS: traZODone 100 MG TABLET. PO SCH (19:59)
[2017-04-13] MEDS: LINACLOTIDE 145 MCG CAPSULE. PO SCH (20:00)
[2017-04-13] MEDS: traZODone 100 MG TABLET. PO PRN (22:47)
--- NOTE | 2017-04-14 02:01 | PN ---
DATE: 04/12/2017 This late entry 04/12/2017 covers elements not covered in my initial note 04/12/2017. Met with the patient evening of 04/12/2017. SUBJECTIVE: The patient continues to be somewhat loud in her verbalization constantly repeating now "any, any, any, any, any." REVIEW OF SYSTEMS: Ambulation impaired, in Broda chair. No CV, , pulmonary, eye, ENT system symptoms on review. Reliability poor. MENTAL STATUS EXAM: Oriented to herself and situation at times. Speech is loud as noted above. Abstraction fair, somewhat obsessive. Attention span short. Language function intact. Mood and affect still labile, but she is overall less psychotic. LABORATORY DATA: Reviewed. IMPRESSION: Unchanged from initial note. PLAN: Continue current psychotropics mentioned in my initial note. Adjust further as clinically indicated. MAN Kathleen BRASWELL MD DR: ANAM/aly JOB#: [id number] / [id number]
[2017-04-14] MEDS: HYDROcodone/APAP 5/325MG 1 TAB TABLET PO PRN ×2 (05:47→13:28)
[2017-04-14 05:50] VITALS: BP 120/76
[2017-04-14] MEDS: POLYETHYLENE GLYCOL 3350 17 GM PACKET. PO SCH (09:10)
[2017-04-14] MEDS: MEGESTROL 400 MG/10 ML ORAL.SUSP. PO SCH ×2 (09:10→13:55)
[2017-04-14] MEDS: LACTULOSE 20 GM/30 ML SOLUTION. PO SCH ×2 (09:10→19:30)
[2017-04-14] MEDS: ZIPRASIDONE 60 MG CAPSULE. PO SCH ×2 (09:11→19:30)
[2017-04-14] MEDS: oxyCODONE ER 10 MG TAB.ER.12H PO SCH ×2 (09:11→19:31)
[2017-04-14] MEDS: ENOXAPARIN 30 MG/0.3 ML DISP.SYRIN. SQ SCH (09:11)
[2017-04-14] MEDS: CHOLECALCIFEROL (VITAMIN D3) 1,000 UNIT TABLET PO SCH (09:12)
[2017-04-14] MEDS: OMEGA-3 FATTY ACIDS/FISH OIL 1,000 MG CAPSULE. PO SCH (09:12)
[2017-04-14] MEDS: PANTOPRAZOLE 40 MG TABLET. PO SCH (09:12)
[2017-04-14] MEDS: TAMSULOSIN 0.4 MG CAP.ER.24H. PO SCH (09:12)
[2017-04-14] MEDS: SENNOSIDES/DOCUSATE 8.6/50MG TABLET. PO SCH ×2 (09:12→19:30)
[2017-04-14] MEDS: LACTOBACILLUS RHAMNOSUS GG 1 CAPSULE. PO SCH ×2 (09:12→19:30)
[2017-04-14 16:08] VITALS: BP 108/60
[2017-04-14] MEDS: LINACLOTIDE 145 MCG CAPSULE. PO SCH (19:30)
[2017-04-14] MEDS: traZODone 100 MG TABLET. PO SCH (19:30)
[2017-04-14] MEDS: cloZAPine 100 MG TABLET PO SCH (19:30)
[2017-04-14] MEDS: cloZAPine 25 MG TABLET PO SCH (19:30)
--- NOTE | 2017-04-14 19:55 | PDOC ---
Exam Note: Kayden Note: Please also refer to the separate dictated note~for this date of service dictated separately.~Patient seen individually. Discussed the patient with Nursing staff reviewed the chart.~Reviewed interim history and current functioning. Reviewed vital signs,~Labs/ Radiology~and current medications noted below. Continue current treatment with the changes noted in the dictated addendum note Assessment: Vital Signs: Vital Signs Date Time Temp Pulse Resp B/P (MAP) Pulse Ox O2 Delivery O2 Flow Rate FiO2 04/14/17 19:31 18 95 Room Air 04/14/17 16:08 97.6 81 108/60 (76) I&O Intake and Output 04/14/17 07:00 Intake Total 1200 ml Balance 1200 ml Intake Oral 1200 ml # Bowel Movements 2 Current Medications: Meds: Current Medications Benztropine Mesylate (Cogentin) 1 mg TID PO Last administered on 03/16/17 08: 39; Start 03/14/17 at 22:30; Stop 03/16/17 at 11:57; Status DC Buspirone HCl (Buspar) 10 mg TID PO Last administered on 03/16/17 08:40; Start 03/14/17 at 22:30; Stop 03/16/17 at 11:57; Status DC Ziprasidone (Geodon) 40 mg BID PO Last administered on 03/17/17 08:01; Start 03/14/17 at 22:30; Stop 03/17/17 at 18:48; Status DC Glycerin (Sani-Supp Adult) 1 supp PRN DAILY PRN RC CONSTIPATION; Start at 22:30 Pantoprazole Sodium (Protonix) 40 mg DAILYAC PO Last administered on 04/14/17 09:12; Start 03/15/17 at 07:30 Polyethylene Glycol (miraLAX) 17 gm DAILY PO Last administered on 04/14/17 09: 10; Start 03/15/17 at 09:00 Senna/Docusate Sodium (Senna Plus) 1 tab BID PO Last administered on 04/14/17 19:30; Start 03/14/17 at 22:30 Vitamin D (Vitamin D3) 2,000 unit DAILY PO Last administered on 04/14/17 09:12 ; Start 03/15/17 at 09:00 Gabapentin (Neurontin) 600 mg BID PO Last administered on 04/09/17 08:14; Start 03/14/17 at 22:30; Stop 04/09/17 at 18:49; Status DC Non-Formulary Medication 290 mcg HS PO ; Start 03/15/17 at 21:00; Status UNV Fish Oil (Fish Oil) 1,000 mg DAILY PO Last administered on 04/14/17 09:12; Start 03/15/17 at 09:00 Benztropine Mesylate (Cogentin) 1 mg HS PO ; Start 03/15/17 at 21:00; Stop 03/15 at 21:00; Status DC Olanzapine (ZyPREXA) 10 mg TID PO Last administered on 03/16/17 08:39; Start 03/14/17 at 23:00; Stop 03/16/17 at 11:57; Status DC Acetaminophen (Tylenol) 650 mg PRN Q4HRS PRN PO PAIN / TEMP Last administered on 04/09/17 21:34; Start 03/14/17 at 22:45 Acetaminophen/ Hydrocodone Bitart (Lortab 5/325) 1 tab PRN Q6HRS PRN PO PAIN Last administered on 04/14/17 13:28; Start 03/14/17 at 22:45 Megestrol Acetate (Megace) 400 mg BID PO Last administered on 03/16/17 08:41; Start 03/14/17 at 23:00; Stop 03/16/17 at 21:03; Status DC Lactulose 20 gm BID PO Last administered on 04/14/17 19:30; Start 03/14/17 at 23:00 Pantoprazole Sodium (Protonix) 40 mg DAILYAC PO ; Start 03/15/17 at 07:30; Stop 03/16/17 at 19:39; Status DC Acetaminophen (Tylenol) 650 mg PRN Q6HRS PRN PO PAIN / TEMP; Start 03/15/17 at 01:15; Stop 03/25/17 at 14:08; Status DC Multi-Ingredient Ointment (Analgesic [place]) 1 landon PRN QID PRN TP MUSCLE PAIN; Start 03/15/17 at 01:15 Al Hydroxide/Mg Hydroxide (Mylanta Plus Xs) 15 ml PRN AFTMEALHC PRN PO DYSPEPSIA Last administered on 04/11/17 16:46; Start 03/15/17 at 01:15 Magnesium Hydroxide (Milk Of Magnesia) 2,400 mg PRN QHS PRN PO CONSTIPATION Last administered on 03/27/17 10:16; Start 03/15/17 at 01:15 Potassium Chloride/Dextrose 1,000 ml @ 75 mls/hr [id number] IV Last administered on 03/18/17 11:25; Start 03/15/17 at 16:45; Stop 03/18/17 at 18:24; Status DC Divalproex Sodium (Depakote Sprinkles) 125 mg BID92 PO Last administered on 13:31; Start 03/16/17 at 09:00; Stop 03/18/17 at 18:29; Status DC Bisacodyl (Dulcolax Supp) 10 mg PRN DAILY PRN [place] CONSTIPATION Last administered on 03/22/17 21:05; Start 03/15/17 at 19:00 Sodium Biphosphate/ Sodium Phosphate (Fleet Adult) 133 ml PRN DAILY PRN DE CONSTIPATION Last administered on 03/16/17 05:09; Start 03/15/17 at 19:00 Benztropine Mesylate (Cogentin) 1 mg BID PO Last administered on 03/18/17 17: 04; Start 03/16/17 at 21:00; Stop 03/18/17 at 23:00; Status DC Benztropine Mesylate (Cogentin) 1 mg DAILY PO Last administered on 03/21/17 11:21; Start 03/19/17 at 09:00; Stop 03/21/17 at 12:00; Status DC Enoxaparin Sodium (Lovenox) 30 mg Q24H SQ ; Start 03/16/17 at 18:00; Stop at 18:29; Status DC Enoxaparin Sodium (Lovenox) 30 mg Q24H SQ Last administered on 04/14/17 09:11 ; Start 03/17/17 at 09:00 Megestrol Acetate (Megace) 400 mg BID92 PO Last administered on 04/14/17 13:55 ; Start 03/17/17 at 09:00 Trimethoprim/ Sulfamethoxazole (Bactrim Ss) 1 tab BID PO Last administered on 03/25/17 08:05; Start 03/17/17 at 21:00; Stop 03/25/17 at 20:59; Status DC Ziprasidone (Geodon) 60 mg BID PO Last administered on 04/14/17 19:30; Start 03/17/17 at 21:00 Lactobacillus Rhamnosus (Culturelle) 1 cap BID PO Last administered on 19:30; Start 03/18/17 at 21:00 Divalproex Sodium (Depakote Sprinkles) 250 mg BID92 PO Last administered on 09:35; Start 03/19/17 at 09:00; Stop 03/23/17 at 11:14; Status DC Olanzapine (ZyPREXA ZYDIS) 5 mg PRN Q2HR PRN PO PSYCHOSIS Last administered on 04/13/17 12:37; Start 03/19/17 at 07:00 Clozapine (Clozaril) 25 mg HS PO Last administered on 03/21/17 20:07; Start 03/19/17 at 21:00; Stop 03/22/17 at 18:41; Status DC Trazodone HCl (Desyrel) 100 mg QHS PO Last administered on 04/14/17 19:30; Start 03/19/17 at 21:00 Trazodone HCl (Desyrel) 100 mg PRN QHS PRN PO INSOMNIA Last administered on 22:47; Start 03/19/17 at 19:15 Clozapine (Clozaril) 50 mg HS PO Last administered on 04/01/17 21:12; Start 03/22/17 at 21:00; Stop 04/01/17 at 21:53; Status DC Oxcarbazepine (Trileptal) 150 mg BID92 PO Last administered on 03/26/17 14:01 ; Start 03/23/17 at 14:00; Stop 03/26/17 at 14:01; Status DC Oxcarbazepine (Trileptal) 300 mg BID92 PO Last administered on 04/14/17 13:55 ; Start 03/27/17 at 09:00 Clozapine (Clozaril) 75 mg HS PO Last administered on 04/04/17 19:20; Start 04/02/17 at 21:00; Stop 04/05/17 at 19:29; Status DC Clozapine (Clozaril) 100 mg HS PO ; Start 04/05/17 at 21:00; Stop 04/05/17 at 21:00; Status DC Clozapine (Clozaril) 100 mg HS PO Last administered on 04/10/17 19:14; Start 04/05/17 at 21:00; Stop 04/11/17 at 18:28; Status DC Levofloxacin (Levaquin) 250 mg DAILY PO Last administered on 04/11/17 10:25; Start 04/06/17 at 17:00; Stop 04/11/17 at 17:00; Status DC Lidocaine (Lidoderm) 1 patch PRN DAILY PRN TD pain Last administered on 05:11; Start 04/06/17 at 16:15 Mirtazapine (Remeron) 7.5 mg QHS PO Last administered on 04/10/17 19:14; Start 04/07/17 at 21:00; Stop 04/11/17 at 16:13; Status DC Tamsulosin HCl (Flomax) 0.4 mg DAILY PO Last administered on 04/14/17 09:12; Start 04/09/17 at 14:00 Gabapentin (Neurontin) 300 mg BID PO Last administered on 04/12/17 19:32; Start 04/09/17 at 22:30; Stop 04/12/17 at 22:29; Status DC Oxycodone HCl (OxyCONTIN) 10 mg Q12HR PO Last administered on 04/14/17 19:31; Start 04/10/17 at 21:00 Clozapine (Clozaril) 100 mg HS PO Last administered on 04/14/17 19:30; Start 04/11/17 at 21:00 Clozapine (Clozaril) 25 mg HS PO Last administered on 04/14/17 19:30; Start 04/11/17 at 21:00 Active Scripts Active Reported Omeprazole 40 Mg Capsule.dr 40 Mg PO DAILY Olanzapine 10 Mg Tablet 10 Mg PO TID Megestrol Acetate 400 Mg/10 Ml Oral.susp 400 Mg PO BID Lactulose 10 Gm/15 Ml Solution 30 Ml PO BID Hold if no longer constipated [place] 5-325 Tablet (Hydrocodone Bit/Acetaminophen) 1 Each Tablet 1 Tab PO PRN Q6HRS PRN Tylenol (Acetaminophen) 325 Mg Tablet 650 Mg PO PRN Q4HRS PRN Benztropine Mesylate 1 Mg Tablet 1 Mg PO HS Suppository (Glycerin) 1 Each Supp.rect 1 Each RC PRN DAILY PRN Geodon (Ziprasidone Hcl) 40 Mg Capsule 40 Mg PO BID Sennosides-Docusate Sodium Tab (Sennosides/Docusate Sodium) 1 Each Tablet 1 Each PO BID Miralax (Polyethylene Glycol 3350) 17 Gm Powd.pack 17 Gm PO DAILY Protonix (Pantoprazole Sodium) 20 Mg Tablet.dr 20 Mg PO BID [place] 3 1,000 Mg Softgel ([place]-3 Fatty Acids/Fish Oil) 1 Each Capsule 1 Each PO DAILY Linzess (Linaclotide) 290 Mcg Capsule 290 Mcg PO HS Gabapentin 600 Mg Tablet 600 Mg PO BID Vitamin D (Cholecalciferol (Vitamin D3)) 2,000 Unit Capsule 2,000 Unit PO DAILY Buspirone Hcl 10 Mg Tablet 10 Mg PO TID Benztropine Mesylate 1 Mg Tablet 1 Mg PO TID I have reviewed the current psychotropics carefully including drug interactions. Risk benefit ratio favors no change other than as noted in my dictated progress note. Diagnosis: Problems: (1) Anxiety disorder (2) Bipolar affective, mixed, sev w/ psych (3) Dementia, vascular, with depression (4) Dementia, vascular, with delusions (5) Dementia in Alzheimer's disease with depression (6) Dementia in Alzheimer's disease with delusions (7) Impulse control disorder MIRIAM BRASWELL MD Apr 14, 2017 19:55
--- NOTE | 2017-04-15 04:40 | PN ---
DATE: 04/13/2017 This is a late entry, 04/13/2017, covers elements not covered in my initial note of 04/13/2017. SUBJECTIVE: Met with the patient evening of 04/13/2017. The patient was also staffed at treatment team meeting morning of 04/13/2017, and the patient's daughter, Tawnya attended the lengthy conference, discussed the patient's diagnosis, progress, medications. Sleeping 7 to 7-1/2 hours, appetite is 50%, takes her meds crushed. Daughter felt last week, she was showing improvement and then took a step back, and wondered whether Remeron was partially contributing to this. We have since stopped the Remeron. She yells out at times, threw her lunch tray the day before, received Zyprexa with relief. REVIEW OF SYSTEMS: Ambulation impaired, in Broda chair. No CV, , pulmonary, eye, ENT system symptoms on review. MENTAL STATUS EXAM: Oriented to herself and situation at times. Speech can be loud high pitched at times. Abstraction fair, computation impaired, language function intact, attention span short. Mood and affect remain somewhat labile, but better than before. LABORATORY DATA: Reviewed. IMPRESSION: Unchanged from initial note. Schizoaffective disorder, bipolar type, mixed with psychotic features; bipolar 1 disorder, mixed with psychotic features; major neurocognitive disorder; Alzheimer, vascular with delusion; depression; behavioral disturbance. Rest unchanged. PLAN: Continue psychotropics mentioned in my initial note. Clozaril has been increased, and we will follow labs and adjust further as clinically indicated. MAN Kathleen BRASWELL MD DR: ANAM/aly JOB#: [id number] / [id number]
[2017-04-15 05:57] VITALS: BP 137/88
[2017-04-15 06:42] LABS: BASO % 0 % (0-3); EOS # 0.1 x10^3/uL (0.0-0.7); EOS % 1 % (0-3); HEMATOCRIT 35.7 % (36.0-47.0); HEMOGLOBIN 11.9 g/dL (12.0-15.5); LYMPH # 1.3 x10^3/uL (1.0-4.8); LYMPH % 18 % (24-48); MEAN CORPUSCULAR HEMOGLOBIN 32 pg (25-35); MEAN CORPUSCULAR HGB CONC 33 g/dL (31-37); MEAN CORPUSCULAR VOLUME 96 fL (79-100); MONO # 0.5 x10^3/uL (0.0-1.1); MONO % 6 % (0-9); NEUT # 5.7 x10^3uL (1.8-7.7); NEUT % 75 % (31-73); PLATELET COUNT 199 x10^3/uL (140-400); RED BLOOD COUNT 3.74 x10^6/uL (3.50-5.40); RED CELL DISTRIBUTION WIDTH 16.6 % (11.5-14.5); WHITE BLOOD COUNT 7.5 x10^3/uL (4.0-11.0)
[2017-04-15 07:02] LABS: ALBUMIN 2.7 g/dL (3.4-5.0); ALBUMIN/GLOBULIN RATIO 0.7 (1.0-1.7); CALCIUM 9.5 mg/dL (8.5-10.1); CREATININE 0.9 mg/dL (0.6-1.0); GFR 62.8; MAGNESIUM 2.1 mg/dL (1.8-2.4); POTASSIUM 3.7 mmol/L (3.5-5.1); TOTAL BILIRUBIN 0.1 mg/dL (0.2-1.0); TOTAL PROTEIN 6.4 g/dL (6.4-8.2)
[2017-04-15] MEDS: SENNOSIDES/DOCUSATE 8.6/50MG TABLET. PO SCH ×2 (07:51→20:16)
[2017-04-15] MEDS: MEGESTROL 400 MG/10 ML ORAL.SUSP. PO SCH ×2 (07:51→13:42)
[2017-04-15] MEDS: LACTOBACILLUS RHAMNOSUS GG 1 CAPSULE. PO SCH ×2 (07:51→20:17)
[2017-04-15] MEDS: TAMSULOSIN 0.4 MG CAP.ER.24H. PO SCH (07:51)
[2017-04-15] MEDS: CHOLECALCIFEROL (VITAMIN D3) 1,000 UNIT TABLET PO SCH (07:51)
[2017-04-15] MEDS: ZIPRASIDONE 60 MG CAPSULE. PO SCH ×2 (07:51→20:17)
[2017-04-15] MEDS: LACTULOSE 20 GM/30 ML SOLUTION. PO SCH ×2 (07:51→20:17)
[2017-04-15] MEDS: PANTOPRAZOLE 40 MG TABLET. PO SCH (07:51)
[2017-04-15] MEDS: OMEGA-3 FATTY ACIDS/FISH OIL 1,000 MG CAPSULE. PO SCH (07:51)
[2017-04-15] MEDS: ENOXAPARIN 30 MG/0.3 ML DISP.SYRIN. SQ SCH (07:52)
[2017-04-15] MEDS: POLYETHYLENE GLYCOL 3350 17 GM PACKET. PO SCH (07:52)
[2017-04-15] MEDS: oxyCODONE ER 10 MG TAB.ER.12H PO SCH ×2 (07:53→20:17)
[2017-04-15] MEDS ORDERED: ZINC OXIDE 20% TOPICAL OINTMENT 28GM TUBE. TP PRN (11:00)
[2017-04-15 16:26] VITALS: BP 118/84
[2017-04-15] MEDS: cloZAPine 25 MG TABLET PO SCH (20:16)
[2017-04-15] MEDS: cloZAPine 100 MG TABLET PO SCH (20:16)
[2017-04-15] MEDS: traZODone 100 MG TABLET. PO SCH (20:17)
[2017-04-15] MEDS: LINACLOTIDE 145 MCG CAPSULE. PO SCH (20:18)
--- NOTE | 2017-04-15 21:35 | PDOC ---
Exam Note: Kayden Note: Please also refer to the separate dictated note~for this date of service dictated separately.~Patient seen individually. Discussed the patient with Nursing staff reviewed the chart.~Reviewed interim history and current functioning. Reviewed vital signs,~Labs/ Radiology~and current medications noted below. Continue current treatment with the changes noted in the dictated addendum note Assessment: Vital Signs: Vital Signs Date Time Temp Pulse Resp B/P (MAP) Pulse Ox O2 Delivery O2 Flow Rate FiO2 04/15/17 20:17 18 99 Room Air 04/15/17 16:26 98.1 91 118/84 (95) I&O Intake and Output 04/15/17 07:00 Intake Total 480 ml Balance 480 ml Intake Oral 480 ml # Bowel Movements 2 Labs: Laboratory Tests Test 04/15/17 06:02 White Blood Count 7.5 x10^3/uL (4.0-11.0) Red Blood Count 3.74 x10^6/uL (3.50-5.40) Hemoglobin 11.9 g/dL (12.0-15.5) L Hematocrit 35.7 % (36.0-47.0) L Mean Corpuscular Volume 96 fL (79-100) Mean Corpuscular Hemoglobin 32 pg (25-35) Mean Corpuscular Hemoglobin Concent 33 g/dL (31-37) Red Cell Distribution Width 16.6 % (11.5-14.5) H Platelet Count 199 x10^3/uL (140-400) Neutrophils (%) (Auto) 75 % (31-73) H Lymphocytes (%) (Auto) 18 % (24-48) L Monocytes (%) (Auto) 6 % (0-9) Eosinophils (%) (Auto) 1 % (0-3) Basophils (%) (Auto) 0 % (0-3) Neutrophils # (Auto) 5.7 x10^3uL (1.8-7.7) Lymphocytes # (Auto) 1.3 x10^3/uL (1.0-4.8) Monocytes # (Auto) 0.5 x10^3/uL (0.0-1.1) Eosinophils # (Auto) 0.1 x10^3/uL (0.0-0.7) Basophils # (Auto) 0.0 x10^3/uL (0.0-0.2) Sodium Level 146 mmol/L (136-145) H Potassium Level 3.7 mmol/L (3.5-5.1) Chloride Level 110 mmol/L (98-107) H Carbon Dioxide Level 26 mmol/L (21-32) Anion Gap 10 (6-14) Blood Urea Nitrogen 17 mg/dL (7-20) Creatinine 0.9 mg/dL (0.6-1.0) Estimated GFR (Cockcroft-Gault) 62.8 BUN/Creatinine Ratio 19 (6-20) Glucose Level 100 mg/dL (70-99) H Calcium Level 9.5 mg/dL (8.5-10.1) Magnesium Level 2.1 mg/dL (1.8-2.4) Total Bilirubin 0.1 mg/dL (0.2-1.0) L Aspartate Amino Transferase (AST) 19 U/L (15-37) Alanine Aminotransferase (ALT) 26 U/L (14-59) Alkaline Phosphatase 73 U/L (46-116) Total Protein 6.4 g/dL (6.4-8.2) Albumin 2.7 g/dL (3.4-5.0) L Albumin/Globulin Ratio 0.7 (1.0-1.7) L Current Medications: Meds: Current Medications Benztropine Mesylate (Cogentin) 1 mg TID PO Last administered on 03/16/17 08: 39; Start 03/14/17 at 22:30; Stop 03/16/17 at 11:57; Status DC Buspirone HCl (Buspar) 10 mg TID PO Last administered on 03/16/17 08:40; Start 03/14/17 at 22:30; Stop 03/16/17 at 11:57; Status DC Ziprasidone (Geodon) 40 mg BID PO Last administered on 03/17/17 08:01; Start 03/14/17 at 22:30; Stop 03/17/17 at 18:48; Status DC Glycerin (Sani-Supp Adult) 1 supp PRN DAILY PRN RC CONSTIPATION; Start at 22:30 Pantoprazole Sodium (Protonix) 40 mg DAILYAC PO Last administered on 04/15/17 07:51; Start 03/15/17 at 07:30 Polyethylene Glycol (miraLAX) 17 gm DAILY PO Last administered on 04/15/17 07: 52; Start 03/15/17 at 09:00 Senna/Docusate Sodium (Senna Plus) 1 tab BID PO Last administered on 04/15/17 20:16; Start 03/14/17 at 22:30 Vitamin D (Vitamin D3) 2,000 unit DAILY PO Last administered on 04/15/17 07:51 ; Start 03/15/17 at 09:00 Gabapentin (Neurontin) 600 mg BID PO Last administered on 04/09/17 08:14; Start 03/14/17 at 22:30; Stop 04/09/17 at 18:49; Status DC Non-Formulary Medication 290 mcg HS PO ; Start 03/15/17 at 21:00; Status UNV Fish Oil (Fish Oil) 1,000 mg DAILY PO Last administered on 04/15/17 07:51; Start 03/15/17 at 09:00 Benztropine Mesylate (Cogentin) 1 mg HS PO ; Start 03/15/17 at 21:00; Stop 03/15 at 21:00; Status DC Olanzapine (ZyPREXA) 10 mg TID PO Last administered on 03/16/17 08:39; Start 03/14/17 at 23:00; Stop 03/16/17 at 11:57; Status DC Acetaminophen (Tylenol) 650 mg PRN Q4HRS PRN PO PAIN / TEMP Last administered on 04/09/17 21:34; Start 03/14/17 at 22:45 Acetaminophen/ Hydrocodone Bitart (Lortab 5/325) 1 tab PRN Q6HRS PRN PO PAIN Last administered on 04/14/17 13:28; Start 03/14/17 at 22:45 Megestrol Acetate (Megace) 400 mg BID PO Last administered on 03/16/17 08:41; Start 03/14/17 at 23:00; Stop 03/16/17 at 21:03; Status DC Lactulose 20 gm BID PO Last administered on 04/15/17 20:17; Start 03/14/17 at 23:00 Pantoprazole Sodium (Protonix) 40 mg DAILYAC PO ; Start 03/15/17 at 07:30; Stop 03/16/17 at 19:39; Status DC Acetaminophen (Tylenol) 650 mg PRN Q6HRS PRN PO PAIN / TEMP; Start 03/15/17 at 01:15; Stop 03/25/17 at 14:08; Status DC Multi-Ingredient Ointment (Analgesic [place]) 1 landon PRN QID PRN TP MUSCLE PAIN; Start 03/15/17 at 01:15 Al Hydroxide/Mg Hydroxide (Mylanta Plus Xs) 15 ml PRN AFTMEALHC PRN PO DYSPEPSIA Last administered on 04/11/17 16:46; Start 03/15/17 at 01:15 Magnesium Hydroxide (Milk Of Magnesia) 2,400 mg PRN QHS PRN PO CONSTIPATION Last administered on 03/27/17 10:16; Start 03/15/17 at 01:15 Potassium Chloride/Dextrose 1,000 ml @ 75 mls/hr [id number] IV Last administered on 03/18/17 11:25; Start 03/15/17 at 16:45; Stop 03/18/17 at 18:24; Status DC Divalproex Sodium (Depakote Sprinkles) 125 mg BID92 PO Last administered on 13:31; Start 03/16/17 at 09:00; Stop 03/18/17 at 18:29; Status DC Bisacodyl (Dulcolax Supp) 10 mg PRN DAILY PRN [place] CONSTIPATION Last administered on 03/22/17 21:05; Start 03/15/17 at 19:00 Sodium Biphosphate/ Sodium Phosphate (Fleet Adult) 133 ml PRN DAILY PRN [place] CONSTIPATION Last administered on 03/16/17 05:09; Start 03/15/17 at 19:00 Benztropine Mesylate (Cogentin) 1 mg BID PO Last administered on 03/18/17 17: 04; Start 03/16/17 at 21:00; Stop 03/18/17 at 23:00; Status DC Benztropine Mesylate (Cogentin) 1 mg DAILY PO Last administered on 03/21/17 11:21; Start 03/19/17 at 09:00; Stop 03/21/17 at 12:00; Status DC Enoxaparin Sodium (Lovenox) 30 mg Q24H SQ ; Start 03/16/17 at 18:00; Stop at 18:29; Status DC Enoxaparin Sodium (Lovenox) 30 mg Q24H SQ Last administered on 04/15/17 07:52 ; Start 03/17/17 at 09:00 Megestrol Acetate (Megace) 400 mg BID92 PO Last administered on 04/15/17 13:42 ; Start 03/17/17 at 09:00 Trimethoprim/ Sulfamethoxazole (Bactrim Ss) 1 tab BID PO Last administered on 03/25/17 08:05; Start 03/17/17 at 21:00; Stop 03/25/17 at 20:59; Status DC Ziprasidone (Geodon) 60 mg BID PO Last administered on 04/15/17 20:17; Start 03/17/17 at 21:00 Lactobacillus Rhamnosus (Culturelle) 1 cap BID PO Last administered on 20:17; Start 03/18/17 at 21:00 Divalproex Sodium (Depakote Sprinkles) 250 mg BID92 PO Last administered on 09:35; Start 03/19/17 at 09:00; Stop 03/23/17 at 11:14; Status DC Olanzapine (ZyPREXA ZYDIS) 5 mg PRN Q2HR PRN PO PSYCHOSIS Last administered on 04/13/17 12:37; Start 03/19/17 at 07:00 Clozapine (Clozaril) 25 mg HS PO Last administered on 03/21/17 20:07; Start 03/19/17 at 21:00; Stop 03/22/17 at 18:41; Status DC Trazodone HCl (Desyrel) 100 mg QHS PO Last administered on 04/15/17 20:17; Start 03/19/17 at 21:00 Trazodone HCl (Desyrel) 100 mg PRN QHS PRN PO INSOMNIA Last administered on 22:47; Start 03/19/17 at 19:15 Clozapine (Clozaril) 50 mg HS PO Last administered on 04/01/17 21:12; Start 03/22/17 at 21:00; Stop 04/01/17 at 21:53; Status DC Oxcarbazepine (Trileptal) 150 mg BID92 PO Last administered on 03/26/17 14:01 ; Start 03/23/17 at 14:00; Stop 03/26/17 at 14:01; Status DC Oxcarbazepine (Trileptal) 300 mg BID92 PO Last administered on 04/15/17 13:42 ; Start 03/27/17 at 09:00; Stop 04/15/17 at 18:57; Status DC Clozapine (Clozaril) 75 mg HS PO Last administered on 04/04/17 19:20; Start 04/02/17 at 21:00; Stop 04/05/17 at 19:29; Status DC Clozapine (Clozaril) 100 mg HS PO ; Start 04/05/17 at 21:00; Stop 04/05/17 at 21:00; Status DC Clozapine (Clozaril) 100 mg HS PO Last administered on 04/10/17 19:14; Start 04/05/17 at 21:00; Stop 04/11/17 at 18:28; Status DC Levofloxacin (Levaquin) 250 mg DAILY PO Last administered on 04/11/17 10:25; Start 04/06/17 at 17:00; Stop 04/11/17 at 17:00; Status DC Lidocaine (Lidoderm) 1 patch PRN DAILY PRN TD pain Last administered on 05:11; Start 04/06/17 at 16:15 Mirtazapine (Remeron) 7.5 mg QHS PO Last administered on 04/10/17 19:14; Start 04/07/17 at 21:00; Stop 04/11/17 at 16:13; Status DC Tamsulosin HCl (Flomax) 0.4 mg DAILY PO Last administered on 04/15/17 07:51; Start 04/09/17 at 14:00 Gabapentin (Neurontin) 300 mg BID PO Last administered on 04/12/17 19:32; Start 04/09/17 at 22:30; Stop 04/12/17 at 22:29; Status DC Oxycodone HCl (OxyCONTIN) 10 mg Q12HR PO Last administered on 04/15/17 20:17; Start 04/10/17 at 21:00 Clozapine (Clozaril) 100 mg HS PO Last administered on 04/15/17 20:16; Start 04/11/17 at 21:00 Clozapine (Clozaril) 25 mg HS PO Last administered on 04/15/17 20:16; Start 04/11/17 at 21:00 Zinc Oxide 1 landon PRN Q4HRS PRN TP SKIN PROTECTION; Start 04/15/17 at 11:00 Oxcarbazepine (Trileptal) 300 mg DAILY PO ; Start 04/16/17 at 09:00 Oxcarbazepine (Trileptal) 600 mg DAILY@1400 PO ; Start 04/16/17 at 14:00 Active Scripts Active Reported Omeprazole 40 Mg Capsule.dr 40 Mg PO DAILY Olanzapine 10 Mg Tablet 10 Mg PO TID Megestrol Acetate 400 Mg/10 Ml Oral.susp 400 Mg PO BID Lactulose 10 Gm/15 Ml Solution 30 Ml PO BID Hold if no longer constipated [place] 5-325 Tablet (Hydrocodone Bit/Acetaminophen) 1 Each Tablet 1 Tab PO PRN Q6HRS PRN Tylenol (Acetaminophen) 325 Mg Tablet 650 Mg PO PRN Q4HRS PRN Benztropine Mesylate 1 Mg Tablet 1 Mg PO HS Suppository (Glycerin) 1 Each Supp.rect 1 Each RC PRN DAILY PRN [place] (Ziprasidone Hcl) 40 Mg Capsule 40 Mg PO BID Sennosides-Docusate Sodium Tab (Sennosides/Docusate Sodium) 1 Each Tablet 1 Each PO BID Miralax (Polyethylene Glycol 3350) 17 Gm Powd.pack 17 Gm PO DAILY Protonix (Pantoprazole Sodium) 20 Mg Tablet.dr 20 Mg PO BID [place] 3 1,000 Mg Softgel ([place]-3 Fatty Acids/Fish Oil) 1 Each Capsule 1 Each PO DAILY Linzess (Linaclotide) 290 Mcg Capsule 290 Mcg PO HS Gabapentin 600 Mg Tablet 600 Mg PO BID Vitamin D (Cholecalciferol (Vitamin D3)) 2,000 Unit Capsule 2,000 Unit PO DAILY Buspirone Hcl 10 Mg Tablet 10 Mg PO TID Benztropine Mesylate 1 Mg Tablet 1 Mg PO TID I have reviewed the current psychotropics carefully including drug interactions. Risk benefit ratio favors no change other than as noted in my dictated progress note. Diagnosis: Problems: (1) Anxiety disorder (2) Bipolar affective, mixed, sev w/ psych (3) Dementia, vascular, with depression (4) Dementia, vascular, with delusions (5) Dementia in Alzheimer's disease with depression (6) Dementia in Alzheimer's disease with delusions (7) Impulse control disorder MIRIAM BRASWELL MD Apr 15, 2017 21:35
[2017-04-16 06:10] VITALS: BP 133/82
[2017-04-16] MEDS: LACTULOSE 20 GM/30 ML SOLUTION. PO SCH ×2 (08:09→19:44)
[2017-04-16] MEDS: ZIPRASIDONE 60 MG CAPSULE. PO SCH ×2 (08:09→19:45)
[2017-04-16] MEDS: TAMSULOSIN 0.4 MG CAP.ER.24H. PO SCH (08:09)
[2017-04-16] MEDS: MEGESTROL 400 MG/10 ML ORAL.SUSP. PO SCH ×2 (08:09→14:52)
[2017-04-16] MEDS: ENOXAPARIN 30 MG/0.3 ML DISP.SYRIN. SQ SCH (08:09)
[2017-04-16] MEDS: POLYETHYLENE GLYCOL 3350 17 GM PACKET. PO SCH (08:09)
[2017-04-16] MEDS: SENNOSIDES/DOCUSATE 8.6/50MG TABLET. PO SCH ×2 (08:09→19:45)
[2017-04-16] MEDS: OMEGA-3 FATTY ACIDS/FISH OIL 1,000 MG CAPSULE. PO SCH (08:10)
[2017-04-16] MEDS: LACTOBACILLUS RHAMNOSUS GG 1 CAPSULE. PO SCH ×2 (08:10→19:44)
[2017-04-16] MEDS: PANTOPRAZOLE 40 MG TABLET. PO SCH (08:10)
[2017-04-16] MEDS: CHOLECALCIFEROL (VITAMIN D3) 1,000 UNIT TABLET PO SCH (08:10)
[2017-04-16] MEDS: oxyCODONE ER 10 MG TAB.ER.12H PO SCH ×2 (08:12→19:51)
[2017-04-16] MEDS: NYSTATIN 100,000 UNIT/GM TOPICAL CREAM 15GM TUBE. TP SCH ×2 (09:00→19:52)
[2017-04-16 16:18] VITALS: BP 124/85
--- NOTE | 2017-04-16 18:43 | PN ---
DATE: 04/15/2017 PSYCHIATRIC PROGRESS NOTE This late entry 04/15/2017 covers elements, not covered in my initial note of 04/15/2017. I met with the patient evening of 04/15/2017. The patient refuses medications, closes her mouth when nursing staff attempt to administer meds, getting out of her chair, restless, yelling at dinnertime, threw the soup on the floor. REVIEW OF SYSTEMS: Ambulation impaired, in Broda chair. No CV, , pulmonary, eye, ENT system symptoms on review. MENTAL STATUS EXAM: Oriented to herself and situation. Insight, judgment, recent memory is impaired. Language function intact. Attention span short. Mood and affect remain somewhat labile, still psychotic, but less so than before. Still yelling out. LABORATORY DATA: Reviewed. IMPRESSION: Unchanged from initial note. PLAN: Increase Trileptal from 300 mg twice a day to 300 mg in the morning and 600 mg in the afternoon. Rest unchanged from initial note. MAN Kathleen BRASWELL MD DR: ANAM/aly JOB#: [id number] / [id number]
--- NOTE | 2017-04-16 19:10 | PN ---
DATE: 04/14/2017 PSYCHIATRIC PROGRESS NOTE This is a late entry 04/14/2017 covers elements not covered in my initial note of 04/14/2017. SUBJECTIVE: I met with the patient in the evening of 04/14/2017: The patient is irritable, labile, loud in her presentation. Levaquin completed on 04/11/2017 for UTI. REVIEW OF SYSTEMS: Ambulation impaired, in Broda chair. No CV, , pulmonary, eye, ENT system symptoms on review. MENTAL STATUS EXAMINATION: Oriented to herself. Insight, judgment, recent memory are impaired. Language function intact. Attention span short. Mood and affect remain somewhat labile. Intermittently psychotic, but less so than before. LABORATORY DATA: Reviewed. IMPRESSION: Unchanged from initial note. PLAN: Continue psychotropics mentioned in my initial note. Adjust further as clinically evident. May need to increase Trileptal. MAN Kathleen BRASWELL MD DR: ANAM/aly JOB#: [id number] / [id number]
[2017-04-16] MEDS: cloZAPine 100 MG TABLET PO SCH (19:44)
[2017-04-16] MEDS: cloZAPine 25 MG TABLET PO SCH (19:44)
[2017-04-16] MEDS: traZODone 100 MG TABLET. PO SCH (19:45)
[2017-04-16] MEDS: LINACLOTIDE 145 MCG CAPSULE. PO SCH (19:45)
[2017-04-16] MEDS: CLOTRIMAZOLE/BETAMETH 1%-0.05% TOPICAL CREAM 15GM TUBE. TP SCH (19:54)
--- NOTE | 2017-04-16 20:06 | PDOC ---
Exam Note: Kayden Note: Please also refer to the separate dictated note~for this date of service dictated separately.~Patient seen individually. Discussed the patient with Nursing staff reviewed the chart.~Reviewed interim history and current functioning. Reviewed vital signs,~Labs/ Radiology~and current medications noted below. Continue current treatment with the changes noted in the dictated addendum note Assessment: Vital Signs: Vital Signs Date Time Temp Pulse Resp B/P (MAP) Pulse Ox O2 Delivery O2 Flow Rate FiO2 04/16/17 19:51 100 Room Air 04/16/17 16:18 98.1 98 18 124/85 (98) I&O Intake and Output 04/16/17 07:00 Intake Total 1440 ml Balance 1440 ml Intake Oral 1440 ml # Bowel Movements 1 Current Medications: Meds: Current Medications Benztropine Mesylate (Cogentin) 1 mg TID PO Last administered on 03/16/17 08: 39; Start 03/14/17 at 22:30; Stop 03/16/17 at 11:57; Status DC Buspirone HCl (Buspar) 10 mg TID PO Last administered on 03/16/17 08:40; Start 03/14/17 at 22:30; Stop 03/16/17 at 11:57; Status DC Ziprasidone (Geodon) 40 mg BID PO Last administered on 03/17/17 08:01; Start 03/14/17 at 22:30; Stop 03/17/17 at 18:48; Status DC Glycerin (Sani-Supp Adult) 1 supp PRN DAILY PRN RC CONSTIPATION; Start at 22:30 Pantoprazole Sodium (Protonix) 40 mg DAILYAC PO Last administered on 08:10; Start 03/15/17 at 07:30 Polyethylene Glycol (miraLAX) 17 gm DAILY PO Last administered on 04/16/17 08 :09; Start 03/15/17 at 09:00 Senna/Docusate Sodium (Senna Plus) 1 tab BID PO Last administered on 19:45; Start 03/14/17 at 22:30 Vitamin D (Vitamin D3) 2,000 unit DAILY PO Last administered on 04/16/17 08: 10; Start 03/15/17 at 09:00 Gabapentin (Neurontin) 600 mg BID PO Last administered on 04/09/17 08:14; Start 03/14/17 at 22:30; Stop 04/09/17 at 18:49; Status DC Non-Formulary Medication 290 mcg HS PO ; Start 03/15/17 at 21:00; Status UNV Fish Oil (Fish Oil) 1,000 mg DAILY PO Last administered on 04/16/17 08:10; Start 03/15/17 at 09:00 Benztropine Mesylate (Cogentin) 1 mg HS PO ; Start 03/15/17 at 21:00; Stop 03/15 at 21:00; Status DC Olanzapine (ZyPREXA) 10 mg TID PO Last administered on 03/16/17 08:39; Start 03/14/17 at 23:00; Stop 03/16/17 at 11:57; Status DC Acetaminophen (Tylenol) 650 mg PRN Q4HRS PRN PO PAIN / TEMP Last administered on 04/09/17 21:34; Start 03/14/17 at 22:45 Acetaminophen/ Hydrocodone Bitart (Lortab 5/325) 1 tab PRN Q6HRS PRN PO PAIN Last administered on 04/14/17 13:28; Start 03/14/17 at 22:45 Megestrol Acetate (Megace) 400 mg BID PO Last administered on 03/16/17 08:41; Start 03/14/17 at 23:00; Stop 03/16/17 at 21:03; Status DC Lactulose 20 gm BID PO Last administered on 04/16/17 19:44; Start 03/14/17 at 23:00 Pantoprazole Sodium (Protonix) 40 mg DAILYAC PO ; Start 03/15/17 at 07:30; Stop 03/16/17 at 19:39; Status DC Acetaminophen (Tylenol) 650 mg PRN Q6HRS PRN PO PAIN / TEMP; Start 03/15/17 at 01:15; Stop 03/25/17 at 14:08; Status DC Multi-Ingredient Ointment (Analgesic [place]) 1 landon PRN QID PRN TP MUSCLE PAIN; Start 03/15/17 at 01:15 Al Hydroxide/Mg Hydroxide (Mylanta Plus Xs) 15 ml PRN AFTMEALHC PRN PO DYSPEPSIA Last administered on 04/11/17 16:46; Start 03/15/17 at 01:15 Magnesium Hydroxide (Milk Of Magnesia) 2,400 mg PRN QHS PRN PO CONSTIPATION Last administered on 03/27/17 10:16; Start 03/15/17 at 01:15 Potassium Chloride/Dextrose 1,000 ml @ 75 mls/hr [id number] IV Last administered on 03/18/17 11:25; Start 03/15/17 at 16:45; Stop 03/18/17 at 18:24; Status DC Divalproex Sodium (Depakote Sprinkles) 125 mg BID92 PO Last administered on 13:31; Start 03/16/17 at 09:00; Stop 03/18/17 at 18:29; Status DC Bisacodyl (Dulcolax Supp) 10 mg PRN DAILY PRN [place] CONSTIPATION Last administered on 03/22/17 21:05; Start 03/15/17 at 19:00 Sodium Biphosphate/ Sodium Phosphate (Fleet Adult) 133 ml PRN DAILY PRN [place] CONSTIPATION Last administered on 03/16/17 05:09; Start 03/15/17 at 19:00 Benztropine Mesylate (Cogentin) 1 mg BID PO Last administered on 03/18/17 17: 04; Start 03/16/17 at 21:00; Stop 03/18/17 at 23:00; Status DC Benztropine Mesylate (Cogentin) 1 mg DAILY PO Last administered on 03/21/17 11:21; Start 03/19/17 at 09:00; Stop 03/21/17 at 12:00; Status DC Enoxaparin Sodium (Lovenox) 30 mg Q24H SQ ; Start 03/16/17 at 18:00; Stop at 18:29; Status DC Enoxaparin Sodium (Lovenox) 30 mg Q24H SQ Last administered on 04/16/17 08:09 ; Start 03/17/17 at 09:00 Megestrol Acetate (Megace) 400 mg BID92 PO Last administered on 04/16/17 14: 52; Start 03/17/17 at 09:00 Trimethoprim/ Sulfamethoxazole (Bactrim Ss) 1 tab BID PO Last administered on 03/25/17 08:05; Start 03/17/17 at 21:00; Stop 03/25/17 at 20:59; Status DC Ziprasidone (Geodon) 60 mg BID PO Last administered on 04/16/17 19:45; Start 03/17/17 at 21:00 Lactobacillus Rhamnosus (Culturelle) 1 cap BID PO Last administered on 19:44; Start 03/18/17 at 21:00 Divalproex Sodium (Depakote Sprinkles) 250 mg BID92 PO Last administered on 09:35; Start 03/19/17 at 09:00; Stop 03/23/17 at 11:14; Status DC Olanzapine (ZyPREXA ZYDIS) 5 mg PRN Q2HR PRN PO PSYCHOSIS Last administered on 04/13/17 12:37; Start 03/19/17 at 07:00 Clozapine (Clozaril) 25 mg HS PO Last administered on 03/21/17 20:07; Start 03/19/17 at 21:00; Stop 03/22/17 at 18:41; Status DC Trazodone HCl (Desyrel) 100 mg QHS PO Last administered on 04/16/17 19:45; Start 03/19/17 at 21:00 Trazodone HCl (Desyrel) 100 mg PRN QHS PRN PO INSOMNIA Last administered on 22:47; Start 03/19/17 at 19:15 Clozapine (Clozaril) 50 mg HS PO Last administered on 04/01/17 21:12; Start 03/22/17 at 21:00; Stop 04/01/17 at 21:53; Status DC Oxcarbazepine (Trileptal) 150 mg BID92 PO Last administered on 03/26/17 14:01 ; Start 03/23/17 at 14:00; Stop 03/26/17 at 14:01; Status DC Oxcarbazepine (Trileptal) 300 mg BID92 PO Last administered on 04/15/17 13:42 ; Start 03/27/17 at 09:00; Stop 04/15/17 at 18:57; Status DC Clozapine (Clozaril) 75 mg HS PO Last administered on 04/04/17 19:20; Start 04/02/17 at 21:00; Stop 04/05/17 at 19:29; Status DC Clozapine (Clozaril) 100 mg HS PO ; Start 04/05/17 at 21:00; Stop 04/05/17 at 21:00; Status DC Clozapine (Clozaril) 100 mg HS PO Last administered on 04/10/17 19:14; Start 04/05/17 at 21:00; Stop 04/11/17 at 18:28; Status DC Levofloxacin (Levaquin) 250 mg DAILY PO Last administered on 04/11/17 10:25; Start 04/06/17 at 17:00; Stop 04/11/17 at 17:00; Status DC Lidocaine (Lidoderm) 1 patch PRN DAILY PRN TD pain Last administered on 05:11; Start 04/06/17 at 16:15 Mirtazapine (Remeron) 7.5 mg QHS PO Last administered on 04/10/17 19:14; Start 04/07/17 at 21:00; Stop 04/11/17 at 16:13; Status DC Tamsulosin HCl (Flomax) 0.4 mg DAILY PO Last administered on 04/16/17 08:09; Start 04/09/17 at 14:00 Gabapentin (Neurontin) 300 mg BID PO Last administered on 04/12/17 19:32; Start 04/09/17 at 22:30; Stop 04/12/17 at 22:29; Status DC Oxycodone HCl (OxyCONTIN) 10 mg Q12HR PO Last administered on 04/16/17 19:51 ; Start 04/10/17 at 21:00 Clozapine (Clozaril) 100 mg HS PO Last administered on 04/16/17 19:44; Start 04/11/17 at 21:00 Clozapine (Clozaril) 25 mg HS PO Last administered on 04/16/17 19:44; Start 04/11/17 at 21:00 Zinc Oxide 1 landon PRN Q4HRS PRN TP SKIN PROTECTION; Start 04/15/17 at 11:00 Oxcarbazepine (Trileptal) 300 mg DAILY PO Last administered on 04/16/17 08:12 ; Start 04/16/17 at 09:00 Oxcarbazepine (Trileptal) 600 mg DAILY@1400 PO Last administered on 04/16/17 14:52; Start 04/16/17 at 14:00 Nystatin (Mycostatin) 1 landon BID TP Last administered on 04/16/17 19:52; Start 04/16/17 at 09:00 Betamethasone/ Clotrimazole (Lotrisone) 1 landon BID TP Last administered on 04/16 19:54; Start 04/16/17 at 21:00 Active Scripts Active Reported Omeprazole 40 Mg Capsule.dr 40 Mg PO DAILY Olanzapine 10 Mg Tablet 10 Mg PO TID Megestrol Acetate 400 Mg/10 Ml Oral.susp 400 Mg PO BID Lactulose 10 Gm/15 Ml Solution 30 Ml PO BID Hold if no longer constipated [place] 5-325 Tablet (Hydrocodone Bit/Acetaminophen) 1 Each Tablet 1 Tab PO PRN Q6HRS PRN Tylenol (Acetaminophen) 325 Mg Tablet 650 Mg PO PRN Q4HRS PRN Benztropine Mesylate 1 Mg Tablet 1 Mg PO HS Suppository (Glycerin) 1 Each Supp.rect 1 Each RC PRN DAILY PRN Geodon (Ziprasidone Hcl) 40 Mg Capsule 40 Mg PO BID Sennosides-Docusate Sodium Tab (Sennosides/Docusate Sodium) 1 Each Tablet 1 Each PO BID Miralax (Polyethylene Glycol 3350) 17 Gm Powd.pack 17 Gm PO DAILY Protonix (Pantoprazole Sodium) 20 Mg Tablet.dr 20 Mg PO BID [place] 3 1,000 Mg Softgel ([place]-3 Fatty Acids/Fish Oil) 1 Each Capsule 1 Each PO DAILY Linzess (Linaclotide) 290 Mcg Capsule 290 Mcg PO HS Gabapentin 600 Mg Tablet 600 Mg PO BID Vitamin D (Cholecalciferol (Vitamin D3)) 2,000 Unit Capsule 2,000 Unit PO DAILY Buspirone Hcl 10 Mg Tablet 10 Mg PO TID Benztropine Mesylate 1 Mg Tablet 1 Mg PO TID I have reviewed the current psychotropics carefully including drug interactions. Risk benefit ratio favors no change other than as noted in my dictated progress note. Diagnosis: Problems: (1) Anxiety disorder (2) Bipolar affective, mixed, sev w/ psych (3) Dementia, vascular, with depression (4) Dementia, vascular, with delusions (5) Dementia in Alzheimer's disease with depression (6) Dementia in Alzheimer's disease with delusions (7) Impulse control disorder MIRIAM BRASWELL MD Apr 16, 2017 20:06
[2017-04-17 05:55] VITALS: BP 126/80
[2017-04-17 08:44] LABS: BASO % 0 % (0-3); EOS % 0 % (0-3); HEMATOCRIT 35.3 % (36.0-47.0); LYMPH # 1.5 x10^3/uL (1.0-4.8); LYMPH % 16 % (24-48); MEAN CORPUSCULAR HEMOGLOBIN 32 pg (25-35); MEAN CORPUSCULAR HGB CONC 34 g/dL (31-37); MEAN CORPUSCULAR VOLUME 95 fL (79-100); MONO # 0.5 x10^3/uL (0.0-1.1); MONO % 5 % (0-9); NEUT # 7.3 x10^3uL (1.8-7.7); NEUT % 78 % (31-73); PLATELET COUNT 270 x10^3/uL (140-400); RED BLOOD COUNT 3.72 x10^6/uL (3.50-5.40); RED CELL DISTRIBUTION WIDTH 16.6 % (11.5-14.5); WHITE BLOOD COUNT 9.3 x10^3/uL (4.0-11.0)
[2017-04-17 08:46] LABS: ALBUMIN 2.7 g/dL (3.4-5.0); ALBUMIN/GLOBULIN RATIO 0.7 (1.0-1.7); CALCIUM 9.4 mg/dL (8.5-10.1); CREATININE 0.9 mg/dL (0.6-1.0); GFR 62.8; POTASSIUM 4.4 mmol/L (3.5-5.1); TOTAL BILIRUBIN 0.2 mg/dL (0.2-1.0); TOTAL PROTEIN 6.4 g/dL (6.4-8.2)
[2017-04-17] MEDS: SENNOSIDES/DOCUSATE 8.6/50MG TABLET. PO SCH ×2 (10:31→19:44)
[2017-04-17] MEDS: CHOLECALCIFEROL (VITAMIN D3) 1,000 UNIT TABLET PO SCH (10:31)
[2017-04-17] MEDS: LACTOBACILLUS RHAMNOSUS GG 1 CAPSULE. PO SCH ×2 (10:31→19:44)
[2017-04-17] MEDS: TAMSULOSIN 0.4 MG CAP.ER.24H. PO SCH (10:31)
[2017-04-17] MEDS: PANTOPRAZOLE 40 MG TABLET. PO SCH (10:31)
[2017-04-17] MEDS: ZIPRASIDONE 60 MG CAPSULE. PO SCH ×2 (10:31→19:44)
[2017-04-17] MEDS: ENOXAPARIN 30 MG/0.3 ML DISP.SYRIN. SQ SCH (10:32)
[2017-04-17] MEDS: POLYETHYLENE GLYCOL 3350 17 GM PACKET. PO SCH (10:32)
[2017-04-17] MEDS: OMEGA-3 FATTY ACIDS/FISH OIL 1,000 MG CAPSULE. PO SCH (10:32)
[2017-04-17] MEDS: LACTULOSE 20 GM/30 ML SOLUTION. PO SCH ×2 (10:32→19:44)
[2017-04-17] MEDS: CLOTRIMAZOLE/BETAMETH 1%-0.05% TOPICAL CREAM 15GM TUBE. TP SCH ×2 (10:34→19:48)
[2017-04-17] MEDS: MEGESTROL 400 MG/10 ML ORAL.SUSP. PO SCH ×2 (10:34→14:12)
[2017-04-17] MEDS: oxyCODONE ER 10 MG TAB.ER.12H PO SCH ×2 (10:35→19:47)
[2017-04-17] MEDS: NYSTATIN 100,000 UNIT/GM TOPICAL CREAM 15GM TUBE. TP SCH ×2 (10:36→19:48)
[2017-04-17] MEDS: HYDROcodone/APAP 5/325MG 1 TAB TABLET PO PRN (14:13)
[2017-04-17 15:58] VITALS: BP 124/82
[2017-04-17] MEDS: traZODone 100 MG TABLET. PO SCH (19:44)
[2017-04-17] MEDS: cloZAPine 25 MG TABLET PO SCH (19:46)
[2017-04-17] MEDS: cloZAPine 100 MG TABLET PO SCH (19:46)
[2017-04-17] MEDS: LINACLOTIDE 145 MCG CAPSULE. PO SCH (19:48)
--- NOTE | 2017-04-17 21:27 | PDOC ---
Exam Note: Kayden Note: Please also refer to the separate dictated note~for this date of service dictated separately.~Patient seen individually. Discussed the patient with Nursing staff reviewed the chart.~Reviewed interim history and current functioning. Reviewed vital signs,~Labs/ Radiology~and current medications noted below. Continue current treatment with the changes noted in the dictated addendum note Assessment: Vital Signs: Vital Signs Date Time Temp Pulse Resp B/P (MAP) Pulse Ox O2 Delivery O2 Flow Rate FiO2 04/17/17 19:47 18 100 Room Air 04/17/17 15:58 98.0 91 124/82 (96) I&O Intake and Output 04/17/17 07:00 Intake Total 1080 ml Balance 1080 ml Intake Oral 1080 ml # Bowel Movements 2 Labs: Laboratory Tests Test 04/17/17 08:19 White Blood Count 9.3 x10^3/uL (4.0-11.0) Red Blood Count 3.72 x10^6/uL (3.50-5.40) Hemoglobin 12.0 g/dL (12.0-15.5) Hematocrit 35.3 % (36.0-47.0) L Mean Corpuscular Volume 95 fL (79-100) Mean Corpuscular Hemoglobin 32 pg (25-35) Mean Corpuscular Hemoglobin Concent 34 g/dL (31-37) Red Cell Distribution Width 16.6 % (11.5-14.5) H Platelet Count 270 x10^3/uL (140-400) Neutrophils (%) (Auto) 78 % (31-73) H Lymphocytes (%) (Auto) 16 % (24-48) L Monocytes (%) (Auto) 5 % (0-9) Eosinophils (%) (Auto) 0 % (0-3) Basophils (%) (Auto) 0 % (0-3) Neutrophils # (Auto) 7.3 x10^3uL (1.8-7.7) Lymphocytes # (Auto) 1.5 x10^3/uL (1.0-4.8) Monocytes # (Auto) 0.5 x10^3/uL (0.0-1.1) Eosinophils # (Auto) 0.0 x10^3/uL (0.0-0.7) Basophils # (Auto) 0.0 x10^3/uL (0.0-0.2) Sodium Level 146 mmol/L (136-145) H Potassium Level 4.4 mmol/L (3.5-5.1) Chloride Level 112 mmol/L (98-107) H Carbon Dioxide Level 24 mmol/L (21-32) Anion Gap 10 (6-14) Blood Urea Nitrogen 16 mg/dL (7-20) Creatinine 0.9 mg/dL (0.6-1.0) Estimated GFR (Cockcroft-Gault) 62.8 BUN/Creatinine Ratio 18 (6-20) Glucose Level 98 mg/dL (70-99) Calcium Level 9.4 mg/dL (8.5-10.1) Total Bilirubin 0.2 mg/dL (0.2-1.0) Aspartate Amino Transferase (AST) 16 U/L (15-37) Alanine Aminotransferase (ALT) 26 U/L (14-59) Alkaline Phosphatase 74 U/L (46-116) Total Protein 6.4 g/dL (6.4-8.2) Albumin 2.7 g/dL (3.4-5.0) L Albumin/Globulin Ratio 0.7 (1.0-1.7) L Current Medications: Meds: Current Medications Benztropine Mesylate (Cogentin) 1 mg TID PO Last administered on 03/16/17 08: 39; Start 03/14/17 at 22:30; Stop 03/16/17 at 11:57; Status DC Buspirone HCl (Buspar) 10 mg TID PO Last administered on 03/16/17 08:40; Start 03/14/17 at 22:30; Stop 03/16/17 at 11:57; Status DC Ziprasidone (Geodon) 40 mg BID PO Last administered on 03/17/17 08:01; Start 03/14/17 at 22:30; Stop 03/17/17 at 18:48; Status DC Glycerin (Sani-Supp Adult) 1 supp PRN DAILY PRN RC CONSTIPATION; Start at 22:30 Pantoprazole Sodium (Protonix) 40 mg DAILYAC PO Last administered on 10:31; Start 03/15/17 at 07:30 Polyethylene Glycol (miraLAX) 17 gm DAILY PO Last administered on 04/17/17 10 :32; Start 03/15/17 at 09:00 Senna/Docusate Sodium (Senna Plus) 1 tab BID PO Last administered on 19:44; Start 03/14/17 at 22:30 Vitamin D (Vitamin D3) 2,000 unit DAILY PO Last administered on 04/17/17 10: 31; Start 03/15/17 at 09:00 Gabapentin (Neurontin) 600 mg BID PO Last administered on 04/09/17 08:14; Start 03/14/17 at 22:30; Stop 04/09/17 at 18:49; Status DC Non-Formulary Medication 290 mcg HS PO ; Start 03/15/17 at 21:00; Status UNV Fish Oil (Fish Oil) 1,000 mg DAILY PO Last administered on 04/17/17 10:32; Start 03/15/17 at 09:00 Benztropine Mesylate (Cogentin) 1 mg HS PO ; Start 03/15/17 at 21:00; Stop 03/15 at 21:00; Status DC Olanzapine (ZyPREXA) 10 mg TID PO Last administered on 03/16/17 08:39; Start 03/14/17 at 23:00; Stop 03/16/17 at 11:57; Status DC Acetaminophen (Tylenol) 650 mg PRN Q4HRS PRN PO PAIN / TEMP Last administered on 04/09/17 21:34; Start 03/14/17 at 22:45 Acetaminophen/ Hydrocodone Bitart (Lortab 5/325) 1 tab PRN Q6HRS PRN PO PAIN Last administered on 04/17/17 14:13; Start 03/14/17 at 22:45 Megestrol Acetate (Megace) 400 mg BID PO Last administered on 03/16/17 08:41; Start 03/14/17 at 23:00; Stop 03/16/17 at 21:03; Status DC Lactulose 20 gm BID PO Last administered on 04/17/17 19:44; Start 03/14/17 at 23:00 Pantoprazole Sodium (Protonix) 40 mg DAILYAC PO ; Start 03/15/17 at 07:30; Stop 03/16/17 at 19:39; Status DC Acetaminophen (Tylenol) 650 mg PRN Q6HRS PRN PO PAIN / TEMP; Start 03/15/17 at 01:15; Stop 03/25/17 at 14:08; Status DC Multi-Ingredient Ointment (Analgesic [place]) 1 landon PRN QID PRN TP MUSCLE PAIN; Start 03/15/17 at 01:15 Al Hydroxide/Mg Hydroxide (Mylanta Plus Xs) 15 ml PRN AFTMEALHC PRN PO DYSPEPSIA Last administered on 04/11/17 16:46; Start 03/15/17 at 01:15 Magnesium Hydroxide (Milk Of Magnesia) 2,400 mg PRN QHS PRN PO CONSTIPATION Last administered on 03/27/17 10:16; Start 03/15/17 at 01:15 Potassium Chloride/Dextrose 1,000 ml @ 75 mls/hr [id number] IV Last administered on 03/18/17 11:25; Start 03/15/17 at 16:45; Stop 03/18/17 at 18:24; Status DC Divalproex Sodium (Depakote Sprinkles) 125 mg BID92 PO Last administered on 13:31; Start 03/16/17 at 09:00; Stop 03/18/17 at 18:29; Status DC Bisacodyl (Dulcolax Supp) 10 mg PRN DAILY PRN [place] CONSTIPATION Last administered on 03/22/17 21:05; Start 03/15/17 at 19:00 Sodium Biphosphate/ Sodium Phosphate (Fleet Adult) 133 ml PRN DAILY PRN [place] CONSTIPATION Last administered on 03/16/17 05:09; Start 03/15/17 at 19:00 Benztropine Mesylate (Cogentin) 1 mg BID PO Last administered on 03/18/17 17: 04; Start 03/16/17 at 21:00; Stop 03/18/17 at 23:00; Status DC Benztropine Mesylate (Cogentin) 1 mg DAILY PO Last administered on 03/21/17 11:21; Start 03/19/17 at 09:00; Stop 03/21/17 at 12:00; Status DC Enoxaparin Sodium (Lovenox) 30 mg Q24H SQ ; Start 03/16/17 at 18:00; Stop at 18:29; Status DC Enoxaparin Sodium (Lovenox) 30 mg Q24H SQ Last administered on 04/17/17 10:32 ; Start 03/17/17 at 09:00 Megestrol Acetate (Megace) 400 mg BID92 PO Last administered on 04/17/17 14: 12; Start 03/17/17 at 09:00 Trimethoprim/ Sulfamethoxazole (Bactrim Ss) 1 tab BID PO Last administered on 03/25/17 08:05; Start 03/17/17 at 21:00; Stop 03/25/17 at 20:59; Status DC Ziprasidone (Geodon) 60 mg BID PO Last administered on 04/17/17 19:44; Start 03/17/17 at 21:00 Lactobacillus Rhamnosus (Culturelle) 1 cap BID PO Last administered on 19:44; Start 03/18/17 at 21:00 Divalproex Sodium (Depakote Sprinkles) 250 mg BID92 PO Last administered on 09:35; Start 03/19/17 at 09:00; Stop 03/23/17 at 11:14; Status DC Olanzapine (ZyPREXA ZYDIS) 5 mg PRN Q2HR PRN PO PSYCHOSIS Last administered on 04/13/17 12:37; Start 03/19/17 at 07:00 Clozapine (Clozaril) 25 mg HS PO Last administered on 03/21/17 20:07; Start 03/19/17 at 21:00; Stop 03/22/17 at 18:41; Status DC Trazodone HCl (Desyrel) 100 mg QHS PO Last administered on 04/17/17 19:44; Start 03/19/17 at 21:00 Trazodone HCl (Desyrel) 100 mg PRN QHS PRN PO INSOMNIA Last administered on 22:47; Start 03/19/17 at 19:15 Clozapine (Clozaril) 50 mg HS PO Last administered on 04/01/17 21:12; Start 03/22/17 at 21:00; Stop 04/01/17 at 21:53; Status DC Oxcarbazepine (Trileptal) 150 mg BID92 PO Last administered on 03/26/17 14:01 ; Start 03/23/17 at 14:00; Stop 03/26/17 at 14:01; Status DC Oxcarbazepine (Trileptal) 300 mg BID92 PO Last administered on 04/15/17 13:42 ; Start 03/27/17 at 09:00; Stop 04/15/17 at 18:57; Status DC Clozapine (Clozaril) 75 mg HS PO Last administered on 04/04/17 19:20; Start 04/02/17 at 21:00; Stop 04/05/17 at 19:29; Status DC Clozapine (Clozaril) 100 mg HS PO ; Start 04/05/17 at 21:00; Stop 04/05/17 at 21:00; Status DC Clozapine (Clozaril) 100 mg HS PO Last administered on 04/10/17 19:14; Start 04/05/17 at 21:00; Stop 04/11/17 at 18:28; Status DC Levofloxacin (Levaquin) 250 mg DAILY PO Last administered on 04/11/17 10:25; Start 04/06/17 at 17:00; Stop 04/11/17 at 17:00; Status DC Lidocaine (Lidoderm) 1 patch PRN DAILY PRN TD pain Last administered on 05:11; Start 04/06/17 at 16:15 Mirtazapine (Remeron) 7.5 mg QHS PO Last administered on 04/10/17 19:14; Start 04/07/17 at 21:00; Stop 04/11/17 at 16:13; Status DC Tamsulosin HCl (Flomax) 0.4 mg DAILY PO Last administered on 04/17/17 10:31; Start 04/09/17 at 14:00 Gabapentin (Neurontin) 300 mg BID PO Last administered on 04/12/17 19:32; Start 04/09/17 at 22:30; Stop 04/12/17 at 22:29; Status DC Oxycodone HCl (OxyCONTIN) 10 mg Q12HR PO Last administered on 04/17/17 19:47 ; Start 04/10/17 at 21:00 Clozapine (Clozaril) 100 mg HS PO Last administered on 04/17/17 19:46; Start 04/11/17 at 21:00 Clozapine (Clozaril) 25 mg HS PO Last administered on 04/16/17 19:44; Start 04/11/17 at 21:00; Stop 04/17/17 at 18:35; Status DC Zinc Oxide 1 landon PRN Q4HRS PRN TP SKIN PROTECTION Last administered on 10:34; Start 04/15/17 at 11:00 Oxcarbazepine (Trileptal) 300 mg DAILY PO Last administered on 04/17/17 10:31 ; Start 04/16/17 at 09:00 Oxcarbazepine (Trileptal) 600 mg DAILY@1400 PO Last administered on 04/17/17 14:12; Start 04/16/17 at 14:00 Nystatin (Mycostatin) 1 landon BID TP Last administered on 04/17/17 19:48; Start 04/16/17 at 09:00 Betamethasone/ Clotrimazole (Lotrisone) 1 landon BID TP Last administered on 04/17 19:48; Start 04/16/17 at 21:00 Clozapine (Clozaril) 50 mg HS PO Last administered on 04/17/17 19:46; Start 04/17/17 at 21:00 Active Scripts Active Reported Omeprazole 40 Mg Capsule.dr 40 Mg PO DAILY Olanzapine 10 Mg Tablet 10 Mg PO TID Megestrol Acetate 400 Mg/10 Ml Oral.susp 400 Mg PO BID Lactulose 10 Gm/15 Ml Solution 30 Ml PO BID Hold if no longer constipated [place] 5-325 Tablet (Hydrocodone Bit/Acetaminophen) 1 Each Tablet 1 Tab PO PRN Q6HRS PRN Tylenol (Acetaminophen) 325 Mg Tablet 650 Mg PO PRN Q4HRS PRN Benztropine Mesylate 1 Mg Tablet 1 Mg PO HS Suppository (Glycerin) 1 Each Supp.rect 1 Each RC PRN DAILY PRN Geodon (Ziprasidone Hcl) 40 Mg Capsule 40 Mg PO BID Sennosides-Docusate Sodium Tab (Sennosides/Docusate Sodium) 1 Each Tablet 1 Each PO BID Miralax (Polyethylene Glycol 3350) 17 Gm Powd.pack 17 Gm PO DAILY Protonix (Pantoprazole Sodium) 20 Mg Tablet.dr 20 Mg PO BID [place] 3 1,000 Mg Softgel ([place]-3 Fatty Acids/Fish Oil) 1 Each Capsule 1 Each PO DAILY Linzess (Linaclotide) 290 Mcg Capsule 290 Mcg PO HS Gabapentin 600 Mg Tablet 600 Mg PO BID Vitamin D (Cholecalciferol (Vitamin D3)) 2,000 Unit Capsule 2,000 Unit PO DAILY Buspirone Hcl 10 Mg Tablet 10 Mg PO TID Benztropine Mesylate 1 Mg Tablet 1 Mg PO TID I have reviewed the current psychotropics carefully including drug interactions. Risk benefit ratio favors no change other than as noted in my dictated progress note. Diagnosis: Problems: (1) Anxiety disorder (2) Bipolar affective, mixed, sev w/ psych (3) Dementia, vascular, with depression (4) Dementia, vascular, with delusions (5) Dementia in Alzheimer's disease with depression (6) Dementia in Alzheimer's disease with delusions (7) Impulse control disorder MIRIAM BRASWELL MD Apr 17, 2017 21:27
--- NOTE | 2017-04-17 23:08 | PN ---
DATE: 04/16/2017 This is a late entry, covers the elements not covered in my initial note, 04/16/2017. SUBJECTIVE: I met with the patient in the evening of 04/16/2017. The patient has gone for several hours during the day without screaming. She has been able to sit in the day room, did get agitated when her daughter visited resistive to medications. REVIEW OF SYSTEMS: Ambulation impaired in [place]da chair. No CV, , pulmonary, eye, ENT system symptoms on review. Reliability poor. MENTAL STATUS EXAM: Oriented to herself and situation. Speech can be loud at times. Abstraction fair, computation impaired, language function intact, attention span short. Mood and affect, lability is improved. LABORATORY DATA: Reviewed. IMPRESSION: Unchanged from initial note. PLAN: Continue current psychotropics as mentioned in my initial note, may need to increase Clozaril on 04/17/2017, if the absolute neutrophil count is unremarkable. MIRIAM BRASWELL MD DR: ANAM/aly JOB#: [id number] / [id number]
[2017-04-18 05:57] VITALS: BP 105/60
[2017-04-18] MEDS: OMEGA-3 FATTY ACIDS/FISH OIL 1,000 MG CAPSULE. PO SCH (09:58)
[2017-04-18] MEDS: ZIPRASIDONE 60 MG CAPSULE. PO SCH ×2 (10:02→19:43)
[2017-04-18] MEDS: PANTOPRAZOLE 40 MG TABLET. PO SCH (10:02)
[2017-04-18] MEDS: LACTOBACILLUS RHAMNOSUS GG 1 CAPSULE. PO SCH ×2 (10:02→19:43)
[2017-04-18] MEDS: TAMSULOSIN 0.4 MG CAP.ER.24H. PO SCH (10:03)
[2017-04-18] MEDS: CLOTRIMAZOLE/BETAMETH 1%-0.05% TOPICAL CREAM 15GM TUBE. TP SCH (10:03)
[2017-04-18] MEDS: CHOLECALCIFEROL (VITAMIN D3) 1,000 UNIT TABLET PO SCH (10:03)
[2017-04-18] MEDS: SENNOSIDES/DOCUSATE 8.6/50MG TABLET. PO SCH ×2 (10:03→19:43)
[2017-04-18] MEDS: NYSTATIN 100,000 UNIT/GM TOPICAL CREAM 15GM TUBE. TP SCH (10:03)
[2017-04-18] MEDS: LACTULOSE 20 GM/30 ML SOLUTION. PO SCH ×2 (10:03→19:43)
[2017-04-18] MEDS: POLYETHYLENE GLYCOL 3350 17 GM PACKET. PO SCH (10:04)
[2017-04-18] MEDS: ENOXAPARIN 30 MG/0.3 ML DISP.SYRIN. SQ SCH (10:04)
[2017-04-18] MEDS: oxyCODONE ER 10 MG TAB.ER.12H PO SCH ×2 (10:09→19:45)
[2017-04-18] MEDS: MEGESTROL 400 MG/10 ML ORAL.SUSP. PO SCH ×2 (10:09→14:48)
[2017-04-18] MEDS: HYDROcodone/APAP 5/325MG 1 TAB TABLET PO PRN (14:48)
[2017-04-18 16:10] VITALS: BP 155/82
[2017-04-18] MEDS ORDERED: NYSTATIN TOPICAL POWDER 15GM BOTTLE. TP ONE (16:37)
[2017-04-18] MEDS: FLUCONAZOLE 100 MG TABLET. PO SCH (16:45)
[2017-04-18] MEDS: traZODone 100 MG TABLET. PO SCH (19:43)
[2017-04-18] MEDS: cloZAPine 100 MG TABLET PO SCH (19:43)
[2017-04-18] MEDS: LINACLOTIDE 145 MCG CAPSULE. PO SCH (19:43)
[2017-04-18] MEDS: cloZAPine 25 MG TABLET PO SCH (19:43)
[2017-04-18] MEDS: NYSTATIN TOPICAL POWDER 15GM BOTTLE. TP SCH (19:44)
[2017-04-18 21:10] LABS: BACTERIA,URINE 0 /HPF (0-FEW); BILIRUBIN,URINE NEG (NEG); CLARITY,URINE HAZY; COLOR,URINE STRAW; GLUCOSE,URINE NEG (NEG); NITRITE,URINE NEG (NEG); SQUAMOUS EPITHELIAL CELL,UR FEW /LPF; UROBILINOGEN,URINE 0.2 mg/dL (0.2 mg/dL)
[2017-04-18 21:12] LABS: HYALINE CASTS, URINE FEW /HPF
--- NOTE | 2017-04-18 22:10 | PDOC ---
Exam Note: Kayden Note: Please also refer to the separate dictated note~for this date of service dictated separately.~Patient seen individually. Discussed the patient with Nursing staff reviewed the chart.~Reviewed interim history and current functioning. Reviewed vital signs,~Labs/ Radiology~and current medications noted below. Continue current treatment with the changes noted in the dictated addendum note Assessment: Vital Signs: Vital Signs Date Time Temp Pulse Resp B/P (MAP) Pulse Ox O2 Delivery O2 Flow Rate FiO2 04/18/17 19:45 16 98 Room Air 04/18/17 16:10 98.5 105 155/82 (106) I&O Intake and Output 04/18/17 07:00 Intake Total 1980 ml Balance 1980 ml Intake Oral 1980 ml # Bowel Movements 1 Labs: Laboratory Tests Test 04/18/17 16:15 Urine Collection Type U cath Urine Color Straw Urine Clarity Hazy Urine pH 5.5 Urine Specific [place] 1.010 Urine Protein Neg (NEG-TRACE) Urine Glucose (UA) Neg mg/dL (NEG) Urine Ketones (Stick) Neg mg/dL (NEG) Urine Blood Trace (NEG) Urine Nitrite Neg (NEG) Urine Bilirubin Neg (NEG) Urine Urobilinogen Dipstick 0.2 mg/dL (0.2 mg/dL) Urine Leukocyte Esterase Neg (NEG) Urine RBC 1-2 /HPF (0-2) Urine WBC 5-10 /HPF (0-4) Urine Squamous Epithelial Cells Few /LPF Urine Bacteria 0 /HPF (0-FEW) Urine Hyaline Casts Few /HPF Urine Mucus Slight /LPF Current Medications: Meds: Current Medications Benztropine Mesylate (Cogentin) 1 mg TID PO Last administered on 03/16/17 08: 39; Start 03/14/17 at 22:30; Stop 03/16/17 at 11:57; Status DC Buspirone HCl (Buspar) 10 mg TID PO Last administered on 03/16/17 08:40; Start 03/14/17 at 22:30; Stop 03/16/17 at 11:57; Status DC Ziprasidone (Geodon) 40 mg BID PO Last administered on 03/17/17 08:01; Start 03/14/17 at 22:30; Stop 03/17/17 at 18:48; Status DC Glycerin (Sani-Supp Adult) 1 supp PRN DAILY PRN RC CONSTIPATION; Start at 22:30 Pantoprazole Sodium (Protonix) 40 mg DAILYAC PO Last administered on 10:02; Start 03/15/17 at 07:30 Polyethylene Glycol (miraLAX) 17 gm DAILY PO Last administered on 04/18/17 10 :04; Start 03/15/17 at 09:00 Senna/Docusate Sodium (Senna Plus) 1 tab BID PO Last administered on 19:43; Start 03/14/17 at 22:30 Vitamin D (Vitamin D3) 2,000 unit DAILY PO Last administered on 04/18/17 10: 03; Start 03/15/17 at 09:00 Gabapentin (Neurontin) 600 mg BID PO Last administered on 04/09/17 08:14; Start 03/14/17 at 22:30; Stop 04/09/17 at 18:49; Status DC Non-Formulary Medication 290 mcg HS PO ; Start 03/15/17 at 21:00; Status UNV Fish Oil (Fish Oil) 1,000 mg DAILY PO Last administered on 04/18/17 09:58; Start 03/15/17 at 09:00 Benztropine Mesylate (Cogentin) 1 mg HS PO ; Start 03/15/17 at 21:00; Stop 03/15 at 21:00; Status DC Olanzapine (ZyPREXA) 10 mg TID PO Last administered on 03/16/17 08:39; Start 03/14/17 at 23:00; Stop 03/16/17 at 11:57; Status DC Acetaminophen (Tylenol) 650 mg PRN Q4HRS PRN PO PAIN / TEMP Last administered on 04/09/17 21:34; Start 03/14/17 at 22:45 Acetaminophen/ Hydrocodone Bitart (Lortab 5/325) 1 tab PRN Q6HRS PRN PO PAIN Last administered on 04/18/17 14:48; Start 03/14/17 at 22:45 Megestrol Acetate (Megace) 400 mg BID PO Last administered on 03/16/17 08:41; Start 03/14/17 at 23:00; Stop 03/16/17 at 21:03; Status DC Lactulose 20 gm BID PO Last administered on 04/18/17 19:43; Start 03/14/17 at 23:00 Pantoprazole Sodium (Protonix) 40 mg DAILYAC PO ; Start 03/15/17 at 07:30; Stop 03/16/17 at 19:39; Status DC Acetaminophen (Tylenol) 650 mg PRN Q6HRS PRN PO PAIN / TEMP; Start 03/15/17 at 01:15; Stop 03/25/17 at 14:08; Status DC Multi-Ingredient Ointment (Analgesic [place]) 1 landon PRN QID PRN TP MUSCLE PAIN; Start 03/15/17 at 01:15 Al Hydroxide/Mg Hydroxide (Mylanta Plus Xs) 15 ml PRN AFTMEALHC PRN PO DYSPEPSIA Last administered on 04/11/17 16:46; Start 03/15/17 at 01:15 Magnesium Hydroxide (Milk Of Magnesia) 2,400 mg PRN QHS PRN PO CONSTIPATION Last administered on 03/27/17 10:16; Start 03/15/17 at 01:15 Potassium Chloride/Dextrose 1,000 ml @ 75 mls/hr [id number] IV Last administered on 03/18/17 11:25; Start 03/15/17 at 16:45; Stop 03/18/17 at 18:24; Status DC Divalproex Sodium (Depakote Sprinkles) 125 mg BID92 PO Last administered on 13:31; Start 03/16/17 at 09:00; Stop 03/18/17 at 18:29; Status DC Bisacodyl (Dulcolax Supp) 10 mg PRN DAILY PRN [place] CONSTIPATION Last administered on 03/22/17 21:05; Start 03/15/17 at 19:00 Sodium Biphosphate/ Sodium Phosphate (Fleet Adult) 133 ml PRN DAILY PRN [place] CONSTIPATION Last administered on 03/16/17 05:09; Start 03/15/17 at 19:00 Benztropine Mesylate (Cogentin) 1 mg BID PO Last administered on 03/18/17 17: 04; Start 03/16/17 at 21:00; Stop 03/18/17 at 23:00; Status DC Benztropine Mesylate (Cogentin) 1 mg DAILY PO Last administered on 03/21/17 11:21; Start 03/19/17 at 09:00; Stop 03/21/17 at 12:00; Status DC Enoxaparin Sodium (Lovenox) 30 mg Q24H SQ ; Start 03/16/17 at 18:00; Stop at 18:29; Status DC Enoxaparin Sodium (Lovenox) 30 mg Q24H SQ Last administered on 04/18/17 10:04 ; Start 03/17/17 at 09:00 Megestrol Acetate (Megace) 400 mg BID92 PO Last administered on 04/18/17 14: 48; Start 03/17/17 at 09:00 Trimethoprim/ Sulfamethoxazole (Bactrim Ss) 1 tab BID PO Last administered on 03/25/17 08:05; Start 03/17/17 at 21:00; Stop 03/25/17 at 20:59; Status DC Ziprasidone (Geodon) 60 mg BID PO Last administered on 04/18/17 19:43; Start 03/17/17 at 21:00 Lactobacillus Rhamnosus (Culturelle) 1 cap BID PO Last administered on 19:43; Start 03/18/17 at 21:00 Divalproex Sodium (Depakote Sprinkles) 250 mg BID92 PO Last administered on 09:35; Start 03/19/17 at 09:00; Stop 03/23/17 at 11:14; Status DC Olanzapine (ZyPREXA ZYDIS) 5 mg PRN Q2HR PRN PO PSYCHOSIS Last administered on 04/13/17 12:37; Start 03/19/17 at 07:00 Clozapine (Clozaril) 25 mg HS PO Last administered on 03/21/17 20:07; Start 03/19/17 at 21:00; Stop 03/22/17 at 18:41; Status DC Trazodone HCl (Desyrel) 100 mg QHS PO Last administered on 04/18/17 19:43; Start 03/19/17 at 21:00 Trazodone HCl (Desyrel) 100 mg PRN QHS PRN PO INSOMNIA Last administered on 22:47; Start 03/19/17 at 19:15 Clozapine (Clozaril) 50 mg HS PO Last administered on 04/01/17 21:12; Start 03/22/17 at 21:00; Stop 04/01/17 at 21:53; Status DC Oxcarbazepine (Trileptal) 150 mg BID92 PO Last administered on 03/26/17 14:01 ; Start 03/23/17 at 14:00; Stop 03/26/17 at 14:01; Status DC Oxcarbazepine (Trileptal) 300 mg BID92 PO Last administered on 04/15/17 13:42 ; Start 03/27/17 at 09:00; Stop 04/15/17 at 18:57; Status DC Clozapine (Clozaril) 75 mg HS PO Last administered on 04/04/17 19:20; Start 04/02/17 at 21:00; Stop 04/05/17 at 19:29; Status DC Clozapine (Clozaril) 100 mg HS PO ; Start 04/05/17 at 21:00; Stop 04/05/17 at 21:00; Status DC Clozapine (Clozaril) 100 mg HS PO Last administered on 04/10/17 19:14; Start 04/05/17 at 21:00; Stop 04/11/17 at 18:28; Status DC Levofloxacin (Levaquin) 250 mg DAILY PO Last administered on 04/11/17 10:25; Start 04/06/17 at 17:00; Stop 04/11/17 at 17:00; Status DC Lidocaine (Lidoderm) 1 patch PRN DAILY PRN TD pain Last administered on 05:11; Start 04/06/17 at 16:15 Mirtazapine (Remeron) 7.5 mg QHS PO Last administered on 04/10/17 19:14; Start 04/07/17 at 21:00; Stop 04/11/17 at 16:13; Status DC Tamsulosin HCl (Flomax) 0.4 mg DAILY PO Last administered on 04/18/17 10:03; Start 04/09/17 at 14:00 Gabapentin (Neurontin) 300 mg BID PO Last administered on 04/12/17 19:32; Start 04/09/17 at 22:30; Stop 04/12/17 at 22:29; Status DC Oxycodone HCl (OxyCONTIN) 10 mg Q12HR PO Last administered on 04/18/17 19:45 ; Start 04/10/17 at 21:00 Clozapine (Clozaril) 100 mg HS PO Last administered on 04/18/17 19:43; Start 04/11/17 at 21:00 Clozapine (Clozaril) 25 mg HS PO Last administered on 04/16/17 19:44; Start 04/11/17 at 21:00; Stop 04/17/17 at 18:35; Status DC Zinc Oxide 1 landon PRN Q4HRS PRN TP SKIN PROTECTION Last administered on 10:34; Start 04/15/17 at 11:00 Oxcarbazepine (Trileptal) 300 mg DAILY PO Last administered on 04/18/17 10:03 ; Start 04/16/17 at 09:00; Stop 04/18/17 at 18:46; Status DC Oxcarbazepine (Trileptal) 600 mg DAILY@1400 PO Last administered on 04/18/17 14:48; Start 04/16/17 at 14:00; Stop 04/18/17 at 18:46; Status DC Nystatin (Mycostatin) 1 landon BID TP Last administered on 04/18/17 10:03; Start 04/16/17 at 09:00; Stop 04/18/17 at 16:23; Status DC Betamethasone/ Clotrimazole (Lotrisone) 1 landon BID TP Last administered on 04/18 10:03; Start 04/16/17 at 21:00; Stop 04/18/17 at 16:23; Status DC Clozapine (Clozaril) 50 mg HS PO Last administered on 04/18/17 19:43; Start 04/17/17 at 21:00 Fluconazole (Diflucan) 100 mg DAILY PO Last administered on 04/18/17 16:45; Start 04/18/17 at 16:00; Stop 04/25/17 at 15:59 Nystatin (Nystop) 1 landon BID TP Last administered on 04/18/17 19:44; Start at 21:00 Nystatin (Nystop) 15 landon STK-MED ONCE TP ; Start 04/18/17 at 16:37; Stop 04/18 at 16:38; Status DC Oxcarbazepine (Trileptal) 600 mg BID92 PO ; Start 04/19/17 at 09:00 Active Scripts Active Reported Omeprazole 40 Mg Capsule.dr 40 Mg PO DAILY Olanzapine 10 Mg Tablet 10 Mg PO TID Megestrol Acetate 400 Mg/10 Ml Oral.susp 400 Mg PO BID Lactulose 10 Gm/15 Ml Solution 30 Ml PO BID Hold if no longer constipated [place] 5-325 Tablet (Hydrocodone Bit/Acetaminophen) 1 Each Tablet 1 Tab PO PRN Q6HRS PRN Tylenol (Acetaminophen) 325 Mg Tablet 650 Mg PO PRN Q4HRS PRN Benztropine Mesylate 1 Mg Tablet 1 Mg PO HS Suppository (Glycerin) 1 Each Supp.rect 1 Each RC PRN DAILY PRN Geodon (Ziprasidone Hcl) 40 Mg Capsule 40 Mg PO BID Sennosides-Docusate Sodium Tab (Sennosides/Docusate Sodium) 1 Each Tablet 1 Each PO BID Miralax (Polyethylene Glycol 3350) 17 Gm Powd.pack 17 Gm PO DAILY Protonix (Pantoprazole Sodium) 20 Mg Tablet. 20 Mg PO BID [place] 3 1,000 Mg Softgel ([place]-3 Fatty Acids/Fish Oil) 1 Each Capsule 1 Each PO DAILY Linzess (Linaclotide) 290 Mcg Capsule 290 Mcg PO HS Gabapentin 600 Mg Tablet 600 Mg PO BID Vitamin D (Cholecalciferol (Vitamin D3)) 2,000 Unit Capsule 2,000 Unit PO DAILY Buspirone Hcl 10 Mg Tablet 10 Mg PO TID Benztropine Mesylate 1 Mg Tablet 1 Mg PO TID I have reviewed the current psychotropics carefully including drug interactions. Risk benefit ratio favors no change other than as noted in my dictated progress note. Diagnosis: Problems: (1) Anxiety disorder (2) Bipolar affective, mixed, sev w/ psych (3) Dementia, vascular, with depression (4) Dementia, vascular, with delusions (5) Dementia in Alzheimer's disease with depression (6) Dementia in Alzheimer's disease with delusions (7) Impulse control disorder MIRIAM BRASWELL MD Apr 18, 2017 22:10
[2017-04-19 06:23] VITALS: BP 117/66
--- NOTE | 2017-04-19 06:59 | PN ---
DATE: REASON FOR VISIT: Severe rash on her buttocks and perineum. SUBJECTIVE: Nursing staff asked me to check out a rash that she has had on her buttock area. The patient is incontinent and this was also called to the attention of Dr. Inman who actually started her on nystatin and clotrimazole, but it has not gotten any better. OBJECTIVE: VITAL SIGNS: Blood pressure 155/82, pulse 105, respirations 20, temperature 98.5, pulse ox 100% on room air. LUNGS: Clear. CARDIOVASCULAR: Regular rhythm and rate. EXTREMITIES: Right hand is slightly swollen. Perineal area, extensive Nusrat infection on the buttock area as well as in right inner thigh and lower perineum area. MOUTH: The patient still has thrush on her tongue. ASSESSMENT: 1. Severe candidal dermatologic infection in the perineum and buttocks. 2. Thrush. PLAN: Diflucan 100 mg daily for 7 days, Nystatin powder and Gatica catheter for 3 days. SOPHIA LEMUS DO DR: HETAL/aly JOB#: [id number] / [id number]
--- NOTE | 2017-04-19 07:52 | PN ---
DATE: 04/17/2017 PSYCHIATRIC PROGRESS NOTE This is a late entry 04/17/2017, covers elements not covered in my initial note 04/17/2017. SUBJECTIVE: I met with the patient the evening of 04/17/2017. Overall, the patient has appeared more disorganized, continues to be loud in her speech "no, no, no, no." REVIEW OF SYSTEMS: Ambulation impaired, in Broda chair. No CV, , pulmonary, eye, ENT system symptoms on review. Reliability poor. MENTAL STATUS EXAM: Oriented to herself and situation. Speech loud, coherent, abstraction fair, computation impaired, language function intact. Mood and affect remains labile. Her associations loose. LABORATORY DATA: Absolute neutrophil count unremarkable. IMPRESSION: Unchanged from initial note. PLAN: Increase Clozaril to 150 mg at bedtime. Continue Geodon 60 mg b.i.d., trazodone 100 mg at bedtime, september repeat x 1, Zyprexa p.r.n., Trileptal 300 mg a.m. and 600 at 2:00 p.m. Adjust further as clinically indicated. MAN Kathleen BRASWELL MD DR: ANAM/aly JOB#: [id number] / [id number]
[2017-04-19] MEDS: SENNOSIDES/DOCUSATE 8.6/50MG TABLET. PO SCH ×2 (09:44→20:06)
[2017-04-19] MEDS: MEGESTROL 400 MG/10 ML ORAL.SUSP. PO SCH ×2 (09:44→14:32)
[2017-04-19] MEDS: TAMSULOSIN 0.4 MG CAP.ER.24H. PO SCH (09:44)
[2017-04-19] MEDS: FLUCONAZOLE 100 MG TABLET. PO SCH (09:44)
[2017-04-19] MEDS: LACTULOSE 20 GM/30 ML SOLUTION. PO SCH ×2 (09:44→20:06)
[2017-04-19] MEDS: OMEGA-3 FATTY ACIDS/FISH OIL 1,000 MG CAPSULE. PO SCH (09:44)
[2017-04-19] MEDS: LACTOBACILLUS RHAMNOSUS GG 1 CAPSULE. PO SCH ×2 (09:44→20:06)
[2017-04-19] MEDS: CHOLECALCIFEROL (VITAMIN D3) 1,000 UNIT TABLET PO SCH (09:44)
[2017-04-19] MEDS: PANTOPRAZOLE 40 MG TABLET. PO SCH (09:44)
[2017-04-19] MEDS: ENOXAPARIN 30 MG/0.3 ML DISP.SYRIN. SQ SCH (09:45)
[2017-04-19] MEDS: POLYETHYLENE GLYCOL 3350 17 GM PACKET. PO SCH (09:45)
[2017-04-19] MEDS: ZIPRASIDONE 60 MG CAPSULE. PO SCH ×2 (09:45→20:06)
[2017-04-19] MEDS: NYSTATIN TOPICAL POWDER 15GM BOTTLE. TP SCH ×2 (09:50→20:07)
[2017-04-19] MEDS: oxyCODONE ER 10 MG TAB.ER.12H PO SCH ×2 (09:50→20:12)
[2017-04-19 16:30] VITALS: BP 112/64
[2017-04-19] MEDS: traZODone 100 MG TABLET. PO SCH (20:06)
[2017-04-19] MEDS: cloZAPine 100 MG TABLET PO SCH (20:06)
[2017-04-19] MEDS: cloZAPine 25 MG TABLET PO SCH (20:06)
[2017-04-19] MEDS: LINACLOTIDE 145 MCG CAPSULE. PO SCH (20:07)
--- NOTE | 2017-04-19 20:13 | PDOC ---
Exam Note: Kayden Note: Please also refer to the separate dictated note~for this date of service dictated separately.~Patient seen individually. Discussed the patient with Nursing staff reviewed the chart.~Reviewed interim history and current functioning. Reviewed vital signs,~Labs/ Radiology~and current medications noted below. Continue current treatment with the changes noted in the dictated addendum note Assessment: Vital Signs: Vital Signs Date Time Temp Pulse Resp B/P (MAP) Pulse Ox O2 Delivery O2 Flow Rate FiO2 04/19/17 16:30 98.7 103 20 112/64 (80) 96 04/18/17 23:45 Room Air I&O Intake and Output 04/19/17 07:00 Intake Total 2560 ml Output Total 700 ml Balance 1860 ml Intake Oral 2560 ml Output Urine Total 700 ml # Bowel Movements 1 Current Medications: Meds: Current Medications Benztropine Mesylate (Cogentin) 1 mg TID PO Last administered on 03/16/17 08: 39; Start 03/14/17 at 22:30; Stop 03/16/17 at 11:57; Status DC Buspirone HCl (Buspar) 10 mg TID PO Last administered on 03/16/17 08:40; Start 03/14/17 at 22:30; Stop 03/16/17 at 11:57; Status DC Ziprasidone (Geodon) 40 mg BID PO Last administered on 03/17/17 08:01; Start 03/14/17 at 22:30; Stop 03/17/17 at 18:48; Status DC Glycerin (Sani-Supp Adult) 1 supp PRN DAILY PRN RC CONSTIPATION; Start at 22:30 Pantoprazole Sodium (Protonix) 40 mg DAILYAC PO Last administered on 09:44; Start 03/15/17 at 07:30 Polyethylene Glycol (miraLAX) 17 gm DAILY PO Last administered on 04/19/17 09 :45; Start 03/15/17 at 09:00 Senna/Docusate Sodium (Senna Plus) 1 tab BID PO Last administered on 09:44; Start 03/14/17 at 22:30 Vitamin D (Vitamin D3) 2,000 unit DAILY PO Last administered on 04/19/17 09: 44; Start 03/15/17 at 09:00 Gabapentin (Neurontin) 600 mg BID PO Last administered on 04/09/17 08:14; Start 03/14/17 at 22:30; Stop 04/09/17 at 18:49; Status DC Non-Formulary Medication 290 mcg HS PO ; Start 03/15/17 at 21:00; Status UNV Fish Oil (Fish Oil) 1,000 mg DAILY PO Last administered on 04/19/17 09:44; Start 03/15/17 at 09:00 Benztropine Mesylate (Cogentin) 1 mg HS PO ; Start 03/15/17 at 21:00; Stop 03/15 at 21:00; Status DC Olanzapine (ZyPREXA) 10 mg TID PO Last administered on 03/16/17 08:39; Start 03/14/17 at 23:00; Stop 03/16/17 at 11:57; Status DC Acetaminophen (Tylenol) 650 mg PRN Q4HRS PRN PO PAIN / TEMP Last administered on 04/09/17 21:34; Start 03/14/17 at 22:45 Acetaminophen/ Hydrocodone Bitart (Lortab 5/325) 1 tab PRN Q6HRS PRN PO PAIN Last administered on 04/18/17 14:48; Start 03/14/17 at 22:45 Megestrol Acetate (Megace) 400 mg BID PO Last administered on 03/16/17 08:41; Start 03/14/17 at 23:00; Stop 03/16/17 at 21:03; Status DC Lactulose 20 gm BID PO Last administered on 04/19/17 09:44; Start 03/14/17 at 23:00 Pantoprazole Sodium (Protonix) 40 mg DAILYAC PO ; Start 03/15/17 at 07:30; Stop 03/16/17 at 19:39; Status DC Acetaminophen (Tylenol) 650 mg PRN Q6HRS PRN PO PAIN / TEMP; Start 03/15/17 at 01:15; Stop 03/25/17 at 14:08; Status DC Multi-Ingredient Ointment (Analgesic [place]) 1 landon PRN QID PRN TP MUSCLE PAIN; Start 03/15/17 at 01:15 Al Hydroxide/Mg Hydroxide (Mylanta Plus Xs) 15 ml PRN AFTMEALHC PRN PO DYSPEPSIA Last administered on 04/11/17 16:46; Start 03/15/17 at 01:15 Magnesium Hydroxide (Milk Of Magnesia) 2,400 mg PRN QHS PRN PO CONSTIPATION Last administered on 03/27/17 10:16; Start 03/15/17 at 01:15 Potassium Chloride/Dextrose 1,000 ml @ 75 mls/hr [id number] IV Last administered on 03/18/17 11:25; Start 03/15/17 at 16:45; Stop 03/18/17 at 18:24; Status DC Divalproex Sodium (Depakote Sprinkles) 125 mg BID92 PO Last administered on 13:31; Start 03/16/17 at 09:00; Stop 03/18/17 at 18:29; Status DC Bisacodyl (Dulcolax Supp) 10 mg PRN DAILY PRN [place] CONSTIPATION Last administered on 03/22/17 21:05; Start 03/15/17 at 19:00 Sodium Biphosphate/ Sodium Phosphate (Fleet Adult) 133 ml PRN DAILY PRN [place] CONSTIPATION Last administered on 03/16/17 05:09; Start 03/15/17 at 19:00 Benztropine Mesylate (Cogentin) 1 mg BID PO Last administered on 03/18/17 17: 04; Start 03/16/17 at 21:00; Stop 03/18/17 at 23:00; Status DC Benztropine Mesylate (Cogentin) 1 mg DAILY PO Last administered on 03/21/17 11:21; Start 03/19/17 at 09:00; Stop 03/21/17 at 12:00; Status DC Enoxaparin Sodium (Lovenox) 30 mg Q24H SQ ; Start 03/16/17 at 18:00; Stop at 18:29; Status DC Enoxaparin Sodium (Lovenox) 30 mg Q24H SQ Last administered on 04/19/17 09:45 ; Start 03/17/17 at 09:00 Megestrol Acetate (Megace) 400 mg BID92 PO Last administered on 04/19/17 14: 32; Start 03/17/17 at 09:00 Trimethoprim/ Sulfamethoxazole (Bactrim Ss) 1 tab BID PO Last administered on 03/25/17 08:05; Start 03/17/17 at 21:00; Stop 03/25/17 at 20:59; Status DC Ziprasidone (Geodon) 60 mg BID PO Last administered on 04/19/17 09:45; Start 03/17/17 at 21:00 Lactobacillus Rhamnosus (Culturelle) 1 cap BID PO Last administered on 09:44; Start 03/18/17 at 21:00 Divalproex Sodium (Depakote Sprinkles) 250 mg BID92 PO Last administered on 09:35; Start 03/19/17 at 09:00; Stop 03/23/17 at 11:14; Status DC Olanzapine (ZyPREXA ZYDIS) 5 mg PRN Q2HR PRN PO PSYCHOSIS Last administered on 04/19/17 17:07; Start 03/19/17 at 07:00 Clozapine (Clozaril) 25 mg HS PO Last administered on 03/21/17 20:07; Start 03/19/17 at 21:00; Stop 03/22/17 at 18:41; Status DC Trazodone HCl (Desyrel) 100 mg QHS PO Last administered on 04/18/17 19:43; Start 03/19/17 at 21:00 Trazodone HCl (Desyrel) 100 mg PRN QHS PRN PO INSOMNIA Last administered on 22:47; Start 03/19/17 at 19:15 Clozapine (Clozaril) 50 mg HS PO Last administered on 04/01/17 21:12; Start 03/22/17 at 21:00; Stop 04/01/17 at 21:53; Status DC Oxcarbazepine (Trileptal) 150 mg BID92 PO Last administered on 03/26/17 14:01 ; Start 03/23/17 at 14:00; Stop 03/26/17 at 14:01; Status DC Oxcarbazepine (Trileptal) 300 mg BID92 PO Last administered on 04/15/17 13:42 ; Start 03/27/17 at 09:00; Stop 04/15/17 at 18:57; Status DC Clozapine (Clozaril) 75 mg HS PO Last administered on 04/04/17 19:20; Start 04/02/17 at 21:00; Stop 04/05/17 at 19:29; Status DC Clozapine (Clozaril) 100 mg HS PO ; Start 04/05/17 at 21:00; Stop 04/05/17 at 21:00; Status DC Clozapine (Clozaril) 100 mg HS PO Last administered on 04/10/17 19:14; Start 04/05/17 at 21:00; Stop 04/11/17 at 18:28; Status DC Levofloxacin (Levaquin) 250 mg DAILY PO Last administered on 04/11/17 10:25; Start 04/06/17 at 17:00; Stop 04/11/17 at 17:00; Status DC Lidocaine (Lidoderm) 1 patch PRN DAILY PRN TD pain Last administered on 05:11; Start 04/06/17 at 16:15 Mirtazapine (Remeron) 7.5 mg QHS PO Last administered on 04/10/17 19:14; Start 04/07/17 at 21:00; Stop 04/11/17 at 16:13; Status DC Tamsulosin HCl (Flomax) 0.4 mg DAILY PO Last administered on 04/19/17 09:44; Start 04/09/17 at 14:00 Gabapentin (Neurontin) 300 mg BID PO Last administered on 04/12/17 19:32; Start 04/09/17 at 22:30; Stop 04/12/17 at 22:29; Status DC Oxycodone HCl (OxyCONTIN) 10 mg Q12HR PO Last administered on 04/19/17 09:50 ; Start 04/10/17 at 21:00 Clozapine (Clozaril) 100 mg HS PO Last administered on 04/18/17 19:43; Start 04/11/17 at 21:00 Clozapine (Clozaril) 25 mg HS PO Last administered on 04/16/17 19:44; Start 04/11/17 at 21:00; Stop 04/17/17 at 18:35; Status DC Zinc Oxide 1 landon PRN Q4HRS PRN TP SKIN PROTECTION Last administered on 10:34; Start 04/15/17 at 11:00 Oxcarbazepine (Trileptal) 300 mg DAILY PO Last administered on 04/18/17 10:03 ; Start 04/16/17 at 09:00; Stop 04/18/17 at 18:46; Status DC Oxcarbazepine (Trileptal) 600 mg DAILY@1400 PO Last administered on 04/18/17 14:48; Start 04/16/17 at 14:00; Stop 04/18/17 at 18:46; Status DC Nystatin (Mycostatin) 1 landon BID TP Last administered on 04/18/17 10:03; Start 04/16/17 at 09:00; Stop 04/18/17 at 16:23; Status DC Betamethasone/ Clotrimazole (Lotrisone) 1 landon BID TP Last administered on 04/18 10:03; Start 04/16/17 at 21:00; Stop 04/18/17 at 16:23; Status DC Clozapine (Clozaril) 50 mg HS PO Last administered on 04/18/17 19:43; Start 04/17/17 at 21:00 Fluconazole (Diflucan) 100 mg DAILY PO Last administered on 04/19/17 09:44; Start 04/18/17 at 16:00; Stop 04/25/17 at 15:59 Nystatin (Nystop) 1 landon BID TP Last administered on 04/19/17 09:50; Start at 21:00 Nystatin (Nystop) 15 landon STK-MED ONCE TP ; Start 04/18/17 at 16:37; Stop 04/18 at 16:38; Status DC Oxcarbazepine (Trileptal) 600 mg BID92 PO Last administered on 04/19/17 14:32 ; Start 04/19/17 at 09:00 Active Scripts Active Reported Omeprazole 40 Mg Capsule.dr 40 Mg PO DAILY Olanzapine 10 Mg Tablet 10 Mg PO TID Megestrol Acetate 400 Mg/10 Ml Oral.susp 400 Mg PO BID Lactulose 10 Gm/15 Ml Solution 30 Ml PO BID Hold if no longer constipated [place] 5-325 Tablet (Hydrocodone Bit/Acetaminophen) 1 Each Tablet 1 Tab PO PRN Q6HRS PRN Tylenol (Acetaminophen) 325 Mg Tablet 650 Mg PO PRN Q4HRS PRN Benztropine Mesylate 1 Mg Tablet 1 Mg PO HS Suppository (Glycerin) 1 Each Supp.rect 1 Each RC PRN DAILY PRN Geodon (Ziprasidone Hcl) 40 Mg Capsule 40 Mg PO BID Sennosides-Docusate Sodium Tab (Sennosides/Docusate Sodium) 1 Each Tablet 1 Each PO BID Miralax (Polyethylene Glycol 3350) 17 Gm Powd.pack 17 Gm PO DAILY Protonix (Pantoprazole Sodium) 20 Mg Tablet.dr 20 Mg PO BID [place] 3 1,000 Mg Softgel ([place]-3 Fatty Acids/Fish Oil) 1 Each Capsule 1 Each PO DAILY Linzess (Linaclotide) 290 Mcg Capsule 290 Mcg PO HS Gabapentin 600 Mg Tablet 600 Mg PO BID Vitamin D (Cholecalciferol (Vitamin D3)) 2,000 Unit Capsule 2,000 Unit PO DAILY Buspirone Hcl 10 Mg Tablet 10 Mg PO TID Benztropine Mesylate 1 Mg Tablet 1 Mg PO TID I have reviewed the current psychotropics carefully including drug interactions. Risk benefit ratio favors no change other than as noted in my dictated progress note. Diagnosis: Problems: (1) Anxiety disorder (2) Bipolar affective, mixed, sev w/ psych (3) Dementia, vascular, with depression (4) Dementia, vascular, with delusions (5) Dementia in Alzheimer's disease with depression (6) Dementia in Alzheimer's disease with delusions (7) Impulse control disorder MIRIAM BRASWELL MD Apr 19, 2017 20:12
--- NOTE | 2017-04-20 01:36 | PN ---
DATE: 04/18/2017 This late entry 04/18/2017 covers elements not covered in my initial note 04/18/2017. SUBJECTIVE: I met with the patient evening of 04/18/2017. The patient has been agitated all day, somewhat loud, repetitive, a little better at times, less repetitive with "nah, nah, nah, nah." She does have a yeast infection, we will defer to Dr. Ruiz, has had a Gatica placed and nystatin powder applied. REVIEW OF SYSTEMS: Ambulation impaired, in Broda chair. No CV, , pulmonary, eye, ENT system symptoms on review. MENTAL STATUS EXAM: Oriented to herself and situation. Speech as noted, abstraction fair, computation impaired, language function intact, attention span short. Mood and affect remain somewhat anxious, labile. IMPRESSION: Bipolar 1 disorder, mixed with psychotic features, in partial remission; major neurocognitive disorder, early Alzheimer, vascular with depression, delusions. Rest unchanged. PLAN: The patient is currently on Trileptal 300 mg a.m. and 600 at bedtime, we will change to 600 b.i.d. Maintain Geodon, Clozaril, the latter was just increased. Continue trazodone. Adjust further as clinically indicated. MAN Kathleen BRASWELL MD DR: ANAM/aly JOB#: [id number] / [id number]
[2017-04-20 06:19] VITALS: BP 115/68
[2017-04-20] MEDS: CHOLECALCIFEROL (VITAMIN D3) 1,000 UNIT TABLET PO SCH (11:31)
[2017-04-20] MEDS: ZIPRASIDONE 60 MG CAPSULE. PO SCH ×2 (11:31→19:30)
[2017-04-20] MEDS: LACTOBACILLUS RHAMNOSUS GG 1 CAPSULE. PO SCH ×2 (11:31→19:30)
[2017-04-20] MEDS: OMEGA-3 FATTY ACIDS/FISH OIL 1,000 MG CAPSULE. PO SCH (11:31)
[2017-04-20] MEDS: LACTULOSE 20 GM/30 ML SOLUTION. PO SCH ×2 (11:32→19:30)
[2017-04-20] MEDS: SENNOSIDES/DOCUSATE 8.6/50MG TABLET. PO SCH ×2 (11:32→19:30)
[2017-04-20] MEDS: TAMSULOSIN 0.4 MG CAP.ER.24H. PO SCH (11:32)
[2017-04-20] MEDS: PANTOPRAZOLE 40 MG TABLET. PO SCH (11:32)
[2017-04-20] MEDS: FLUCONAZOLE 100 MG TABLET. PO SCH (11:32)
[2017-04-20] MEDS: POLYETHYLENE GLYCOL 3350 17 GM PACKET. PO SCH (11:32)
[2017-04-20] MEDS: ENOXAPARIN 30 MG/0.3 ML DISP.SYRIN. SQ SCH (11:32)
[2017-04-20] MEDS: MEGESTROL 400 MG/10 ML ORAL.SUSP. PO SCH ×2 (11:32→14:55)
[2017-04-20] MEDS: oxyCODONE ER 10 MG TAB.ER.12H PO SCH ×2 (11:34→19:31)
[2017-04-20] MEDS: NYSTATIN TOPICAL POWDER 15GM BOTTLE. TP SCH ×2 (11:34→19:32)
[2017-04-20] MEDS: HYDROcodone/APAP 5/325MG 1 TAB TABLET PO PRN (14:55)
[2017-04-20 16:33] VITALS: BP 145/75
[2017-04-20] MEDS: cloZAPine 100 MG TABLET PO SCH (19:30)
[2017-04-20] MEDS: cloZAPine 25 MG TABLET PO SCH (19:30)
[2017-04-20] MEDS: traZODone 100 MG TABLET. PO SCH (19:30)
[2017-04-20] MEDS: LINACLOTIDE 145 MCG CAPSULE. PO SCH (19:32)
--- NOTE | 2017-04-20 20:12 | PDOC ---
Exam Note: Kayden Note: Please also refer to the separate dictated note~for this date of service dictated separately.~Patient seen individually. Discussed the patient with Nursing staff reviewed the chart.~Reviewed interim history and current functioning. Reviewed vital signs,~Labs/ Radiology~and current medications noted below. Continue current treatment with the changes noted in the dictated addendum note Assessment: Vital Signs: Vital Signs Date Time Temp Pulse Resp B/P (MAP) Pulse Ox O2 Delivery O2 Flow Rate FiO2 04/20/17 19:31 18 100 Room Air 04/20/17 16:33 97.8 81 145/75 (98) I&O Intake and Output 04/20/17 07:00 Intake Total 2440 ml Output Total 3150 ml Balance -710 ml Intake Oral 2440 ml Output Urine Total 3150 ml # Bowel Movements 2 Current Medications: Meds: Current Medications Benztropine Mesylate (Cogentin) 1 mg TID PO Last administered on 03/16/17 08: 39; Start 03/14/17 at 22:30; Stop 03/16/17 at 11:57; Status DC Buspirone HCl (Buspar) 10 mg TID PO Last administered on 03/16/17 08:40; Start 03/14/17 at 22:30; Stop 03/16/17 at 11:57; Status DC Ziprasidone (Geodon) 40 mg BID PO Last administered on 03/17/17 08:01; Start 03/14/17 at 22:30; Stop 03/17/17 at 18:48; Status DC Glycerin (Sani-Supp Adult) 1 supp PRN DAILY PRN [place] CONSTIPATION; Start at 22:30 Pantoprazole Sodium (Protonix) 40 mg DAILYAC PO Last administered on 11:32; Start 03/15/17 at 07:30 Polyethylene Glycol (miraLAX) 17 gm DAILY PO Last administered on 04/20/17 11 :32; Start 03/15/17 at 09:00 Senna/Docusate Sodium (Senna Plus) 1 tab BID PO Last administered on 19:30; Start 03/14/17 at 22:30 Vitamin D (Vitamin D3) 2,000 unit DAILY PO Last administered on 04/20/17 11: 31; Start 03/15/17 at 09:00 Gabapentin (Neurontin) 600 mg BID PO Last administered on 04/09/17 08:14; Start 03/14/17 at 22:30; Stop 04/09/17 at 18:49; Status DC Non-Formulary Medication 290 mcg HS PO ; Start 03/15/17 at 21:00; Status UNV Fish Oil (Fish Oil) 1,000 mg DAILY PO Last administered on 04/20/17 11:31; Start 03/15/17 at 09:00 Benztropine Mesylate (Cogentin) 1 mg HS PO ; Start 03/15/17 at 21:00; Stop 03/15 at 21:00; Status DC Olanzapine (ZyPREXA) 10 mg TID PO Last administered on 03/16/17 08:39; Start 03/14/17 at 23:00; Stop 03/16/17 at 11:57; Status DC Acetaminophen (Tylenol) 650 mg PRN Q4HRS PRN PO PAIN / TEMP Last administered on 04/09/17 21:34; Start 03/14/17 at 22:45 Acetaminophen/ Hydrocodone Bitart (Lortab 5/325) 1 tab PRN Q6HRS PRN PO PAIN Last administered on 04/20/17 14:55; Start 03/14/17 at 22:45 Megestrol Acetate (Megace) 400 mg BID PO Last administered on 03/16/17 08:41; Start 03/14/17 at 23:00; Stop 03/16/17 at 21:03; Status DC Lactulose 20 gm BID PO Last administered on 04/20/17 19:30; Start 03/14/17 at 23:00 Pantoprazole Sodium (Protonix) 40 mg DAILYAC PO ; Start 03/15/17 at 07:30; Stop 03/16/17 at 19:39; Status DC Acetaminophen (Tylenol) 650 mg PRN Q6HRS PRN PO PAIN / TEMP; Start 03/15/17 at 01:15; Stop 03/25/17 at 14:08; Status DC Multi-Ingredient Ointment (Analgesic [place]) 1 landon PRN QID PRN TP MUSCLE PAIN; Start 03/15/17 at 01:15 Al Hydroxide/Mg Hydroxide (Mylanta Plus Xs) 15 ml PRN AFTMEALHC PRN PO DYSPEPSIA Last administered on 04/11/17 16:46; Start 03/15/17 at 01:15 Magnesium Hydroxide (Milk Of Magnesia) 2,400 mg PRN QHS PRN PO CONSTIPATION Last administered on 03/27/17 10:16; Start 03/15/17 at 01:15 Potassium Chloride/Dextrose 1,000 ml @ 75 mls/hr [id number] IV Last administered on 03/18/17 11:25; Start 03/15/17 at 16:45; Stop 03/18/17 at 18:24; Status DC Divalproex Sodium (Depakote Sprinkles) 125 mg BID92 PO Last administered on 13:31; Start 03/16/17 at 09:00; Stop 03/18/17 at 18:29; Status DC Bisacodyl (Dulcolax Supp) 10 mg PRN DAILY PRN [place] CONSTIPATION Last administered on 03/22/17 21:05; Start 03/15/17 at 19:00 Sodium Biphosphate/ Sodium Phosphate (Fleet Adult) 133 ml PRN DAILY PRN [place] CONSTIPATION Last administered on 03/16/17 05:09; Start 03/15/17 at 19:00 Benztropine Mesylate (Cogentin) 1 mg BID PO Last administered on 03/18/17 17: 04; Start 03/16/17 at 21:00; Stop 03/18/17 at 23:00; Status DC Benztropine Mesylate (Cogentin) 1 mg DAILY PO Last administered on 03/21/17 11:21; Start 03/19/17 at 09:00; Stop 03/21/17 at 12:00; Status DC Enoxaparin Sodium (Lovenox) 30 mg Q24H SQ ; Start 03/16/17 at 18:00; Stop at 18:29; Status DC Enoxaparin Sodium (Lovenox) 30 mg Q24H SQ Last administered on 04/20/17 11:32 ; Start 03/17/17 at 09:00 Megestrol Acetate (Megace) 400 mg BID92 PO Last administered on 04/20/17 14: 55; Start 03/17/17 at 09:00 Trimethoprim/ Sulfamethoxazole (Bactrim Ss) 1 tab BID PO Last administered on 03/25/17 08:05; Start 03/17/17 at 21:00; Stop 03/25/17 at 20:59; Status DC Ziprasidone (Geodon) 60 mg BID PO Last administered on 04/20/17 19:30; Start 03/17/17 at 21:00 Lactobacillus Rhamnosus (Culturelle) 1 cap BID PO Last administered on 19:30; Start 03/18/17 at 21:00 Divalproex Sodium (Depakote Sprinkles) 250 mg BID92 PO Last administered on 09:35; Start 03/19/17 at 09:00; Stop 03/23/17 at 11:14; Status DC Olanzapine (ZyPREXA ZYDIS) 5 mg PRN Q2HR PRN PO PSYCHOSIS Last administered on 04/19/17 17:07; Start 03/19/17 at 07:00 Clozapine (Clozaril) 25 mg HS PO Last administered on 03/21/17 20:07; Start 03/19/17 at 21:00; Stop 03/22/17 at 18:41; Status DC Trazodone HCl (Desyrel) 100 mg QHS PO Last administered on 04/20/17 19:30; Start 03/19/17 at 21:00 Trazodone HCl (Desyrel) 100 mg PRN QHS PRN PO INSOMNIA Last administered on 22:47; Start 03/19/17 at 19:15 Clozapine (Clozaril) 50 mg HS PO Last administered on 04/01/17 21:12; Start 03/22/17 at 21:00; Stop 04/01/17 at 21:53; Status DC Oxcarbazepine (Trileptal) 150 mg BID92 PO Last administered on 03/26/17 14:01 ; Start 03/23/17 at 14:00; Stop 03/26/17 at 14:01; Status DC Oxcarbazepine (Trileptal) 300 mg BID92 PO Last administered on 04/15/17 13:42 ; Start 03/27/17 at 09:00; Stop 04/15/17 at 18:57; Status DC Clozapine (Clozaril) 75 mg HS PO Last administered on 04/04/17 19:20; Start 04/02/17 at 21:00; Stop 04/05/17 at 19:29; Status DC Clozapine (Clozaril) 100 mg HS PO ; Start 04/05/17 at 21:00; Stop 04/05/17 at 21:00; Status DC Clozapine (Clozaril) 100 mg HS PO Last administered on 04/10/17 19:14; Start 04/05/17 at 21:00; Stop 04/11/17 at 18:28; Status DC Levofloxacin (Levaquin) 250 mg DAILY PO Last administered on 04/11/17 10:25; Start 04/06/17 at 17:00; Stop 04/11/17 at 17:00; Status DC Lidocaine (Lidoderm) 1 patch PRN DAILY PRN TD pain Last administered on 05:11; Start 04/06/17 at 16:15 Mirtazapine (Remeron) 7.5 mg QHS PO Last administered on 04/10/17 19:14; Start 04/07/17 at 21:00; Stop 04/11/17 at 16:13; Status DC Tamsulosin HCl (Flomax) 0.4 mg DAILY PO Last administered on 04/20/17 11:32; Start 04/09/17 at 14:00 Gabapentin (Neurontin) 300 mg BID PO Last administered on 04/12/17 19:32; Start 04/09/17 at 22:30; Stop 04/12/17 at 22:29; Status DC Oxycodone HCl (OxyCONTIN) 10 mg Q12HR PO Last administered on 04/20/17 19:31 ; Start 04/10/17 at 21:00 Clozapine (Clozaril) 100 mg HS PO Last administered on 04/20/17 19:30; Start 04/11/17 at 21:00 Clozapine (Clozaril) 25 mg HS PO Last administered on 04/16/17 19:44; Start 04/11/17 at 21:00; Stop 04/17/17 at 18:35; Status DC Zinc Oxide 1 landon PRN Q4HRS PRN TP SKIN PROTECTION Last administered on 10:34; Start 04/15/17 at 11:00 Oxcarbazepine (Trileptal) 300 mg DAILY PO Last administered on 04/18/17 10:03 ; Start 04/16/17 at 09:00; Stop 04/18/17 at 18:46; Status DC Oxcarbazepine (Trileptal) 600 mg DAILY@1400 PO Last administered on 04/18/17 14:48; Start 04/16/17 at 14:00; Stop 04/18/17 at 18:46; Status DC Nystatin (Mycostatin) 1 landon BID TP Last administered on 04/18/17 10:03; Start 04/16/17 at 09:00; Stop 04/18/17 at 16:23; Status DC Betamethasone/ Clotrimazole (Lotrisone) 1 landon BID TP Last administered on 04/18 10:03; Start 04/16/17 at 21:00; Stop 04/18/17 at 16:23; Status DC Clozapine (Clozaril) 50 mg HS PO Last administered on 04/20/17 19:30; Start 04/17/17 at 21:00 Fluconazole (Diflucan) 100 mg DAILY PO Last administered on 04/20/17 11:32; Start 04/18/17 at 16:00; Stop 04/25/17 at 15:59 Nystatin (Nystop) 1 landon BID TP Last administered on 04/20/17 19:32; Start at 21:00 Nystatin (Nystop) 15 landon STK-MED ONCE TP ; Start 04/18/17 at 16:37; Stop 04/18 at 16:38; Status DC Oxcarbazepine (Trileptal) 600 mg BID92 PO Last administered on 04/20/17 14:55 ; Start 04/19/17 at 09:00 Active Scripts Active Reported Omeprazole 40 Mg Capsule.dr 40 Mg PO DAILY Olanzapine 10 Mg Tablet 10 Mg PO TID Megestrol Acetate 400 Mg/10 Ml Oral.susp 400 Mg PO BID Lactulose 10 Gm/15 Ml Solution 30 Ml PO BID Hold if no longer constipated [place] 5-325 Tablet (Hydrocodone Bit/Acetaminophen) 1 Each Tablet 1 Tab PO PRN Q6HRS PRN Tylenol (Acetaminophen) 325 Mg Tablet 650 Mg PO PRN Q4HRS PRN Benztropine Mesylate 1 Mg Tablet 1 Mg PO HS Suppository (Glycerin) 1 Each Supp.rect 1 Each RC PRN DAILY PRN Geodon (Ziprasidone Hcl) 40 Mg Capsule 40 Mg PO BID Sennosides-Docusate Sodium Tab (Sennosides/Docusate Sodium) 1 Each Tablet 1 Each PO BID Miralax (Polyethylene Glycol 3350) 17 Gm Powd.pack 17 Gm PO DAILY Protonix (Pantoprazole Sodium) 20 Mg Tablet.dr 20 Mg PO BID [place] 3 1,000 Mg Softgel ([place]-3 Fatty Acids/Fish Oil) 1 Each Capsule 1 Each PO DAILY Linzess (Linaclotide) 290 Mcg Capsule 290 Mcg PO HS Gabapentin 600 Mg Tablet 600 Mg PO BID Vitamin D (Cholecalciferol (Vitamin D3)) 2,000 Unit Capsule 2,000 Unit PO DAILY Buspirone Hcl 10 Mg Tablet 10 Mg PO TID Benztropine Mesylate 1 Mg Tablet 1 Mg PO TID I have reviewed the current psychotropics carefully including drug interactions. Risk benefit ratio favors no change other than as noted in my dictated progress note. Diagnosis: Problems: (1) Anxiety disorder (2) Bipolar affective, mixed, sev w/ psych (3) Dementia, vascular, with depression (4) Dementia, vascular, with delusions (5) Dementia in Alzheimer's disease with depression (6) Dementia in Alzheimer's disease with delusions (7) Impulse control disorder MIRIAM BRASWELL MD Apr 20, 2017 20:12
[2017-04-20 21:14] LABS: BASO % 0 % (0-3); EOS % 0 % (0-3); HEMATOCRIT 34.2 % (36.0-47.0); HEMOGLOBIN 11.5 g/dL (12.0-15.5); LYMPH # 1.2 x10^3/uL (1.0-4.8); LYMPH % 13 % (24-48); MEAN CORPUSCULAR HEMOGLOBIN 32 pg (25-35); MEAN CORPUSCULAR HGB CONC 34 g/dL (31-37); MEAN CORPUSCULAR VOLUME 95 fL (79-100); MONO # 0.8 x10^3/uL (0.0-1.1); MONO % 8 % (0-9); NEUT # 7.9 x10^3uL (1.8-7.7); NEUT % 79 % (31-73); PLATELET COUNT 263 x10^3/uL (140-400); RED BLOOD COUNT 3.61 x10^6/uL (3.50-5.40); RED CELL DISTRIBUTION WIDTH 16.7 % (11.5-14.5)
[2017-04-20 21:23] LABS: ALBUMIN 2.6 g/dL (3.4-5.0); ALBUMIN/GLOBULIN RATIO 0.7 (1.0-1.7); CALCIUM 9.1 mg/dL (8.5-10.1); CREATININE 0.8 mg/dL (0.6-1.0); POTASSIUM 3.7 mmol/L (3.5-5.1); TOTAL BILIRUBIN 0.1 mg/dL (0.2-1.0); TOTAL PROTEIN 6.2 g/dL (6.4-8.2)
[2017-04-21 05:53] VITALS: BP 115/78
[2017-04-21] MEDS: CHOLECALCIFEROL (VITAMIN D3) 1,000 UNIT TABLET PO SCH (10:11)
[2017-04-21] MEDS: PANTOPRAZOLE 40 MG TABLET. PO SCH (10:11)
[2017-04-21] MEDS: FLUCONAZOLE 100 MG TABLET. PO SCH (10:11)
[2017-04-21] MEDS: OMEGA-3 FATTY ACIDS/FISH OIL 1,000 MG CAPSULE. PO SCH (10:11)
[2017-04-21] MEDS: LACTOBACILLUS RHAMNOSUS GG 1 CAPSULE. PO SCH ×2 (10:11→21:11)
[2017-04-21] MEDS: ZIPRASIDONE 60 MG CAPSULE. PO SCH ×2 (10:11→21:11)
[2017-04-21] MEDS: SENNOSIDES/DOCUSATE 8.6/50MG TABLET. PO SCH ×2 (10:11→21:12)
[2017-04-21] MEDS: TAMSULOSIN 0.4 MG CAP.ER.24H. PO SCH (10:11)
[2017-04-21] MEDS: LACTULOSE 20 GM/30 ML SOLUTION. PO SCH ×2 (10:12→21:11)
[2017-04-21] MEDS: MEGESTROL 400 MG/10 ML ORAL.SUSP. PO SCH ×2 (10:12→14:48)
[2017-04-21] MEDS: POLYETHYLENE GLYCOL 3350 17 GM PACKET. PO SCH (10:12)
[2017-04-21] MEDS: ENOXAPARIN 30 MG/0.3 ML DISP.SYRIN. SQ SCH (10:13)
[2017-04-21] MEDS: oxyCODONE ER 10 MG TAB.ER.12H PO SCH ×2 (10:13→21:15)
[2017-04-21] MEDS: NYSTATIN TOPICAL POWDER 15GM BOTTLE. TP SCH ×2 (10:14→21:12)
[2017-04-21] MEDS: HYDROcodone/APAP 5/325MG 1 TAB TABLET PO PRN (14:49)
[2017-04-21 16:55] VITALS: BP 111/85
[2017-04-21] MEDS: cloZAPine 25 MG TABLET PO SCH (21:11)
[2017-04-21] MEDS: cloZAPine 100 MG TABLET PO SCH (21:11)
[2017-04-21] MEDS: traZODone 100 MG TABLET. PO SCH (21:11)
[2017-04-21] MEDS: MIRTAZAPINE 7.5 MG TABLET. PO SCH (21:15)
[2017-04-21] MEDS: LINACLOTIDE 145 MCG CAPSULE. PO SCH (21:15)
[2017-04-22 06:18] VITALS: BP 143/82
--- NOTE | 2017-04-22 08:09 | PN ---
DATE: 04/20/2017 This is a late entry for 04/20/2017 and covers elements not covered in my initial note of 04/20/2017. I met with the patient evening of 04/20/2017 and staffed at a treatment team meeting morning of 04/20/2017 with the entire team. Overall, the patient is doing a little better with the yelling, slightly more coherent in individual assessment. Daughter does want her returning home with home health and a hospital bed in place. Discussed with social service staff at treatment team meeting. REVIEW OF SYSTEMS: Ambulation impaired, in Broda chair. No CV, , pulmonary, eye, ENT system symptoms on review. Reliability poor. MENTAL STATUS EXAM: Oriented to herself. Insight, judgment, recent and remote memory, attention, concentration, fund of knowledge poor, as consistent with her diagnosis. IMPRESSION: Schizoaffective disorder, bipolar type, mixed with psychotic features, in partial remission; major neurocognitive disorder, Alzheimer, vascular with delusion, behavioral disturbance. Rest unchanged. PLAN: Continue current psychotropics as mentioned in my initial note, treat UTI once culture returns. MIRIAM BRASWELL MD DR: ANAM/aly JOB#: [id number] / [id number]
--- NOTE | 2017-04-22 08:23 | PN ---
DATE: 04/19/2017 PSYCHIATRIC PROGRESS NOTE This late entry 04/19/2017 covers elements not covered in my initial note of 04/19/2017. I met with the patient in the evening of 04/19/2017. The patient did better in the evening after she received Zyprexa Zydis earlier, she was lunging at staff, agitated, probably has a UTI, which is making mood lability worse. REVIEW OF SYSTEMS: Ambulation impaired, in Broda chair. No CV, , pulmonary, eye system symptoms on review. Reliability poor. MENTAL STATUS EXAM: Oriented to herself. Insight, judgment, recent memory is impaired. Language function intact. Attention span short. Mood and affect remain somewhat labile. LABORATORY DATA: Reviewed. IMPRESSION: Unchanged from initial note. PLAN: Continue psychotropics mentioned in my initial note. MAN Kathleen BRASWELL MD DR: ANAM/aly JOB#: [id number] / [id number]
[2017-04-22] MEDS: ENOXAPARIN 30 MG/0.3 ML DISP.SYRIN. SQ SCH (08:31)
[2017-04-22] MEDS: POLYETHYLENE GLYCOL 3350 17 GM PACKET. PO SCH (08:31)
[2017-04-22] MEDS: SENNOSIDES/DOCUSATE 8.6/50MG TABLET. PO SCH ×2 (08:31→21:00)
[2017-04-22] MEDS: OMEGA-3 FATTY ACIDS/FISH OIL 1,000 MG CAPSULE. PO SCH (08:31)
[2017-04-22] MEDS: LACTOBACILLUS RHAMNOSUS GG 1 CAPSULE. PO SCH ×2 (08:31→21:00)
[2017-04-22] MEDS: LACTULOSE 20 GM/30 ML SOLUTION. PO SCH ×2 (08:31→21:00)
[2017-04-22] MEDS: PANTOPRAZOLE 40 MG TABLET. PO SCH (08:32)
[2017-04-22] MEDS: TAMSULOSIN 0.4 MG CAP.ER.24H. PO SCH (08:32)
[2017-04-22] MEDS: MEGESTROL 400 MG/10 ML ORAL.SUSP. PO SCH ×2 (08:32→14:27)
[2017-04-22] MEDS: CHOLECALCIFEROL (VITAMIN D3) 1,000 UNIT TABLET PO SCH (08:32)
[2017-04-22] MEDS: oxyCODONE ER 10 MG TAB.ER.12H PO SCH ×2 (08:32→21:00)
[2017-04-22] MEDS: FLUCONAZOLE 100 MG TABLET. PO SCH (08:32)
[2017-04-22] MEDS: ZIPRASIDONE 60 MG CAPSULE. PO SCH ×2 (08:32→21:00)
[2017-04-22] MEDS: NYSTATIN TOPICAL POWDER 15GM BOTTLE. TP SCH ×2 (08:33→21:00)
--- NOTE | 2017-04-22 10:34 | PDOC ---
Exam Note: Kayden Note: This is late entry for date of service 04/21/2017.Please also refer to the separate dictated note~for this date of service dictated separately.~Patient seen individually. Discussed the patient with Nursing staff reviewed the chart.~ Reviewed interim history and current functioning. Reviewed vital signs,~Labs/ Radiology~and current medications noted below. Continue current treatment with the changes noted in the dictated addendum note Assessment: Vital Signs: VS - Last 72 Hours, by Label Date Time Temp Pulse Resp B/P (MAP) Pulse Ox O2 Delivery O2 Flow Rate FiO2 04/22/17 06:18 98.3 95 20 143/82 (102) 99 04/22/17 03:16 20 04/21/17 21:15 20 04/21/17 17:26 91 Room Air 04/21/17 17:26 20 91 Room Air 04/21/17 16:55 98.1 88 111/85 (94) 91 Room Air 04/21/17 14:49 20 97 Room Air 04/21/17 10:13 20 97 Room Air 04/21/17 05:53 97.9 86 18 115/78 (90) 97 Room Air 04/20/17 19:31 18 100 Room Air 04/20/17 16:33 97.8 81 16 145/75 (98) 04/20/17 14:55 20 100 Room Air 04/20/17 11:34 20 100 Room Air 04/20/17 06:19 98.0 79 18 115/68 (84) 100 04/19/17 20:12 16 96 Room Air 04/19/17 16:30 98.7 103 20 112/64 (80) 96 Vital Signs Date Time Temp Pulse Resp B/P (MAP) Pulse Ox O2 Delivery O2 Flow Rate FiO2 04/22/17 06:18 98.3 95 20 143/82 (102) 99 04/21/17 17:26 Room Air I&O Intake and Output 04/22/17 07:00 Intake Total 480 ml Output Total 650 ml Balance -170 ml Intake Oral 480 ml Output Urine Total 650 ml Current Medications: Meds: Current Medications Benztropine Mesylate (Cogentin) 1 mg TID PO Last administered on 03/16/17t 08: 39; Start 03/14/17 at 22:30; Stop 03/16/17 at 11:57; Status DC Buspirone HCl (Buspar) 10 mg TID PO Last administered on 03/16/17 08:40; Start 03/14/17 at 22:30; Stop 03/16/17 at 11:57; Status DC Ziprasidone (Geodon) 40 mg BID PO Last administered on 03/17/17 08:01; Start 03/14/17 at 22:30; Stop 03/17/17 at 18:48; Status DC Glycerin (Sani-Supp Adult) 1 supp PRN DAILY PRN RC CONSTIPATION; Start at 22:30 Pantoprazole Sodium (Protonix) 40 mg DAILYAC PO Last administered on 08:32; Start 03/15/17 at 07:30 Polyethylene Glycol (miraLAX) 17 gm DAILY PO Last administered on 04/22/17 08 :31; Start 03/15/17 at 09:00 Senna/Docusate Sodium (Senna Plus) 1 tab BID PO Last administered on 08:31; Start 03/14/17 at 22:30 Vitamin D (Vitamin D3) 2,000 unit DAILY PO Last administered on 04/22/17 08: 32; Start 03/15/17 at 09:00 Gabapentin (Neurontin) 600 mg BID PO Last administered on 04/09/17 08:14; Start 03/14/17 at 22:30; Stop 04/09/17 at 18:49; Status DC Non-Formulary Medication 290 mcg HS PO ; Start 03/15/17 at 21:00; Status UNV Fish Oil (Fish Oil) 1,000 mg DAILY PO Last administered on 04/22/17 08:31; Start 03/15/17 at 09:00 Benztropine Mesylate (Cogentin) 1 mg HS PO ; Start 03/15/17 at 21:00; Stop 03/15 at 21:00; Status DC Olanzapine (ZyPREXA) 10 mg TID PO Last administered on 03/16/17 08:39; Start 03/14/17 at 23:00; Stop 03/16/17 at 11:57; Status DC Acetaminophen (Tylenol) 650 mg PRN Q4HRS PRN PO PAIN / TEMP Last administered on 04/09/17 21:34; Start 03/14/17 at 22:45 Acetaminophen/ Hydrocodone Bitart (Lortab 5/325) 1 tab PRN Q6HRS PRN PO PAIN Last administered on 04/21/17 14:49; Start 03/14/17 at 22:45 Megestrol Acetate (Megace) 400 mg BID PO Last administered on 03/16/17 08:41; Start 03/14/17 at 23:00; Stop 03/16/17 at 21:03; Status DC Lactulose 20 gm BID PO Last administered on 04/22/17 08:31; Start 03/14/17 at 23:00 Pantoprazole Sodium (Protonix) 40 mg DAILYAC PO ; Start 03/15/17 at 07:30; Stop 03/16/17 at 19:39; Status DC Acetaminophen (Tylenol) 650 mg PRN Q6HRS PRN PO PAIN / TEMP; Start 03/15/17 at 01:15; Stop 03/25/17 at 14:08; Status DC Multi-Ingredient Ointment (Analgesic [place]) 1 landon PRN QID PRN TP MUSCLE PAIN; Start 03/15/17 at 01:15 Al Hydroxide/Mg Hydroxide (Mylanta Plus Xs) 15 ml PRN AFTMEALHC PRN PO DYSPEPSIA Last administered on 04/11/17 16:46; Start 03/15/17 at 01:15 Magnesium Hydroxide (Milk Of Magnesia) 2,400 mg PRN QHS PRN PO CONSTIPATION Last administered on 03/27/17 10:16; Start 03/15/17 at 01:15 Potassium Chloride/Dextrose 1,000 ml @ 75 mls/hr [id number] IV Last administered on 03/18/17 11:25; Start 03/15/17 at 16:45; Stop 03/18/17 at 18:24; Status DC Divalproex Sodium (Depakote Sprinkles) 125 mg BID92 PO Last administered on 13:31; Start 03/16/17 at 09:00; Stop 03/18/17 at 18:29; Status DC Bisacodyl (Dulcolax Supp) 10 mg PRN DAILY PRN [place] CONSTIPATION Last administered on 03/22/17 21:05; Start 03/15/17 at 19:00 Sodium Biphosphate/ Sodium Phosphate (Fleet Adult) 133 ml PRN DAILY PRN [place] CONSTIPATION Last administered on 03/16/17 05:09; Start 03/15/17 at 19:00 Benztropine Mesylate (Cogentin) 1 mg BID PO Last administered on 03/18/17 17: 04; Start 03/16/17 at 21:00; Stop 03/18/17 at 23:00; Status DC Benztropine Mesylate (Cogentin) 1 mg DAILY PO Last administered on 03/21/17 11:21; Start 03/19/17 at 09:00; Stop 03/21/17 at 12:00; Status DC Enoxaparin Sodium (Lovenox) 30 mg Q24H SQ ; Start 03/16/17 at 18:00; Stop at 18:29; Status DC Enoxaparin Sodium (Lovenox) 30 mg Q24H SQ Last administered on 04/22/17 08:31 ; Start 03/17/17 at 09:00 Megestrol Acetate (Megace) 400 mg BID92 PO Last administered on 04/22/17 08: 32; Start 03/17/17 at 09:00 Trimethoprim/ Sulfamethoxazole (Bactrim Ss) 1 tab BID PO Last administered on 03/25/17 08:05; Start 03/17/17 at 21:00; Stop 03/25/17 at 20:59; Status DC Ziprasidone (Geodon) 60 mg BID PO Last administered on 04/22/17 08:32; Start 03/17/17 at 21:00 Lactobacillus Rhamnosus (Culturelle) 1 cap BID PO Last administered on 08:31; Start 03/18/17 at 21:00 Divalproex Sodium (Depakote Sprinkles) 250 mg BID92 PO Last administered on 09:35; Start 03/19/17 at 09:00; Stop 03/23/17 at 11:14; Status DC Olanzapine (ZyPREXA ZYDIS) 5 mg PRN Q2HR PRN PO PSYCHOSIS Last administered on 04/19/17 17:07; Start 03/19/17 at 07:00 Clozapine (Clozaril) 25 mg HS PO Last administered on 03/21/17 20:07; Start 03/19/17 at 21:00; Stop 03/22/17 at 18:41; Status DC Trazodone HCl (Desyrel) 100 mg QHS PO Last administered on 04/21/17 21:11; Start 03/19/17 at 21:00 Trazodone HCl (Desyrel) 100 mg PRN QHS PRN PO INSOMNIA Last administered on 22:47; Start 03/19/17 at 19:15 Clozapine (Clozaril) 50 mg HS PO Last administered on 04/01/17 21:12; Start 03/22/17 at 21:00; Stop 04/01/17 at 21:53; Status DC Oxcarbazepine (Trileptal) 150 mg BID92 PO Last administered on 03/26/17 14:01 ; Start 03/23/17 at 14:00; Stop 03/26/17 at 14:01; Status DC Oxcarbazepine (Trileptal) 300 mg BID92 PO Last administered on 04/15/17 13:42 ; Start 03/27/17 at 09:00; Stop 04/15/17 at 18:57; Status DC Clozapine (Clozaril) 75 mg HS PO Last administered on 04/04/17 19:20; Start 04/02/17 at 21:00; Stop 04/05/17 at 19:29; Status DC Clozapine (Clozaril) 100 mg HS PO ; Start 04/05/17 at 21:00; Stop 04/05/17 at 21:00; Status DC Clozapine (Clozaril) 100 mg HS PO Last administered on 04/10/17 19:14; Start 04/05/17 at 21:00; Stop 04/11/17 at 18:28; Status DC Levofloxacin (Levaquin) 250 mg DAILY PO Last administered on 04/11/17 10:25; Start 04/06/17 at 17:00; Stop 04/11/17 at 17:00; Status DC Lidocaine (Lidoderm) 1 patch PRN DAILY PRN TD pain Last administered on 05:11; Start 04/06/17 at 16:15 Mirtazapine (Remeron) 7.5 mg QHS PO Last administered on 04/10/17 19:14; Start 04/07/17 at 21:00; Stop 04/11/17 at 16:13; Status DC Tamsulosin HCl (Flomax) 0.4 mg DAILY PO Last administered on 04/22/17 08:32; Start 04/09/17 at 14:00 Gabapentin (Neurontin) 300 mg BID PO Last administered on 04/12/17 19:32; Start 04/09/17 at 22:30; Stop 04/12/17 at 22:29; Status DC Oxycodone HCl (OxyCONTIN) 10 mg Q12HR PO Last administered on 04/22/17 08:32 ; Start 04/10/17 at 21:00 Clozapine (Clozaril) 100 mg HS PO Last administered on 04/21/17 21:11; Start 04/11/17 at 21:00 Clozapine (Clozaril) 25 mg HS PO Last administered on 04/16/17 19:44; Start 04/11/17 at 21:00; Stop 04/17/17 at 18:35; Status DC Zinc Oxide 1 [place] PRN Q4HRS PRN TP SKIN PROTECTION Last administered on 10:34; Start 04/15/17 at 11:00 Oxcarbazepine (Trileptal) 300 mg DAILY PO Last administered on 04/18/17 10:03 ; Start 04/16/17 at 09:00; Stop 04/18/17 at 18:46; Status DC Oxcarbazepine (Trileptal) 600 mg DAILY@1400 PO Last administered on 04/18/17 14:48; Start 04/16/17 at 14:00; Stop 04/18/17 at 18:46; Status DC Nystatin (Mycostatin) 1 [place]on BID TP Last administered on 04/18/17 10:03; Start 04/16/17 at 09:00; Stop 04/18/17 at 16:23; Status DC Betamethasone/ Clotrimazole (Lotrisone) 1 [place]on BID TP Last administered on 04/18 10:03; Start 04/16/17 at 21:00; Stop 04/18/17 at 16:23; Status DC Clozapine (Clozaril) 50 mg HS PO Last administered on 04/21/17 21:11; Start 04/17/17 at 21:00 Fluconazole (Diflucan) 100 mg DAILY PO Last administered on 04/22/17 08:32; Start 04/18/17 at 16:00; Stop 04/25/17 at 15:59 Nystatin (Nystop) 1 [place]on BID TP Last administered on 04/22/17 08:33; Start at 21:00 Nystatin (Nystop) 15 landon STK-MED ONCE TP ; Start 04/18/17 at 16:37; Stop 04/18 at 16:38; Status DC Oxcarbazepine (Trileptal) 600 mg BID92 PO Last administered on 04/22/17 08:32 ; Start 04/19/17 at 09:00 Mirtazapine (Remeron) 7.5 mg QHS PO Last administered on 04/21/17 21:15; Start 04/21/17 at 21:00 Active Scripts Active Reported Omeprazole 40 Mg Capsule.dr 40 Mg PO DAILY Olanzapine 10 Mg Tablet 10 Mg PO TID Megestrol Acetate 400 Mg/10 Ml Oral.susp 400 Mg PO BID Lactulose 10 Gm/15 Ml Solution 30 Ml PO BID Hold if no longer constipated [place] 5-325 Tablet (Hydrocodone Bit/Acetaminophen) 1 Each Tablet 1 Tab PO PRN Q6HRS PRN Tylenol (Acetaminophen) 325 Mg Tablet 650 Mg PO PRN Q4HRS PRN Benztropine Mesylate 1 Mg Tablet 1 Mg PO HS Suppository (Glycerin) 1 Each Supp.rect 1 Each RC PRN DAILY PRN Geodon (Ziprasidone Hcl) 40 Mg Capsule 40 Mg PO BID Sennosides-Docusate Sodium Tab (Sennosides/Docusate Sodium) 1 Each Tablet 1 Each PO BID Miralax (Polyethylene Glycol 3350) 17 Gm Powd.pack 17 Gm PO DAILY Protonix (Pantoprazole Sodium) 20 Mg Tablet.dr 20 Mg PO BID [place] 3 1,000 Mg Softgel ([place]-3 Fatty Acids/Fish Oil) 1 Each Capsule 1 Each PO DAILY Linzess (Linaclotide) 290 Mcg Capsule 290 Mcg PO HS Gabapentin 600 Mg Tablet 600 Mg PO BID Vitamin D (Cholecalciferol (Vitamin D3)) 2,000 Unit Capsule 2,000 Unit PO DAILY Buspirone Hcl 10 Mg Tablet 10 Mg PO TID Benztropine Mesylate 1 Mg Tablet 1 Mg PO TID I have reviewed the current psychotropics carefully including drug interactions. Risk benefit ratio favors no change other than as noted in my dictated progress note. Diagnosis: Problems: (1) Anxiety disorder (2) Bipolar affective, mixed, sev w/ psych (3) Dementia, vascular, with depression (4) Dementia, vascular, with delusions (5) Dementia in Alzheimer's disease with depression (6) Dementia in Alzheimer's disease with delusions (7) Impulse control disorder MIRIAM BRASWELL MD Apr 22, 2017 10:34
[2017-04-22 16:40] VITALS: BP 119/72
[2017-04-22] MEDS: cloZAPine 100 MG TABLET PO SCH (21:00)
[2017-04-22] MEDS: traZODone 100 MG TABLET. PO SCH (21:00)
[2017-04-22] MEDS: MIRTAZAPINE 7.5 MG TABLET. PO SCH (21:00)
[2017-04-22] MEDS: cloZAPine 25 MG TABLET PO SCH (21:00)
[2017-04-22] MEDS: LINACLOTIDE 145 MCG CAPSULE. PO SCH (21:00)
--- NOTE | 2017-04-22 21:47 | PDOC ---
Exam Note: Kayden Note: Please also refer to the separate dictated note~for this date of service dictated separately.~Patient seen individually. Discussed the patient with Nursing staff reviewed the chart.~Reviewed interim history and current functioning. Reviewed vital signs,~Labs/ Radiology~and current medications noted below. Continue current treatment with the changes noted in the dictated addendum note Assessment: Vital Signs: Vital Signs Date Time Temp Pulse Resp B/P (MAP) Pulse Ox O2 Delivery O2 Flow Rate FiO2 04/22/17 21:00 97 04/22/17 16:40 98.0 82 16 119/72 (88) 04/21/17 17:26 Room Air I&O Intake and Output 04/22/17 07:00 Intake Total 480 ml Output Total 650 ml Balance -170 ml Intake Oral 480 ml Output Urine Total 650 ml Current Medications: Meds: Current Medications Benztropine Mesylate (Cogentin) 1 mg TID PO Last administered on 03/16/17 08: 39; Start 03/14/17 at 22:30; Stop 03/16/17 at 11:57; Status DC Buspirone HCl (Buspar) 10 mg TID PO Last administered on 03/16/17 08:40; Start 03/14/17 at 22:30; Stop 03/16/17 at 11:57; Status DC Ziprasidone (Geodon) 40 mg BID PO Last administered on 03/17/17 08:01; Start 03/14/17 at 22:30; Stop 03/17/17 at 18:48; Status DC Glycerin (Sani-Supp Adult) 1 supp PRN DAILY PRN RC CONSTIPATION; Start at 22:30 Pantoprazole Sodium (Protonix) 40 mg DAILYAC PO Last administered on 08:32; Start 03/15/17 at 07:30 Polyethylene Glycol (miraLAX) 17 gm DAILY PO Last administered on 04/22/17 08 :31; Start 03/15/17 at 09:00 Senna/Docusate Sodium (Senna Plus) 1 tab BID PO Last administered on 08:31; Start 03/14/17 at 22:30 Vitamin D (Vitamin D3) 2,000 unit DAILY PO Last administered on 04/22/17 08: 32; Start 03/15/17 at 09:00 Gabapentin (Neurontin) 600 mg BID PO Last administered on 04/09/17 08:14; Start 03/14/17 at 22:30; Stop 04/09/17 at 18:49; Status DC Non-Formulary Medication 290 mcg HS PO ; Start 03/15/17 at 21:00; Status UNV Fish Oil (Fish Oil) 1,000 mg DAILY PO Last administered on 04/22/17 08:31; Start 03/15/17 at 09:00 Benztropine Mesylate (Cogentin) 1 mg HS PO ; Start 03/15/17 at 21:00; Stop 03/15 at 21:00; Status DC Olanzapine (ZyPREXA) 10 mg TID PO Last administered on 03/16/17 08:39; Start 03/14/17 at 23:00; Stop 03/16/17 at 11:57; Status DC Acetaminophen (Tylenol) 650 mg PRN Q4HRS PRN PO PAIN / TEMP Last administered on 04/09/17 21:34; Start 03/14/17 at 22:45 Acetaminophen/ Hydrocodone Bitart (Lortab 5/325) 1 tab PRN Q6HRS PRN PO PAIN Last administered on 04/21/17 14:49; Start 03/14/17 at 22:45 Megestrol Acetate (Megace) 400 mg BID PO Last administered on 03/16/17 08:41; Start 03/14/17 at 23:00; Stop 03/16/17 at 21:03; Status DC Lactulose 20 gm BID PO Last administered on 04/22/17 08:31; Start 03/14/17 at 23:00 Pantoprazole Sodium (Protonix) 40 mg DAILYAC PO ; Start 03/15/17 at 07:30; Stop 03/16/17 at 19:39; Status DC Acetaminophen (Tylenol) 650 mg PRN Q6HRS PRN PO PAIN / TEMP; Start 03/15/17 at 01:15; Stop 03/25/17 at 14:08; Status DC Multi-Ingredient Ointment (Analgesic [place]) 1 landon PRN QID PRN TP MUSCLE PAIN; Start 03/15/17 at 01:15 Al Hydroxide/Mg Hydroxide (Mylanta Plus Xs) 15 ml PRN AFTMEALHC PRN PO DYSPEPSIA Last administered on 04/11/17 16:46; Start 03/15/17 at 01:15 Magnesium Hydroxide (Milk Of Magnesia) 2,400 mg PRN QHS PRN PO CONSTIPATION Last administered on 03/27/17 10:16; Start 03/15/17 at 01:15 Potassium Chloride/Dextrose 1,000 ml @ 75 mls/hr [id number] IV Last administered on 03/18/17 11:25; Start 03/15/17 at 16:45; Stop 03/18/17 at 18:24; Status DC Divalproex Sodium (Depakote Sprinkles) 125 mg BID92 PO Last administered on 13:31; Start 03/16/17 at 09:00; Stop 03/18/17 at 18:29; Status DC Bisacodyl (Dulcolax Supp) 10 mg PRN DAILY PRN TN CONSTIPATION Last administered on 03/22/17 21:05; Start 03/15/17 at 19:00 Sodium Biphosphate/ Sodium Phosphate (Fleet Adult) 133 ml PRN DAILY PRN TN CONSTIPATION Last administered on 03/16/17 05:09; Start 03/15/17 at 19:00 Benztropine Mesylate (Cogentin) 1 mg BID PO Last administered on 03/18/17 17: 04; Start 03/16/17 at 21:00; Stop 03/18/17 at 23:00; Status DC Benztropine Mesylate (Cogentin) 1 mg DAILY PO Last administered on 03/21/17 11:21; Start 03/19/17 at 09:00; Stop 03/21/17 at 12:00; Status DC Enoxaparin Sodium (Lovenox) 30 mg Q24H SQ ; Start 03/16/17 at 18:00; Stop at 18:29; Status DC Enoxaparin Sodium (Lovenox) 30 mg Q24H SQ Last administered on 04/22/17 08:31 ; Start 03/17/17 at 09:00 Megestrol Acetate (Megace) 400 mg BID92 PO Last administered on 04/22/17 14: 27; Start 03/17/17 at 09:00 Trimethoprim/ Sulfamethoxazole (Bactrim Ss) 1 tab BID PO Last administered on 03/25/17 08:05; Start 03/17/17 at 21:00; Stop 03/25/17 at 20:59; Status DC Ziprasidone (Geodon) 60 mg BID PO Last administered on 04/22/17 08:32; Start 03/17/17 at 21:00 Lactobacillus Rhamnosus (Culturelle) 1 cap BID PO Last administered on 08:31; Start 03/18/17 at 21:00 Divalproex Sodium (Depakote Sprinkles) 250 mg BID92 PO Last administered on 09:35; Start 03/19/17 at 09:00; Stop 03/23/17 at 11:14; Status DC Olanzapine (ZyPREXA ZYDIS) 5 mg PRN Q2HR PRN PO PSYCHOSIS Last administered on 04/22/17 20:58; Start 03/19/17 at 07:00 Clozapine (Clozaril) 25 mg HS PO Last administered on 03/21/17 20:07; Start 03/19/17 at 21:00; Stop 03/22/17 at 18:41; Status DC Trazodone HCl (Desyrel) 100 mg QHS PO Last administered on 04/21/17 21:11; Start 03/19/17 at 21:00 Trazodone HCl (Desyrel) 100 mg PRN QHS PRN PO INSOMNIA Last administered on 22:47; Start 03/19/17 at 19:15 Clozapine (Clozaril) 50 mg HS PO Last administered on 04/01/17 21:12; Start 03/22/17 at 21:00; Stop 04/01/17 at 21:53; Status DC Oxcarbazepine (Trileptal) 150 mg BID92 PO Last administered on 03/26/17 14:01 ; Start 03/23/17 at 14:00; Stop 03/26/17 at 14:01; Status DC Oxcarbazepine (Trileptal) 300 mg BID92 PO Last administered on 04/15/17 13:42 ; Start 03/27/17 at 09:00; Stop 04/15/17 at 18:57; Status DC Clozapine (Clozaril) 75 mg HS PO Last administered on 04/04/17 19:20; Start 04/02/17 at 21:00; Stop 04/05/17 at 19:29; Status DC Clozapine (Clozaril) 100 mg HS PO ; Start 04/05/17 at 21:00; Stop 04/05/17 at 21:00; Status DC Clozapine (Clozaril) 100 mg HS PO Last administered on 04/10/17 19:14; Start 04/05/17 at 21:00; Stop 04/11/17 at 18:28; Status DC Levofloxacin (Levaquin) 250 mg DAILY PO Last administered on 04/11/17 10:25; Start 04/06/17 at 17:00; Stop 04/11/17 at 17:00; Status DC Lidocaine (Lidoderm) 1 patch PRN DAILY PRN TD pain Last administered on 05:11; Start 04/06/17 at 16:15 Mirtazapine (Remeron) 7.5 mg QHS PO Last administered on 04/10/17 19:14; Start 04/07/17 at 21:00; Stop 04/11/17 at 16:13; Status DC Tamsulosin HCl (Flomax) 0.4 mg DAILY PO Last administered on 04/22/17 08:32; Start 04/09/17 at 14:00 Gabapentin (Neurontin) 300 mg BID PO Last administered on 04/12/17 19:32; Start 04/09/17 at 22:30; Stop 04/12/17 at 22:29; Status DC Oxycodone HCl (OxyCONTIN) 10 mg Q12HR PO Last administered on 04/22/17 08:32 ; Start 04/10/17 at 21:00 Clozapine (Clozaril) 100 mg HS PO Last administered on 04/21/17 21:11; Start 04/11/17 at 21:00 Clozapine (Clozaril) 25 mg HS PO Last administered on 04/16/17 19:44; Start 04/11/17 at 21:00; Stop 04/17/17 at 18:35; Status DC Zinc Oxide 1 landon PRN Q4HRS PRN TP SKIN PROTECTION Last administered on 10:34; Start 04/15/17 at 11:00 Oxcarbazepine (Trileptal) 300 mg DAILY PO Last administered on 04/18/17 10:03 ; Start 04/16/17 at 09:00; Stop 04/18/17 at 18:46; Status DC Oxcarbazepine (Trileptal) 600 mg DAILY@1400 PO Last administered on 04/18/17 14:48; Start 04/16/17 at 14:00; Stop 04/18/17 at 18:46; Status DC Nystatin (Mycostatin) 1 landon BID TP Last administered on 04/18/17 10:03; Start 04/16/17 at 09:00; Stop 04/18/17 at 16:23; Status DC Betamethasone/ Clotrimazole (Lotrisone) 1 landon BID TP Last administered on 04/18 10:03; Start 04/16/17 at 21:00; Stop 04/18/17 at 16:23; Status DC Clozapine (Clozaril) 50 mg HS PO Last administered on 04/21/17 21:11; Start 04/17/17 at 21:00 Fluconazole (Diflucan) 100 mg DAILY PO Last administered on 04/22/17 08:32; Start 04/18/17 at 16:00; Stop 04/25/17 at 15:59 Nystatin (Nystop) 1 landon BID TP Last administered on 04/22/17 08:33; Start at 21:00 Nystatin (Nystop) 15 landon STK-MED ONCE TP ; Start 04/18/17 at 16:37; Stop 04/18 at 16:38; Status DC Oxcarbazepine (Trileptal) 600 mg BID92 PO Last administered on 04/22/17 14:27 ; Start 04/19/17 at 09:00 Mirtazapine (Remeron) 7.5 mg QHS PO Last administered on 04/21/17 21:15; Start 04/21/17 at 21:00 Active Scripts Active Reported Omeprazole 40 Mg Capsule.dr 40 Mg PO DAILY Olanzapine 10 Mg Tablet 10 Mg PO TID Megestrol Acetate 400 Mg/10 Ml Oral.susp 400 Mg PO BID Lactulose 10 Gm/15 Ml Solution 30 Ml PO BID Hold if no longer constipated [place] 5-325 Tablet (Hydrocodone Bit/Acetaminophen) 1 Each Tablet 1 Tab PO PRN Q6HRS PRN Tylenol (Acetaminophen) 325 Mg Tablet 650 Mg PO PRN Q4HRS PRN Benztropine Mesylate 1 Mg Tablet 1 Mg PO HS Suppository (Glycerin) 1 Each Supp.rect 1 Each RC PRN DAILY PRN Geodon (Ziprasidone Hcl) 40 Mg Capsule 40 Mg PO BID Sennosides-Docusate Sodium Tab (Sennosides/Docusate Sodium) 1 Each Tablet 1 Each PO BID Miralax (Polyethylene Glycol 3350) 17 Gm Powd.pack 17 Gm PO DAILY Protonix (Pantoprazole Sodium) 20 Mg Tablet.dr 20 Mg PO BID Bland 3 1,000 Mg Softgel (Bland-3 Fatty Acids/Fish Oil) 1 Each Capsule 1 Each PO DAILY Linzess (Linaclotide) 290 Mcg Capsule 290 Mcg PO HS Gabapentin 600 Mg Tablet 600 Mg PO BID Vitamin D (Cholecalciferol (Vitamin D3)) 2,000 Unit Capsule 2,000 Unit PO DAILY Buspirone Hcl 10 Mg Tablet 10 Mg PO TID Benztropine Mesylate 1 Mg Tablet 1 Mg PO TID I have reviewed the current psychotropics carefully including drug interactions. Risk benefit ratio favors no change other than as noted in my dictated progress note. Diagnosis: Problems: (1) Anxiety disorder (2) Bipolar affective, mixed, sev w/ psych (3) Dementia, vascular, with depression (4) Dementia, vascular, with delusions (5) Dementia in Alzheimer's disease with depression (6) Dementia in Alzheimer's disease with delusions (7) Impulse control disorder MIRIAM BRASWELL MD Apr 22, 2017 21:47
[2017-04-23] MEDS ORDERED: BISA10SU2 RC (02:33)
[2017-04-23] MEDS ORDERED: FLUC100T4 PO (02:35)
[2017-04-23] MEDS ORDERED: LACT1CAP21 PO (02:37)
[2017-04-23] MEDS ORDERED: MAG355OR17 PO (02:39)
[2017-04-23] MEDS ORDERED: MAGN2400 PO (02:40)
[2017-04-23] MEDS ORDERED: METH29OI TP (02:40)
[2017-04-23] MEDS ORDERED: MIRT15TA3 PO (02:41)
[2017-04-23] MEDS ORDERED: NYST15PO9 TP (02:42)
[2017-04-23] MEDS ORDERED: OLAN5TAB5 PO (02:42)
[2017-04-23] MEDS ORDERED: OMEG-33 PO (02:43)
[2017-04-23] MEDS ORDERED: OXCA300T PO (02:45)
[2017-04-23] MEDS ORDERED: NA P133E2 RC (02:47)
[2017-04-23] MEDS ORDERED: TAMS0.4C2 PO (02:47)
[2017-04-23] MEDS ORDERED: ZINC57OI TP (02:49)
[2017-04-23] MEDS ORDERED: CLOZ100T7 PO (02:51)
[2017-04-23] MEDS ORDERED: TRAZ-90 PO ×2 (02:53)
[2017-04-23] MEDS ORDERED: OXYC10TA45 PO (02:53)
[2017-04-23 05:53] VITALS: BP 125/64
[2017-04-23] MEDS: PANTOPRAZOLE 40 MG TABLET. PO SCH ×2 (07:30→07:46)
[2017-04-23] MEDS: TAMSULOSIN 0.4 MG CAP.ER.24H. PO SCH ×2 (07:45→09:00)
[2017-04-23] MEDS: ENOXAPARIN 30 MG/0.3 ML DISP.SYRIN. SQ SCH (07:45)
[2017-04-23] MEDS: CHOLECALCIFEROL (VITAMIN D3) 1,000 UNIT TABLET PO SCH ×2 (07:45→09:00)
[2017-04-23] MEDS: SENNOSIDES/DOCUSATE 8.6/50MG TABLET. PO SCH ×2 (07:46→09:00)
[2017-04-23] MEDS: LACTOBACILLUS RHAMNOSUS GG 1 CAPSULE. PO SCH ×2 (07:46→09:00)
[2017-04-23] MEDS: OMEGA-3 FATTY ACIDS/FISH OIL 1,000 MG CAPSULE. PO SCH ×2 (07:46→09:00)
[2017-04-23] MEDS: ZIPRASIDONE 60 MG CAPSULE. PO SCH ×2 (07:46→09:00)
[2017-04-23] MEDS: FLUCONAZOLE 100 MG TABLET. PO SCH ×2 (07:46→09:00)
[2017-04-23] MEDS: POLYETHYLENE GLYCOL 3350 17 GM PACKET. PO SCH ×2 (07:46→09:00)
[2017-04-23] MEDS: MEGESTROL 400 MG/10 ML ORAL.SUSP. PO SCH ×3 (07:46→13:37)
[2017-04-23] MEDS: LACTULOSE 20 GM/30 ML SOLUTION. PO SCH ×2 (07:46→09:00)
[2017-04-23] MEDS: oxyCODONE ER 10 MG TAB.ER.12H PO SCH ×3 (07:47→12:51)
[2017-04-23] MEDS: NYSTATIN TOPICAL POWDER 15GM BOTTLE. TP SCH (07:49)
--- NOTE | 2017-04-23 09:10 | PN ---
DATE: 04/21/2017 PSYCHIATRIC PROGRESS NOTE This is a late entry 04/21/2017, covers elements not covered in my initial note 04/21/2017. SUBJECTIVE: The patient remains confused, labile, loud at times, argumentative, yelling back at people as if she is hallucinating. She has had the G[place]a to keep her skin dry, walked to the dining room with 2 staff members, quite an improvement. REVIEW OF SYSTEMS: Ambulation impaired, in Broda chair. No CV, , pulmonary, eye, ENT system symptoms on review. Reliability poor. MENTAL STATUS EXAM: Oriented to herself. Insight, judgment, recent and remote memory, attention, concentration, fund of knowledge poor, consistent with her diagnoses mentioned in my initial note. IMPRESSION: Bipolar 1 disorder, mixed with psychotic features; major neurocognitive disorder, Alzheimer, vascular with delusion, depression, behavioral disturbance. Rest unchanged. PLAN: Continue psychotropics mentioned in my initial note. Geodon, Clozaril, trazodone, Trileptal and start Remeron 7.5 mg p.o. at bedtime. MAN Kathleen BRASWELL MD DR: ANAM/aly JOB#: [id number] / [id number]
[2017-04-23] MEDS: LIDOCAINE (700MG/PATCH) PATCH. TD PRN (11:34)
[2017-04-23 12:00] LABS: BASO # 0.1 x10^3/uL (0.0-0.2); BASO % 1 % (0-3); EOS % 0 % (0-3); HEMATOCRIT 42.5 % (36.0-47.0); LYMPH % 8 % (24-48); MEAN CORPUSCULAR HEMOGLOBIN 32 pg (25-35); MEAN CORPUSCULAR HGB CONC 33 g/dL (31-37); MEAN CORPUSCULAR VOLUME 97 fL (79-100); MONO # 0.9 x10^3/uL (0.0-1.1); MONO % 7 % (0-9); NEUT # 10.3 x10^3uL (1.8-7.7); NEUT % 84 % (31-73); PLATELET COUNT 347 x10^3/uL (140-400); RED CELL DISTRIBUTION WIDTH 17.4 % (11.5-14.5); WHITE BLOOD COUNT 12.3 x10^3/uL (4.0-11.0)
[2017-04-23 12:13] LABS: ALBUMIN 3.7 g/dL (3.4-5.0); ALBUMIN/GLOBULIN RATIO 0.9 (1.0-1.7); CALCIUM 10.7 mg/dL (8.5-10.1); CREATININE 1.2 mg/dL (0.6-1.0); GFR 45.1; POTASSIUM 3.9 mmol/L (3.5-5.1); TOTAL BILIRUBIN 0.3 mg/dL (0.2-1.0)
--- NOTE | 2017-04-23 14:26 | PDOC ---
PROGRESS NOTES Assessment 1. Dysphagia: Pt had choking episode on a piece of chicken yesterday. Pt now has trouble swallowing even thin liquids without choking and coughing. I have advised that she be made NPO pending evaluation by speech therapy. I have asked staff to notify pt's DPOA about our concerns. If we allow her to continue taking meds and liquids by mouth there is a risk of aspiration. Pt does not follow instructions, so teaching her to cough and clear her throat is not realistic. I am going to get a CXR to r/o aspiration pneumonia, especially given her WBC that is slightly high today. That could be due to some hypovolemia, as she has not had much intake recently, but we need to rule it out. If she does have pneumonia I will likely recommend that we transfer her to [address] [place] [address] to treat it w/ IV abx and observe her more closely. If not, Dr. Garcia will need to suggest some medications that can be given IM or IV pending the evaluation by speech therapy. Problems: Plan of Care: see other orders Subjective Per staff, pt had a choking episode yesterday on a piece of chicken. Pt reportedly acted "fine" after the obstruction was relieved. However, today pt has had trouble clearing her secretions. She is not drooling or choking on her saliva, but coughs and/or gags when trying to swallow meds w/ liquids, and definitely w/ food. Pt has not had a fever or been observed to be SOA. Pt does not do anything but shout nonsensical sounds when I speak to her. Objective Vital Signs Date Time Temp Pulse Resp B/P (MAP) Pulse Ox O2 Delivery O2 Flow Rate FiO2 04/23/17 05:53 97.9 105 18 125/64 (84) 94 04/21/17 17:26 Room Air Intake and Output 04/23/17 07:00 Intake Total 0 ml Output Total 2450 ml Balance -2450 ml Intake Oral 0 ml Output Urine Total 2450 ml # Bowel Movements 1 Abdomen: Soft, No tenderness, No masses Heart: Regular rate, Normal S1, Normal S2, No murmurs General: No acute distress HEENT: Mucous membr. moist/pink Lungs: Other (No wheezes, rales, or rhonchi; normal resp effort, nonlabored) Neck: No JVD, No LAD, Other (No neck swelling) Skin: No rashes Review of Relevant I have reviewed the following items chi (where applicable) has been applied. Labs Laboratory Tests Test 04/23/17 11:51 White Blood Count 12.3 x10^3/uL (4.0-11.0) Red Blood Count 4.40 x10^6/uL (3.50-5.40) Hemoglobin 14.0 g/dL (12.0-15.5) Hematocrit 42.5 % (36.0-47.0) Mean Corpuscular Volume 97 fL (79-100) Mean Corpuscular Hemoglobin 32 pg (25-35) Mean Corpuscular Hemoglobin Concent 33 g/dL (31-37) Red Cell Distribution Width 17.4 % (11.5-14.5) Platelet Count 347 x10^3/uL (140-400) Neutrophils (%) (Auto) 84 % (31-73) Lymphocytes (%) (Auto) 8 % (24-48) Monocytes (%) (Auto) 7 % (0-9) Eosinophils (%) (Auto) 0 % (0-3) Basophils (%) (Auto) 1 % (0-3) Neutrophils # (Auto) 10.3 x10^3uL (1.8-7.7) Lymphocytes # (Auto) 1.0 x10^3/uL (1.0-4.8) Monocytes # (Auto) 0.9 x10^3/uL (0.0-1.1) Eosinophils # (Auto) 0.0 x10^3/uL (0.0-0.7) Basophils # (Auto) 0.1 x10^3/uL (0.0-0.2) Sodium Level 148 mmol/L (136-145) Potassium Level 3.9 mmol/L (3.5-5.1) Chloride Level 110 mmol/L (98-107) Carbon Dioxide Level 26 mmol/L (21-32) Anion Gap 12 (6-14) Blood Urea Nitrogen 18 mg/dL (7-20) Creatinine 1.2 mg/dL (0.6-1.0) Estimated GFR (Cockcroft-Gault) 45.1 BUN/Creatinine Ratio 15 (6-20) Glucose Level 125 mg/dL (70-99) Calcium Level 10.7 mg/dL (8.5-10.1) Total Bilirubin 0.3 mg/dL (0.2-1.0) Aspartate Amino Transf (AST/SGOT) 18 U/L (15-37) Alanine Aminotransferase (ALT/SGPT) 26 U/L (14-59) Alkaline Phosphatase 93 U/L (46-116) Total Protein 8.0 g/dL (6.4-8.2) Albumin 3.7 g/dL (3.4-5.0) Albumin/Globulin Ratio 0.9 (1.0-1.7) Microbiology 04/18/17 Urine Culture - Final, Complete 04/18/17 Urine Culture Result 1 (REYNA) - Final, Complete Medications Current Medications Benztropine Mesylate (Cogentin) 1 mg TID PO Last administered on 03/16/17 08: 39; Start 03/14/17 at 22:30; Stop 03/16/17 at 11:57; Status DC Buspirone HCl (Buspar) 10 mg TID PO Last administered on 03/16/17 08:40; Start 03/14/17 at 22:30; Stop 03/16/17 at 11:57; Status DC Ziprasidone (Geodon) 40 mg BID PO Last administered on 03/17/17 08:01; Start 03/14/17 at 22:30; Stop 03/17/17 at 18:48; Status DC Glycerin (Sani-Supp Adult) 1 supp PRN DAILY PRN RC CONSTIPATION; Start at 22:30 Pantoprazole Sodium (Protonix) 40 mg DAILYAC PO Last administered on 08:32; Start 03/15/17 at 07:30 Polyethylene Glycol (miraLAX) 17 gm DAILY PO Last administered on 04/22/17 08 :31; Start 03/15/17 at 09:00 Senna/Docusate Sodium (Senna Plus) 1 tab BID PO Last administered on 08:31; Start 03/14/17 at 22:30 Vitamin D (Vitamin D3) 2,000 unit DAILY PO Last administered on 04/22/17 08: 32; Start 03/15/17 at 09:00 Gabapentin (Neurontin) 600 mg BID PO Last administered on 04/09/17 08:14; Start 03/14/17 at 22:30; Stop 04/09/17 at 18:49; Status DC Non-Formulary Medication 290 mcg HS PO ; Start 03/15/17 at 21:00; Status UNV Fish Oil (Fish Oil) 1,000 mg DAILY PO Last administered on 04/22/17 08:31; Start 03/15/17 at 09:00 Benztropine Mesylate (Cogentin) 1 mg HS PO ; Start 03/15/17 at 21:00; Stop 03/15 at 21:00; Status DC Olanzapine (ZyPREXA) 10 mg TID PO Last administered on 03/16/17 08:39; Start 03/14/17 at 23:00; Stop 03/16/17 at 11:57; Status DC Acetaminophen (Tylenol) 650 mg PRN Q4HRS PRN PO PAIN / TEMP Last administered on 04/09/17 21:34; Start 03/14/17 at 22:45 Acetaminophen/ Hydrocodone Bitart (Lortab 5/325) 1 tab PRN Q6HRS PRN PO PAIN Last administered on 04/21/17 14:49; Start 03/14/17 at 22:45 Megestrol Acetate (Megace) 400 mg BID PO Last administered on 03/16/17 08:41; Start 03/14/17 at 23:00; Stop 03/16/17 at 21:03; Status DC Lactulose 20 gm BID PO Last administered on 04/22/17 08:31; Start 03/14/17 at 23:00 Pantoprazole Sodium (Protonix) 40 mg DAILYAC PO ; Start 03/15/17 at 07:30; Stop 03/16/17 at 19:39; Status DC Acetaminophen (Tylenol) 650 mg PRN Q6HRS PRN PO PAIN / TEMP; Start 03/15/17 at 01:15; Stop 03/25/17 at 14:08; Status DC Multi-Ingredient Ointment (Analgesic [place]) 1 hermilo PRN QID PRN TP MUSCLE PAIN; Start 03/15/17 at 01:15 Al Hydroxide/Mg Hydroxide (Mylanta Plus Xs) 15 ml PRN AFTMEALHC PRN PO DYSPEPSIA Last administered on 04/11/17 16:46; Start 03/15/17 at 01:15 Magnesium Hydroxide (Milk Of Magnesia) 2,400 mg PRN QHS PRN PO CONSTIPATION Last administered on 03/27/17 10:16; Start 03/15/17 at 01:15 Potassium Chloride/Dextrose 1,000 ml @ 75 mls/hr [id number] IV Last administered on 03/18/17 11:25; Start 03/15/17 at 16:45; Stop 03/18/17 at 18:24; Status DC Divalproex Sodium (Depakote Sprinkles) 125 mg BID92 PO Last administered on 13:31; Start 03/16/17 at 09:00; Stop 03/18/17 at 18:29; Status DC Bisacodyl (Dulcolax Supp) 10 mg PRN DAILY PRN MI CONSTIPATION Last administered on 03/22/17 21:05; Start 03/15/17 at 19:00 Sodium Biphosphate/ Sodium Phosphate (Fleet Adult) 133 ml PRN DAILY PRN MI CONSTIPATION Last administered on 03/16/17 05:09; Start 03/15/17 at 19:00 Benztropine Mesylate (Cogentin) 1 mg BID PO Last administered on 03/18/17 17: 04; Start 03/16/17 at 21:00; Stop 03/18/17 at 23:00; Status DC Benztropine Mesylate (Cogentin) 1 mg DAILY PO Last administered on 03/21/17 11:21; Start 03/19/17 at 09:00; Stop 03/21/17 at 12:00; Status DC Enoxaparin Sodium (Lovenox) 30 mg Q24H SQ ; Start 03/16/17 at 18:00; Stop at 18:29; Status DC Enoxaparin Sodium (Lovenox) 30 mg Q24H SQ Last administered on 04/23/17 07:45 ; Start 03/17/17 at 09:00 Megestrol Acetate (Megace) 400 mg [id number] PO Last administered on 04/22/17 14: 27; Start 03/17/17 at 09:00 Trimethoprim/ Sulfamethoxazole (Bactrim Ss) 1 tab BID PO Last administered on 03/25/17 08:05; Start 03/17/17 at 21:00; Stop 03/25/17 at 20:59; Status DC Ziprasidone (Geodon) 60 mg BID PO Last administered on 04/22/17 08:32; Start 03/17/17 at 21:00 Lactobacillus Rhamnosus (Culturelle) 1 cap BID PO Last administered on 08:31; Start 03/18/17 at 21:00 Divalproex Sodium (Depakote Sprinkles) 250 mg BID92 PO Last administered on 09:35; Start 03/19/17 at 09:00; Stop 03/23/17 at 11:14; Status DC Olanzapine (ZyPREXA ZYDIS) 5 mg PRN Q2HR PRN PO PSYCHOSIS Last administered on 04/22/17 23:21; Start 03/19/17 at 07:00 Clozapine (Clozaril) 25 mg HS PO Last administered on 03/21/17 20:07; Start 03/19/17 at 21:00; Stop 03/22/17 at 18:41; Status DC Trazodone HCl (Desyrel) 100 mg QHS PO Last administered on 04/21/17 21:11; Start 03/19/17 at 21:00 Trazodone HCl (Desyrel) 100 mg PRN QHS PRN PO INSOMNIA Last administered on 22:47; Start 03/19/17 at 19:15 Clozapine (Clozaril) 50 mg HS PO Last administered on 04/01/17 21:12; Start 03/22/17 at 21:00; Stop 04/01/17 at 21:53; Status DC Oxcarbazepine (Trileptal) 150 mg [id number] PO Last administered on 03/26/17 14:01 ; Start 03/23/17 at 14:00; Stop 03/26/17 at 14:01; Status DC Oxcarbazepine (Trileptal) 300 mg BID92 PO Last administered on 04/15/17 13:42 ; Start 03/27/17 at 09:00; Stop 04/15/17 at 18:57; Status DC Clozapine (Clozaril) 75 mg HS PO Last administered on 04/04/17 19:20; Start 04/02/17 at 21:00; Stop 04/05/17 at 19:29; Status DC Clozapine (Clozaril) 100 mg HS PO ; Start 04/05/17 at 21:00; Stop 04/05/17 at 21:00; Status DC Clozapine (Clozaril) 100 mg HS PO Last administered on 04/10/17 19:14; Start 04/05/17 at 21:00; Stop 04/11/17 at 18:28; Status DC Levofloxacin (Levaquin) 250 mg DAILY PO Last administered on 04/11/17 10:25; Start 04/06/17 at 17:00; Stop 04/11/17 at 17:00; Status DC Lidocaine (Lidoderm) 1 patch PRN DAILY PRN TD pain Last administered on 11:34; Start 04/06/17 at 16:15 Mirtazapine (Remeron) 7.5 mg QHS PO Last administered on 04/10/17 19:14; Start 04/07/17 at 21:00; Stop 04/11/17 at 16:13; Status DC Tamsulosin HCl (Flomax) 0.4 mg DAILY PO Last administered on 04/22/17 08:32; Start 04/09/17 at 14:00 Gabapentin (Neurontin) 300 mg BID PO Last administered on 04/12/17 19:32; Start 04/09/17 at 22:30; Stop 04/12/17 at 22:29; Status DC Oxycodone HCl (OxyCONTIN) 10 mg Q12HR PO Last administered on 04/23/17 07:47 ; Start 04/10/17 at 21:00 Clozapine (Clozaril) 100 mg HS PO Last administered on 04/21/17 21:11; Start 04/11/17 at 21:00 Clozapine (Clozaril) 25 mg HS PO Last administered on 04/16/17 19:44; Start 04/11/17 at 21:00; Stop 04/17/17 at 18:35; Status DC Zinc Oxide 1 hermilo PRN Q4HRS PRN TP SKIN PROTECTION Last administered on 10:34; Start 04/15/17 at 11:00 Oxcarbazepine (Trileptal) 300 mg DAILY PO Last administered on 04/18/17 10:03 ; Start 04/16/17 at 09:00; Stop 04/18/17 at 18:46; Status DC Oxcarbazepine (Trileptal) 600 mg DAILY@1400 PO Last administered on 04/18/17 14:48; Start 04/16/17 at 14:00; Stop 04/18/17 at 18:46; Status DC Nystatin (Mycostatin) 1 hermilo BID TP Last administered on 04/18/17 10:03; Start 04/16/17 at 09:00; Stop 04/18/17 at 16:23; Status DC Betamethasone/ Clotrimazole (Lotrisone) 1 hermilo BID TP Last administered on 04/18 10:03; Start 04/16/17 at 21:00; Stop 04/18/17 at 16:23; Status DC Clozapine (Clozaril) 50 mg HS PO Last administered on 04/21/17 21:11; Start 04/17/17 at 21:00 Fluconazole (Diflucan) 100 mg DAILY PO Last administered on 04/22/17 08:32; Start 04/18/17 at 16:00; Stop 04/25/17 at 15:59 Nystatin (Nystop) 1 hermilo BID TP Last administered on 04/23/17 07:49; Start at 21:00 Nystatin (Nystop) 15 hermilo STK-MED ONCE TP ; Start 04/18/17 at 16:37; Stop 04/18 at 16:38; Status DC Oxcarbazepine (Trileptal) 600 mg BID92 PO Last administered on 04/22/17 14:27 ; Start 04/19/17 at 09:00 Mirtazapine (Remeron) 7.5 mg QHS PO Last administered on 04/21/17 21:15; Start 04/21/17 at 21:00 Active Scripts Active Reported Trazodone Hcl 100 Mg Tablet 100 Mg PO PRN QHS PRN Trazodone Hcl 100 Mg Tablet 100 Mg PO HS Oxycontin (Oxycodone HCl) 10 Mg Tab.er.12h 10 Mg PO BID Clozapine 100 Mg Tablet 50 Mg PO HS Clozapine 100 Mg Tablet 100 Mg PO HS Zinc Oxide 57 Gm Oint...g. 1 Hermilo TP PRN Q4HRS PRN Tamsulosin Hcl 0.4 Mg Cap.er.24h 0.4 Mg PO DAILY Fleet Enema (Na Phos,M-B/Na Phos,Di-Ba) 133 Ml Enema 133 Ml RC PRN DAILY PRN Oxcarbazepine 300 Mg Tablet 600 Mg PO BID92 Zyprexa Zydis (Olanzapine) 5 Mg Tab.rapdis 5 Mg PO PRN Q2HR PRN Nystatin 15 Gm Powder 1 Hermilo TP BID Mirtazapine 15 Mg Tablet 7.5 Mg PO HS Analgesic [place] (Methyl Salicylate/Menthol) 28 Gm Oint...g. 1 Hermilo TP PRN QID PRN Milk Of Magnesia (Magnesium Hydroxide) 2,400 Mg/10 Ml Oral.susp 2,400 Mg PO PRN QHS PRN Advanced Antacid Liquid (Mag Hydrox/Al Hydrox/Simeth) 355 Ml Oral.susp 15 Ml PO PRN AFTMEALHC PRN Culturelle (Lactobacillus Rhamnosus Gg) 1 Each Capsule 1 Cap PO BID Fluconazole 100 Mg Tablet 100 Mg PO DAILY Bisacodyl 10 Mg Supp.rect 10 Mg RC PRN DAILY PRN Omeprazole 40 Mg Capsule.dr 40 Mg PO DAILY Olanzapine 10 Mg Tablet 10 Mg PO TID Megestrol Acetate 400 Mg/10 Ml Oral.susp 400 Mg PO BID Lactulose 10 Gm/15 Ml Solution 30 Ml PO BID Hold if no longer constipated Palmer 5-325 Tablet (Hydrocodone Bit/Acetaminophen) 1 Each Tablet 1 Tab PO PRN Q6HRS PRN Tylenol (Acetaminophen) 325 Mg Tablet 650 Mg PO PRN Q4HRS PRN Benztropine Mesylate 1 Mg Tablet 1 Mg PO HS Suppository (Glycerin) 1 Each Supp.rect 1 Each RC PRN DAILY PRN Geodon (Ziprasidone Hcl) 40 Mg Capsule 40 Mg PO BID Sennosides-Docusate Sodium Tab (Sennosides/Docusate Sodium) 1 Each Tablet 1 Each PO BID Miralax (Polyethylene Glycol 3350) 17 Gm Powd.pack 17 Gm PO DAILY Protonix (Pantoprazole Sodium) 20 Mg Tablet.dr 20 Mg PO BID [place] 3 1,000 Mg Softgel ([place]-3 Fatty Acids/Fish Oil) 1 Each Capsule 1 Each PO DAILY Linzess (Linaclotide) 290 Mcg Capsule 290 Mcg PO HS Gabapentin 600 Mg Tablet 600 Mg PO BID Vitamin D (Cholecalciferol (Vitamin D3)) 2,000 Unit Capsule 2,000 Unit PO DAILY Buspirone Hcl 10 Mg Tablet 10 Mg PO TID Benztropine Mesylate 1 Mg Tablet 1 Mg PO TID Vitals/I & O Vital Sign - Last 24 Hours 04/22/17 04/22/17 04/23/17 16:40 21:00 05:53 Temp 98.0 97.9 Pulse 82 105 Resp 16 18 B/P (MAP) 119/72 (88) 125/64 (84) Pulse Ox 97 97 94 Intake and Output 04/22/17 04/22/17 04/23/17 15:00 23:00 07:00 Intake Total 0 ml 0 ml Output Total 725 ml 850 ml 875 ml Balance -725 ml -850 ml -875 ml PIO NEVES MD Apr 23, 2017 14:26
--- NOTE | 2017-04-23 15:35 | RAD ---
Single view chest 04/23/2017 Clinical indication: Cough, aspiration. Comparison: None. Findings: Cardiac and mediastinal silhouettes are unremarkable. No pleural effusion, pneumothorax or focal consolidation. Severe bilateral glenohumeral arthrosis. Impression: No acute cardiopulmonary abnormality.
[2017-04-23] MEDS ORDERED: lidoderm AD (15:59)
[2017-04-23] MEDS ORDERED: ENOX40DI SQ (16:02)
[2017-04-23 16:10] VITALS: BP 158/91
[2017-04-23 16:16] VITALS: BP 158/91
[2017-04-23] MEDS ORDERED: IV NORMAL SALINE 1,000ML 1,000 ML IV SCH (16:30)
[2017-04-23 17:04] LABS: BASO % 0 % (0-3); EOS % 0 % (0-3); HEMATOCRIT 42.7 % (36.0-47.0); HEMOGLOBIN 14.1 g/dL (12.0-15.5); LYMPH # 0.8 x10^3/uL (1.0-4.8); LYMPH % 5 % (24-48); MEAN CORPUSCULAR HEMOGLOBIN 32 pg (25-35); MEAN CORPUSCULAR HGB CONC 33 g/dL (31-37); MEAN CORPUSCULAR VOLUME 96 fL (79-100); MONO % 6 % (0-9); NEUT # 13.7 x10^3uL (1.8-7.7); NEUT % 89 % (31-73); PLATELET COUNT 381 x10^3/uL (140-400); RED BLOOD COUNT 4.47 x10^6/uL (3.50-5.40); RED CELL DISTRIBUTION WIDTH 16.6 % (11.5-14.5); WHITE BLOOD COUNT 15.5 x10^3/uL (4.0-11.0)
[2017-04-23 17:15] LABS: ALBUMIN 3.8 g/dL (3.4-5.0); ALBUMIN/GLOBULIN RATIO 0.8 (1.0-1.7); CALCIUM 10.7 mg/dL (8.5-10.1); CREATININE 1.2 mg/dL (0.6-1.0); GFR 45.1; TOTAL BILIRUBIN 0.3 mg/dL (0.2-1.0); TOTAL PROTEIN 8.3 g/dL (6.4-8.2)
[2017-04-23 19:03] LABS: CLARITY,URINE HAZY; COLOR,URINE YELLOW; GLUCOSE,URINE NEG (NEG)
[2017-04-23 19:04] LABS: AMORPHOUS SEDIMENT,UR PRESENT /HPF; BACTERIA,URINE FEW /HPF (0-FEW); BILIRUBIN,URINE NEG (NEG); NITRITE,URINE NEG (NEG); RBC,URINE >40 /HPF (0-2); UROBILINOGEN,URINE 0.2 mg/dL (0.2 mg/dL)
[2017-04-23 19:05] LABS: HYALINE CASTS, URINE FEW /HPF
--- NOTE | 2017-04-23 19:45 | PDOC ---
Exam Note: Kayden Note: Please also refer to the separate dictated note~for this date of service dictated separately.~Patient seen individually. Discussed the patient with Nursing staff reviewed the chart.~Reviewed interim history and current functioning. Reviewed vital signs,~Labs/ Radiology~and current medications noted below. Continue current treatment with the changes noted in the dictated addendum note Assessment: Vital Signs: Vital Signs Date Time Temp Pulse Resp B/P (MAP) Pulse Ox O2 Delivery O2 Flow Rate FiO2 04/23/17 16:16 98.2 119 22 158/91 (113) 04/23/17 05:53 94 04/21/17 17:26 Room Air I&O Intake and Output 04/23/17 07:00 Intake Total 0 ml Output Total 2450 ml Balance -2450 ml Intake Oral 0 ml Output Urine Total 2450 ml # Bowel Movements 1 Labs: Laboratory Tests Test 04/23/17 11:51 04/23/17 15:10 04/23/17 16:45 White Blood Count 12.3 x10^3/uL (4.0-11.0) H 15.5 x10^3/uL (4.0-11.0) H Red Blood Count 4.40 x10^6/uL (3.50-5.40) 4.47 x10^6/uL (3.50-5.40) Hemoglobin 14.0 g/dL (12.0-15.5) 14.1 g/dL (12.0-15.5) Hematocrit 42.5 % (36.0-47.0) 42.7 % (36.0-47.0) Mean Corpuscular Volume 97 fL (79-100) 96 fL (79-100) Mean Corpuscular Hemoglobin 32 pg (25-35) 32 pg (25-35) Mean Corpuscular Hemoglobin Concent 33 g/dL (31-37) 33 g/dL (31-37) Red Cell Distribution Width 17.4 % (11.5-14.5) H 16.6 % (11.5-14.5) H Platelet Count 347 x10^3/uL (140-400) 381 x10^3/uL (140-400) Neutrophils (%) (Auto) 84 % (31-73) H 89 % (31-73) H Lymphocytes (%) (Auto) 8 % (24-48) L 5 % (24-48) L Monocytes (%) (Auto) 7 % (0-9) 6 % (0-9) Eosinophils (%) (Auto) 0 % (0-3) 0 % (0-3) Basophils (%) (Auto) 1 % (0-3) 0 % (0-3) Neutrophils # (Auto) 10.3 x10^3uL (1.8-7.7) H 13.7 x10^3uL (1.8-7.7) H Lymphocytes # (Auto) 1.0 x10^3/uL (1.0-4.8) 0.8 x10^3/uL (1.0-4.8) L Monocytes # (Auto) 0.9 x10^3/uL (0.0-1.1) 1.0 x10^3/uL (0.0-1.1) Eosinophils # (Auto) 0.0 x10^3/uL (0.0-0.7) 0.0 x10^3/uL (0.0-0.7) Basophils # (Auto) 0.1 x10^3/uL (0.0-0.2) 0.0 x10^3/uL (0.0-0.2) Sodium Level 148 mmol/L (136-145) H 147 mmol/L (136-145) H Potassium Level 3.9 mmol/L (3.5-5.1) 4.0 mmol/L (3.5-5.1) Chloride Level 110 mmol/L (98-107) H 109 mmol/L (98-107) H Carbon Dioxide Level 26 mmol/L (21-32) 24 mmol/L (21-32) Anion Gap 12 (6-14) 14 (6-14) Blood Urea Nitrogen 18 mg/dL (7-20) 21 mg/dL (7-20) H Creatinine 1.2 mg/dL (0.6-1.0) H 1.2 mg/dL (0.6-1.0) H Estimated GFR (Cockcroft-Gault) 45.1 45.1 BUN/Creatinine Ratio 15 (6-20) 18 (6-20) Glucose Level 125 mg/dL (70-99) H 129 mg/dL (70-99) H Calcium Level 10.7 mg/dL (8.5-10.1) H 10.7 mg/dL (8.5-10.1) H Total Bilirubin 0.3 mg/dL (0.2-1.0) 0.3 mg/dL (0.2-1.0) Aspartate Amino Transferase (AST) 18 U/L (15-37) 20 U/L (15-37) Alanine Aminotransferase (ALT) 26 U/L (14-59) 26 U/L (14-59) Alkaline Phosphatase 93 U/L (46-116) 95 U/L (46-116) Total Protein 8.0 g/dL (6.4-8.2) 8.3 g/dL (6.4-8.2) H Albumin 3.7 g/dL (3.4-5.0) 3.8 g/dL (3.4-5.0) Albumin/Globulin Ratio 0.9 (1.0-1.7) L 0.8 (1.0-1.7) L Urine Collection Type Unknown Urine Color Yellow Urine Clarity Hazy Urine pH 7.0 Urine Specific [place] 1.015 Urine Protein 30 mg/dl (NEG-TRACE) Urine Glucose (UA) Neg mg/dL (NEG) Urine Ketones (Stick) Neg mg/dL (NEG) Urine Blood Large (NEG) Urine Nitrite Neg (NEG) Urine Bilirubin Neg (NEG) Urine Urobilinogen Dipstick 0.2 mg/dL (0.2 mg/dL) Urine Leukocyte Esterase Small (NEG) Urine RBC >40 /HPF (0-2) Urine WBC 5-10 /HPF (0-4) Urine Squamous Epithelial Cells None /LPF Urine Amorphous Sediment Present /HPF Urine Bacteria Few /HPF (0-FEW) Urine Hyaline Casts Few /HPF Urine Mucus Slight /LPF Platelet Estimate Pending Lactic Acid Level 2.2 mmol/L (0.4-2.0) H Current Medications: Meds: Current Medications Benztropine Mesylate (Cogentin) 1 mg TID PO Last administered on 03/16/17 08: 39; Start 03/14/17 at 22:30; Stop 03/16/17 at 11:57; Status DC Buspirone HCl (Buspar) 10 mg TID PO Last administered on 03/16/17 08:40; Start 03/14/17 at 22:30; Stop 03/16/17 at 11:57; Status DC Ziprasidone (Geodon) 40 mg BID PO Last administered on 03/17/17 08:01; Start 03/14/17 at 22:30; Stop 03/17/17 at 18:48; Status DC Glycerin (Sani-Supp Adult) 1 supp PRN DAILY PRN RC CONSTIPATION; Start at 22:30 Pantoprazole Sodium (Protonix) 40 mg DAILYAC PO Last administered on 08:32; Start 03/15/17 at 07:30 Polyethylene Glycol (miraLAX) 17 gm DAILY PO Last administered on 04/22/17 08 :31; Start 03/15/17 at 09:00 Senna/Docusate Sodium (Senna Plus) 1 tab BID PO Last administered on 08:31; Start 03/14/17 at 22:30 Vitamin D (Vitamin D3) 2,000 unit DAILY PO Last administered on 04/22/17 08: 32; Start 03/15/17 at 09:00 Gabapentin (Neurontin) 600 mg BID PO Last administered on 04/09/17 08:14; Start 03/14/17 at 22:30; Stop 04/09/17 at 18:49; Status DC Non-Formulary Medication 290 mcg HS PO ; Start 03/15/17 at 21:00; Status UNV Fish Oil (Fish Oil) 1,000 mg DAILY PO Last administered on 04/22/17 08:31; Start 03/15/17 at 09:00 Benztropine Mesylate (Cogentin) 1 mg HS PO ; Start 03/15/17 at 21:00; Stop 03/15 at 21:00; Status DC Olanzapine (ZyPREXA) 10 mg TID PO Last administered on 03/16/17 08:39; Start 03/14/17 at 23:00; Stop 03/16/17 at 11:57; Status DC Acetaminophen (Tylenol) 650 mg PRN Q4HRS PRN PO PAIN / TEMP Last administered on 04/09/17 21:34; Start 03/14/17 at 22:45 Acetaminophen/ Hydrocodone Bitart (Lortab 5/325) 1 tab PRN Q6HRS PRN PO PAIN Last administered on 04/21/17 14:49; Start 03/14/17 at 22:45 Megestrol Acetate (Megace) 400 mg BID PO Last administered on 03/16/17 08:41; Start 03/14/17 at 23:00; Stop 03/16/17 at 21:03; Status DC Lactulose 20 gm BID PO Last administered on 04/22/17 08:31; Start 03/14/17 at 23:00 Pantoprazole Sodium (Protonix) 40 mg DAILYAC PO ; Start 03/15/17 at 07:30; Stop 03/16/17 at 19:39; Status DC Acetaminophen (Tylenol) 650 mg PRN Q6HRS PRN PO PAIN / TEMP; Start 03/15/17 at 01:15; Stop 03/25/17 at 14:08; Status DC Multi-Ingredient Ointment (Analgesic Laughlin) 1 hermilo PRN QID PRN TP MUSCLE PAIN; Start 03/15/17 at 01:15 Al Hydroxide/Mg Hydroxide (Mylanta Plus Xs) 15 ml PRN AFTMEALHC PRN PO DYSPEPSIA Last administered on 04/11/17 16:46; Start 03/15/17 at 01:15 Magnesium Hydroxide (Milk Of Magnesia) 2,400 mg PRN QHS PRN PO CONSTIPATION Last administered on 03/27/17 10:16; Start 03/15/17 at 01:15 Potassium Chloride/Dextrose 1,000 ml @ 75 mls/hr [id number] IV Last administered on 03/18/17 11:25; Start 03/15/17 at 16:45; Stop 03/18/17 at 18:24; Status DC Divalproex Sodium (Depakote Sprinkles) 125 mg BID92 PO Last administered on 13:31; Start 03/16/17 at 09:00; Stop 03/18/17 at 18:29; Status DC Bisacodyl (Dulcolax Supp) 10 mg PRN DAILY PRN TN CONSTIPATION Last administered on 03/22/17 21:05; Start 03/15/17 at 19:00 Sodium Biphosphate/ Sodium Phosphate (Fleet Adult) 133 ml PRN DAILY PRN TN CONSTIPATION Last administered on 03/16/17 05:09; Start 03/15/17 at 19:00 Benztropine Mesylate (Cogentin) 1 mg BID PO Last administered on 03/18/17 17: 04; Start 03/16/17 at 21:00; Stop 03/18/17 at 23:00; Status DC Benztropine Mesylate (Cogentin) 1 mg DAILY PO Last administered on 03/21/17 11:21; Start 03/19/17 at 09:00; Stop 03/21/17 at 12:00; Status DC Enoxaparin Sodium (Lovenox) 30 mg Q24H SQ ; Start 03/16/17 at 18:00; Stop at 18:29; Status DC Enoxaparin Sodium (Lovenox) 30 mg Q24H SQ Last administered on 04/23/17 07:45 ; Start 03/17/17 at 09:00 Megestrol Acetate (Megace) 400 mg BID92 PO Last administered on 04/22/17 14: 27; Start 03/17/17 at 09:00 Trimethoprim/ Sulfamethoxazole (Bactrim Ss) 1 tab BID PO Last administered on 03/25/17 08:05; Start 03/17/17 at 21:00; Stop 03/25/17 at 20:59; Status DC Ziprasidone (Geodon) 60 mg BID PO Last administered on 04/22/17 08:32; Start 03/17/17 at 21:00 Lactobacillus Rhamnosus (Culturelle) 1 cap BID PO Last administered on 08:31; Start 03/18/17 at 21:00 Divalproex Sodium (Depakote Sprinkles) 250 mg BID92 PO Last administered on 09:35; Start 03/19/17 at 09:00; Stop 03/23/17 at 11:14; Status DC Olanzapine (ZyPREXA ZYDIS) 5 mg PRN Q2HR PRN PO PSYCHOSIS Last administered on 04/22/17 23:21; Start 03/19/17 at 07:00 Clozapine (Clozaril) 25 mg HS PO Last administered on 03/21/17 20:07; Start 03/19/17 at 21:00; Stop 03/22/17 at 18:41; Status DC Trazodone HCl (Desyrel) 100 mg QHS PO Last administered on 04/21/17 21:11; Start 03/19/17 at 21:00 Trazodone HCl (Desyrel) 100 mg PRN QHS PRN PO INSOMNIA Last administered on 22:47; Start 03/19/17 at 19:15 Clozapine (Clozaril) 50 mg HS PO Last administered on 04/01/17 21:12; Start 03/22/17 at 21:00; Stop 04/01/17 at 21:53; Status DC Oxcarbazepine (Trileptal) 150 mg BID92 PO Last administered on 03/26/17 14:01 ; Start 03/23/17 at 14:00; Stop 03/26/17 at 14:01; Status DC Oxcarbazepine (Trileptal) 300 mg BID92 PO Last administered on 04/15/17 13:42 ; Start 03/27/17 at 09:00; Stop 04/15/17 at 18:57; Status DC Clozapine (Clozaril) 75 mg HS PO Last administered on 04/04/17 19:20; Start 04/02/17 at 21:00; Stop 04/05/17 at 19:29; Status DC Clozapine (Clozaril) 100 mg HS PO ; Start 04/05/17 at 21:00; Stop 04/05/17 at 21:00; Status DC Clozapine (Clozaril) 100 mg HS PO Last administered on 04/10/17 19:14; Start 04/05/17 at 21:00; Stop 04/11/17 at 18:28; Status DC Levofloxacin (Levaquin) 250 mg DAILY PO Last administered on 04/11/17 10:25; Start 04/06/17 at 17:00; Stop 04/11/17 at 17:00; Status DC Lidocaine (Lidoderm) 1 patch PRN DAILY PRN TD pain Last administered on 11:34; Start 04/06/17 at 16:15 Mirtazapine (Remeron) 7.5 mg QHS PO Last administered on 04/10/17 19:14; Start 04/07/17 at 21:00; Stop 04/11/17 at 16:13; Status DC Tamsulosin HCl (Flomax) 0.4 mg DAILY PO Last administered on 04/22/17 08:32; Start 04/09/17 at 14:00 Gabapentin (Neurontin) 300 mg BID PO Last administered on 04/12/17 19:32; Start 04/09/17 at 22:30; Stop 04/12/17 at 22:29; Status DC Oxycodone HCl (OxyCONTIN) 10 mg Q12HR PO Last administered on 04/23/17 07:47 ; Start 04/10/17 at 21:00 Clozapine (Clozaril) 100 mg HS PO Last administered on 04/21/17 21:11; Start 04/11/17 at 21:00 Clozapine (Clozaril) 25 mg HS PO Last administered on 04/16/17 19:44; Start 04/11/17 at 21:00; Stop 04/17/17 at 18:35; Status DC Zinc Oxide 1 hermilo PRN Q4HRS PRN TP SKIN PROTECTION Last administered on 10:34; Start 04/15/17 at 11:00 Oxcarbazepine (Trileptal) 300 mg DAILY PO Last administered on 04/18/17 10:03 ; Start 04/16/17 at 09:00; Stop 04/18/17 at 18:46; Status DC Oxcarbazepine (Trileptal) 600 mg DAILY@1400 PO Last administered on 04/18/17 14:48; Start 04/16/17 at 14:00; Stop 04/18/17 at 18:46; Status DC Nystatin (Mycostatin) 1 hermilo BID TP Last administered on 04/18/17 10:03; Start 04/16/17 at 09:00; Stop 04/18/17 at 16:23; Status DC Betamethasone/ Clotrimazole (Lotrisone) 1 hermilo BID TP Last administered on 04/18 10:03; Start 04/16/17 at 21:00; Stop 04/18/17 at 16:23; Status DC Clozapine (Clozaril) 50 mg HS PO Last administered on 04/21/17 21:11; Start 04/17/17 at 21:00 Fluconazole (Diflucan) 100 mg DAILY PO Last administered on 04/22/17 08:32; Start 04/18/17 at 16:00; Stop 04/25/17 at 15:59 Nystatin (Nystop) 1 hermilo BID TP Last administered on 04/23/17 07:49; Start at 21:00 Nystatin (Nystop) 15 hermilo STK-MED ONCE TP ; Start 04/18/17 at 16:37; Stop 04/18 at 16:38; Status DC Oxcarbazepine (Trileptal) 600 mg BID92 PO Last administered on 04/22/17 14:27 ; Start 04/19/17 at 09:00 Mirtazapine (Remeron) 7.5 mg QHS PO Last administered on 04/21/17 21:15; Start 04/21/17 at 21:00 Sodium Chloride 1,000 ml @ 100 mls/hr Q10H IV Last administered on 04/23/17 16:30; Start 04/23/17 at 16:30 Active Scripts Active Reported Lovenox (Enoxaparin Sodium) 40 Mg/0.4 Ml Disp.syrin 30 Mg SQ DAILY [lidoderm] 1 Patch AD PRN DAILY PRN Trazodone Hcl 100 Mg Tablet 100 Mg PO PRN QHS PRN Trazodone Hcl 100 Mg Tablet 100 Mg PO HS Oxycontin (Oxycodone HCl) 10 Mg Tab.er.12h 10 Mg PO BID Clozapine 100 Mg Tablet 50 Mg PO HS Clozapine 100 Mg Tablet 100 Mg PO HS Zinc Oxide 57 Gm Oint...g. 1 Hermilo TP PRN Q4HRS PRN Tamsulosin Hcl 0.4 Mg Cap.er.24h 0.4 Mg PO DAILY Fleet Enema (Na Phos,M-B/Na Phos,Di-Ba) 133 Ml Enema 133 Ml RC PRN DAILY PRN Oxcarbazepine 300 Mg Tablet 600 Mg PO BID92 Zyprexa Zydis (Olanzapine) 5 Mg Tab.rapdis 5 Mg PO PRN Q2HR PRN Nystatin 15 Gm Powder 1 Hermilo TP BID Mirtazapine 15 Mg Tablet 7.5 Mg PO HS Analgesic Laughlin (Methyl Salicylate/Menthol) 28 Gm Oint...g. 1 Hermilo TP PRN QID PRN Milk Of Magnesia (Magnesium Hydroxide) 2,400 Mg/10 Ml Oral.susp 2,400 Mg PO PRN QHS PRN Advanced Antacid Liquid (Mag Hydrox/Al Hydrox/Simeth) 355 Ml Oral.susp 15 Ml PO PRN AFTMEALHC PRN Culturelle (Lactobacillus Rhamnosus Gg) 1 Each Capsule 1 Cap PO BID Fluconazole 100 Mg Tablet 100 Mg PO DAILY Bisacodyl 10 Mg Supp.rect 10 Mg RC PRN DAILY PRN Omeprazole 40 Mg Capsule.dr 40 Mg PO DAILY Olanzapine 10 Mg Tablet 10 Mg PO TID Megestrol Acetate 400 Mg/10 Ml Oral.susp 400 Mg PO BID Lactulose 10 Gm/15 Ml Solution 30 Ml PO BID Hold if no longer constipated [place] 5-325 Tablet (Hydrocodone Bit/Acetaminophen) 1 Each Tablet 1 Tab PO PRN Q6HRS PRN Tylenol (Acetaminophen) 325 Mg Tablet 650 Mg PO PRN Q4HRS PRN Benztropine Mesylate 1 Mg Tablet 1 Mg PO HS Suppository (Glycerin) 1 Each Supp.rect 1 Each RC PRN DAILY PRN Geodon (Ziprasidone Hcl) 40 Mg Capsule 40 Mg PO BID Sennosides-Docusate Sodium Tab (Sennosides/Docusate Sodium) 1 Each Tablet 1 Each PO BID Miralax (Polyethylene Glycol 3350) 17 Gm Powd.pack 17 Gm PO DAILY Protonix (Pantoprazole Sodium) 20 Mg Tablet.dr 20 Mg PO BID Golden 3 1,000 Mg Softgel (Golden-3 Fatty Acids/Fish Oil) 1 Each Capsule 1 Each PO DAILY Linzess (Linaclotide) 290 Mcg Capsule 290 Mcg PO HS Gabapentin 600 Mg Tablet 600 Mg PO BID Vitamin D (Cholecalciferol (Vitamin D3)) 2,000 Unit Capsule 2,000 Unit PO DAILY Buspirone Hcl 10 Mg Tablet 10 Mg PO TID Benztropine Mesylate 1 Mg Tablet 1 Mg PO TID I have reviewed the current psychotropics carefully including drug interactions. Risk benefit ratio favors no change other than as noted in my dictated progress note. Diagnosis: Problems: (1) Impulse control disorder (2) Dementia in Alzheimer's disease with delusions (3) Dementia in Alzheimer's disease with depression (4) Dementia, vascular, with delusions (5) Dementia, vascular, with depression (6) Bipolar affective, mixed, sev w/ psych (7) Anxiety disorder MIRIAM BRASWELL MD Apr 23, 2017 19:45
--- NOTE | 2017-04-23 19:47 | PN ---
DATE: 04/22/2017 This late entry 04/22/2017 covers elements not covered in my initial note 04/22/2017. Met with the patient in the evening of 04/22/2017. Earlier in the day, she choked on a piece of potato. Her diet has been changed to pureed. She continues to have some mood lability, anxiety, yelling out at times, but perhaps less than before. Cooperative with medications. Quite disorganized. REVIEW OF SYSTEMS: Ambulation impaired, in Broda chair. No CV, , pulmonary, eye, ENT system symptoms on review. Reliability poor. MENTAL STATUS EXAM: Oriented to herself. Insight, judgment, recent and remote memory, attention, concentration, fund of knowledge poor, consistent with her diagnosis mentioned in my initial note. IMPRESSION: Schizoaffective disorder, bipolar type, mixed with psychotic features. Major neurocognitive disorder, Alzheimer, vascular with depression, delusions. Rest unchanged. PLAN: We will check labs in the morning to make sure she is not getting dehydrated and then CBC, absolute neutrophil count on Monday04/24/2017. Continue psychotropics mentioned in my initial note. MAN Kathleen BRASWELL MD DR: ANAM/lay JOB#: [id number] / [id number]
[2017-04-23 21:39] LABS: % BANDS 6 % (0-9); % BASOS 1 % (0-3); % LYMPHS 3 % (24-48); % MONOS 6 % (0-10); % SEGS 84 % (35-66)
[2017-04-23 21:58] LABS: PLT ESTIMATE ADEQUATE (ADEQUATE)
--- NOTE | 2017-04-24 23:25 | DS ---
DATE OF DISCHARGE: 04/23/2017 This late entry 04/23/2017 covers elements not covered in my initial note 04/23/2017. REASON FOR ADMISSION: Please refer to the admission history for details. Briefly, the patient is a 67-year-old female referred to us from [facility] where she was an inpatient admitted after she fell running up her stairs on 02/23/2017 resulting in the right humerus fracture. During her stay at [facility], she was babbling, became nonsensical, very impulsive, disoriented, and psychotic. She has a past extensive history of schizoaffective disorder, bipolar type. Symptoms of these had been worsening together with worsening memory, having failed psychiatric interventions at a lower level of care. She was referred to us for inpatient psychiatric stabilization. SIGNIFICANT FINDINGS AND CLINICAL COURSE: Following admission, the patient was seen daily individually by myself, followed medically per Dr. Ruiz/Dr. Inman. The patient had a very challenging course during this hospitalization. Multiple attempts were made to adjust her psychotropics to help stabilize her yelling mood lability, screaming, psychotic symptoms. Review of history indicated how she had failed various antipsychotics in the past and she was started on Clozaril. Adjustments were made very carefully in a very predetermined manner and she was gradually showing some stability from a psychiatric standpoint on a combination of Clozaril 150 mg at bedtime, Geodon 60 mg b.i.d., trazodone 100 mg at bedtime, may repeat x 1 for insomnia, Zyprexa p.r.n., Trileptal was used as a mood stabilizer 600 mg b.i.d., Remeron 7.5 mg at bedtime to help with insomnia, mood and anxiety symptoms. At this stage of her hospitalization, she was having some aspiration problems and seemed to be medically somewhat more compromised with reduced oxygen sats, possible pneumonia, and was transferred to [address] [place] [address] Medical/Surgical floor by Dr. Owusu. I discussed with Dr. Owusu at some length on 04/23/2017 prior to the patient's discharge and also discussed with nursing staff on [address] [place] [address] to change her psychotropics to IM Geodon scheduled since she is unable to take any p.o. medications. CONDITION AT DISCHARGE: Medically more compromised, but psychiatrically she was showing improvement. Prior to discharge, ambulation impaired, in Broda chair. REVIEW OF SYSTEMS: No CV, , pulmonary, eye, ENT system symptoms on review. Reliability poor. MENTAL STATUS EXAM: Oriented to herself. Insight, judgment, recent memory is impaired. Language function intact. Mood and affect remains labile. FINAL DIAGNOSES: Schizoaffective disorder, bipolar type, mixed with psychotic features; major neurocognitive disorder, Alzheimer, vascular with delusion, depression; anxiety disorder, unspecified; impulse control disorder, unspecified. PLAN: Oral psychotropics were discontinued because of her aspiration risk. Rest with the meds, please refer to the [facility]. Psychiatric followup in [place], Medical followup in [facility] with [address]. Ruiz/Dr. Owusu. MAN Kathleen BRASWELL MD DR: ANAM/nts JOB#: [id number] / [id number]
== END 2017-04-23 18:40 | disposition short-term general hospital (02) | DRG 56 ==
LOC: GEROPSY 18:29
PROVIDERS: ADMIT Psychiatry & Neurology Psychiatry; ATTEND Psychiatry & Neurology Psychiatry
DX: G30.9 Alzheimer's disease, unspecified (principal); J18.9 Pneumonia, unspecified organism; E87.2 Acidosis; F01.51 Vascular dementia, unspecified severity, with behavioral disturbance; E87.1 Hypo-osmolality and hyponatremia; R13.10 Dysphagia, unspecified; E86.0 Dehydration; F02.81 Dementia in other diseases classified elsewhere, unspecified severity, with behavioral disturbance; N39.0 Urinary tract infection, site not specified; F25.0 Schizoaffective disorder, bipolar type; B37.9 Candidiasis, unspecified; E78.5 Hyperlipidemia, unspecified; E87.6 Hypokalemia; F22 Delusional disorders; F41.9 Anxiety disorder, unspecified; F63.9 Impulse disorder, unspecified; G47.00 Insomnia, unspecified; K21.9 Gastro-esophageal reflux disease without esophagitis; N18.9 Chronic kidney disease, unspecified; Z66 Do not resuscitate; Z79.899 Other long term (current) drug therapy; K59.09 Other constipation
CPT/HCPCS: 36415; 71010; 73070; 74176; 80053; 80061; 80164; 81001; 82306; 82607; 82947; 83036; 83540; 83550; 83605; 83735; 84436; 84443; 84480; 85007; 85025; 86592; 86593; 87040; 87086; 87186; 93005; J1650; 92610; 97116; 97530; J7030

== ENCOUNTER 2017-04-23 16:30 | Inpatient (IN) | payer MEDICARE, OTHER ==
[~2017-04-23] VITALS: Ht 157.5 cm; Wt 50.8 kg
[~2017-04-23 16:30] MED LIST: ACET325T9 PO; BENZ1TAB5 PO; BISA10SU2 RC; BUSP10TA PO; CHOL2000 PO; CLOZ100T7 PO; ENOX40DI SQ; FLUC100T4 PO; GABA600T2 PO; GLYC1SUP61 RC; HYDR-971 PO; LACT10SO PO; LACT1CAP21 PO; LINA290C PO; MAG355OR17 PO; MAGN2400 PO; MEGE400O4 PO; METH29OI TP; MIRT15TA3 PO; NA P133E2 RC; NYST15PO9 TP; OLAN10TA9 PO; OLAN5TAB5 PO; OMEG-33 PO; OMEP40CA5 PO; OXCA300T PO; OXYC10TA45 PO; PANT20TA58 PO; POLY17PO5 PO; SENN1TAB37 PO; TAMS0.4C2 PO; TRAZ-90 PO; ZINC57OI TP; ZIPR40CA2 PO; lidoderm AD
[2017-04-23] MEDS ORDERED: PIP/TAZO PER PHARMACY MC PRN (20:00)
[2017-04-23] MEDS ORDERED: LORazepam 2 MG/ML VIAL IV PRN (20:15)
[2017-04-23 20:26] VITALS: BP 152/98
[2017-04-23] MEDS ORDERED: LORazepam 2 MG/ML VIAL IV SCH (21:00)
[2017-04-23] MEDS ORDERED: HALOPERIDOL LACT 5 MG/ML VIAL. IM SCH (21:00)
[2017-04-23] MEDS: IPRATRPIUM/ALBUTEROL 0.5/2.5MG 3 ML NEBU. NEB SCH (21:08)
[2017-04-23] MEDS: PIPERACILLIN/TAZOBACTAM 3.375 GM in IV NORMAL SALINE 50ML 50 ML IV SCH (22:27)
[2017-04-23] MEDS: ZIPRASIDONE IM 20 MG VIAL. IM SCH (22:28)
[2017-04-23] MEDS: methylPREDNISolone SOD SUCC PF 125 MG/2 ML VIAL. IV SCH (22:28)
[2017-04-23] MEDS ORDERED: 0.9 % SODIUM CHLORIDE 10 ML DISP.SYRIN. IV PRN (23:00)
[2017-04-23] MEDS ORDERED: NOREPINEPHRINE BITARTRATE 16 MG in IV NORMAL SALINE 250ML 250 ML IV PRN (23:00)
[2017-04-23] MEDS ORDERED: IV NORMAL SALINE 500ML 500 ML IV PRN (23:00)
[2017-04-23 23:08] VITALS: BP 126/78
[2017-04-23] MEDS: IV NORMAL SALINE 1,000ML 1,000 ML IV SCH (23:30)
[2017-04-23] MEDS ORDERED: ENOXAPARIN 40 MG/0.4 ML DISP.SYRIN. SQ SCH (23:30)
[2017-04-24] MEDS: IV NORMAL SALINE 1,000ML 1,000 ML IV SCH (00:15)
[2017-04-24] MEDS: IPRATRPIUM/ALBUTEROL 0.5/2.5MG 3 ML NEBU. NEB SCH ×2 (05:00→10:59)
[2017-04-24 05:43] VITALS: BP 132/62
[2017-04-24 05:49] LABS: BASO % 0 % (0-3); EOS % 0 % (0-3); HEMATOCRIT 35.7 % (36.0-47.0); LYMPH # 0.5 x10^3/uL (1.0-4.8); LYMPH % 6 % (24-48); MEAN CORPUSCULAR HEMOGLOBIN 32 pg (25-35); MEAN CORPUSCULAR HGB CONC 34 g/dL (31-37); MEAN CORPUSCULAR VOLUME 95 fL (79-100); MONO # 0.1 x10^3/uL (0.0-1.1); MONO % 1 % (0-9); NEUT # 8.6 x10^3uL (1.8-7.7); NEUT % 93 % (31-73); PLATELET COUNT 236 x10^3/uL (140-400); RED BLOOD COUNT 3.74 x10^6/uL (3.50-5.40); WHITE BLOOD COUNT 9.3 x10^3/uL (4.0-11.0)
[2017-04-24 05:52] LABS: CALCIUM 9.3 mg/dL (8.5-10.1); GFR 55.6; POTASSIUM 3.9 mmol/L (3.5-5.1)
[2017-04-24] MEDS: PIPERACILLIN/TAZOBACTAM 3.375 GM in IV NORMAL SALINE 50ML 50 ML IV SCH (06:17)
[2017-04-24] MEDS ORDERED: ZIPRASIDONE IM 20 MG VIAL. IM SCH (09:00)
[2017-04-24] MEDS: ZIPRASIDONE IM 20 MG VIAL. IM SCH (10:05)
[2017-04-24] MEDS: methylPREDNISolone SOD SUCC PF 125 MG/2 ML VIAL. IV SCH (10:06)
[2017-04-24 10:58] VITALS: BP 153/69
[2017-04-24 11:13] VITALS: BP 153/69
--- NOTE | 2017-04-24 12:09 | SSS ---
ADMIT DATE: 04/24/2017 HISTORY OF PRESENT ILLNESS: The patient is a 67-year-old female patient, who was transferred to [address] [place] [address] yesterday evening from [facility] on account of fever and leukocytosis. Her white cell count went up to 15,500. Apparently, the patient is known to have esophageal stricture, has been dilated multiple times before and the patient was started on IV antibiotics in the form of Zosyn. She was also and was started initially on Levophed that was subsequently discontinued and a decision was made to transfer her to [facility] with a view to consult project specialist for dilatation of esophageal stricture. She also had malunion of her right distal humerus fracture and we will also consult the orthopedic surgeon to see if she is a candidate for any surgical intervention. The patient, herself does not give useful information. PAST MEDICAL HISTORY: Significant for chronic constipation, gastroesophageal reflux disease, hyperlipidemia, urinary retention, recent fall with fracture of right humerus treated conservatively. PAST SURGICAL HISTORY: Unremarkable. PAST PSYCHIATRIC HISTORY: Significant for bipolar disorder, mixed with psychotic features and schizophrenia. ALLERGIES: She is allergic to BENZODIAZEPINE, AMBIEN, REQUIP, DIPHENHYDRAMINE, ATIVAN and VALIUM. MEDICATIONS: She was n.p.o. She was kept on following medications: Lovenox 40 mg subcutaneously once a day, D5W 100 mL per hour, ziprasidone 10 mg intramuscular every 12 hour, albuterol/ipratropium bromide 3 mL 4 times a day, methylprednisolone 125 mg IV once a day, lorazepam 0.5 mg IV q.4 hourly, piperacillin/tazobactam 3.375 grams IV every 6 hours. REVIEW OF SYSTEMS: Unobtainable. PHYSICAL EXAMINATION: GENERAL: When I examined her, she was resting, slightly propped up in bed, in no apparent respiratory distress. She was pale, but no jaundice, cyanosis, or thyromegaly. No jugular venous distension. No lower limb edema. VITAL SIGNS: Her heart rate was 71, blood pressure 153/69, temperature was 98.2, respiratory rate 20, and oxygen saturation was 98% on 1 liter of oxygen. HEAD, EYES, EARS, NOSE and THROAT: Showed normocephalic, atraumatic. NECK: Supple. HEART: Showed normal first and second heart sounds with no gallop, rub or murmur. CHEST: Clear to auscultation. No crepitation or rhonchi. ABDOMEN: Distended, soft, nontender. No guarding or rigidity. No organomegaly. All hernial orifice intact. Bowel sounds normal. NEUROLOGIC: She is awake, alert, but nonverbal. All her cranial nerves are intact. She moves upper extremities to much good extent than lower extremities. She has bilateral foot drop. She is mostly bed bound. LABORATORY DATA: Her white cell count came down to 9300, hemoglobin 12, hematocrit 36, MCV 95 and platelet count 236,000. Her sodium was high at 150, potassium 3.9, chloride 117, bicarbonate 19, anion gap of 14, BUN 23, creatinine 1, estimated GFR was 55 mL per minute. Her glucose 150, lactic acid was high on admission at 2.7, down is 1.4. Serum calcium was 9.3. Her prothrombin time was 10.7, INR 1, aPTT was 28. FINAL DISCHARGE DIAGNOSES: Sepsis secondary to aspiration pneumonia with lactic acidosis and leukocytosis, resolving. Esophageal stricture requiring multiple dilatations, fracture of the right humerus with malunion. Her other medical problems include chronic constipation, gastroesophageal reflux disease, hyperlipidemia, urinary retention, marked hypernatremia. SHARA MURGUIA MD DR: MALLIKA/aly JOB#: [id number] / [id number]
== END 2017-04-24 12:00 | disposition short-term general hospital (02) | DRG 871 ==
LOC: 1 SOUTH 16:30
PROVIDERS: ADMIT Family Medicine; ATTEND Family Medicine
DX: A41.9 Sepsis, unspecified organism (principal); J69.0 Pneumonitis due to inhalation of food and vomit; E87.0 Hyperosmolality and hypernatremia; S42.401A Unspecified fracture of lower end of right humerus, initial encounter for closed fracture; W18.39XA Other fall on same level, initial encounter; E78.5 Hyperlipidemia, unspecified; F20.9 Schizophrenia, unspecified; K21.9 Gastro-esophageal reflux disease without esophagitis; K22.2 Esophageal obstruction; K59.09 Other constipation; Z88.8 Allergy status to other drugs, medicaments and biological substances; Z79.899 Other long term (current) drug therapy; F31.9 Bipolar disorder, unspecified; Y93.89 Activity, other specified; Y92.89 Other specified places as the place of occurrence of the external cause; Y99.8 Other external cause status
CPT/HCPCS: 36415; 80048; 83605; 85025; 85610; 85730; 94640; J1650; J2060; J2543; J2930; J3486; J7620; J7030